=== PATIENT | male | born 1955 | race Caucasian/White ===

== ENCOUNTER 2018-10-09 14:55 | Emergency (ER) | payer MEDICARE, OTHER ==
[2018-10-09 15:26] VITALS: RESP 18; TEMP 97.9
[2018-10-09] MEDS ORDERED: diphenhydrAMINE 50 MG/ML 1 ML VIAL IM STA (15:51)
[2018-10-09] MEDS ORDERED: methylPREDNISolone SOD SUCCI 125 MG/2 ML VIAL IM ONE (15:51)
--- NOTE | 2018-10-09 16:09 | ED ---
General Adult HPI - General Chief complaint: Allergic Reaction Stated complaint: hives Time Seen by Provider: 10/09/18 15:28 Source: patient, RN notes reviewed Mode of arrival: ambulatory Limitations: no limitations - History of Present Illness Initial comments: 63-year-old male with a past medical history of COPD presents to the emergency department for a chief complaint of rash times one month. Patient states the rash is on the bilateral wrists as well as inferior hairline. Patient states he also develops hives. Patient states this is very pruritic. Patient states this has happened before in the past. He states he is certain it is an ALLERGIC reaction. He states he has been seen here before for this and given 2 shots which completely resolved the rash. Patient states he would like to try these 2 shots again. 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 He denies any fevers or chills. Patient denies any other contacts with a similar rash. Patient has no other complaints at this time including shortness of breath, chest pain, abdominal pain, nausea or vomiting, headache, or visual changes. - Related Data Home Medications Medication Instructions Recorded Confirmed Hydrocodone/Acetaminophen 1 tab PO QID PRN 04/07/16 04/07/16 [Hydrocodon-Acetaminophn 10-325] Previous Rx's Medication Instructions Recorded Cephalexin [Keflex] 500 mg PO Q6HR #40 cap 04/07/16 Polymyxin B-Trimeth Sulf Ophth 2 drops RIGHT EYE Q4H 5 Days 04/07/16 [Polytrim Opthalmic] Allergies Allergy/AdvReac Type Severity Reaction Status Date / Time Tetracyclines Allergy Rash/Hives Verified 10/09/18 15:26 Review of Systems ROS Statement: Those systems with pertinent positive or pertinent negative responses have been documented in the HPI. ROS Other: All systems not noted in ROS Statement are negative. Past Medical History Past Medical History: COPD History of Any Multi-Drug Resistant Organisms: None Reported Past Surgical History: Orthopedic Surgery Past Psychological History: No Psychological Hx Reported Smoking Status: Current every day smoker Past Alcohol Use History: Occasional Past Drug Use History: None Reported General Exam Limitations: no limitations General appearance: alert, in no apparent distress Head exam: Present: atraumatic, normocephalic, normal inspection Eye exam: Present: normal appearance, PERRL, EOMI. Absent: scleral icterus, conjunctival injection, periorbital swelling ENT exam: Present: normal exam, mucous membranes moist Neck exam: Present: normal inspection, full ROM, other (Patient does have small erythematous 1 mm circular macular rash noted to the posterior inferior hairline ). Absent: tenderness, meningismus, lymphadenopathy Respiratory exam: Present: normal lung sounds bilaterally. Absent: respiratory distress, wheezes, rales, rhonchi, stridor Cardiovascular Exam: Present: regular rate, normal rhythm, normal heart sounds. Absent: systolic murmur, diastolic murmur, rubs, gallop, clicks Extremities exam: Present: other (Patient has small erythematous macular 1 mm lesions noted to the bilateral dorsal wrists as well as hands. These are blanching.) Psychiatric exam: Present: normal affect, normal mood Skin exam: Present: warm, dry, intact, normal color. Absent: rash Course Vital Signs 10/09/18 15:23 Temperature 97.9 F Pulse Rate 88 Respiratory 18 Rate Blood Pressure 154/88 O2 Sat by Pulse 94 L Oximetry Medical Decision Making - Medical Decision Making 63-year-old male presents to the emergency department for chief complaint of rash. Patient states this has been ongoing for 1 month. Vitals are within acceptable limits, patient afebrile. Pulse ox 94% likely secondary to COPD. patient states the rash is very pruritic. On exam patient is erythematous macular 1 mm lesions noted to bilateral wrists and hands as well as posterior inferior hairline. Patient states these look hive-like from time to time. Discussed the patient that this could be a scabies rash or other etiology but he insisted is ALLERGIC and he had 2 shots previously here which completely resolved the rash. I did look at what the shots were and it was Solu-Medrol and Benadryl. Patient will be given these shots. However I did discuss following up with dermatology as well as primary care for reevaluation. Discussed returning if symptoms do not resolve or worsen. Patient agrees with this plan of care. Disposition Clinical Impression: Rash Disposition: HOME SELF-CARE Condition: Good Instructions: General Allergic Reaction (ED), Acute Rash (ED) Additional Instructions: Please follow up with primary care or dermatology in 1-2 days. Return to the emergency department if you have any worsening symptoms. Is patient prescribed a controlled substance at d/c from ED?: No Referrals: Hong Velez MD [Primary Care Provider] - 1-2 days Jana Guerrero MD [STAFF PHYSICIAN] - 1-2 days Colt Guerrero MD [STAFF PHYSICIAN] - 1-2 days Time of Disposition: 16:08
[2018-10-09 16:28] VITALS: BP 142/79; PULSE 95
== END 2018-10-09 16:26 | disposition home or self-care (01) ==
LOC: EC 14:55
DX: R21 Rash and other nonspecific skin eruption (principal); F17.200 Nicotine dependence, unspecified, uncomplicated; Z98.890 Other specified postprocedural states; Z79.899 Other long term (current) drug therapy; Z88.1 Allergy status to other antibiotic agents
CPT/HCPCS: 99282; 96372 ×2; J1200; J2930

== ENCOUNTER 2019-09-25 13:01 | Emergency (ER) | payer MEDICARE, OTHER ==
[2019-09-25] MEDS ORDERED: ACETAMINOPHEN TAB 500 MG TAB PO STA (13:54)
[2019-09-25] MEDS ORDERED: KETOROLAC 60 MG/2 ML VIAL IM STA (13:54)
--- NOTE | 2019-09-25 13:59 | ED ---
General Adult HPI - General Chief complaint: Upper Respiratory Infection Stated complaint: body aches Time Seen by Provider: 09/25/19 13:05 Source: patient, RN notes reviewed, old records reviewed Mode of arrival: ambulatory Limitations: no limitations - History of Present Illness Initial comments: This is a 64-year-old male who presents emergency Department complaining of body aches chills he thinks he's had a fever and his have a cough especially at night. Patient denies any shortness of breath per patient denies chest pain patient denies any palpitations. Patient states he has not taken his temperature. Patient denies getting a flu shot. Patient denies any nausea vomiting diarrhea. Patient does not know of anyone has had flu that he's been around. Patient denies any leg swelling or calf tenderness. - Related Data Home Medications Medication Instructions Recorded Confirmed Hydrocodone/Acetaminophen 1 tab PO QID PRN 04/07/16 04/07/16 [Hydrocodon-Acetaminophn 10-325] Previous Rx's Medication Instructions Recorded Cephalexin [Keflex] 500 mg PO Q6HR #40 cap 04/07/16 Polymyxin B-Trimeth Sulf Ophth 2 drops RIGHT EYE Q4H 5 Days 04/07/16 [Polytrim Opthalmic] Allergies Allergy/AdvReac Type Severity Reaction Status Date / Time Tetracyclines Allergy Rash/Hives Verified 09/25/19 13:08 Review of Systems ROS Statement: Those systems with pertinent positive or pertinent negative responses have been documented in the HPI. ROS Other: All systems not noted in ROS Statement are negative. Past Medical History Past Medical History: COPD History of Any Multi-Drug Resistant Organisms: None Reported Past Surgical History: Orthopedic Surgery Past Psychological History: No Psychological Hx Reported Smoking Status: Current every day smoker Past Alcohol Use History: Occasional Past Drug Use History: None Reported General Exam - General Exam Comments Initial Comments: GENERAL: Patient is well-developed and well-nourished. Patient is nontoxic and well- hydrated and is in mild distress. ENT: Neck is soft and supple. No significant lymphadenopathy is noted. Oropharynx is clear. Moist mucous membranes. Neck has full range of motion without eliciting any pain. EYES: The sclera were anicteric and conjunctiva were pink and moist. Extraocular movements were intact and pupils were equal round and reactive to light. Eyelids were unremarkable. PULMONARY: Unlabored respirations. Good breath sounds bilaterally. No audible rales rhonchi or wheezing was noted. CARDIOVASCULAR: There is a regular rate and rhythm without any murmurs gallops or rubs. ABDOMEN: Soft and nontender with normal bowel sounds. SKIN: Skin is clear with no lesions or rashes and otherwise unremarkable. NEUROLOGIC: Patient is alert and oriented x3. Cranial nerves II through XII are grossly intact. Motor and sensory are also intact. Normal speech, volume and content. Symmetrical smile. MUSCULOSKELETAL: Normal extremities with adequate strength and full range of motion. LYMPHATICS: No significant lymphadenopathy is noted PSYCHIATRIC: Normal psychiatric evaluation. Limitations: no limitations Course Vital Signs 09/25/19 09/25/19 09/25/19 13:06 13:22 14:11 Temperature 97.2 F L Pulse Rate 98 Respiratory 20 22 18 Rate Blood Pressure 110/76 O2 Sat by Pulse 96 Oximetry Medical Decision Making - Medical Decision Making Patient's symptoms for greater than 3 days so no Tamiflu be given. - Lab Data Lab Results 09/25/19 Range/Units 13:54 Influenza Type A RNA Not Detected (Not Detectd) Influenza Type B (PCR) Detected H (Not Detectd) Disposition Clinical Impression: Influenza Disposition: HOME SELF-CARE Condition: Good Instructions (If sedation given, give patient instructions): Influenza (ED) Is patient prescribed a controlled substance at d/c from ED?: No Referrals: Hong Velez MD [Primary Care Provider] - 1-2 days Time of Disposition: 14:56
[2019-09-25 14:12] VITALS: RESP 18
--- NOTE | 2019-09-25 14:41 | XR ---
EXAMINATION TYPE: XR chest 2V DATE OF EXAM: 09/25/2019 COMPARISON: 06/23/2015 HISTORY: Difficulty breathing TECHNIQUE: FINDINGS: There is no heart failure nor confluent pneumonic infiltrate. Costophrenic angles are clear . Thoracic aorta is atheromatous. Bony thorax is intact IMPRESSION: No active cardiopulmonary disease. Normal heart. No change.
[2019-09-25 15:01] VITALS: BP 117/65; PULSE 91; TEMP 98.3
[2019-09-25 15:01] LABS: Amorphous Sediment,Urine Rare /hpf; Appearance,Urine Cloudy (Clear); Bacteria,Urine Rare /hpf; Bilirubin,Urine Negative (Negative); Blood,Urine Trace (Negative); Color,Urine Dark Yellow; Glucose,Urine (UA) Negative (Negative); Hyaline Casts,Urine 377 /lpf (0-2); Ketones,Urine Negative (Negative); Leukocyte Esterase,Urine Negative (Negative); Mucus,Urine Moderate /hpf; Nitrite,Urine Negative (Negative); PH, Urine 5.5 (5.0-8.0); Protein,Urine 2+ (Negative); RBC,Urine 4 /hpf (0-5); Specific Gravity,Urine 1.024 (1.001-1.035); Squamous Epithelial Cell,Urine 4 /hpf (0-4); WBC,Urine 21 /hpf (0-5)
== END 2019-09-25 15:00 | disposition home or self-care (01) ==
LOC: EC 13:01
DX: J10.1 Influenza due to other identified influenza virus with other respiratory manifestations (principal); F17.200 Nicotine dependence, unspecified, uncomplicated; Z87.09 Personal history of other diseases of the respiratory system; Z88.1 Allergy status to other antibiotic agents
CPT/HCPCS: 81001; 87086; 87502; 71046; 99284; 96372; J1885

== ENCOUNTER → 2020-08-19 | Outpatient (CLI) | payer MEDICARE, OTHER ==
--- NOTE | 2020-08-20 17:08 | CT ---
EXAMINATION TYPE: CT angio lower extremity BILAT DATE OF EXAM: 08/19/2020 4:23 PM COMPARISON: None HISTORY: Peripheral arterial disease. Left foot pain and swelling. History of surgery to aorta and le gs June 2020. CT DLP: 1438.1 mGycm Automated exposure control for dose reduction was used. TECHNIQUE: CT angiography of the bilateral lower extremities performed with IV Contrast, patient injected with 1 00 mL of Isovue 370. Sagittal and coronal reformatted images obtained. Three-dimensional images obtained and utilized on a separate workstation. FINDINGS: VASCULAR: Right lower extremity: Incomplete visualization of the right internal and external iliac arteries, which are opacified. Ther e is scattered calcified and noncalcified atherosclerotic disease. There is a short segment focal dis section versus web of the right proximal to mid superficial femoral artery (14:70, 7:41), with good c ontrast opacification on either side. No hemodynamically significant stenosis of greater than 50% of the right lower extremity. There is three-vessel runoff to the right foot. Left lower extremity: Incomplete visualization of the left internal and external iliac arteries, whic h are opacified. There is an incompletely visualized left external iliac arterial stent graft which d oes appear opacified. There is scattered calcified and noncalcified atherosclerotic disease. There is approximately 60% stenosis of the mid left superficial femoral artery, which spans approximately 1.0 cm craniocaudal (13:23). There is three-vessel runoff to the left foot. NONVASCULAR: Colonic diverticulosis is seen. Urinary bladder normal. Small fat-containing bilateral inguinal herni as. No pelvic free fluid. 2.3 cm fluid dense collection of the right groin anterior to the right comm on femoral artery may represent postoperative hematoma/seroma. There is subcutaneous edema of the piper ateral lower legs, left greater than right. There is marked left ankle and foot soft tissue swelling. Motion artifact through the level of the distal feet. Degenerative changes of the feet, knees, and h ips. Decreased osseous mineralization. IMPRESSION: 1. Incompletely visualized left external iliac stent graft, which appears opacified. 2. 60% stenosis of the left mid superficial femoral artery. 3. Short focal dissection versus web of the right proximal to mid superficial femoral artery. 4. Three-vessel runoff to the bilateral feet. 5. Marked left ankle and foot soft tissue swelling.
== END | disposition home or self-care (01) ==
LOC: RADCTMAIN 14:40
PROVIDERS: ATTEND Family Medicine
DX: I70.202 Unspecified atherosclerosis of native arteries of extremities, left leg (principal); Z95.828 Presence of other vascular implants and grafts
CPT/HCPCS: 82565; 84520; 36415; 73706; Q9967

== ENCOUNTER 2020-08-20 15:08 | Emergency (ER) | payer MEDICARE, OTHER ==
[2020-08-20 15:32] VITALS: BP 166/88; PULSE 96; RESP 18; TEMP 97.9
[2020-08-20] MEDS ORDERED: ONDANSETRON 4 MG/2 ML VIAL IVP STA (16:08)
[2020-08-20] MEDS ORDERED: HYDROmorphone 1 MG/ML 1 ML SYRINGE IVP STA ×2 (16:08→17:21)
--- NOTE | 2020-08-20 17:59 | US ---
EXAMINATION TYPE: US venous doppler duplex LE LT DATE OF EXAM: 08/20/2020 5:44 PM COMPARISON: NONE CLINICAL HISTORY: Left leg swelling, recent vascular surgery. Left foot swelling, patient on blood th inners. SIDE PERFORMED: Left TECHNIQUE: The lower extremity deep venous system is examined utilizing real time linear array sonog kurtis with graded compression, doppler sonography and color-flow sonography. VESSELS IMAGED: Common Femoral Vein Deep Femoral Vein Greater Saphenous Vein * Femoral Vein Popliteal Vein Small Saphenous Vein * Proximal Calf Veins (* superficial vessels) Left Leg: Appears negative for DVT IMPRESSION: No evidence of deep vein thrombosis in the left leg.
--- NOTE | 2020-08-20 18:44 | ED ---
Extremity Problem HPI - General Chief complaint: Extremity Problem,Nontraumatic Stated complaint: foot swelling/infection Time Seen by Provider: 08/20/20 15:45 Source: patient Mode of arrival: ambulatory Limitations: no limitations - History of Present Illness Initial comments: 65-year-old male patient presents to the emergency department today for evalu ation of left foot swelling and pain. Patient states that he had arterial stents placed to the left leg recently. States he has been having the swelling to the area since then he has also had discoloration to the left great toe, he states his physician and informed him that if this does not improve that he will need to have amputation. Patient states that he does not like his vascular surgeon out of [facility] and does not plan on going back to see him. The patient states that he has been taking [place] and oxycodone for his pain with minimal relief. He denies any fever or chills. States he did have an outpatient CAT scan of his legs yesterday he has not heard the results on this yet. Patient denies any recent rash, cough, shortness of breath, chest pain, abdominal pain, nausea, vomiting, diarrhea, constipation, back pain, numbness, tingling, dizziness, weakness, hematuria, dysuria, urinary urgency, urinary frequency, headache, visual changes, or any other complaints. - Related Data Home Medications Medication Instructions Recorded Confirmed Hydrocodone/Acetaminophen 1 tab PO Q6H PRN 04/07/16 08/20/20 [Hydrocodon-Acetaminophn 10-325] Albuterol Sulfate [Ventolin HFA] 1 - 2 puff INHALATION RT-Q6H PRN 08/20/20 08/20/20 Apixaban [Eliquis Starter Pack See Taper PO DAILY 08/20/20 08/20/20 (for VTE)] Budesonide [Pulmicort] 0.5 mg INHALATION RT-BID 08/20/20 08/20/20 Ipratropium-Albuterol Nebulize 3 ml INHALATION RT-QID PRN 08/20/20 08/20/20 [Duoneb 0.5 mg-3 mg/3 ml Soln] Montelukast [Singulair] 10 mg PO DAILY 08/20/20 08/20/20 amLODIPine [Norvasc] 10 mg PO DAILY 08/20/20 08/20/20 Previous Rx's Medication Instructions Recorded HYDROcodone/APAP 7.5-325MG [[place] 1 tab PO Q6HR PRN 3 Days #12 tab 08/20/20 7.5-325] Allergies Allergy/AdvReac Type Severity Reaction Status Date / Time Tetracyclines Allergy Rash/Hives Verified 08/20/20 17:11 Review of Systems ROS Statement: Those systems with pertinent positive or pertinent negative responses have been documented in the HPI. ROS Other: All systems not noted in ROS Statement are negative. Past Medical History Past Medical History: COPD History of Any Multi-Drug Resistant Organisms: None Reported Past Surgical History: Orthopedic Surgery Additional Past Surgical History / Comment(s): sents placed- unsure where Past Psychological History: No Psychological Hx Reported Smoking Status: Current every day smoker Past Alcohol Use History: Occasional Past Drug Use History: None Reported General Exam Limitations: no limitations General appearance: alert, in no apparent distress, other ENT exam: Present: normal exam, normal oropharynx, mucous membranes moist Respiratory exam: Present: normal lung sounds bilaterally. Absent: respiratory distress, wheezes, rales, rhonchi, stridor Cardiovascular Exam: Present: regular rate, normal rhythm, normal heart sounds. Absent: systolic murmur, diastolic murmur, rubs, gallop, clicks GI/Abdominal exam: Present: soft, normal bowel sounds. Absent: distended, tenderness, guarding, rebound, rigid Extremities exam: Present: full ROM, normal capillary refill, pedal edema (There is 3+ pitting pedal edema to the left foot. There is black discoloration noted to the left great toe, suspect to touch. Pedal pulses found by Doppler. Into the leg is pink, warm, dry.). Absent: normal inspection, tenderness, joint swelling, calf tenderness Neurological exam: Present: alert, oriented X3, CN II-XII intact Psychiatric exam: Present: normal affect, normal mood Skin exam: Present: warm, dry, intact, normal color. Absent: rash Course Vital Signs 08/20/20 15:29 Temperature 97.9 F Pulse Rate 96 Respiratory 18 Rate Blood Pressure 166/88 O2 Sat by Pulse 98 Oximetry Medical Decision Making - Medical Decision Making 65-year-old male patient presented to the emergency department today for evaluation of left foot swelling and pain. Physical examination did reveal 3+ pitting edema to the left foot. This was found with Doppler. He also had black discoloration noted to the left great toe is cool to touch. Patient states that these symptoms have been present since having a vascular procedure with his physician and referred, he cannot recall their name. He states that they did discuss amputating the toe but he does not want to follow-up with that doctor any longer. I did review CT angiography of the lower extremities that was performed outpatient yesterday, this does show three-vessel runoff to the bilateral lower extremities. Ultrasound of the left leg was obtained to rule out DVT this was negative as well. Patient's pain was controlled with IV pain medication here in the department. I did discuss follow-up with vascular surgery again he refuses to follow-up with his surgeon that recently did his procedure so he was given outpatient follow-up with our on-call vascular specialist Dr. Woodard. Patient does agree with this plan. Return parameters were discussed in detail. - Radiology Data Radiology results: report reviewed Ultrasound of the left lower extremity was obtained. Report was reviewed in its entirety. Impression by Dr. Amaro shows no evidence of deep vein thrombosis in the left leg. CT angiography of the bilateral lower extremities is obtained, ordered by his primary care physician Dr. Velez. Did review the report in its entirety. Impression by Dr. Templeton shows incompletely visualized left external iliac stent graft, which appears opacified. 60% stenosis of the left mid superficial femoral artery. A short focal dissection versus web of the right proximal to mid superficial femoral artery. Three-vessel runoff of the bilateral feet. Markedly left ankle and foot soft tissue swelling. Disposition Clinical Impression: Swelling of left foot, Peripheral vascular disease Disposition: HOME SELF-CARE Condition: Good Instructions (If sedation given, give patient instructions): Leg Edema (ED), Leg Pain (ED) Additional Instructions: Take medication as directed. Call vascular surgery to see if they are willing to take ovary her case if not you must follow-up with your vascular surgeon at [facility]. Follow-up with your primary care physician for recheck in 1-2 days. Return to the emergency department immediately for any new, worsening, or concerning symptoms. Prescriptions: HYDROcodone/APAP 7.5-325MG [[place] 7.5-325] 1 tab PO Q6HR PRN 3 Days #12 tab PRN Reason: Pain Is patient prescribed a controlled substance at d/c from ED?: Yes When asked, does pt state using other controlled substances?: No If prescribed controlled substance>3 days was MAPS reviewed?: Prescribed <3 Days If opioid is for acute pain is fill amount 7 days or less?: Yes If Rx opioid, was Start Talking consent form obtained?: Yes Referrals: Hong Velez MD [Primary Care Provider] - 1-2 days Evens Woodard DO [Doctor of Osteopathic Medicine] - 1-2 days Time of Disposition: 18:44
== END 2020-08-20 19:11 | disposition home or self-care (01) ==
LOC: EC 15:08
DX: I73.9 Peripheral vascular disease, unspecified (principal); R22.42 Localized swelling, mass and lump, left lower limb; J44.9 Chronic obstructive pulmonary disease, unspecified; Z79.51 Long term (current) use of inhaled steroids; F17.200 Nicotine dependence, unspecified, uncomplicated; Z88.1 Allergy status to other antibiotic agents
CPT/HCPCS: 93971; 99284; 96374; 96375; 96376; J2405; J1170

== ENCOUNTER 2020-09-11 06:26 | Day surgery (SDC) | payer MEDICARE, OTHER ==
[2020-09-09 08:35] VITALS: BMI 25.4
[~2020-09-11 06:26] MED LIST: SODIUM CHLORIDE 0.9% 1,000 ML in EMPTY BAG 1 BAG IV ONE
[2020-09-11] MEDS ORDERED: SODIUM CHLORIDE 0.9% 1,000 ML IV ONE (06:43)
[2020-09-11 06:58] VITALS: RESP 16; TEMP 98.3
[2020-09-11 07:11] LABS: Basophils # (A) 0.1 k/uL (0-0.2); Basophils % (A) 1 %; Eosinophils # (A) 0.7 k/uL (0-0.7); Eosinophils % (A) 5 %; HCT 40.6 % (39.0-53.0); Lymphocytes % (A) 16 %; MCH 28.2 pg (25.0-35.0); MCHC 32.1 g/dL (31.0-37.0); MCV 88.1 fL (80.0-100.0); Mean Platelet Volume 7.7; Monocytes % (A) 8 %; Neutrophils % (A) 68 %; Platelet Count 421 k/uL (150-450); RBC 4.61 m/uL (4.30-5.90); RDW 15.4 % (11.5-15.5); WBC 13.2 k/uL (3.8-10.6)
[2020-09-11 07:12] LABS: Calcium 9.4 mg/dL (8.4-10.2); Potassium 4.5 mmol/L (3.5-5.1)
[2020-09-11] MEDS: MIDAZOLAM 2 MG/2 ML VIAL IVP ONE ×2 (07:55→08:03)
[2020-09-11] MEDS ORDERED: fentaNYL (PF) 50 MCG/ML 2 ML AMP IVP ONE (07:55)
[2020-09-11] MEDS ORDERED: LIDOCAINE 1% INJ 10MG/ML (20 ML MDV) SQ ONE (08:01)
[2020-09-11] MEDS: HYDROmorphone 1 MG/ML 1 ML SYRINGE IVP ONE ×2 (08:01→08:29)
[2020-09-11] MEDS ORDERED: IOPAMIDOL-250 100ML BTL INTRAARTER ONE (08:21)
[2020-09-11] MEDS ORDERED: HYDROmorphone 1 MG/ML 1 ML SYRINGE IVP STA (08:29)
[2020-09-11] MEDS ORDERED: HYDROmorphone 1 MG/ML 1 ML SYRINGE ONE (08:30)
[2020-09-11] MEDS ORDERED: SODIUM CHLORIDE 0.9% 1,000 ML IV SCH ×2 (08:30)
[2020-09-11] MEDS ORDERED: hydrALAZINE HCL 20 MG/ML 1 ML VIAL IVP STA (08:37)
[2020-09-11] MEDS ORDERED: hydrALAZINE HCL 20 MG/ML 1 ML VIAL ONE (08:38)
--- NOTE | 2020-09-11 08:42 | IR ---
EXAMINATION TYPE: IR angio extremity LT DATE OF EXAM: 09/11/2020 CLINICAL HISTORY: Left-sided peripheral vascular disease. TECHNIQUE: Fluoroscopy. COMPARISON: None. FINDINGS: Fluoroscopic guidance was provided during left lower extremity angiogram procedure perform ed by Dr. Rizo. A total of 66 seconds of fluoroscopic time was utilized during the procedure and 81 spot images was acquired. Images show access left groin region with runoff, significant stenosis mid left superficial artery noted. Please refer to procedure note for further details. IMPRESSION: As Above.
--- NOTE | 2020-09-11 09:45 | AN ---
ANGIOGRAPHY REPORT DATE OF SERVICE: 09/11/2020 PERFORMING PHYSICIAN: Judah Rizo MD. PROCEDURE PERFORMED: Left lower extremity angiogram. INDICATION: Critical limb ischemia in this 65-year-old gentleman with peripheral arterial disease and recent history of aortic stent graft and iliac stenting. COMPLICATION: None. LEVEL OF SEDATION: Moderate with sedation length of 13 minutes. APPROACH: Left common femoral artery. PROCEDURE DESCRIPTION: After obtaining an informed consent, the patient was brought to cardiac laborer poultry hatchery. The left common femoral artery was cannulated using micropuncture technique under ultrasound guidance, the micropuncture wire passed easily, then I placed a 4-[place] micropuncture sheath. I did leave lower extremity angiogram Under digital subtraction. The procedure was completed without any complication. SELECTIVE PERIPHERAL ANGIOGRAM: 1. The left common femoral artery appeared to have mild disease only. 2. Left profunda appeared to be patent. 3. Left SFA has a lesion in the midportion appeared to be in the range of 99.9%. 4. Left popliteal appeared to be angiographically normal. 5. Below the knee: There are 3 vessel runoff below the knee with anterior tibial, posterior tibial and peroneal. CONCLUSION: Critical disease involving the mid left SFA. POSTPROCEDURE MANAGEMENT: Atherectomy and CT MANAGER of the left SFA to be performed from the pedal approach. MMODL / IJN: [id number] /
[2020-09-11] MEDS ORDERED: HYDROcodone/APAP 10-325MG 1 EACH TAB PO ONE (11:05)
[2020-09-11 12:18] VITALS: BP 136/82; PULSE 87
== END 2020-09-11 12:59 | disposition home or self-care (01) ==
LOC: CATHCVL 06:26
PROVIDERS: ATTEND Internal Medicine Interventional Cardiology
DX: I70.222 Atherosclerosis of native arteries of extremities with rest pain, left leg (principal); L53.8 Other specified erythematous conditions; E78.5 Hyperlipidemia, unspecified; F17.210 Nicotine dependence, cigarettes, uncomplicated; I71.4 Abdominal aortic aneurysm, without rupture; Z95.820 Peripheral vascular angioplasty status with implants and grafts; Z79.02 Long term (current) use of antithrombotics/antiplatelets; Z79.899 Other long term (current) drug therapy; Z79.01 Long term (current) use of anticoagulants
CPT/HCPCS: 75710; 76937; 80048; 85025; C1769 ×4; J2250; J0360; J2001; J3010; J1170; Q9966; 36200

== ENCOUNTER 2020-09-14 15:55 | Emergency (ER) | payer MEDICARE, OTHER ==
[2020-09-14 16:00] VITALS: BP 161/73; PULSE 107; RESP 18; TEMP 98
[2020-09-14] MEDS ORDERED: LIDOCAINE 1%-EPI 1:100,000 20 ML VIAL SQ STA (16:20)
--- NOTE | 2020-09-14 16:24 | ED ---
General Adult HPI - General Chief complaint: Dental/Oral Stated complaint: tongue bleeding Time Seen by Provider: 09/14/20 16:08 Source: patient Mode of arrival: ambulatory Limitations: no limitations - History of Present Illness Initial comments: 65-year-old male patient presents to the emergency department today for evaluation of uncontrolled bleeding to his tongue. Patient states that approximately 4 hours ago he must have bit it because the tip started bleeding and he has been unable to get it to stop. States he has applied ice cubes and pressure without relief. He does take Eliquis. Denies any dizziness or weakness. Denies syncope. - Related Data Home Medications Medication Instructions Recorded Confirmed Hydrocodone/Acetaminophen 1 tab PO Q6H PRN 04/07/16 09/11/20 [Hydrocodone-Acetamin 10-325 mg] Albuterol Sulfate [Ventolin HFA] 1 - 2 puff INHALATION RT-Q6H PRN 08/20/20 09/11/20 Ipratropium-Albuterol Nebulize 3 ml INHALATION RT-QID PRN 08/20/20 09/11/20 [Duoneb 0.5 mg-3 mg/3 ml Soln] Montelukast [Singulair] 10 mg PO DAILY 08/20/20 09/11/20 amLODIPine [Norvasc] 10 mg PO DAILY 08/20/20 09/11/20 Apixaban [Eliquis] 5 mg PO BID 09/09/20 09/09/20 Aspirin [Adult Low Dose Aspirin EC] 81 mg PO DAILY 09/09/20 09/11/20 Clopidogrel Bisulfate [Plavix] 75 mg PO DAILY 09/09/20 09/11/20 Allergies Allergy/AdvReac Type Severity Reaction Status Date / Time Tetracyclines Allergy Unknown Verified 09/14/20 15:58 Childhood Review of Systems ROS Statement: Those systems with pertinent positive or pertinent negative responses have been documented in the HPI. ROS Other: All systems not noted in ROS Statement are negative. Past Medical History Past Medical History: COPD, Hypertension, Vascular Disorder Additional Past Medical History / Comment(s): edema left lower leg and foot, uses oxygen PRN History of Any Multi-Drug Resistant Organisms: None Reported Past Surgical History: Hernia Repair, Orthopedic Surgery Additional Past Surgical History / Comment(s): stents placed- unsure where, rt shoulder rotator cuff, 07/23/20 surgery in [place] for leg blockages Past Anesthesia/Blood Transfusion Reactions: No Reported Reaction Past Psychological History: No Psychological Hx Reported Smoking Status: Current every day smoker Past Alcohol Use History: None Reported Past Drug Use History: None Reported - Past Family History Mother Family Medical History: Cancer Father Family Medical History: Cancer General Exam Limitations: no limitations General appearance: alert, in no apparent distress, other (Physical well- developed, well-nourished adult male patient in no acute distress. Vital signs upon presentation are temperature 98.0F, pulse 107, respirations 18, blood pressure 161/73, pulse ox 94% on room air.) ENT exam: Present: other (There is pinpoint area of bleeding to the tip of the tongue. No other injury or bleeding noted. No laceration.) Respiratory exam: Present: normal lung sounds bilaterally. Absent: respiratory distress, wheezes, rales, rhonchi, stridor Cardiovascular Exam: Present: normal rhythm, tachycardia, normal heart sounds. Absent: systolic murmur, diastolic murmur, rubs, gallop, clicks Neurological exam: Present: alert, oriented X3, CN II-XII intact Psychiatric exam: Present: normal affect, normal mood Skin exam: Present: warm, dry, intact, normal color. Absent: rash Course Vital Signs 09/14/20 15:58 Temperature 98 F Pulse Rate 107 H Respiratory 18 Rate Blood Pressure 161/73 O2 Sat by Pulse 94 L Oximetry Medical Decision Making - Medical Decision Making 65-year-old male patient presented to the emergency department today for evaluation of bleeding tongue. Patient states he must have bit his tongue has been unable to get it stopped waiting for the last 4 hours. Physical examination did reveal a pinpoint area of bleeding to the tip of the tongue. I did inject the area with a small amount of lidocaine with epi less than half a milliliter. Did hold pressure after this. Patient did tolerate this with some pain from the injection. Upon reevaluation there is no further bleeding noted to the tongue. He'll be discharged to follow up with his primary care physician for recheck in 1-2 days. Return parameters were discussed in detail. He verbalizes understanding and agrees with this plan. Disposition Clinical Impression: Bleeding from wound Disposition: HOME SELF-CARE Condition: Good Instructions (If sedation given, give patient instructions): Safe Use of Anticoagulants (ED) Additional Instructions: If bleeding starts again hold pressure for at least 20 minutes without taking pressure off. If the bleeding continues return to the emergency department. Follow up through primary care physician for recheck in 1-2 days. Return to the emergency department for any new, worsening, or concerning symptoms. Is patient prescribed a controlled substance at d/c from ED?: No Referrals: Hong Velez MD [Primary Care Provider] - 1-2 days Time of Disposition: 17:04
== END 2020-09-14 17:16 | disposition home or self-care (01) ==
LOC: EC 15:55
DX: T14.8XXA Other injury of unspecified body region, initial encounter (principal); J44.9 Chronic obstructive pulmonary disease, unspecified; I10 Essential (primary) hypertension; F17.200 Nicotine dependence, unspecified, uncomplicated; Z79.01 Long term (current) use of anticoagulants; Z79.82 Long term (current) use of aspirin; Z79.02 Long term (current) use of antithrombotics/antiplatelets; Z79.51 Long term (current) use of inhaled steroids; Z79.899 Other long term (current) drug therapy; Z88.1 Allergy status to other antibiotic agents; X58.XXXA Exposure to other specified factors, initial encounter
CPT/HCPCS: 96372; 99283

== ENCOUNTER 2020-09-17 11:23 | Day surgery (SDC) | payer MEDICARE, OTHER ==
[2020-09-15 18:28] VITALS: BMI 25.4
[~2020-09-17 11:23] MED LIST changes: +ALPRAZolam 0.25 MG TAB PO PRN; +ASPIRIN 325 MG TAB PO PRN; +DEXAMETHASONE SOD PHOSPHATE 4 MG/ML 1 ML VIAL IV ONE; +HYDROmorphone 0.5 MG/0.5 ML SYRINGE IVP PRN; +LIDOCAINE 1% (10MG/ML) FOR IV START INTRADERMA PRN; +MIDAZOLAM 2 MG/2 ML VIAL IV PRN; +ZOLPIDEM 5 MG TAB PO PRN
[2020-09-17] MEDS ORDERED: SODIUM CHLORIDE 0.9% 1,000 ML IV ONE (11:28)
[2020-09-17] MEDS ORDERED: ASPIRIN 81 MG ONE (11:39)
[2020-09-17] MEDS ORDERED: HYDROmorphone 1 MG/ML 1 ML SYRINGE IVP STA (11:51)
[2020-09-17 11:58] LABS: Basophils # (A) 0.1 k/uL (0-0.2); Basophils % (A) 1 %; Eosinophils # (A) 0.7 k/uL (0-0.7); Eosinophils % (A) 5 %; HCT 39.1 % (39.0-53.0); HGB 12.6 gm/dL (13.0-17.5); Lymphocytes # (A) 2.4 k/uL (1.0-4.8); Lymphocytes % (A) 18 %; MCH 27.7 pg (25.0-35.0); MCHC 32.2 g/dL (31.0-37.0); MCV 86.2 fL (80.0-100.0); Mean Platelet Volume 7.8; Monocytes % (A) 8 %; Neutrophils # (A) 8.5 k/uL (1.3-7.7); Neutrophils % (A) 66 %; Platelet Count 457 k/uL (150-450); RBC 4.54 m/uL (4.30-5.90); RDW 15.2 % (11.5-15.5); WBC 12.9 k/uL (3.8-10.6)
[2020-09-17 12:08] LABS: Potassium 4.3 mmol/L (3.5-5.1)
[2020-09-17] MEDS ORDERED: SODIUM CHLORIDE 0.9% 500 ML 500 ML with niCARdipine 6.25 MG, NITROGLYCERIN-D5W PMX 0.05... IV ONE ×4 (12:16)
[2020-09-17] MEDS ORDERED: PROPOFOL 10 MG/ML 20 ML VIAL IV ONE (12:41)
[2020-09-17] MEDS ORDERED: fentaNYL (PF) 50 MCG/ML 2 ML AMP ONE (12:41)
[2020-09-17] MEDS ORDERED: ONDANSETRON 4 MG/2 ML VIAL ONE (12:41)
[2020-09-17] MEDS ORDERED: DEXAMETHASONE SOD PHOSPHATE 4 MG/ML 1 ML VIAL ONE (12:41)
[2020-09-17] MEDS ORDERED: MIDAZOLAM 2 MG/2 ML VIAL ONE (12:41)
[2020-09-17] MEDS ORDERED: LIDOCAINE 1% INJ 10MG/ML (20 ML MDV) SQ ONE (13:04)
[2020-09-17] MEDS ORDERED: NITROGLYCERIN 1000MCG/10ML SYRINGE INTRAARTER ONE (14:05)
[2020-09-17] MEDS ORDERED: niCARdipine Syringe (1,000 mcg/10 mL) INTRAARTER ONE (14:06)
[2020-09-17] MEDS ORDERED: IOPAMIDOL-370 100ML BTL INJ ONE (14:17)
[2020-09-17] MEDS ORDERED: IPRATROPIUM-ALBUTEROL 3 ML NEB INHALATION PRN (14:20)
[2020-09-17] MEDS: CLOPIDOGREL 75 MG TAB PO ONE ×2 (14:27→14:54)
[2020-09-17] MEDS ORDERED: SODIUM CHLORIDE 0.9% 1,000 ML in EMPTY BAG 1 BAG IV SCH (14:30)
[2020-09-17] MEDS: LACTATED RINGERS 1,000 ML IV SCH ×2 (14:38→16:37)
--- NOTE | 2020-09-17 15:42 | LTR ---
September 17, 2020 To: Dr. Hong Velez Re: Jeison Rudd (51) Dear Dr. Velez: Mr. Jeison Rudd underwent today successful percutaneous intervention of the left SFA with good angiographic results and without any complication. Thank you for allowing me to participate in his care, and please do not hesitate to call if you have any question or concern. Sincerely, Judah Rizo M.D. REESE / ESTEPHANIE: [id number] /
[2020-09-17] MEDS ORDERED: HYDROmorphone 0.5 MG/0.5 ML SYRINGE IVP PRN (16:30)
[2020-09-17] MEDS ORDERED: HYDROmorphone 1 MG/ML 1 ML SYRINGE IVP PRN (16:31)
--- NOTE | 2020-09-17 17:05 | PCN ---
PROCEDURE NOTE DATE OF SERVICE: 09/17/2020 PERFORMING PHYSICIAN: Judah Rizo M.D. PROCEDURES PERFORMED: 1. Atherectomy of the left SFA using the orbital atherectomy device from [facility]. 2. Successful balloon angioplasty of the left SFA using a drug-coated balloon. 3. Successful deployment of 4 Intact. 4. Intravascular ultrasound (IVUS) of the left SFA. 5. Selective left SFA angiogram. 6. Selective left posterior tibial angiogram. INDICATION: This is a 65-year-old gentleman who was diagnosed recently with critical limb ischemia and underwent an angiogram which revealed occluded left SFA. He was brought today to undergo WINDOWS SYSTEMS ARCHITECT of the left SFA. APPROACH: Left posterior tibial artery. COMPLICATIONS: None. LEVEL OF SEDATION: Moderate, with sedation length of 66 minutes. PROCEDURE DESCRIPTION: After obtaining informed consent, the patient was brought to the cardiac metallurgical lab technician. The left posterior tibial artery was cannulated using micropuncture technique under ultrasound guidance. The micropuncture wire passed easily. Then I placed a 6/5-Latvian slender sheath in the left posterior tibial artery. At that point continuous infusion of cocktail including nitroglycerin as well as heparin and verapamil was initiated. Anticoagulation also was given using 5000 units of heparin with continuous ACT monitoring throughout the procedure. I did cross the lesion in the left SFA using an 0.014 wire. After that I did exchange my 0.014 wire for an 0.014 ViperWire using an 0.014 catheter. After that I did atherectomy of the left SFA using the orbital atherectomy device, and that was performed after an angiogram of the left SFA. After that I did intravascular ultrasound which revealed a minimal luminal diameter of 6 mm. Balloon angioplasty was performed using a 5 mm Chocolate balloon and then a 6 mm drug-coated balloon. The following angiogram showed good angiographic results except for a small segment of the left SFA which seemed to have a dissection which I decided to cover with the Intact device. I deployed 4 Intact in the left SFA. The following angiogram showed excellent angiographic results and the procedure was completed without any complication. POST-PROCEDURE MANAGEMENT: 1. Dual anti-platelet therapy. 2. Risk factor modifications. 3. Follow up with the patient. MMODL / IJN: [id number] /
[2020-09-17] MEDS ORDERED: ATORVASTATIN 20 MG TAB PO SCH (21:00)
[2020-09-18 08:01] VITALS: BP 145/76; PULSE 89; RESP 16; TEMP 97.8
--- NOTE | 2020-09-18 08:30 | DS ---
DISCHARGE SUMMARY ADMISSION DATE: September 17, 2020. DISCHARGE DATE: September 18, 2020 BRIEF HISTORY: This is a 65-year-old gentleman who underwent yesterday successful recanalizing the left SFA for evidence of critical limb ischemia. He was seen this morning. The procedure was performed from the left posterior tibial artery. The left foot is warm. The site is looking good. The patient is going to be discharged home on anticoagulation and also I am going to add statins. He will be seen in the office in a week. From yesterday, the WBC was slightly elevated. I will repeat that this morning. MMODL / IJN: [id number] /
[2020-09-18] MEDS ORDERED: CLOPIDOGREL 75 MG TAB PO SCH (09:00)
[2020-09-18] MEDS ORDERED: amLODIPine 10 MG TAB PO SCH (09:00)
[2020-09-18] MEDS ORDERED: MONTELUKAST 10 MG TAB PO SCH (09:00)
[2020-09-18] MEDS ORDERED: ASPIRIN 81 MG PO SCH (09:00)
[2020-09-18 09:16] LABS: Basophils % (A) 0 %; Eosinophils % (A) 0 %; HGB 11.8 gm/dL (13.0-17.5); Hypochromasia Moderate; Lymphocytes # (A) 1.5 k/uL (1.0-4.8); Lymphocytes % (A) 9 %; MCH 27.2 pg (25.0-35.0); MCHC 30.9 g/dL (31.0-37.0); MCV 88.1 fL (80.0-100.0); Mean Platelet Volume 8.3; Monocytes # (A) 1.1 k/uL (0-1.0); Monocytes % (A) 6 %; Neutrophils # (A) 14.6 k/uL (1.3-7.7); Neutrophils % (A) 84 %; Platelet Count 431 k/uL (150-450); RBC 4.32 m/uL (4.30-5.90); RDW 15.3 % (11.5-15.5); WBC 17.4 k/uL (3.8-10.6)
[2020-09-18 09:34] LABS: African American GFR (CKD) >90 (>60 ml/min/1.73 sqM); Anion Gap 5 mmol/L; Blood Urea Nitrogen 19 mg/dL (9-20); Calcium 9.2 mg/dL (8.4-10.2); Carbon Dioxide 30 mmol/L (22-30); Chloride 107 mmol/L (98-107); Glucose 115 mg/dL (74-99); Non-African American GFR(CKD) 89 (>60 ml/min/1.73 sqM); Sodium 142 mmol/L (137-145)
--- NOTE | 2020-09-18 15:38 | DS ---
DISCHARGE SUMMARY ADDENDUM TO DISCHARGE SUMMARY: The patient's repeated WBC came back at 17.4. He obviously does have possible infection in the left toe. I offered the patient to be seen by Infectious Disease, but the patient would like to go home and see his primary care physician, Dr. Velez, as an outpatient. He does have an appointment in 2 days. REESE / ESTEPHANIE: [id number] /
--- NOTE | 2020-09-22 08:23 | IR ---
EXAMINATION TYPE: IR angio extremity LT DATE OF EXAM: 09/17/2020 CLINICAL HISTORY: Peripheral vascular disease. TECHNIQUE: Fluoroscopy. COMPARISON: None. FINDINGS: Fluoroscopic guidance was provided during left lower extremity angiogram procedure perform ed by Dr. Rizo. A total of 15 minutes of fluoroscopic time was utilized during the procedure and 343 spot images was acquired. Images show left groin access with subsequent runoff, significant stenosis in the mid SFA is noted. Please refer to procedure note for further details. IMPRESSION: As Above.
== END 2020-09-18 10:35 | disposition home or self-care (01) ==
LOC: CATHCVL 11:23 → 1SOBS 13:09 → CATHCVL 09-18 10:35
PROVIDERS: ATTEND Internal Medicine Interventional Cardiology
DX: I70.222 Atherosclerosis of native arteries of extremities with rest pain, left leg (principal); I10 Essential (primary) hypertension; J44.9 Chronic obstructive pulmonary disease, unspecified; F17.200 Nicotine dependence, unspecified, uncomplicated; Z79.02 Long term (current) use of antithrombotics/antiplatelets; Z79.82 Long term (current) use of aspirin; Z79.899 Other long term (current) drug therapy
CPT/HCPCS: 37227; 37252; 80048 ×2; 85025 ×2; C1894; C1769 ×5; C1714; C1725 ×2; C1753; C2623; C1876; J2250; J1644; J1100; J2405; J2001; J3010; J1170; J2704; Q9967

== ENCOUNTER → 2021-04-15 | Outpatient (CLI) | payer MEDICARE, OTHER ==
--- NOTE | 2021-04-16 09:00 | CT ---
EXAMINATION TYPE: CT angio abd aorta w/Runoff DATE OF EXAM: 04/16/2021 COMPARISON: 08/19/2020 HISTORY: abdominal aneurysm, bilateral leg pain CT DLP: 1659.5 mGycm CONTRAST: CTA thoracic and abdominal aorta with 3-D reconstruction is performed and without and with IV Contras t, patient injected with 125 mL of Isovue 370. Contrast CTA of the abdominal aorta with runoff of the lower extremity arterial system was performed from the lung bases through the ankles and feet. 3-D reconstruction imaging obtained at a separate wo rkstation. ABDOMINAL AORTA: Aortoiliac stent graft is noted to be place. There is no evidence for endoleak. Vidhya l arteries, SMA, celiac artery and NAHUN are patent. Renal artery calcifications noted. Council aneurysm measures approximately 5.4 cm AP dimension. Iliac vessels: Common iliac arteries are patent bilaterally. There is diffuse plaque formation noted bilaterally of the bilateral common iliac arteries with 50% stenosis noted on the right and less than 50% on the left. Left common iliac artery and left external iliac artery stent is noted to be in joseph ce. Diffuse calcified plaque is noted of the external iliac arteries bilaterally with 50% diameter re duction noted proximal component on the right. No hemodynamically significant stenosis noted left ext ernal iliac artery. Internal iliac arteries are patent bilaterally. Diffuse atheromatous changes note d as well. Femoral arteries: Scattered calcified and noncalcified atheromatous disease is noted bilaterally. The re is 50% stenosis common femoral artery on the right with less than 25% stenosis left common femoral artery. Short segment focal dissection versus web right proximal to mid superficial femoral artery. Mid right superficial femoral artery demonstrates stenosis greater than 70% 3 of 20. Left superficial femoral artery demonstrates multifocal disease with narrowing of approximately 60% mid left superfic ial femoral artery. Popliteal arteries: Popliteal arteries are patent bilaterally with only mild plaque formation noted. Below the knee arteries: Trifurcation is patent bilaterally. Peroneal, anterior and posterior tibial arteries demonstrate mild calcific disease without evidence for hemodynamically significant stenosis. Limited runoff of the ankles and feet given timing of the contrast bolus. LIVER/GB- No significant abnormality is seen. PANCREAS- No significant abnormality is seen. SPLEEN- No significant abnormality is seen. ADRENALS- No significant abnormality is seen. KIDNEYS/BLADDER- No significant abnormality is seen. BOWEL- No Significant abnormality GENITAL ORGANS: No gross abnormality seen. LYMPH NODES- No greater than 1cm abdominal or pelvic lymph nodes are appreciated. OSSEOUS STRUCTURES- No significant abnormality is seen. OTHER- No significant abnormality is seen. IMPRESSION- 1. Aortoiliac stent graft without evidence for endoleak. Council infrarenal abdominal aortic aneurysm as noted. 2. Mid right superficial femoral artery demonstrates stenosis greater than 70% 3 of 20. Left superfic ial femoral artery demonstrates multifocal disease with narrowing of approximately 60% mid left super ficial femoral artery. 3. Mild calcified and noncalcified plaque disease as noted above.
== END | disposition home or self-care (01) ==
LOC: RADCTMAIN 05:58
PROVIDERS: ATTEND Internal Medicine Interventional Cardiology
DX: I71.4 Abdominal aortic aneurysm, without rupture (principal); I70.203 Unspecified atherosclerosis of native arteries of extremities, bilateral legs
CPT/HCPCS: 82565; 84520; 75635; 36415; Q9967

== ENCOUNTER → 2021-09-12 | Outpatient (CLI) | payer MEDICARE, OTHER ==
[2021-09-12 10:03] LABS: HCT 46.6 % (39.0-53.0); HGB 14.7 gm/dL (13.0-17.5); MCHC 31.5 g/dL (31.0-37.0); Mean Platelet Volume 8.6; Platelet Count 367 k/uL (150-450); RBC 5.24 m/uL (4.30-5.90); RDW 14.4 % (11.5-15.5); WBC 13.4 k/uL (3.8-10.6)
[2021-09-12 10:10] LABS: Potassium 4.3 mmol/L (3.5-5.1)
== END | disposition home or self-care (01) ==
LOC: LABPAT 09:45
PROVIDERS: ATTEND Internal Medicine Interventional Cardiology
DX: Z01.812 Encounter for preprocedural laboratory examination (principal); I70.213 Atherosclerosis of native arteries of extremities with intermittent claudication, bilateral legs
CPT/HCPCS: 36415; 80051; 82565; 84520; 85027

== ENCOUNTER 2021-09-16 05:57 | Day surgery (SDC) | payer MEDICARE, OTHER ==
[2021-09-14 14:56] VITALS: BMI 25.1
[2021-09-16] MEDS ORDERED: ALPRAZolam 0.5 MG TAB PO PRN (06:14)
[2021-09-16] MEDS ORDERED: ZOLPIDEM 5 MG TAB PO PRN (06:14)
[2021-09-16] MEDS ORDERED: ALPRAZolam 0.25 MG TAB PO PRN (06:14)
[2021-09-16] MEDS ORDERED: HEPARIN SODIUM,PORCINE 2,500 UNIT in SODIUM CHLORIDE 0.9% 250 ML IRRIGATION PRN (06:14)
[2021-09-16] MEDS ORDERED: ASPIRIN 325 MG TAB PO PRN (06:14)
[2021-09-16] MEDS ORDERED: HEPARIN SODIUM,PORCINE 10,000 UNIT in SODIUM CHLORIDE 0.9% 1,000 ML IRRIGATION PRN (06:14)
[2021-09-16] MEDS ORDERED: SODIUM CHLORIDE 0.9% 1,000 ML in EMPTY BAG 1 BAG IV ONE (06:14)
[2021-09-16 07:27] LABS: Basophils # (A) 0.1 k/uL (0-0.2); Basophils % (A) 1 %; Eosinophils # (A) 0.7 k/uL (0-0.7); Eosinophils % (A) 4 %; HGB 15.2 gm/dL (13.0-17.5); Lymphocytes # (A) 2.6 k/uL (1.0-4.8); Lymphocytes % (A) 17 %; MCH 28.3 pg (25.0-35.0); MCHC 32.4 g/dL (31.0-37.0); MCV 87.5 fL (80.0-100.0); Mean Platelet Volume 8.9; Monocytes # (A) 1.2 k/uL (0-1.0); Monocytes % (A) 8 %; Neutrophils # (A) 10.6 k/uL (1.3-7.7); Neutrophils % (A) 68 %; Platelet Count 345 k/uL (150-450); RBC 5.36 m/uL (4.30-5.90); RDW 14.5 % (11.5-15.5); WBC 15.4 k/uL (3.8-10.6)
[2021-09-16 08:03] VITALS: RESP 18; TEMP 97.8
[2021-09-16] MEDS ORDERED: NICOTINE 21MG/24HR PATCH TRANSDERM STA (09:04)
[2021-09-16] MEDS ORDERED: MIDAZOLAM 2 MG/2 ML VIAL IV ONE (10:07)
[2021-09-16] MEDS ORDERED: LIDOCAINE 1% INJ 10MG/ML (20 ML MDV) SQ ONE (10:09)
[2021-09-16] MEDS ORDERED: HYDROmorphone 1 MG/ML 1 ML SYRINGE IVP ONE (10:10)
[2021-09-16] MEDS ORDERED: SODIUM CHLORIDE 0.9% 500 ML 500 ML with niCARdipine 6.25 MG, NITROGLYCERIN-D5W PMX 0.05... IV ONE ×4 (10:11)
[2021-09-16] MEDS ORDERED: HEPARIN SODIUM 1,000 UN/ML (10ML VL) IV ONE (10:20)
[2021-09-16] MEDS ORDERED: CLOPIDOGREL 75 MG TAB PO ONE (10:47)
[2021-09-16] MEDS ORDERED: HYDROcodone/APAP 10-325MG 1 EACH TAB PO PRN (10:49)
[2021-09-16] MEDS ORDERED: IPRATROPIUM-ALBUTEROL 3 ML NEB INHALATION PRN (10:49)
[2021-09-16] MEDS ORDERED: SODIUM CHLORIDE 0.9% 1,000 ML in EMPTY BAG 1 BAG IV SCH (11:00)
--- NOTE | 2021-09-16 11:45 | PCN ---
PROCEDURE NOTE PERCUTANEOUS PERIPHERAL INTERVENTION: DATE OF SERVICE: 09/16/2021 PERFORMING PHYSICIAN: Judah Rizo M.D. PROCEDURES PERFORMED: 1. Atherectomy of the right SFA using the HawkOne device. 2. Successful balloon angioplasty of the right SFA using a 6 x 40 mm drug-coated balloon with an excellent angiographic result. 3. Right lower extremity angiogram. 4. Ultrasound-guided access of the right posterior tibial artery. INDICATION: Right lower extremity intermittent claudication in this 66-year-old gentleman who is known to have lower extremity peripheral arterial disease and underwent recently an ultrasound and CT scan that showed severe right SFA. APPROACH: Right posterior tibial artery. COMPLICATIONS: None. LEVEL OF SEDATION: Moderate, with sedation length of 37 minutes. PROCEDURE DESCRIPTION: After obtaining informed consent, the patient was brought to the cardiac assistant laboratory director. The right posterior tibial artery was cannulated using micropuncture technique under ultrasound guidance. The micropuncture wire passed easily. Then I placed a slender 5/6 sheath at the right posterior tibial artery. At that point, anticoagulation was initiated using heparin with ACT monitoring. Subsequently I did right lower extremity angiogram with injection through CXI catheter. The right lower extremity angiogram revealed tight right SFA with 2- vessel runoff below the knee with posterior, tibial and peroneal. Subsequently I did wire the lesion using a 0.[address] [place] wire. Atherectomy was performed using the HawkOne device. Subsequently balloon angioplasty was performed using a 6 x 40 mm drug-coated balloon where the balloon was inflated under fluoroscopic guidance for 3 minutes. The following angiogram showed excellent angiographic results and the procedure was completed without any complication. POST-PROCEDURE MANAGEMENT: 1. Dual anti-platelet therapy. 2. Aggressive cholesterol control. 3. Risk factor modifications. 4. Follow up with the patient. MMODL / IJN: [id number] /
[2021-09-16 15:44] VITALS: BP 145/68; PULSE 86
--- NOTE | 2021-09-16 15:53 | IR ---
Fluoroscopy HISTORY: Pain in right leg 6.1 minutes fluoroscopy time supplied to the referring clinician. 141 intraoperative C-arm images do cument the procedure. See dictated report from cardiology.
[2021-09-17] MEDS ORDERED: amLODIPine 10 MG TAB PO SCH (09:00)
[2021-09-17] MEDS ORDERED: CLOPIDOGREL 75 MG TAB PO SCH (09:00)
[2021-09-17] MEDS ORDERED: ASPIRIN 81 MG PO SCH (09:00)
[2021-09-17] MEDS ORDERED: ATORVASTATIN 40 MG TAB PO SCH (09:00)
[2021-09-17] MEDS ORDERED: MONTELUKAST 10 MG TAB PO SCH (09:00)
--- NOTE | 2021-09-22 08:24 | CDI ---
Dirk [facility]ia [address] [place] [address] PHYSICIAN DOCUMENTATION CLARIFICATION REQUEST Date: 09/22/2021 08:17:00 AM From: Barbie Salgado Phone: Admit Date: 09/16/2021 05:57:00 AM Patient Name: Jeison Rudd Visit Number: [id number] Discharge Date: Payor: MEDICARE Dear Dr. Rizo, Please provide clarification as to the underlying cause of the PAD. PVD/PAD is considered unspecified. Greatest specificity is needed in order to provide medical necessity for the procedure. Which of the following is the underlying cause of the PAD? Athersclerosis Arteritis Thrombosis/embolism Other - please specify Please dictate an addendum or respond below the line at the bottom. Thank you for your kind consideration MTDD
--- NOTE | 2021-10-07 14:13 | CDI ---
[facility]irk [facility] [address] [facility] [place] [address] Documentation Clarification Form Date: 10/07/21 From: Barbie Salgado Phone: Admit DateL 08/2221 Patient Name: Jeison Rudd Visit Number: [id number] Discharge Date: Payor: MEDICARE Dear Dr. Rizo, Please provide clarification as to the underlying cause of the PAD. PAD/PVD and intermittent claudication is considered unspecified. Greatest specificity is needed in order to provide medical necessity for the procedure. Which of the following is the underlying cause of the PAD? Athersclerosis -X Arteritis Thrombosis.Embolism Other - Please specify Please dictate an addendum or respond below the line at the bottom. Thank you for your kind consideration. MTDD
== END 2021-09-16 16:05 | disposition home or self-care (01) ==
LOC: CATHCVL 05:57
PROVIDERS: ATTEND Internal Medicine Interventional Cardiology
DX: I70.213 Atherosclerosis of native arteries of extremities with intermittent claudication, bilateral legs (principal); I10 Essential (primary) hypertension; E78.5 Hyperlipidemia, unspecified; Z95.820 Peripheral vascular angioplasty status with implants and grafts; Z20.822 Contact with and (suspected) exposure to COVID-19; F17.210 Nicotine dependence, cigarettes, uncomplicated; R94.39 Abnormal result of other cardiovascular function study; Z79.02 Long term (current) use of antithrombotics/antiplatelets; Z79.82 Long term (current) use of aspirin; Z79.899 Other long term (current) drug therapy
CPT/HCPCS: 37225; 85025; 87635; C1894; C1769 ×2; C1714; C2623; S4990; J2250; J2001; J1644; J1170

== ENCOUNTER 2021-10-07 07:25 | Day surgery (SDC) | payer MEDICARE, OTHER ==
[2021-10-02 11:04] VITALS: BMI 24.7
[~2021-10-07 07:25] MED LIST changes: -DEXAMETHASONE SOD PHOSPHATE 4 MG/ML 1 ML VIAL IV ONE; -HYDROmorphone 0.5 MG/0.5 ML SYRINGE IVP PRN; -LIDOCAINE 1% (10MG/ML) FOR IV START INTRADERMA PRN; -MIDAZOLAM 2 MG/2 ML VIAL IV PRN; -ZOLPIDEM 5 MG TAB PO PRN
[2021-10-07 07:53] VITALS: RESP 18; TEMP 97.9
[2021-10-07 08:01] LABS: Basophils # (A) 0.1 k/uL (0-0.2); Basophils % (A) 0 %; Eosinophils # (A) 0.5 k/uL (0-0.7); Eosinophils % (A) 4 %; HCT 44.3 % (39.0-53.0); HGB 14.4 gm/dL (13.0-17.5); Lymphocytes % (A) 16 %; MCH 28.7 pg (25.0-35.0); MCHC 32.6 g/dL (31.0-37.0); MCV 88.2 fL (80.0-100.0); Mean Platelet Volume 8.6; Monocytes # (A) 0.9 k/uL (0-1.0); Monocytes % (A) 8 %; Neutrophils # (A) 8.6 k/uL (1.3-7.7); Neutrophils % (A) 70 %; Platelet Count 384 k/uL (150-450); RBC 5.02 m/uL (4.30-5.90); RDW 14.5 % (11.5-15.5); WBC 12.4 k/uL (3.8-10.6)
[2021-10-07] MEDS ORDERED: SODIUM CHLORIDE 0.9% 500 ML 500 ML with niCARdipine 6.25 MG, NITROGLYCERIN-D5W PMX 0.05... IV ONE ×4 (08:06)
[2021-10-07 08:20] LABS: Calcium 9.2 mg/dL (8.4-10.2); Potassium 4.3 mmol/L (3.5-5.1)
[2021-10-07] MEDS ORDERED: LIDOCAINE 1% INJ 10MG/ML (20 ML MDV) SQ ONE ×2 (08:40)
[2021-10-07] MEDS ORDERED: MIDAZOLAM 2 MG/2 ML VIAL IV ONE (08:40)
[2021-10-07] MEDS: fentaNYL (PF) 50 MCG/ML 2 ML AMP IV ONE ×2 (08:45→09:28)
[2021-10-07] MEDS ORDERED: HEPARIN SODIUM 1,000 UN/ML (10ML VL) IV ONE (09:02)
[2021-10-07] MEDS ORDERED: IOPAMIDOL-250 100ML BTL INTRAARTER ONE (09:35)
[2021-10-07] MEDS ORDERED: IPRATROPIUM-ALBUTEROL 3 ML NEB INHALATION PRN (09:41)
[2021-10-07] MEDS ORDERED: HYDROcodone/APAP 10-325MG 1 EACH TAB PO PRN (09:41)
--- NOTE | 2021-10-07 10:10 | IR ---
EXAMINATION TYPE: IR officer captain femoral popliteal DATE OF EXAM: 10/07/2021 CLINICAL HISTORY: PVD. TECHNIQUE: Fluoroscopy. COMPARISON: None. FINDINGS: Fluoroscopic guidance was provided during pelvic and lower extremity angiogram with angiop lasty procedure performed by Dr. Rizo. A total of 7.5 minutes of fluoroscopic time was utilized duri ng the procedure and 191 spot images are acquired. Images show left pelvic angiogram and runoff. Plea se refer to procedure note for further details. IMPRESSION: As Above.
--- NOTE | 2021-10-07 12:57 | AN ---
ANGIOGRAPHY REPORT DATE OF SERVICE: October 07, 2021. PERFORMING PHYSICIAN: Judah Rizo MD. PROCEDURE PERFORMED: 1. Atherectomy of the left SFA using the HawkOne device. 2. Intravascular ultrasound (IVUS) of the left SFA as well as left common femoral artery and left external iliac artery. 3. Successful balloon angioplasty of the left SFA using 6 x 40 mm impacted drug coated balloon with an excellent angiographic results. 4. Pressure gradient across the left external iliac artery. 5. Left lower extremity angiogram. 6. Ultrasound-guided access of the left posterior tibial artery. INDICATION: This is a 66-year-old gentleman with lower extremities peripheral arterial disease and aortic stent graft, who was experiencing bilateral lower extremities intermittent claudication. He underwent lower extremities a CTA and that revealed severe disease involving the right SFA and intermediate disease involving the left SFA. He underwent successful balloon angioplasty of the right SFA. Because he continues to have left lower extremity intermittent claudication, I decided to pursue with an angiogram and possible TERMINAL GAUGER SUPERVISOR of the left SFA. APPROACH: Left posterior tibial artery. COMPLICATIONS: None. LEVEL OF SEDATION: Moderate, with sedation length of 53 minutes. PROCEDURE DESCRIPTION: After obtaining informed consent, the patient was brought to the cardiac laborer poultry hatchery. The left posterior tibial artery was cannulated using micropuncture technique under ultrasound guidance, the micropuncture wire passed easily. Then I placed a slender 5/6- Divehi sheath at the left posterior tibial artery. At that point, anticoagulation was initiated using heparin with also continuous infusion of heparin plus nitroglycerin plus verapamil through the side-arm of the pedal sheath. Please note, that continuous ACT monitoring was performed throughout the procedure. After that, I did advance a 0.035 stiff Glidewire through the sheath all the way to the left external iliac artery. Subsequently I placed a 035 quick cross catheter over the wire. I did left lower extremity angiogram which revealed intermediate lesion involving the distal left external iliac artery with diffuse disease involving the SFA with a tight lesion involving the distal left SFA and 3 vessels runoff below the knee. Also intravascular ultrasound revealed a 6 mm minimal luminal diameter of the left SFA. I did also after interrogation of the IVUS, the lesion in the iliac was not well visualized and because of that, I did pressure gradient and that came into be none significant. Subsequently, atherectomy of the left SFA using the HawkOne device. After that I did balloon angioplasty using initially 6 mm Chocolate balloon was subsequently used mid 6 mm DCB balloon. The following angiogram showed excellent angiographic results and the procedure was completed without any complication. POSTPROCEDURE MANAGEMENT: 1. Dual anti-platelet therapy. 2. Aggressive cholesterol control. 3. Risk factor modifications. 4. Follow up with the patient. REESE / ESTEPHANIE: [id number] /
[2021-10-07 14:28] VITALS: BP 138/72; PULSE 75
[2021-10-08] MEDS ORDERED: MONTELUKAST 10 MG TAB PO SCH (09:00)
[2021-10-08] MEDS ORDERED: amLODIPine 10 MG TAB PO SCH (09:00)
[2021-10-08] MEDS ORDERED: CLOPIDOGREL 75 MG TAB PO SCH (09:00)
[2021-10-08] MEDS ORDERED: ATORVASTATIN 40 MG TAB PO SCH (09:00)
[2021-10-08] MEDS ORDERED: NON FORMULARY DRUG (Aspirin [Adult Low Dose Aspirin Ec] 81 MG Tablet.Dr) PO SCH (09:00)
--- NOTE | 2021-10-13 10:21 | CDI ---
Dirk [place] [address] [place] [address] Date: 10/13/2021 10:13:00 AM From: Barbie Salgado Phone: Admit Date: 10/07/2021 07:25:00 AM Patient Name: Jeison Rudd Visit Number: [id number] Discharge Date: Payor: MEDICARE Dear Dr. Rizo, Please provide clarification as to the underlying reason for the PAD. PADPVD and intermittent claudication is consider unspecified. Is the reason for the PAD below. Atherosclerosis=X Areitits EmbolismThrombosis Other - please indicate below Please dictate an addendum or respond to the query below the line at the bottom. Thank you for your kind consideration MTDD
== END 2021-10-07 14:45 | disposition home or self-care (01) ==
LOC: CATHCVL 07:25
PROVIDERS: ATTEND Internal Medicine Interventional Cardiology
DX: I70.213 Atherosclerosis of native arteries of extremities with intermittent claudication, bilateral legs (principal); I10 Essential (primary) hypertension; E78.5 Hyperlipidemia, unspecified; F17.200 Nicotine dependence, unspecified, uncomplicated; Z20.822 Contact with and (suspected) exposure to COVID-19; I25.10 Atherosclerotic heart disease of native coronary artery without angina pectoris; Z79.02 Long term (current) use of antithrombotics/antiplatelets; Z79.82 Long term (current) use of aspirin; Z79.899 Other long term (current) drug therapy
CPT/HCPCS: 37225; 37252; 80048; 85025; 87635; C1894; C1769 ×4; C1714; C1753; C2623; C1725; J2250; J2001; J3010; J1644 ×2; Q9966

== ENCOUNTER → 2023-02-25 | Outpatient (CLI) | payer MEDICARE, OTHER ==
[2023-02-25 16:21] LABS: HCT 43.4 % (39.6-50.0); HGB 13.9 g/dL (13.0-17.0); MCH 27.9 pg (27.0-32.0); Mean Platelet Volume 11.7 fL (9.5-12.2); NRBC Per 100 WBC 0 /100 WBCS (0.0-0.0); Platelet Count 312 X 10*3/uL (140-440); RBC 4.99 X 10*6/uL (4.40-5.60); WBC 13.71 X 10*3/uL (4.50-10.00)
[2023-02-25 16:43] LABS: African American GFR (CKD) 67.7 (60.0-200.0); Anion Gap 10.5 mmol/L (10.00-18.00); Blood Urea Nitrogen 17.4 mg/dL (9.0-27.0); Non-African American GFR(CKD) 58.4 (60.0-200.0); Potassium 4.8 mmol/L (3.5-5.5)
== END | disposition home or self-care (01) ==
LOC: LABPAT 09:30
PROVIDERS: ATTEND Internal Medicine Interventional Cardiology
DX: Z01.812 Encounter for preprocedural laboratory examination (principal); I70.213 Atherosclerosis of native arteries of extremities with intermittent claudication, bilateral legs
CPT/HCPCS: 36415; 80051; 82565; 84520; 85027

== ENCOUNTER 2023-03-02 10:17 | Day surgery (SDC) | payer MEDICARE, OTHER ==
[2023-02-28 11:06] VITALS: BMI 24.7
[~2023-03-02 10:17] MED LIST changes: +HEPARIN SODIUM,PORCINE 10,000 UNIT in SODIUM CHLORIDE 0.9% 1,000 ML IRRIGATION PRN; +HEPARIN SODIUM,PORCINE 2,500 UNIT in SODIUM CHLORIDE 0.9% 250 ML IRRIGATION PRN; +ZOLPIDEM 5 MG TAB PO PRN
[2023-03-02 10:43] VITALS: RESP 18; TEMP 98.6
[2023-03-02] MEDS ORDERED: LIDOCAINE 1% INJ 10MG/ML (20 ML MDV) ONE (10:43)
[2023-03-02] MEDS ORDERED: VERAPAMIL 2.5 MG/ML 2 ML AMP ONE (10:50)
[2023-03-02] MEDS ORDERED: HEPARIN SODIUM 1,000 UN/ML (10ML VL) ONE (10:50)
[2023-03-02] MEDS ORDERED: MIDAZOLAM 2 MG/2 ML VIAL IV ONE (11:05)
[2023-03-02] MEDS ORDERED: LIDOCAINE 1% INJ 10MG/ML (5 ML VIAL-PF) SQ ONE (11:05)
[2023-03-02] MEDS ORDERED: VERAPAMIL SYRINGE (5 MG/10 ML) INTRAARTER ONE (11:07)
[2023-03-02] MEDS ORDERED: HEPARIN SODIUM 1,000 UN/ML (10ML VL) IV ONE (11:10)
[2023-03-02] MEDS ORDERED: NALOXONE 0.4 MG/ML 1 ML VIAL IVP PRN (11:18)
--- NOTE | 2023-03-02 11:24 | P.PCN ---
Date of Procedure: 03/02/23 Operative Findings: AN ABDOMINAL AORTOGRAM AND BILATERAL LOWER EXTREMITIES RUNOFF PERFORMING PHYSICIAN: Judah Rizo MD PROCEDURE PERFORMED: 1. An abdominal aortogram 2. Bilateral lower extremities runoff 3. Ultrasound-guided access of the right radial artery INDICATION: This is a 67-year-old gentleman with aortic stent graft and lower extremity is PAD with prior angioplasty of bilateral SFA and right iliac was seen in the office recently for bilateral lower extremity is intermittent claudication and evidence of critical limb ischemia was resting pain lately. COMPLICATION: Non- LEVEL OF SEDATION: Moderate was sedation length of 20 minutes APPROACH: Right common femoral artery PROCEDURE DESCRIPTION: After obtaining informed consent and explaining the procedure benefits, risks, and complications, the patient was brought to the cardiac pharmaceutical laboratory technician. The right radial artery was prepped and draped in sterile fashion. The right radial artery was cannulated using micropuncture technique, under ultrasound guidance. A micropuncture wire was advanced, and the micropuncture sheath was advanced over the wire, then the micropuncture sheath was exchanged over an 0.35 wire into a 5-Australian sheath dilator assembly then the wire and dilator were removed and sheath was flushed. We did an abdominal aortogram and bilateral lower extremities runoff using 5- Australian pigtail catheter using a power injection. The catheter was initially placed at the level of the renal arteries, and it was pulled into above the bifurcation of the aorta into right and left common iliac arteries. The procedure was completed and there was no complications. SELECTIVE PERIPHERAL ANGIOGRAM: The abdominal aorta: Appears to have mild disease only The common iliac arteries: They have mild disease only. The external iliac arteries: The right external iliac artery is occluded. The left external iliac artery appeared to have mild disease only The internal iliac arteries: Both are patent The common femoral arteries: The proximal right common femoral artery is probably occluded. The left common femoral artery appeared to have mild disease only Superficial femoral arteries: The right SFA appears to have mild to moderate diffuse disease. The left SFA is occluded distally Popliteal arteries: Both popliteal appeared to have mild disease only. Below the knees: Three vessels run off below the knee bilaterally CONCLUSION: Occluded right external iliac artery Occluded left distal SFA POSTPROCEDURE MANAGEMENT: TRAVELER CHANGER
[2023-03-02] MEDS ORDERED: SODIUM CHLORIDE 0.9% 1,000 ML in EMPTY BAG 1 BAG IV SCH (11:30)
[2023-03-02 14:48] VITALS: BP 135/69; PULSE 75
== END 2023-03-02 15:34 | disposition home or self-care (01) ==
LOC: CATHCVL 10:17
PROVIDERS: ATTEND Internal Medicine Interventional Cardiology
DX: I70.223 Atherosclerosis of native arteries of extremities with rest pain, bilateral legs (principal); I25.10 Atherosclerotic heart disease of native coronary artery without angina pectoris; Z95.5 Presence of coronary angioplasty implant and graft; I10 Essential (primary) hypertension; E78.5 Hyperlipidemia, unspecified; F17.210 Nicotine dependence, cigarettes, uncomplicated; Z79.01 Long term (current) use of anticoagulants; Z79.82 Long term (current) use of aspirin; Z79.899 Other long term (current) drug therapy
CPT/HCPCS: 36200; 75625; 75716; 76937; 99152; C1769 ×3; C1894; J2250; J2001; J1644

== ENCOUNTER 2023-03-16 09:43 | Day surgery (SDC) | payer MEDICARE, OTHER ==
[2023-03-16] MEDS ORDERED: SODIUM CHLORIDE 0.9% 1,000 ML IV ONE (10:35)
[2023-03-16] MEDS: HYDROmorphone 0.5 MG/0.5 ML SYRINGE IVP PRN ×2 (10:56→19:53)
[2023-03-16] MEDS ORDERED: LIDOCAINE 1% INJ 10MG/ML (20 ML MDV) ONE ×3 (15:51→16:30)
[2023-03-16] MEDS ORDERED: SODIUM CHLORIDE 0.9% 500 ML 500 ML with niCARdipine 6.25 MG, NITROGLYCERIN-D5W PMX 0.05... IV ONE ×4 (16:05)
[2023-03-16] MEDS ORDERED: MIDAZOLAM 2 MG/2 ML VIAL IV ONE ×2 (16:06→16:27)
[2023-03-16] MEDS ORDERED: LIDOCAINE 1% INJ 10MG/ML (30 ML VIAL-PF) SQ ONE ×2 (16:10→16:30)
[2023-03-16] MEDS ORDERED: HYDROmorphone 0.5 MG/0.5 ML SYRINGE IVP ONE (16:28)
[2023-03-16] MEDS ORDERED: HEPARIN SODIUM 1,000 UN/ML (10ML VL) ONE (16:56)
[2023-03-16] MEDS: HEPARIN SODIUM 1,000 UN/ML (10ML VL) IV ONE ×2 (16:58→17:13)
[2023-03-16] MEDS ORDERED: HYDROmorphone 1 MG/ML 1 ML SYRINGE IVP ONE (17:20)
[2023-03-16] MEDS ORDERED: diphenhydrAMINE 50 MG/ML 1 ML VIAL ONE (17:49)
[2023-03-16] MEDS ORDERED: IPRATROPIUM-ALBUTEROL 3 ML NEB INHALATION PRN (17:55)
[2023-03-16] MEDS ORDERED: HYDROcodone/APAP 10-325MG 1 EACH TAB PO PRN (17:55)
[2023-03-16] MEDS ORDERED: NALOXONE 0.4 MG/ML 1 ML VIAL IVP PRN (17:56)
[2023-03-16] MEDS ORDERED: SODIUM CHLORIDE 0.9% 1,000 ML in EMPTY BAG 1 BAG IV SCH (18:00)
[2023-03-16] MEDS ORDERED: IOPAMIDOL-300 100ML BTL INJ ONE (18:03)
[2023-03-16] MEDS ORDERED: diphenhydrAMINE 50 MG/ML 1 ML VIAL IVP ONE (18:03)
--- NOTE | 2023-03-16 18:03 | P.PCN ---
Date of Procedure: 03/16/23 Operative Findings: PERCUTANEOUS PERIPHERAL INTERVENTION Performing physician Judah Rizo M.D. Procedure performed 1. An atherectomy, balloon angioplasty, and stenting of the left SFA with adjunctive use of intravascular ultrasound 2. Left lower extremity angiogram 3. Ultrasound guided access of the left common femoral artery Indication This is a 67-year-old gentleman with a past medical history significant for lower extremity is PAD and prior history of aortic stent graft and known occluded right iliac and occluded left SFA who continues to have symptoms of intermittent claudication bilaterally. He was brought today to undergo a WOOD MODEL BUILDER of the left SFA Approach Left common femoral artery Complications None Level of sedation Moderate with a sedation time of 99 minutes Procedure description After obtaining an informed consent the patient was brought to the cardiac laborer poultry hatchery. The left common femoral artery was cannulated using micropuncture technique under ultrasound guidance in antegrade technique. Subsequently I placed a 55 cm 6-Macedonian sheath at the left common femoral artery. After that anticoagulation was initiated using heparin with continuous ACT monitoring. Then I did left lower extremity angiogram which showed occluded left SFA and proximal left popliteal. I was able to cross the LOW VOLTAGE TECHNICIAN of the left SFA and left popliteal using 018 wire. After that I did intravascular ultrasound over an 014 wire which showed that I was in the true lumen all the time. Subsequently I did balloon angioplasty using 6 mm balloon. The following angiogram showed flow limiting dissection which I decided to cover with the stent. I deployed 7.0 x 140 mm Zilver PGX drug-coated stent where the stent was positioned under fluoroscopy guidance and deployed under fluoroscopy guidance and postdilated using 6 cm balloon. Final angiogram showed good angiographic results and the procedure was completed was no complication Postprocedure management 1. Dual antiplatelet therapy 2. Aggressive cholesterol control 3. Risk factors modification 4. Follow-up with the patient
[2023-03-16] MEDS ORDERED: ATORVASTATIN 40 MG TAB PO SCH (21:00)
--- NOTE | 2023-03-17 08:01 | P.DS ---
Providers Attending physician: Judah Rizo Primary care physician: [facility] Course: The patient is a 67-year-old gentleman who underwent yesterday successful percutaneous recanalizing the left superficial femoral artery with extremely long and complex procedure. The SFA was chronically occluded. The procedure was performed from the left groin in ipsilateral antegrade technique. He was seen this morning. The left groin is soft with a small hematoma noted and appeared to be also somewhat slightly tender. I am going to pursue an ultrasound for further clarification and rule out pseudoaneurysm. If the ultrasound came in to be unremarkable the patient can be discharged home. Plan - Discharge Summary Discharge Rx Participant: No New Discharge Prescriptions: No Action Montelukast [Singulair] 10 mg PO DAILY Ipratropium-Albuterol Nebulize [Duoneb 0.5 mg-3 mg/3 ml Soln] 3 ml INHALATION RT-QID PRN PRN Reason: Shortness Of Breath Albuterol Sulfate [Ventolin HFA] 1 - 2 puff INHALATION RT-Q6H PRN PRN Reason: Shortness Of Breath amLODIPine [Norvasc] 10 mg PO DAILY Aspirin [Adult Low Dose Aspirin EC] 81 mg PO DAILY HYDROcodone/APAP 10-325MG [[place] 10-325] 1 tab PO Q6HR PRN PRN Reason: Pain Rivaroxaban [Xarelto] 2.5 mg PO BID Atorvastatin Calcium [Lipitor] 40 mg PO HS Discharge Medication List Albuterol Sulfate [Ventolin HFA] 1 - 2 puff INHALATION RT-Q6H PRN 08/20/20 [History] Ipratropium-Albuterol Nebulize [Duoneb 0.5 mg-3 mg/3 ml Soln] 3 ml INHALATION RT-QID PRN 08/20/20 [History] Montelukast [Singulair] 10 mg PO DAILY 08/20/20 [History] amLODIPine [Norvasc] 10 mg PO DAILY 08/20/20 [History] Aspirin [Adult Low Dose Aspirin EC] 81 mg PO DAILY 09/09/20 [History] HYDROcodone/APAP 10-325MG [[place] 10-325] 1 tab PO Q6HR PRN 09/14/21 [History] Atorvastatin Calcium [Lipitor] 40 mg PO HS 02/28/23 [History] Rivaroxaban [Xarelto] 2.5 mg PO BID 02/28/23 [History] Follow up Appointment(s)/Referral(s): Judah Rizo MD [STAFF PHYSICIAN] - 1 Week (APPOINTMENT MADE ON February @ 3:45PM ) Patient Instructions/Handouts: Peripheral Artery Disease (ED), Moderate Sedation (GEN) Activity/Diet/Wound Care/Special Instructions: *NO LIFTING, PUSHING, OR PULLING ANYTHING OVER 5 POUNDS FOR 5 DAYS *NO DRIVING FOR 3 DAYS *YOU CAN REMOVE YOUR DRESSING TOMORROW AND SHOWER AT THAT TIME BUT DO NOT SUBMERSE YOUR PUNCTURE SITE IN WATER FOR A FEW DAYS TO PREVENT INFECTION - SO NO TUB BATHS, POOLS, HOT TUBS, DISHES...ETC *ANY SIGNS OF BLEEDING (HARDNESS, SWELLING, OR EXCESSIVE BRUISING) HOLD DIRECT PRESSURE ON YOUR PUNCTURE SITE AND COME TO THE NEAREST EMERGENCY ROOM TO GET YOUR PUNCTURE SITE LOOKED AT - DO NOT DRIVE YOURSELF! EITHER CALL EMS OR HAVE SOMEONE DRIVE YOU!
--- NOTE | 2023-03-17 08:43 | IR ---
EXAMINATION TYPE: IR stent intravas non coronary DATE OF EXAM: 03/16/2023 COMPARISON: NONE HISTORY: Fluoroscopy time. Fluoroscopy was provided to the referring clinician.
[2023-03-17] MEDS ORDERED: MONTELUKAST 10 MG TAB PO SCH (09:00)
[2023-03-17] MEDS ORDERED: amLODIPine 10 MG TAB PO SCH (09:00)
[2023-03-17] MEDS ORDERED: ASPIRIN 81 MG PO SCH (09:00)
--- NOTE | 2023-03-17 09:12 | US ---
EXAMINATION TYPE: US lower ext pseudo artery LT DATE OF EXAM: 03/17/2023 COMPARISON: NONE CLINICAL INDICATION: Male, 67 years old with history of hematoma after L groin access; Left groin acc ess 03/16/23 - stent placement. LEFT groin pain last night EXAM PERFORMED: Grayscale and color Doppler duplex imaging performed of the groin, post cardiac german ter to assess for pseudoaneurysm. SIDE PERFORMED: left Color and Waveform Doppler performed to assess for the presence of pseudoaneurysm; Is there ultrasound evidence of a pseudoaneurysm: not at this time Is there evidence of AV shunting: no Is there a fluid collection present: complex mixed collection medial left groin = 3.9cm multiple lymph nodes left groin, largest = 1.3cm IMPRESSION: 1. Possible 3.9 cm, partially liquefied hematoma in the medial left groin. 2. No sonographic evidence for pseudoaneurysm in the left groin.
[2023-03-17] MEDS: HYDROmorphone 0.5 MG/0.5 ML SYRINGE IVP PRN (09:21)
[2023-03-17 10:12] VITALS: BP 132/71; PULSE 82; RESP 16; TEMP 97.9
--- NOTE | 2023-03-18 20:41 | P.PCN ---
Date of Procedure: 03/18/23 Operative Findings: This is an addendum to a procedure was performed on March 162022 with angioplasty of the left SFA. Please note that an atherectomy was performed using the CSI device.
== END 2023-03-17 11:18 | disposition home or self-care (01) ==
LOC: CATHCVL 09:43 → 3SCARD 17:42 → CATHCVL 03-17 11:18
PROVIDERS: ATTEND Internal Medicine Interventional Cardiology
DX: I70.223 Atherosclerosis of native arteries of extremities with rest pain, bilateral legs (principal); Z98.62 Peripheral vascular angioplasty status; I25.10 Atherosclerotic heart disease of native coronary artery without angina pectoris; I10 Essential (primary) hypertension; E78.5 Hyperlipidemia, unspecified; F17.210 Nicotine dependence, cigarettes, uncomplicated; Z79.01 Long term (current) use of anticoagulants; Z79.82 Long term (current) use of aspirin; Z79.899 Other long term (current) drug therapy
CPT/HCPCS: 94640; 37227; 37252; 93975; 93926; 76937; 99152; 99153 ×5; C1894 ×4; C1769 ×6; C1714; C1753; C1874; C1725; J2250; J1200; J2001; J1644; J1170 ×3; Q9967

== ENCOUNTER → 2023-04-28 | Outpatient (CLI) | payer MEDICARE, OTHER ==
[2023-04-28 12:16] LABS: HCT 43.4 % (39.6-50.0); HGB 13.8 d/dL (13.0-17.0); MCH 27.5 pg (27.0-32.0); MCHC 31.8 d/dL (32.0-37.0); MCV 86.6 FL (80.0-97.0); Mean Platelet Volume 11.7 FL (9.5-12.2); NRBC Per 100 WBC 0 X 10*3/uL (0.00-0.01); Platelet Count 324 X 10*3/uL (140-440); RBC 5.01 X 10*6/uL (4.40-5.60)
[2023-04-28 14:04] LABS: Blood Urea Nitrogen 16.8 mg/dL (9.0-27.0); Carbon Dioxide 26.2 mmol/L (21.6-31.8); Chloride 105 mmol/L (96-109); Potassium 4.8 mmol/L (3.5-5.5); Sodium 142 mmol/L (135-145)
== END | disposition home or self-care (01) ==
LOC: LABPAT 07:13
PROVIDERS: ATTEND Internal Medicine Interventional Cardiology
DX: Z01.812 Encounter for preprocedural laboratory examination (principal); I70.213 Atherosclerosis of native arteries of extremities with intermittent claudication, bilateral legs
CPT/HCPCS: 36415; 80051; 82565; 84520; 85027

== ENCOUNTER 2023-05-04 09:43 | Day surgery (SDC) | payer MEDICARE, OTHER ==
[2023-04-27 10:10] VITALS: BMI 23.3
[~2023-05-04 09:43] MED LIST changes: +ALPRAZolam 0.5 MG TAB PO PRN; -HEPARIN SODIUM,PORCINE 10,000 UNIT in SODIUM CHLORIDE 0.9% 1,000 ML IRRIGATION PRN; -HEPARIN SODIUM,PORCINE 2,500 UNIT in SODIUM CHLORIDE 0.9% 250 ML IRRIGATION PRN; -ZOLPIDEM 5 MG TAB PO PRN
[2023-05-04] MEDS ORDERED: HEPARIN SODIUM 1,000 UN/ML (10ML VL) ONE (12:41)
[2023-05-04] MEDS ORDERED: LIDOCAINE 1% INJ 10MG/ML (20 ML MDV) ONE (12:41)
[2023-05-04] MEDS ORDERED: LIDOCAINE 1% INJ 10MG/ML (30 ML VIAL-PF) SQ ONE (12:47)
[2023-05-04] MEDS ORDERED: MIDAZOLAM 2 MG/2 ML VIAL IVP ONE (12:52)
[2023-05-04] MEDS ORDERED: HEPARIN SODIUM 1,000 UN/ML (10ML VL) IV ONE (12:53)
[2023-05-04] MEDS ORDERED: HYDROmorphone 1 MG/ML 1 ML SYRINGE IVP ONE ×2 (12:53→13:23)
[2023-05-04] MEDS ORDERED: fentaNYL (PF) 50 MCG/ML 2 ML AMP ONE (13:13)
[2023-05-04] MEDS ORDERED: fentaNYL (PF) 50 MCG/ML 2 ML AMP IVP ONE (13:16)
[2023-05-04] MEDS: MIDAZOLAM 2 MG/2 ML VIAL IVP ONE ×2 (13:16→13:33)
[2023-05-04] MEDS ORDERED: IPRATROPIUM-ALBUTEROL 3 ML NEB INHALATION PRN (14:00)
[2023-05-04] MEDS ORDERED: NALOXONE 0.4 MG/ML 1 ML VIAL IVP PRN (14:01)
--- NOTE | 2023-05-04 14:07 | P.PCN ---
Date of Procedure: 05/04/23 Operative Findings: PERCUTANEOUS PERIPHERAL INTERVENTION Performing physician Judah Rizo M.D. Procedure performed 1. Successful stenting of the right external iliac artery using a 9 mm x 29 mm balloon expandable stents with an excellent angiographic results 2. Successful stenting of the right common femoral artery proximally using 10 mm x 80 mm self-expandable stent with an excellent angiographic results 3. Adjunctive use of intravascular ultrasound and lithotripsy balloon 4. Selective right iliac and right femoral artery angiogram 5. Ultrasound guided access of the right common femoral artery Indication Occluded right iliac artery on this 67-year-old gentleman who continues to be symptomatic in terms of right lower extremity intermittent claudication Approach Right common femoral artery Complications None Level of sedation Moderate with a sedation time of 69 minutes Procedure description After obtaining an informed consent the patient was brought to the cardiac ballistics laboratory gunsmith. The right common femoral artery was cannulated using puncture technique under ultrasound guidance and the micropuncture wire passed easily then I placed a 6-Fijian 11 cm bright tip sheath at the right common femoral artery where the sheath was positioned only partially using a stiff 035 wire and that was super core wire. At that point anticoagulation was initiated using heparin with continuous ACT monitoring. I was able to cross the chronic total occlusion of the right iliac using 035 stiff Glidewire. I did confirm that I was in the true lumen using an injection through 035 catheter. Please note that an angiogram was performed initially. Subsequently I did exchange my 035 wire into a 14 wire using 035 catheter. Intravascular ultrasound was performed and showed heavily calcified iliac and femoral artery on the right side. I did balloon angioplasty initially using 6 mm regular balloon and subsequently 8 mm shockwave balloon. After that I did stenting of the right iliac artery and right common femoral artery. For the right iliac I deployed 2 stents. Both of them where 9 mm x 29 mm balloon expandable stents. For the distal right external iliac artery and proximal right common femoral artery I deployed self-expandable stent and that was 10 mm x 80 mm self-expandable stents. Postdilatation was performed by the end and showed excellent angiographic results and the procedure was completed with no complication. Postprocedure management 1. Dual antiplatelet therapy 2. Aggressive cholesterol control 3. Risk factors modification 4. Follow-up with the patient
[2023-05-04] MEDS ORDERED: IOPAMIDOL-250 100ML BTL INTRAARTER ONE (14:10)
[2023-05-04] MEDS ORDERED: SODIUM CHLORIDE 0.9% 1,000 ML in EMPTY BAG 1 BAG IV SCH (14:15)
--- NOTE | 2023-05-04 14:29 | IR ---
EXAMINATION TYPE: IR stent intravas non coronary DATE OF EXAM: 05/04/2023 COMPARISON: 03/16/2023 HISTORY: Peripheral arterial disease, 21.3 minutes fluoroscopy time, total DAP 24.5 Gycm2. Fluoroscopy was provided to the referring clinician.
[2023-05-04] MEDS: HYDROcodone/APAP 10-325MG 1 EACH TAB PO PRN ×2 (15:15→22:58)
[2023-05-04] MEDS ORDERED: ATORVASTATIN 40 MG TAB PO SCH (21:00)
[2023-05-05 06:35] LABS: African American GFR (CKD) 81 (>60 ml/min/1.73 sqM); Non-African American GFR(CKD) 70 (>60 ml/min/1.73 sqM)
[2023-05-05] MEDS: HYDROcodone/APAP 10-325MG 1 EACH TAB PO PRN (07:51)
[2023-05-05 07:57] VITALS: BP 146/72; PULSE 65; RESP 16; TEMP 97.9
--- NOTE | 2023-05-05 08:32 | P.DS ---
Providers Attending physician: Judah Rizo Primary care physician: [facility] Course: The patient is a 67-year-old gentleman who underwent yesterday successful stenting of the right iliac artery. He was seen and evaluated this morning. Asymptomatic and hemodynamically stable. The patient is going to be discharged home on dual antiplatelet therapy and I'll follow-up with the patient in the office next week. Plan - Discharge Summary Discharge Rx Participant: No New Discharge Prescriptions: Continue Montelukast [Singulair] 10 mg PO DAILY Ipratropium-Albuterol Nebulize [Duoneb 0.5 mg-3 mg/3 ml Soln] 3 ml INHALATION RT-QID PRN PRN Reason: Shortness Of Breath Albuterol Sulfate [Ventolin HFA] 1 - 2 puff INHALATION Q6H PRN PRN Reason: Shortness Of Breath amLODIPine [Norvasc] 10 mg PO DAILY Aspirin [Adult Low Dose Aspirin EC] 81 mg PO DAILY HYDROcodone/APAP 10-325MG [[place] 10-325] 1 tab PO Q6HR PRN PRN Reason: Pain Rivaroxaban [Xarelto] 2.5 mg PO BID Atorvastatin Calcium [Lipitor] 40 mg PO HS Discharge Medication List Albuterol Sulfate [Ventolin HFA] 1 - 2 puff INHALATION Q6H PRN 08/20/20 [History] Ipratropium-Albuterol Nebulize [Duoneb 0.5 mg-3 mg/3 ml Soln] 3 ml INHALATION RT-QID PRN 08/20/20 [History] Montelukast [Singulair] 10 mg PO DAILY 08/20/20 [History] amLODIPine [Norvasc] 10 mg PO DAILY 08/20/20 [History] Aspirin [Adult Low Dose Aspirin EC] 81 mg PO DAILY 09/09/20 [History] HYDROcodone/APAP 10-325MG [[place] 10-325] 1 tab PO Q6HR PRN 09/14/21 [History] Atorvastatin Calcium [Lipitor] 40 mg PO HS 02/28/23 [History] Rivaroxaban [Xarelto] 2.5 mg PO BID 02/28/23 [History] Follow up Appointment(s)/Referral(s): Judah Rizo MD [STAFF PHYSICIAN] - 1 Week (APPOINTMENT MADE ON April @ 3:45PM ) Patient Instructions/Handouts: Peripheral Artery Disease (DC), Moderate Sedation (DC), Peripheral Vascular Stent Placement (DC) Activity/Diet/Wound Care/Special Instructions: *NO LIFTING, PUSHING, OR PULLING ANYTHING OVER 5 POUNDS FOR 5 DAYS *NO DRIVING FOR 3 DAYS *YOU CAN REMOVE YOUR DRESSING TOMORROW AND YOU CAN SHOWER AT THAT TIME - DO NOT SUBMERSE YOUR PUNCTURE SITE IN WATER FOR A FEW DAYS TO PREVENT INFECTION - SO NO TUB BATHS, POOLS, HOT TUBS, DISHES....ETC *ANY SIGNS OF BLEEDING (HARDNESS, SWELLING, OR EXCESSIVE BRUISING) HOLD DIRECT PRESSURE ON YOUR PUNCTURE SITE AND COME TO THE NEAREST EMERGENCY ROOM TO GET YOUR PUNCTURE SITE LOOKED AT - DO NOT DRIVE YOURSELF! EITHER CALL EMS OR HAVE SOMEONE DRIVE YOU!
[2023-05-05] MEDS ORDERED: MONTELUKAST 10 MG TAB PO SCH (09:00)
[2023-05-05] MEDS ORDERED: amLODIPine 10 MG TAB PO SCH (09:00)
[2023-05-05] MEDS ORDERED: ASPIRIN 81 MG PO SCH (09:00)
== END 2023-05-05 09:08 | disposition home or self-care (01) ==
LOC: CATHCVL 09:43 → 6NMEDSUR 13:54 → CATHCVL 05-05 09:08
PROVIDERS: ATTEND Internal Medicine Interventional Cardiology
DX: I73.9 Peripheral vascular disease, unspecified (principal); I74.5 Embolism and thrombosis of iliac artery; I10 Essential (primary) hypertension; E78.5 Hyperlipidemia, unspecified; F17.210 Nicotine dependence, cigarettes, uncomplicated; Z79.02 Long term (current) use of antithrombotics/antiplatelets; Z79.82 Long term (current) use of aspirin; Z79.01 Long term (current) use of anticoagulants; Z79.899 Other long term (current) drug therapy
CPT/HCPCS: 94640; 94760; 37252; 82565; C1894; C1769 ×3; C1725 ×3; C1876 ×2; C1753; C9765; J2250; J2001; J3010; J1644; J1170; Q9966

== ENCOUNTER → 2024-06-08 | Outpatient (CLI) | payer MEDICARE, OTHER ==
[2024-06-08 15:23] LABS: African American GFR (CKD) 66 (>60 ml/min/1.73 sqM); Blood Urea Nitrogen 26 mg/dL (9-20); Non-African American GFR(CKD) 57 (>60 ml/min/1.73 sqM)
--- NOTE | 2024-06-08 17:09 | CT ---
EXAMINATION TYPE: CT angio neck CT DLP: 248.2 mGycm, Automated exposure control for dose reduction was used. DATE OF EXAM: 06/08/2024 5:02 PM CLINICAL INDICATION: Male, 68 years old with history of I70.213 ATHSCL MO[place]GAN ARTERIES OF EXTRM W INT RMT C; atherosclerosis COMPARISON: None TECHNIQUE: Axially acquired helical CT Angiogram of the Neck was obtained with and without contrast. Axial images are supplemented with coronal and sagittal MIP reconstructions. 3D reconstructions were also performed and were post-processed at an independent workstation. Estimated carotid stenosis was calculated using the NASCET criteria. Contrast used:65 mL of Isovue 370 without and with IV Contrast, Oral contrast used: , None. FINDINGS: CTA NECK: Right Carotid System: The common carotid and external carotid arteries are patent. There is approximately 25% stenosis at t he carotid bifurcation secondary to calcified/noncalcified plaquing. The rest of the internal carotid artery is patent. Left Carotid System: The common carotid and external carotid arteries are patent. There is approximately 63 % stenosis at the proximal internal carotid artery bifurcation secondary to calcified/noncalcified plaquing. The re st of the internal carotid artery is patent. Vertebral arteries are patent without evidence hemodynamically significant stenosis. There is a three-vessel aortic arch. The origins of the great vessels are patent. No evidence of hemo dynamically significant stenosis. Upper thorax: Mild to moderate centrilobular emphysema changes. Mild degeneration changes of the spin e with osteophyte formation and disc osteophyte complexes and facet joint arthropathy. IMPRESSION: 1. 62% stenosis of the left carotid bifurcation secondary to calcified and noncalcified plaque. 2. Less than 25% stenosis of the right carotid bifurcation. 3. No evidence of dissection of the cervical internal carotid arteries or vertebral arteries. 4. Pibk-ib-uibzittl emphysema changes in the lungs.
== END | disposition home or self-care (01) ==
LOC: RADCTMAIN 14:40
PROVIDERS: ATTEND Internal Medicine Interventional Cardiology
DX: I70.213 Atherosclerosis of native arteries of extremities with intermittent claudication, bilateral legs
CPT/HCPCS: 36415; 70498; 82565; 84520

== ENCOUNTER → 2024-06-11 | Outpatient (CLI) | payer MEDICARE, OTHER ==
[2024-06-11 14:48] LABS: African American GFR (CKD) 68 (>60 ml/min/1.73 sqM); Blood Urea Nitrogen 22 mg/dL (9-20); Non-African American GFR(CKD) 58 (>60 ml/min/1.73 sqM)
--- NOTE | 2024-06-11 19:59 | CT ---
EXAMINATION TYPE: CT noncontrast abdomen and pelvis and bilateral lower extremity. CT angiogram abdomen and pelvis with bilateral lower extremity runoff CT DLP: 2910 mGycm, Automated exposure control for dose reduction was used. DATE OF EXAM: 06/11/2024 4:42 PM COMPARISON: 12/29/2021. CLINICAL INDICATION: Male, 68 years old with history of I70.213 ARTERIES OF EXTRM W INTRMT MARIANA, BI LEGS; PHH, Bilateral leg pain, more so on left. Chronic. Hx. of stenosis. TECHNIQUE: Noncontrast CT abdomen pelvis and bilateral lower extremities followed by CT angiogram wit h runoff. Multiple thin slice sub-millimeter images were obtained after administration of contrast. 3-D reconstructed images and maximum intensity projection images were obtained. CT Contrast: Contrast used:100 mL of Isovue 370 without and with IV Contrast, Oral contrast used: None FINDINGS: CTA Abdomen and pelvis: No evidence for intrarenal hematoma on noncontrast imaging. Infrarenal abdomi nal aortic aneurysm with aortobiiliac stent graft present excluded lumen measuring up to 6.6 cm. Sten t graft is patent. The external iliac arteries are patent bilaterally. CTA Lower extremities: Right: The common femoral and superficial femoral arteries are patent. The popliteal artery is patent . Anterior and posterior tibial arteries as well as the peroneal artery are patent. The posterior tib ial artery crosses the ankle. Anterior tibial artery is diminutive crossing the ankle. Left: The common femoral artery is patent. Vascular occlusion of the left superficial femoral artery proximally which extends to a stent graft which is also occluded. There is reconstitution at the popl iteal artery the posterior tibial artery and anterior tibial artery are diminutive as it extend infer iorly. The posterior tibial artery crosses the ankle. The anterior tibial artery is diminutive. LOWER CHEST: No evidence of focal consolidation, pneumothorax or pleural effusion. LIVER: Simple appearing right hepatic cyst. GALLBLADDER AND BILE DUCTS: Unremarkable. PANCREAS: Unremarkable. SPLEEN: Unremarkable. ADRENAL GLANDS: Unremarkable. KIDNEYS AND URETERS: No evidence of hydronephrosis or renal calculus. The ureters are unremarkable. Left renal cortical calcification. PELVIS BLADDER: Unremarkable REPRODUCTIVE: Unremarkable. ABDOMEN & PELVIS STOMACH AND BOWEL: No evidence of bowel obstruction. Scattered colonic diverticulosis. PERITONEUM: No evidence of pneumoperitoneum or free fluid. VASCULATURE: No evidence of aortic aneurysm. MUSCULOSKELETAL: No acute osseous abnormalities LYMPH NODES: No gross evidence for lymphadenopathy. SOFT TISSUE/ABDOMINAL WALL: Fat-containing umbilical hernia. IMPRESSION 1. Vascular occlusion of the left superficial femoral artery proximally which extends to a stent gra ft which is also occluded. There is reconstitution at the popliteal artery. The left posterior tibial artery crosses the ankle while the anterior tibial artery is diminutive. 2. Aortobiiliac stent graft appears patent. No evidence of endoleak. No evidence for vascular occlusion of the right lower extremity. The posterior tibial artery on the r ight cross the ankle. The right anterior tibial artery is diminutive. 1. A Yellow level critical message alert has been initiated for Judah Rizo MD~[id number] via the [employer] Critical Results System on 06/11/2024 7:57 PM. This message alert has been sent to Judah Rizo MD~[id number] via the preferences provided by the clinician for the receipt of Radiology Critical Findings. Message ID [id number]. [facility], , 06/11/2024 7:57 PM
== END | disposition home or self-care (01) ==
LOC: RADCTMAIN 14:05
PROVIDERS: ATTEND Internal Medicine Interventional Cardiology
DX: I70.213 Atherosclerosis of native arteries of extremities with intermittent claudication, bilateral legs (principal)
CPT/HCPCS: 36415; 75635; 82565; 84520

== ENCOUNTER → 2024-07-05 | Outpatient (CLI) | payer MEDICARE, OTHER ==
[2024-07-05 19:01] LABS: HCT 42.6 % (39.6-50.0); HGB 13.8 g/dL (13.0-17.0); MCH 27.9 pg (27.0-32.0); MCHC 32.4 g/dL (32.0-37.0); MCV 86.2 FL (80.0-97.0); Mean Platelet Volume 11.5 FL (9.5-12.2); NRBC Per 100 WBC 0 X 10*3/uL (0.00-0.01); Platelet Count 282 X 10*3/uL (140-440); RBC 4.94 X 10*6/uL (4.40-5.60); WBC 11.85 X 10*3/uL (4.50-10.00)
[2024-07-05 20:50] LABS: Blood Urea Nitrogen 23.2 mg/dL (9.0-27.0); Carbon Dioxide 24.3 mmol/L (21.6-31.8); Chloride 104 mmol/L (96-109); Potassium 4.6 mmol/L (3.5-5.5); Sodium 139 mmol/L (135-145)
== END | disposition home or self-care (01) ==
LOC: LABPAT 12:50
PROVIDERS: ATTEND Internal Medicine Interventional Cardiology
DX: Z01.812 Encounter for preprocedural laboratory examination (principal); I73.9 Peripheral vascular disease, unspecified
CPT/HCPCS: 36415; 80051; 82565; 84520; 85027

== ENCOUNTER 2024-07-11 11:01 | Day surgery (SDC) | payer MEDICARE, OTHER ==
[~2024-07-11 11:01] MED LIST changes: -ALPRAZolam 0.5 MG TAB PO PRN; -ASPIRIN 325 MG TAB PO PRN; -SODIUM CHLORIDE 0.9% 1,000 ML in EMPTY BAG 1 BAG IV ONE; +ZOLPIDEM 5 MG TAB PO PRN
[2024-07-11] MEDS: IV FLUID CONTINUATION 1,000 ML IV ONE (11:42)
[2024-07-11] MEDS: EMPTY BAG 1 BAG with SODIUM CHLORIDE 0.9% 1,000 ML IV SCH (11:42)
[2024-07-11 11:55] LABS: Basophils # (A) 0.1 k/uL (0-0.2); Basophils % (A) 1 %; Eosinophils # (A) 0.5 k/uL (0-0.7); Eosinophils % (A) 5 %; HCT 45.2 % (39.0-53.0); HGB 14.2 gm/dL (13.0-17.5); Hypochromasia Slight; Lymphocytes # (A) 2.1 k/uL (1.0-4.8); Lymphocytes % (A) 20 %; MCH 28.2 pg (25.0-35.0); MCHC 31.5 g/dL (31.0-37.0); MCV 89.4 fL (80.0-100.0); Mean Platelet Volume 8.8; Monocytes # (A) 0.8 k/uL (0-1.0); Monocytes % (A) 8 %; Neutrophils # (A) 6.7 k/uL (1.3-7.7); Neutrophils % (A) 64 %; Platelet Count 327 k/uL (150-450); RBC 5.05 m/uL (4.30-5.90); RDW 13.7 % (11.5-15.5); WBC 10.4 k/uL (3.8-10.6)
[2024-07-11 12:19] LABS: African American GFR (CKD) 71 (>60 ml/min/1.73 sqM); Anion Gap 9 mmol/L; Blood Urea Nitrogen 19 mg/dL (9-20); Calcium 9.3 mg/dL (8.4-10.2); Carbon Dioxide 30 mmol/L (22-30); Chloride 101 mmol/L (98-107); Glucose 101 mg/dL (74-99); Non-African American GFR(CKD) 62 (>60 ml/min/1.73 sqM); Potassium 3.9 mmol/L (3.5-5.1); Sodium 140 mmol/L (137-145)
[2024-07-11] MEDS: ASPIRIN 81 MG PO STA (13:07)
[2024-07-11] MEDS: LIDOCAINE 1% INJ 10MG/ML (20 ML MDV) SQ ONE ×3 (13:25→13:27)
[2024-07-11] MEDS: MIDAZOLAM 2 MG/2 ML VIAL IVP ONE (13:26)
[2024-07-11] MEDS: HEPARIN SODIUM 1,000 UN/ML (10ML VL) IV ONE (13:38)
[2024-07-11] MEDS: SODIUM CHLORIDE 0.9% 500 ML 500 ML with niCARdipine 6.25 MG, NITROGLYCERIN-D5W PMX 0.05... IV ONE (13:46)
[2024-07-11] MEDS: HEPARIN SODIUM,PORCINE (1 ML) 2,500 UNIT in SODIUM CHLORIDE 0.9% 250 ML IRRIGATION PRN (13:47)
[2024-07-11] MEDS: HEPARIN SODIUM,PORCINE 10,000 UNIT in SODIUM CHLORIDE 0.9% 1,000 ML IRRIGATION PRN (13:47)
[2024-07-11] MEDS: HYDROmorphone 1 MG/ML 1 ML SYRINGE IVP ONE (14:04)
[2024-07-11] MEDS: CLOPIDOGREL 75 MG TAB PO ONE (14:43)
[2024-07-11] MEDS: IOPAMIDOL-370 100ML BTL INJ ONE (14:44)
[2024-07-11] MEDS ORDERED: NALOXONE 0.4 MG/ML 1 ML VIAL IVP PRN (14:47)
[2024-07-11] MEDS ORDERED: IPRATROPIUM-ALBUTEROL 3 ML NEB INHALATION PRN (14:47)
--- NOTE | 2024-07-11 14:56 | P.PCN ---
Date of Procedure: 07/11/24 Operative Findings: PERCUTANEOUS PERIPHERAL INTERVENTION Performing physician Judah Rizo M.D. Procedure performed 1. Successful angioplasty and stenting of the left SFA and left popliteal 2. Adjunctive use of IVUS 3. Adjunctive use of atherectomy using the Hawk 1 device 4. Left lower extremity and right common femoral artery angiogram 5. Ultrasound-guided access of left common femoral artery and left posterior tibial artery Indication Symptomatic 69-year-old Yaneth study and that showed critical disease involving the left SFA Approach Left common femoral artery and posterior tibial artery Complications None Level of sedation Moderate with a sedation time of 79 minutes Procedure description After obtaining informed the patient was brought to the cardiac Resident Care Technician. The left common femoral artery was cannulated using micropuncture. Subsequently I placed a micropuncture sheath at the left common femoral artery into the SideArm for injection. Subsequently I did access of the left posterior tibial artery using micro catheter, the wire passed easily then I placed a slender 5/6 Paraguayan at the left posterior tibial artery and subsequently the SideArm of the sheath was connected into a cocktail of verapamil and nitroglycerin and heparin. An angiogram was performed from the left common femoral artery showed occluded left SFA and occluded left popliteal. I did cross the ATMOSPHERIC PHYSICIST using a 014 wire. Subsequently I did intravascular ultrasound which showed that I was in the true lumen in the left SFA and left popliteal. The diameter of the artery was about 6-4.80 mm. I did atherectomy using the Hawk 1 device with extraction of significant plaque. Subsequently balloon angioplasty was performed using. Good angiographic results. Selective but not above or below the stented segment. For that reason a total of 3 stents left SFA and left popliteal. In the left SFA distally I placed a 7.0 x 80 millimeter stent and in the mid SFA I placed a 7.0 140 mm stent from proximally 7.0 x 60 mm stents. All stents were postdilated using 6 mm balloon except for the proximal stent which was postdilated 7 mm following with excellent angiographic result procedure was performed with no complication Postprocedure management 1. Dual antiplatelet therapy 2. Aggressive cholesterol control 3. Risk factors modification 4. Follow-up with the patient
--- NOTE | 2024-07-11 15:16 | IR ---
EXAMINATION TYPE: IR stent intravas non coronary DATE OF EXAM: 07/11/2024 3:11 PM COMPARISON: Pre Operative Images if available both CT/MRI or plain film CLINICAL INDICATION: Male, 69 years old with history of left leg pain, 16.2min fluoro, 7.38Tiwj2; TECHNIQUE: IR stent intravas non coronary, multiple fluoroscopic images provided for procedure. Total fluoroscopy time: 16.2 seconds Total submitted images to PACS: [id number] DAP: 7.79 Gycm2 . FINDINGS: IMPRESSION: 1. Report was generated for administrative purposes only. 2. Please see the operative/procedural note for further details. [facility], , 07/11/2024 3:13 PM
[2024-07-11] MEDS: ALPRAZolam 0.5 MG TAB PO PRN (15:35)
[2024-07-11] MEDS: NICOTINE 21MG/24HR PATCH TRANSDERM SCH (15:46)
[2024-07-11] MEDS: SODIUM CHLORIDE 0.9% 1,000 ML in EMPTY BAG 1 BAG IV SCH (16:52)
[2024-07-11] MEDS: HYDROcodone/APAP 10-325MG 1 EACH TAB PO PRN (17:34)
[2024-07-11] MEDS: ATORVASTATIN 40 MG TAB PO SCH (21:04)
[2024-07-11 23:41] VITALS: TEMP 97.8
[2024-07-12 07:36] LABS: African American GFR (CKD) 81 (>60 ml/min/1.73 sqM); Non-African American GFR(CKD) 70 (>60 ml/min/1.73 sqM)
[2024-07-12 08:07] VITALS: BP 150/50; PULSE 71
[2024-07-12] MEDS: amLODIPine 10 MG TAB PO SCH (08:09)
[2024-07-12] MEDS: ASPIRIN 81 MG PO SCH (08:09)
[2024-07-12 08:54] VITALS: RESP 16
[2024-07-12] MEDS ORDERED: MONTELUKAST 10 MG TAB PO SCH (09:00)
== END 2024-07-12 09:11 | disposition home or self-care (01) ==
LOC: CATHCVL 11:01 → 3SCARD 14:44 → CATHCVL 07-12 09:11
PROVIDERS: ATTEND Internal Medicine Interventional Cardiology
CPT/HCPCS: 37227; 76937; 80048; 82565; 85025

== ENCOUNTER 2024-10-03 15:41 | Emergency (ER) | payer MEDICARE, OTHER ==
[2024-10-03 15:48] VITALS: TEMP 98.3
--- NOTE | 2024-10-03 17:08 | CT ---
EXAMINATION TYPE: CT brain wo con DATE OF EXAM: 10/03/2024 COMPARISON: None. CLINICAL INDICATION: Male, 69 years old with history of right frontoparietal scalp mass; PHH, mass on top of head TECHNIQUE: CT scan of the head is performed without contrast. CT DLP: 1243.4 mGycm Automated exposure control for dose reduction was used. FINDINGS: There is no acute intracranial hemorrhage or midline shift identified. There is mild diff use ventricular and sulcal prominence consistent with diffuse age-related cerebral atrophy. There is moderate low-attenuation in the deep and periventricular white matter most likely consistent with ch ronic small vessel ischemic change. The globes are intact and the visualized sinuses are clear. Co rresponding to history there is a lytic destructive lesion high right frontal lobe with adjacent curv ilinear soft tissue mass measuring 3.7 x 2.1 cm axial image 56. IMPRESSION: No acute intracranial hemorrhage or midline shift. There is a 3.7 cm destructive lesion high right frontal calvarium. Differential includes a lytic metastatic lesion versus plasmacytoma/m ultiple myeloma. Clinical correlation and follow-up is advised. [facility], , 10/03/2024 5:06 PM
--- NOTE | 2024-10-03 17:14 | ED ---
General Adult HPI - General Chief complaint: Skin/Abscess/Foreign Body Stated complaint: GROWTH ON HEAD Time Seen by Provider: 10/03/24 16:10 Source: patient Mode of arrival: ambulatory Limitations: no limitations - History of Present Illness Initial comments: This patient is a 69-year-old man who complains of approximately 1 month of right frontoparietal scalp swelling. The patient states that he had noticed similar lumps, though smaller, in different areas of his scalp, but states that the cleared up when he used head and shoulders shampoo. The patient states that this 1 persisted. He states that he has been getting some mild to moderate head aches associated with it and that it is tender as well. The patient has not noted any fever or chills. He has not noted any skin change or hair loss. There has been no discharge. He denies any associated neurologic symptoms. On review of systems, the patient also notes that he is having persistent cough and dyspnea that he associates with some COPD. He states that he saw Dr. Velez and received a course of antibiotics without change. Onset/Timin -: month(s) Location: head Radiation: non-radiation Quality: aching Consistency: constant Improves with: none Worsens with: none Associated Symptoms: denies other symptoms Treatments Prior to Arrival: none - Related Data Home Medications Medication Instructions Recorded Confirmed Albuterol Sulfate [Ventolin HFA] 1 - 2 puff INHALATION Q6H PRN 08/20/20 07/11/24 Ipratropium-Albuterol Nebulize 3 ml INHALATION RT-QID PRN 08/20/20 07/11/24 [Duoneb 0.5 mg-3 mg/3 ml Soln] Montelukast [Singulair] 10 mg PO DAILY 08/20/20 07/11/24 amLODIPine [Norvasc] 10 mg PO DAILY 08/20/20 07/11/24 Aspirin [Adult Low Dose Aspirin EC] 81 mg PO DAILY 09/09/20 07/11/24 HYDROcodone/APAP 10-325MG [[place] 1 tab PO Q6HR PRN 09/14/21 07/11/24 10-325] Atorvastatin Calcium [Lipitor] 40 mg PO HS 02/28/23 07/11/24 Rivaroxaban [Xarelto] 2.5 mg PO BID 02/28/23 07/11/24 Allergies Allergy/AdvReac Type Severity Reaction Status Date / Time Tetracyclines Allergy Unknown Verified 10/03/24 15:48 Childhood Review of Systems ROS Statement: Those systems with pertinent positive or pertinent negative responses have been documented in the HPI. ROS Other: All systems not noted in ROS Statement are negative. Constitutional: Denies: fever, chills, weakness Eyes: Denies: eye pain, vision change ENT: Denies: ear pain, hearing loss, congestion Respiratory: Reports: cough, dyspnea, wheezes Cardiovascular: Denies: chest pain, palpitations, edema, syncope Gastrointestinal: Denies: abdominal pain, nausea, vomiting, diarrhea Genitourinary: Denies: dysuria, hematuria Musculoskeletal: Denies: back pain Skin: Denies: rash Neurological: Denies: headache, weakness, numbness Past Medical History Past Medical History: COPD, Hyperlipidemia, Hypertension, Vascular Disorder Additional Past Medical History / Comment(s): Edema left lower leg and foot, uses oxygen PRN, poor circulation. History of Any Multi-Drug Resistant Organisms: None Reported Past Surgical History: Hernia Repair, Orthopedic Surgery Additional Past Surgical History / Comment(s): Leg stents placed, right shoulder rotator cuff repair, 07/23/20 surgery in [place] for leg blockages, "groin" hernia surgery X2, left leg arthrectomy and stent to SFA 03/18. Past Anesthesia/Blood Transfusion Reactions: No Reported Reaction Date of Last Stent Placement:: 09/16/21 Past Psychological History: No Psychological Hx Reported Smoking Status: Current every day smoker Past Alcohol Use History: None Reported Past Drug Use History: None Reported - Past Family History Mother Family Medical History: Cancer Father Family Medical History: Cancer General Exam Limitations: no limitations General appearance: alert, in no apparent distress Head exam: Present: atraumatic, normocephalic, other (In the right frontal area there is an approximately 3 cm diameter mass on the cranium with moderate tenderness.) Eye exam: Present: normal appearance. Absent: scleral icterus, conjunctival injection Neck exam: Present: normal inspection, full ROM. Absent: tenderness, meningismus Respiratory exam: Present: wheezes. Absent: respiratory distress, rales, rhonchi, stridor, accessory muscle use, decreased breath sounds Cardiovascular Exam: Present: regular rate, normal rhythm, normal heart sounds. Absent: systolic murmur, diastolic murmur, rubs, gallop GI/Abdominal exam: Present: soft. Absent: distended, tenderness, guarding, rebound, rigid, mass Extremities exam: Present: normal inspection, normal capillary refill. Absent: pedal edema, calf tenderness Back exam: Present: normal inspection. Absent: CVA tenderness (R), CVA tenderness (L) Neurological exam: Present: alert Skin exam: Present: warm, dry, intact, normal color. Absent: rash Course Vital Signs 10/03/24 10/03/24 15:45 18:16 Temperature 98.3 F Pulse Rate 92 88 Respiratory 20 18 Rate Blood Pressure 148/84 144/68 O2 Sat by Pulse 92 L 95 Oximetry Medical Decision Making - Medical Decision Making The patient had CT scan of the brain that I interpreted as revealing what arleth ears to be lytic lesion of the calvarium of the skull. No acute intracranial hemorrhage or mass effect Was pt. sent in by a medical professional or institution (, PA, MAINTENANCE CUSTODIAN, urgent care, hospital, or fci...) When possible be specific @ -[No] Did you speak to anyone other than the patient for history (EMS, parent, family, police, friend...)? What history was obtained from this source @ -[No] Did you review nursing and triage notes (agree or disagree)? Why? @ -[I reviewed and agree with nursing and triage notes] Were old charts reviewed (outside hosp., previous admission, EMS record, old EKG, old radiological studies, urgent care reports/EKG's, fci records)? Report findings @ -[No old charts were reviewed] Differential Diagnosis (chest pain, altered mental status, abdominal pain women, abdominal pain men, vaginal bleeding, weakness, fever, dyspnea, syncope, head ache, dizziness, GI bleed, back pain, seizure, CVA, palpatations, mental health, musculoskeletal)? @ -[Differential diagnosis of the swelling of the patient's scalp/head includes abscess/infection/kerion, tumor, including lipoma, malignancy, AV malformation, hematoma, this list not all inclusive EKG interpreted by me (3pts min.). @ -[As above] X-rays interpreted by me (1pt min.). @ -[None done] CT interpreted by me (1pt min.). @ -[I interpreted as above U/S interpreted by me (1pt. min.). @ -[None done] What testing was considered but not performed or refused? (CT, X-rays, U/S, labs)? Why? @ -[None] What meds were considered but not given or refused? Why? @ -[None] Did you discuss the management of the patient with other professionals (professionals i.e. DrDelano, PA, MAINTENANCE CUSTODIAN, lab, RT, psych nurse, rn social work, organic section technical lead, teacher, contracts officer, skilled nursing case manager)? Give summary @ -[No] Was smoking cessation discussed for >3mins.? @ -[No] Was critical care preformed (if so, how long)? @ -[No] Were there social determinants of health that impacted care today? How? (Homelessness, low income, unemployed, alcoholism, drug addiction, transportation, low edu. Level, literacy, decrease access to med. care, senior care, rehab)? @ -[No] Was there de-escalation of care discussed even if they declined (Discuss DNR or withdrawal of care, Hospice)? DNR status @ -[No] What co-morbidities impacted this encounter? (DM, HTN, Smoking, COPD, CAD, Cancer, CVA, ARF, Chemo, Hep., AIDS, mental health diagnosis, sleep apnea, morbid obesity)? @ -[None] Was patient admitted / discharged? Hospital course, mention meds given and route, prescriptions, significant lab abnormalities, going to OR and other pertinent info. @ -[Patient is 69-year-old man here for evaluation of swelling to the scalp. Given the duration of symptoms and tenderness, patient is sent for CT scan with result as above. I further discussed the findings with the patient and at this point he states he would rather have outpatient workup then be admitted. This does seem acceptable as long as he has further studies in the near future. I discussed the results with the patient's physician in order to facilitate further workup as outpatient. I discussed return parameters. Undiagnosed new problem with uncertain prognosis? @ -[No] Drug Therapy requiring intensive monitoring for toxicity (Heparin, Nitro, Insulin, Cardizem)? @ -[No] Were any procedures done? @ -[No] Diagnosis/symptom? @ -Lytic lesion of the calvarium Acute, or Chronic, or Acute on Chronic? @ -[Acute Uncomplicated (without systemic symptoms) or Complicated (systemic symptoms)? @ -[Uncomplicated Side effects of treatment? @ -[No] Exacerbation, Progression, or Severe Exacerbation? @ -[No] Poses a threat to life or bodily function? How? (Chest pain, USA, [place], pneumonia, PE, COPD, DKA, ARF, appy, cholecystitis, CVA, Diverticulitis, Homicidal, Suicidal, threat to staff... and all critical care pts) @ -[Yes there is high risk of cancer/malignancy All treatments are based on ideal body weight as in ED triage - Lab Data Result diagrams: 10/03/24 17:33 10/03/24 17:33 Lab Results 10/03/24 10/03/24 Range/Units 17: 17:33 WBC 11.1 H (3.8-10.6) k/uL RBC 4.47 (4.30-5.90) m/uL Hgb 12.6 L (13.0-17.5) gm/dL Hct 38.7 L (39.0-53.0) % MCV 86.6 (80.0-100.0) fL MCH 28.2 (25.0-35.0) pg MCHC 32.6 (31.0-37.0) g/dL RDW 14.9 (11.5-15.5) % Plt Count 268 (150-450) k/uL MPV 7.6 Neutrophils % 71 % Lymphocytes % 14 % Monocytes % 8 % Eosinophils % 5 % Basophils % 1 % Neutrophils # 7.8 H (1.3-7.7) k/uL Lymphocytes # 1.5 (1.0-4.8) k/uL Monocytes # 0.9 (0-1.0) k/uL Eosinophils # 0.6 (0-0.7) k/uL Basophils # 0.1 (0-0.2) k/uL Sodium 139 (137-145) mmol/L Potassium 3.8 (3.5-5.1) mmol/L Chloride 103 (98-107) mmol/L Carbon Dioxide 28 (22-30) mmol/L Anion Gap 8 mmol/L BUN 25 H (9-20) mg/dL Creatinine 1.30 H (0.66-1.25) mg/dL Est GFR (CKD-EPI)AfAm 64 (>60 ml/min/1.73 sqM) Est GFR (CKD-EPI)NonAf 55 (>60 ml/min/1.73 sqM) Glucose 124 H (74-99) mg/dL Calcium 9.1 (8.4-10.2) mg/dL Total Bilirubin 0.3 (0.2-1.3) mg/dL AST 18 (17-59) U/L ALT 19 (4-49) U/L Alkaline Phosphatase 114 (38-126) U/L Total Protein 6.5 (6.3-8.2) g/dL Albumin 3.8 (3.5-5.0) g/dL Disposition Clinical Impression: Lytic bone lesions on xray Disposition: HOME SELF-CARE Condition: Fair Instructions (If sedation given, give patient instructions): Osteolysis (ED) Additional Instructions: As we discussed, there is an area of lysis of the bone of the skull concerning for a tumor which may be cancerous. Follow-up to have a biopsy. Return to the emergency department if you are worse in any way. Call Dr. Velez's office in the morning and he will help arrange further testing Is patient prescribed a controlled substance at d/c from ED?: No Referrals: Hong Velez MD [Primary Care Provider] - 1-2 days
[2024-10-03 17:52] LABS: ALT 19 U/L (4-49); AST 18 U/L (17-59); African American GFR (CKD) 64 (>60 ml/min/1.73 sqM); Albumin 3.8 g/dL (3.5-5.0); Alkaline Phosphatase 114 U/L (38-126); Anion Gap 8 mmol/L; Blood Urea Nitrogen 25 mg/dL (9-20); Calcium 9.1 mg/dL (8.4-10.2); Carbon Dioxide 28 mmol/L (22-30); Chloride 103 mmol/L (98-107); Glucose 124 mg/dL (74-99); Non-African American GFR(CKD) 55 (>60 ml/min/1.73 sqM); Potassium 3.8 mmol/L (3.5-5.1); Sodium 139 mmol/L (137-145); Total Bilirubin 0.3 mg/dL (0.2-1.3); Total Protein 6.5 g/dL (6.3-8.2)
[2024-10-03 17:58] LABS: Basophils # (A) 0.1 k/uL (0-0.2); Basophils % (A) 1 %; Eosinophils # (A) 0.6 k/uL (0-0.7); Eosinophils % (A) 5 %; HCT 38.7 % (39.0-53.0); HGB 12.6 gm/dL (13.0-17.5); Lymphocytes # (A) 1.5 k/uL (1.0-4.8); Lymphocytes % (A) 14 %; MCH 28.2 pg (25.0-35.0); MCHC 32.6 g/dL (31.0-37.0); MCV 86.6 fL (80.0-100.0); Mean Platelet Volume 7.6; Monocytes # (A) 0.9 k/uL (0-1.0); Monocytes % (A) 8 %; Neutrophils # (A) 7.8 k/uL (1.3-7.7); Neutrophils % (A) 71 %; Platelet Count 268 k/uL (150-450); RBC 4.47 m/uL (4.30-5.90); RDW 14.9 % (11.5-15.5); WBC 11.1 k/uL (3.8-10.6)
[2024-10-03 18:17] VITALS: BP 144/68; PULSE 88; RESP 18
== END 2024-10-03 18:17 | disposition home or self-care (01) ==
LOC: EC 15:41
DX: M89.58 Osteolysis, other site (principal); F17.200 Nicotine dependence, unspecified, uncomplicated; Z88.8 Allergy status to other drugs, medicaments and biological substances
CPT/HCPCS: 36415; 70450; 80053; 85025; 87040; 99283

== ENCOUNTER → 2024-10-19 | Outpatient (CLI) | payer MEDICARE, OTHER ==
--- NOTE | 2024-10-19 16:13 | PE ---
EXAMINATION TYPE: PET CT fusion skull to thigh DATE OF EXAM: 10/19/2024 COMPARISON: CT brain September 2024. CTA with runoff June 11, 2024 HISTORY: Multiple myeloma TECHNIQUE: Following the intravenous administration of 11.35 mCi of F-18 FDG, whole body images are performed from the top of skull to the midthigh. Images are reviewed on the computer in the coronal, axial, and sagittal planes. Reconstructed rotating images are created on independent workstation an d reviewed on the computer. A localization and attenuation correction CT is performed in conjunctio n with the PET scan. Blood glucose level equals 104 SCAN: Initial Scan FINDINGS: SKULL BASE AND NECK: No areas of abnormal soft tissue hypermetabolic uptake. CHEST, MEDIASTINUM, AND HILAR REGION: Underlying emphysematous changes present. Abnormal hypermetabol ic uptake involving subcentimeter lymph nodes posterior to the clavicles bilaterally and in the anter ior superior mediastinum between the left common and left subclavian arteries, max SUV is. Abnormal u ptake involving mediastinal lymph nodes along the deo and subcarinal region along with involvement in the right hilum. Max SUV is. Punctate hyperdense focus lateral to the right ninth rib axial image 154, max SUV of uncertain etiolo gy. Metastatic disease not excluded. ABDOMEN AND PELVIS: No areas of abnormal hypermetabolic uptake. OSSEOUS STRUCTURES: There is abnormal hypermetabolic uptake in the destructive right frontal 4.6 cm calvarial lesion, max SUV is. There is a subtle lytic destructive lesion involving the left anterior C1 ring measuring near 2.1 cm, max SUV is. No definitive additional abnormal osseous lesions. OTHER CT: There is large AAA with aortobiiliac stent graft. [place] AAA measures approximately 6.3 cm transversely. IMPRESSION: 1. Abnormal osseous lesions involving the high right frontal calvarium and the left anterior C1 ring. Due to location of the latter neurosurgical consult or evaluation is advised. 2. Abnormal thoracic lymph nodes including possible right hilar mass or neoplasm. An additional prima ry lung cancer cannot be excluded. Further investigation with bronchoscopy is likely warranted. Case is not sent to pet CT viewer to review and add SUV values. If/When case becomes available an addendum may be issued. [facility], , 10/19/2024 4:11 PM
== END | disposition home or self-care (01) ==
LOC: RADPETMAIN 10:58
PROVIDERS: ATTEND Family Medicine
DX: C90.00 Multiple myeloma not having achieved remission (principal); R93.7 Abnormal findings on diagnostic imaging of other parts of musculoskeletal system
CPT/HCPCS: 78815; A9552

== ENCOUNTER 2024-10-20 16:14 | Inpatient (IN) | payer MEDICARE, OTHER ==
--- NOTE | 2024-10-20 16:27 | ED ---
SOB HPI - General Chief Complaint: Shortness of Breath Stated Complaint: head tumor sob cant bend neck Time Seen by Provider: 10/20/24 16:24 Source: patient, RN notes reviewed, old records reviewed Mode of arrival: wheelchair Limitations: no limitations - History of Present Illness Initial Comments: This is a 69-year-old male to the ER for evaluation patient notes today for severe back pain neck pain shortness of breath swelling of the face. Patient states he has longstanding history of COPD and asthma states that shortness of breath is almost at baseline he does have severe pain in the back of his neck which is new known metastatic cancer multiple myeloma MD Complaint: shortness of breath, cough, chest pain (As well as neck pain), pain with inspiration Radiation: neck (Severe posterior neck pain) Severity scale (1-10): 10 Consistency: constant Improves With: nothing Worsens With: nothing Known History Of: COPD Context: recent URI, anxiety, recent illness Associated Symptoms: cough Treatments Prior to Arrival: none - Related Data Home Medications Medication Instructions Recorded Confirmed Albuterol Sulfate [Ventolin HFA] 2 puff INHALATION RT-Q6H PRN 08/20/20 10/20/24 Ipratropium-Albuterol Nebulize 3 ml INHALATION RT-QID 08/20/20 10/20/24 [Duoneb 0.5 mg-3 mg/3 ml Soln] Montelukast [Singulair] 10 mg PO DAILY 08/20/20 10/20/24 amLODIPine [Norvasc] 10 mg PO DAILY 08/20/20 10/20/24 HYDROcodone/APAP 10-325MG [[facility] 1 tab PO Q6HR PRN 09/14/21 10/20/24 10-325] Atorvastatin Calcium [Lipitor] 40 mg PO HS 02/28/23 10/20/24 Rivaroxaban [Xarelto] 2.5 mg PO BID 02/28/23 10/20/24 Ammonium Lactate Cream [Lac-Hydrin 1 applic TOPICAL DAILY 10/20/24 10/20/24 12% Cream] Fluticasone/Umeclidin/Vilanter 1 puff INHALATION RT-DAILY 10/20/24 10/20/24 [Trelegy Ellipta 100-62.5-25] Nicotine 21Mg/24Hr Patch [Habitrol] 1 patch TRANSDERM DAILY PRN 10/20/24 10/20/24 Allergies Allergy/AdvReac Type Severity Reaction Status Date / Time Tetracyclines Allergy Unknown Verified 10/20/24 18:39 Childhood Review of Systems ROS Statement: Those systems with pertinent positive or pertinent negative responses have been documented in the HPI. ROS Other: All systems not noted in ROS Statement are negative. Past Medical History Past Medical History: Cancer, COPD, Hyperlipidemia, Hypertension, Vascular Disorder Additional Past Medical History / Comment(s): Edema left lower leg and foot, uses oxygen PRN, poor circulation. History of Any Multi-Drug Resistant Organisms: None Reported Past Surgical History: Hernia Repair, Orthopedic Surgery Additional Past Surgical History / Comment(s): Leg stents placed, right shoulder rotator cuff repair, 07/23/20 surgery in [place] for leg blockages, "groin" hernia surgery X2, left leg arthrectomy and stent to SFA 03/18. Past Anesthesia/Blood Transfusion Reactions: No Reported Reaction Date of Last Stent Placement:: 09/16/21 Past Psychological History: No Psychological Hx Reported Smoking Status: Current every day smoker Past Alcohol Use History: None Reported Past Drug Use History: None Reported - Past Family History Mother Family Medical History: Cancer Father Family Medical History: Cancer General Exam Limitations: no limitations General appearance: alert, in no apparent distress, anxious Head exam: Present: atraumatic, normocephalic, normal inspection Eye exam: Present: normal appearance, PERRL, EOMI. Absent: scleral icterus, conjunctival injection, periorbital swelling ENT exam: Present: normal exam, mucous membranes moist Neck exam: Present: normal inspection. Absent: tenderness, meningismus, lymphadenopathy Respiratory exam: Present: respiratory distress, wheezes, accessory muscle use, decreased breath sounds, prolonged expiratory. Absent: rales, rhonchi, stridor Cardiovascular Exam: Present: regular rate, normal rhythm, normal heart sounds. Absent: systolic murmur, diastolic murmur, rubs, gallop, clicks GI/Abdominal exam: Present: soft, normal bowel sounds. Absent: distended, tenderness, guarding, rebound, rigid Extremities exam: Present: normal inspection, full ROM, normal capillary refill. Absent: tenderness, pedal edema, joint swelling, calf tenderness Back exam: Present: normal inspection Neurological exam: Present: alert, oriented X3, CN II-XII intact Psychiatric exam: Present: normal affect, normal mood Skin exam: Present: warm, dry, intact, normal color. Absent: rash Course Vital Signs 10/20/24 10/20/24 10/20/24 16:18 16:44 16:54 Temperature 98.7 F Pulse Rate 95 96 96 Respiratory 20 Rate Blood Pressure 153/86 O2 Sat by Pulse 90 L Oximetry 10/20/24 10/20/24 10/20/24 17:05 17:49 20:21 Temperature Pulse Rate 100 60 102 H Respiratory 22 Rate Blood Pressure 142/70 O2 Sat by Pulse Oximetry 10/20/24 10/20/24 20:43 21:37 Temperature 98.4 F Pulse Rate 108 H 105 H Respiratory 18 24 Rate Blood Pressure 131/60 136/63 O2 Sat by Pulse 92 L 95 Oximetry - Reevaluation(s) Reevaluation #1: 10/20/24 16:26 Medical records reviewed Reevaluation #2: 10/20/24 19:18 No real change in symptoms Reevaluation #3: 10/20/24 19:18 Patient informed of results questions answered Reevaluation #4: Was pt. sent in by a medical professional or institution (, PA, ELECTRICAL LINESWORKER, urgent care, hospital, or [place] [facility] [place] facility...) When possible be specific @ -no Did you speak to anyone other than the patient for history (EMS, parent, family, police, friend...)? What history was obtained from this source @ -no Did you review nursing and triage notes (agree or disagree)? Why? @ -agree Are old charts reviewed (outside hosp., previous admission, EMS record, old EKG, old radiological studies, urgent care reports/EKG's, [place] health [facility] facility records)? Report findings @ -yes Differential Diagnosis (chest pain, altered mental status, abdominal pain women, abdominal pain men, vaginal bleeding, weakness, fever, dyspnea, syncope, headache, dizziness, GI bleed, back pain, seizure, CVA, palpatations, mental health, musculoskeletal)? @ -prior EKG interpreted by me (3pts min.). @ -yes X-rays interpreted by me (1pt min.). @ -yes negative for acute disease CT interpreted by me (1pt min.). @ -Yes positive for neck mass U/S interpreted by me (1pt. min.). @ -no What testing was considered but not performed or refused? (CT, X-rays, U/S, labs)? Why? @ -none What meds were considered but not given or refused? Why? @ -none Did you discuss the management of the patient with other professionals (professionals i.e. , PA, ELECTRICAL LINESWORKER, lab, RT, psych nurse, social insurance analyst, enterprise software developer, teacher, chief analytics officer, case maker)? Give summary @ -no Was smoking cessation discussed for >3mins.? @ -no Was critical care preformed (if so, how long)? @ -yes31 Were there social determinants of health that impacted care today? How? (Homelessness, low income, unemployed, alcoholism, drug addiction, transportation, low edu. Level, literacy, decrease access to med. care, fdc, rehab)? @ -none Was there de-escalation of care discussed even if they declined (Discuss DNR or withdrawal of care, Hospice)? DNR status @ -no What co-morbidities impacted this encounter? (DM, HTN, Smoking, COPD, CAD, Cancer, CVA, ARF, Chemo, Hep., AIDS, mental health diagnosis, sleep apnea, morbid obesity)? @ -none Was patient admitted / discharged? Hospital course, mention meds given and route, prescriptions, significant lab abnormalities, going to OR and other pertinent info. @ - 69 male to ER for evaluation of neck pain back of neck pain where he does have evidence of mass on PT scan. Patient also has lymphadenopathy in the chest concern for SVC syndrome with facial swelling shortness of breath and severe COPD admitted Undiagnosed new problem with uncertain prognosis? @ -no Drug Therapy requiring intensive monitoring for toxicity (Heparin, Nitro, Insulin, Cardizem)? @ -no Were any procedures done? @ -no Diagnosis/symptom? @ -Severe COPD exacerbation, neck mass concern SVC Acute, or Chronic, or Acute on Chronic? @ -Acute Uncomplicated (without systemic symptoms) or Complicated (systemic symptoms)? @ -Complicated Side effects of treatment? @ -no Exacerbation, Progression, or Severe Exacerbation? @ -exacerbation Poses a threat to life or bodily function? How? (Chest pain, USA, CT, pneumonia, PE, COPD, DKA, ARF, appy, cholecystitis, CVA, Diverticulitis, Homicidal, Suicidal, threat to staff... and all critical care pts) @ -yes significant cancer burden and respiratory distress Reevaluation #5: Differential Dyspnea: Coronary syndrome, arrhythmia, tamponade, asthma, COPD, pulmonary embolism, pneumonia, pneumothorax, pulmonary effusion, anaphylaxis, diabetic ketoacidosis, flailed chest, pulmonary contusion, diaphragmatic rupture, anemia, sally romuscular, this is not meant to be an all-inclusive list. - Consultations Consultation #1: Spoke with Dr. Velez who will see this patient Medical Decision Making - Medical Decision Making 69 male to ER for evaluation of neck pain back of neck pain where he does have evidence of mass on PT scan. Patient also has lymphadenopathy in the chest concern for SVC syndrome with facial swelling shortness of breath and severe COPD - Lab Data Result diagrams: 10/26/24 05:30 10/26/24 05:30 Lab Results 10/20/24 10/20/24 10/20/24 Range/Units 16:41 16:41 16:41 WBC 15.6 H (3.8-10.6) k/uL RBC 4.76 (4.30-5.90) m/uL Hgb 13.2 (13.0-17.5) gm/dL Hct 40.6 (39.0-53.0) % MCV 85.4 (80.0-100.0) fL MCH 27.8 (25.0-35.0) pg MCHC 32.5 (31.0-37.0) g/dL RDW 15.0 (11.5-15.5) % Plt Count 307 (150-450) k/uL MPV 8.0 Neutrophils % 78 % Lymphocytes % 10 % Monocytes % 8 % Eosinophils % 2 % Basophils % 0 % Neutrophils # 12.2 H (1.3-7.7) k/uL Lymphocytes # 1.6 (1.0-4.8) k/uL Monocytes # 1.2 H (0-1.0) k/uL Eosinophils # 0.4 (0-0.7) k/uL Basophils # 0.0 (0-0.2) k/uL PT 10.1 (10.0-12.5) sec INR 0.9 (<1.2) APTT 22.7 (22.0-30.0) sec D-Dimer 3.62 H (<0.60) mg/L FEU Sodium 135 L (137-145) mmol/L Potassium 4.0 (3.5-5.1) mmol/L Chloride 99 (98-107) mmol/L Carbon Dioxide 31 H (22-30) mmol/L Anion Gap 5 mmol/L BUN 19 (9-20) mg/dL Creatinine 1.08 (0.66-1.25) mg/dL Est GFR (CKD-EPI)AfAm 79 (>60 ml/min/1.73 sqM) Est GFR (CKD-EPI)NonAf 69 (>60 ml/min/1.73 sqM) Glucose 108 H (74-99) mg/dL Plasma Lactic Acid Kareem (0.7-2.0) mmol/L Calcium 9.8 (8.4-10.2) mg/dL Magnesium 2.0 (1.6-2.3) mg/dL Total Bilirubin 0.7 (0.2-1.3) mg/dL AST 18 (17-59) U/L ALT 15 (4-49) U/L Alkaline Phosphatase 131 H (38-126) U/L Troponin I (0.000-0.034) ng/mL NT-Pro-B Natriuret Pep 926 pg/mL Total Protein 6.4 (6.3-8.2) g/dL Albumin 3.7 (3.5-5.0) g/dL 10/20/24 10/20/24 Range/Units 16:41 16:41 WBC (3.8-10.6) k/uL RBC (4.30-5.90) m/uL Hgb (13.0-17.5) gm/dL Hct (39.0-53.0) % MCV (80.0-100.0) fL MCH (25.0-35.0) pg MCHC (31.0-37.0) g/dL RDW (11.5-15.5) % Plt Count (150-450) k/uL MPV Neutrophils % % Lymphocytes % % Monocytes % % Eosinophils % % Basophils % % Neutrophils # (1.3-7.7) k/uL Lymphocytes # (1.0-4.8) k/uL Monocytes # (0-1.0) k/uL Eosinophils # (0-0.7) k/uL Basophils # (0-0.2) k/uL PT (10.0-12.5) sec INR (<1.2) APTT (22.0-30.0) sec D-Dimer (<0.60) mg/L FEU Sodium (137-145) mmol/L Potassium (3.5-5.1) mmol/L Chloride (98-107) mmol/L Carbon Dioxide (22-30) mmol/L Anion Gap mmol/L BUN (9-20) mg/dL Creatinine (0.66-1.25) mg/dL Est GFR (CKD-EPI)AfAm (>60 ml/min/1.73 sqM) Est GFR (CKD-EPI)NonAf (>60 ml/min/1.73 sqM) Glucose (74-99) mg/dL Plasma Lactic Acid Kareem 0.7 (0.7-2.0) mmol/L Calcium (8.4-10.2) mg/dL Magnesium (1.6-2.3) mg/dL Total Bilirubin (0.2-1.3) mg/dL AST (17-59) U/L ALT (4-49) U/L Alkaline Phosphatase (38-126) U/L Troponin I 0.057 H* (0.000-0.034) ng/mL NT-Pro-B Natriuret Pep pg/mL Total Protein (6.3-8.2) g/dL Albumin (3.5-5.0) g/dL - EKG Data -: EKG Interpreted by Me (EKG sinus 90 NC 135 QRS 96 QTc 386) - Radiology Data Radiology results: report reviewed (CT angio chest negative PE CT soft tissue neck negative for acute disease chest x-ray negative for acute disease patient does have significant lymphadenopathy), image reviewed Critical Care Time Critical Care Time: Yes Total Critical Care Time: 31 Disposition Clinical Impression: Lytic bone lesions on xray, Neck mass, Neck pain, Acute exacerbation of chronic obstructive pulmonary disease, Neck swelling, Lung mass Disposition: ADMITTED IP TO THIS HOSP Condition: Serious Is patient prescribed a controlled substance at d/c from ED?: No Time of Disposition: 19:00
[2024-10-20] MEDS: IPRATROPIUM-ALBUTEROL 3 ML NEB INHALATION STA ×2 (16:43→20:21)
[2024-10-20] MEDS: methylPREDNISolone SOD SUCCI 125 MG/2 ML VIAL IV STA (16:46)
[2024-10-20 17:08] LABS: Basophils % (A) 0 %; Eosinophils # (A) 0.4 k/uL (0-0.7); Eosinophils % (A) 2 %; HCT 40.6 % (39.0-53.0); HGB 13.2 gm/dL (13.0-17.5); Lymphocytes # (A) 1.6 k/uL (1.0-4.8); Lymphocytes % (A) 10 %; MCH 27.8 pg (25.0-35.0); MCHC 32.5 g/dL (31.0-37.0); MCV 85.4 fL (80.0-100.0); Monocytes # (A) 1.2 k/uL (0-1.0); Monocytes % (A) 8 %; Neutrophils # (A) 12.2 k/uL (1.3-7.7); Neutrophils % (A) 78 %; Platelet Count 307 k/uL (150-450); RBC 4.76 m/uL (4.30-5.90); WBC 15.6 k/uL (3.8-10.6)
[2024-10-20 17:11] LABS: INR 0.9 (<1.2); Partial Thromboplastin Time 22.7 sec (22.0-30.0); Prothrombin Time 10.1 sec (10.0-12.5)
[2024-10-20 17:12] LABS: ALT 15 U/L (4-49); AST 18 U/L (17-59); African American GFR (CKD) 79 (>60 ml/min/1.73 sqM); Albumin 3.7 g/dL (3.5-5.0); Alkaline Phosphatase 131 U/L (38-126); Anion Gap 5 mmol/L; Blood Urea Nitrogen 19 mg/dL (9-20); Calcium 9.8 mg/dL (8.4-10.2); Carbon Dioxide 31 mmol/L (22-30); Chloride 99 mmol/L (98-107); Glucose 108 mg/dL (74-99); Non-African American GFR(CKD) 69 (>60 ml/min/1.73 sqM); Sodium 135 mmol/L (137-145); Total Bilirubin 0.7 mg/dL (0.2-1.3); Total Protein 6.4 g/dL (6.3-8.2)
[2024-10-20 17:21] LABS: NT-Pro-B-Type Natriuretic Pept 926 pg/mL
--- NOTE | 2024-10-20 17:58 | XR ---
EXAMINATION TYPE: XR chest 2V DATE OF EXAM: 10/20/2024 5:52 PM COMPARISON: Previous chest radiograph, most recent dated 09/25/2019. CLINICAL INDICATION: Male, 69 years old with history of difficulty breathing; [facility] TECHNIQUE: XR chest 2V Frontal and lateral views of the chest. FINDINGS: Cardiac silhouette is within normal limits of size. No acute focal consolidation. No pleural effusion. Indeterminant spiculated region nodularity at the left lung base measuring approximately 2 cm. This f inding could in part reflect artifact from the nipple shadow, however, pulmonary nodule be difficult to exclude. Lungs are clear bilaterally coarsening of interstitial markings. No acute osseous abnormality. Previous rotator cuff repair in the right shoulder. IMPRESSION: 1. No acute cardiopulmonary disease/process. 2. Indeterminant asymmetric spiculated region of nodularity in the left lung base measuring roughly [address] chest for further evaluation. [facility], , 10/20/2024 5:55 PM
--- NOTE | 2024-10-20 18:47 | CT ---
EXAMINATION TYPE: CT angio chest DATE OF EXAM: 10/20/2024 6:30 PM COMPARISON: PET/CT study dated 10/19/2024. CLINICAL INDICATION: Male, 69 years old with history of pe; kanika/left side neck pain TECHNIQUE/CONTRAST: CTA scan of the thorax is performed with IV Contrast, patient injected with 100 ml mL of Isovue 370, MIP images are created and reviewed these are created on a separate workstation.. CT DLP: combined 643.7 mGycm, Automated exposure control for dose reduction was used. FINDINGS: Pulmonary Artery: There is no evidence for a filling defect within the pulmonary vasculature to sugge st acute pulmonary embolism. The pulmonary artery is of normal size. Significant mass effect on rig ht lung pulmonary arteries due to soft tissue encasement from right hilar mass. Lungs/Pleura: Right hilar soft tissue mass encasing the surrounding pulmonary arteries and right lung bronchi (series 188 in age 78). This region was hyper metabolic on recent PET/CT and is highly suspi cious for malignancy. Extensive aspirated secretions along the bilateral lower lung bronchi with asso ciated bronchial wall thickening. There is nodular scarring/atelectasis in the lingula. Patchy consol idation in the right lower lobe. Emphysema. Heart: Heart is within normal limits for size. Vasculature: No evidence of aortic aneurysm. Mediastinum: Pathologic mediastinal and right hilar lymphadenopathy. For example, subcarinal mediasti nal measures 24 mm in short axis. Largest right lower paratracheal node measures 15 mm in short acces s. Musculoskeletal: No acute osseous abnormalities Soft Tissues/lymph nodes: Unremarkable. Lower neck: No significant acute findings. Partially visualized abdominal aortic stent graft and at l east moderate narrowing of the pituitary estimated dense calcified plaque. Upper Abdomen: No significant findings. IMPRESSION: 1. No evidence of acute pulmonary embolism. There is mass effect on right lung pulmonary arteries du e to soft tissue encasement from right hilar mass. 2. Soft tissue mass in the right hilar region extending into the mediastinum with associated patholo gic mediastinal lymphadenopathy. These regions were FDG avid on recent PET/CT and are highly suspicio us for malignancy. Bronchoscopy/direct visualization and biopsy is recommended for further evaluation . 3. Aspirated secretions, predominantly involving lower lobe bronchi with possible developing aspirat ion pneumonia in the right lower lobe. Lingular scarring/atelectasis. 4. Emphysema. [facility], , 10/20/2024 6:44 PM
--- NOTE | 2024-10-20 19:06 | CT ---
EXAMINATION TYPE: CT soft tissue neck w con DATE OF EXAM: 10/20/2024 6:30 PM COMPARISON: Previous CT study 06/08/2024. CLINICAL INDICATION: Male, 69 years old with history of pe; PHH, kanika/left side neck pain TECHNIQUE: Standard enhanced CT of the neck. Axial sections with coronal and sagittal reformats were obtained. Contrast used:100ml mL of Isovue 370 with IV Contrast, (None if empty) Oral contrast used: (None if empty) CT DLP: combined dlp 643.7 mGycm, Automated exposure control for dose reduction was used. FINDINGS: Brain: Visualized portions are grossly unremarkable. Orbits: Unremarkable Sinuses: Grossly unremarkable. Spaces of the neck: Clear and symmetric. Musculoskeletal: No acute osseous pathology. Lymph nodes: Multiple nonenlarged lymph nodes are seen along both anterior chains of the neck. Vascular structures: Suspected 60-70% stenosis at the left carotid bifurcation, and not well evaluate d given lack of arterial phase imaging. Approximately 40-50% stenosis of the right carotid bifurcatio n. Thoracic Inlet/airway: Airway is patent. The lung apices are clear. Soft tissues/Thyroid: Thyroid and remainder of the soft tissues are unremarkable. Other: none. IMPRESSION No evidence of acute abnormality in the neck. [facility], , 10/20/2024 7:03 PM
[2024-10-20] MEDS ORDERED: ONDANSETRON 4 MG/2 ML VIAL IVP PRN (19:14)
[2024-10-20] MEDS ORDERED: NALOXONE 0.4 MG/ML 1 ML VIAL IV PRN (19:14)
[2024-10-20] MEDS ORDERED: ALBUTEROL NEBULIZED 2.5 MG/3 ML INHALATION PRN (19:16)
[2024-10-20] MEDS: DEXAMETHASONE SOD PHOSPHATE 10 MG/ML 1 ML VIAL IVP STA (19:38)
[2024-10-20] MEDS: SODIUM CHLORIDE 0.9% 1,000 ML IV SCH (19:38)
[2024-10-20] MEDS: MORPHINE SULFATE 4 MG/ML SYRINGE IV PRN (20:32)
[2024-10-21] MEDS: DEXAMETHASONE SOD PHOSPHATE 4 MG/ML 1 ML VIAL IVP SCH (00:27)
[2024-10-21] MEDS: HYDROmorphone 1 MG/ML 1 ML SYRINGE IVP PRN (04:15)
[2024-10-21 06:09] LABS: Glucose,Whole Blood 150 mg/dL (70-110)
[2024-10-21 07:39] LABS: Basophils % (A) 0 %; Eosinophils % (A) 0 %; HGB 13.3 gm/dL (13.0-17.5); Lymphocytes # (A) 0.5 k/uL (1.0-4.8); Lymphocytes % (A) 4 %; MCH 28.1 pg (25.0-35.0); MCHC 32.5 g/dL (31.0-37.0); MCV 86.6 fL (80.0-100.0); Mean Platelet Volume 8.4; Monocytes # (A) 0.4 k/uL (0-1.0); Monocytes % (A) 3 %; Neutrophils # (A) 13.6 k/uL (1.3-7.7); Neutrophils % (A) 93 %; Platelet Count 316 k/uL (150-450); RBC 4.73 m/uL (4.30-5.90); WBC 14.7 k/uL (3.8-10.6)
[2024-10-21] MEDS: AMMONIUM LACTATE 12% CREAM 140 GM TUBE TOPICAL SCH (07:52)
[2024-10-21] MEDS: RIVAROXABAN 2.5 MG TABLET PO SCH (07:53)
[2024-10-21] MEDS: amLODIPine 10 MG TAB PO SCH (07:54)
[2024-10-21 07:57] LABS: ALT 14 U/L (4-49); AST 16 U/L (17-59); African American GFR (CKD) 83 (>60 ml/min/1.73 sqM); Albumin 3.5 g/dL (3.5-5.0); Alkaline Phosphatase 121 U/L (38-126); Anion Gap 8 mmol/L; Blood Urea Nitrogen 24 mg/dL (9-20); Calcium 9.8 mg/dL (8.4-10.2); Carbon Dioxide 29 mmol/L (22-30); Chloride 100 mmol/L (98-107); Glucose 124 mg/dL (74-99); Magnesium 2.2 mg/dL (1.6-2.3); Non-African American GFR(CKD) 72 (>60 ml/min/1.73 sqM); Phosphorus 4.3 mg/dL (2.5-4.5); Potassium 5.2 mmol/L (3.5-5.1); Sodium 137 mmol/L (137-145); Total Bilirubin 0.5 mg/dL (0.2-1.3); Total Protein 6.2 g/dL (6.3-8.2)
[2024-10-21] MEDS: MONTELUKAST 10 MG TAB PO SCH (09:07)
[2024-10-21] MEDS: METOPROLOL TARTRATE 25 MG TAB PO SCH (09:07)
--- NOTE | 2024-10-21 10:36 | P.CRDCN ---
History of Present Illness History of present illness: HISTORY OF PRESENT ILLNESS: This is a 69-year-old male with a past medical history significant for peripheral arterial disease with previous lower extremity intervention, coronary artery disease, cardiomyopathy, aortic stent graft, carotid atherosclerosis, hypertension, and hyperlipidemia. Patient follows in the office with Dr. Rizo. We have been asked to see the patient in consultation for new onset A-fib. Patient examined at the bedside. Patient initially presented to the hospital with a chief complaint of neck pain and headaches. Initial EKG completed revealing sinus mechanism with PACs. Repeat EKG reveals atrial fibrillation. Telemetry monitoring this morning reveals sinus mechanism with frequent PACs. The patient denies any known history of atrial fibrillation. Patient is on low- dose Xarelto 2.5 mg twice a day due to history of PAD. Patient currently denies any chest pain or pressure. She denies any shortness of breath. DIAGNOSTICS: - Initial EKG completed revealing sinus mechanism with PACs. Repeat EKG reveals atrial fibrillation. Telemetry monitoring this morning reveals sinus mechanism with frequent PACs. - Chest xray negative for acute process. Indeterminate asymmetric spiculated region of nodularity in the left lung base measuring roughly 2 cm. - Laboratory data: WBC 14.7. Hemoglobin 13.3. Platelet count 1 316. D-dimer 3.62. Sodium 137. Potassium 5.2. BUN 24. Creatinine 1.05. Troponin 0.057. proBNP 926 - Current home cardiac medications include Xarelto 2.5 mg twice a day and amlodipine 10 mg daily. - Most recent echocardiogram obtained in 2020 revealing ejection fraction 45% - Cardiac catheterization history: July 2021 revealing minimal CAD REVIEW OF SYSTEMS: At the time of my exam: CONSTITUTIONAL: Denies fever or chills. HEENT: Denies blurred vision, vision changes, or eye pain. Denies hemoptysis CARDIOVASCULAR: Denies chest pain. Denies orthopnea. Denies PND. Denies palpitations RESPIRATORY: Denies shortness of breath. GASTROINTESTINAL: Denies abdominal pain. Denies nausea or vomiting. HEMATOLOGIC: Denies bleeding disorders. GENITOURINARY: Denies any blood in urine. SKIN: Denies pruitis. Denies rash. PHYSICAL EXAM: VITAL SIGNS: Reviewed. GENERAL: Well-developed in no acute distress. HEENT: Head is normocephalic. Pupils are equal, round. Sclerae anicteric. Mucous membranes of the mouth are moist. Neck supple. No JVD or thyromegaly LUNGS: Respirations even and unlabored. Lungs essentially clear to auscultation bilaterally. HEART: Irregular rate and rhythm. S1 and S2 heard. ABDOMEN: Soft. Nondistended. Nontender. EXTREMITIES: Normal range of motion. No clubbing or cyanosis. Peripheral pulses intact. No lower extremity edema NEUROLOGIC: Awake and alert. Oriented x 3. ASSESSMENT: Neck pain Headaches History of metastatic multiple myeloma New onset atrial fibrillation, currently maintaining sinus mechanism with frequent PACs Peripheral arterial disease with previous lower extremity intervention, most recently [employer] of left SFA, June 2024 Known occluded external iliac History of aortic stent grafting Minimal CAD, per cath 2020 Carotid stenosis Hypertension Hyperlipidemia Nicotine dependence PLAN: Obtain 2D echo to assess cardiac structure and function Resume home cardiac medications Patient previously on low-dose Xarelto for PAD. Increase dosage to 20 mg daily due to new onset A-fib Begin metoprolol tartrate 25 mg twice a day Check TSH Continue telemetry monitoring Further recommendations pending patient course Nurse practitioner note has been reviewed by physician. Signing provider agrees with the documented findings, assessment, and plan of care documented by HISTOLOGY TECHNICIAN as a scribe. Past Medical History Past Medical History: Cancer, COPD, Hyperlipidemia, Hypertension, Vascular Disorder Additional Past Medical History / Comment(s): Edema left lower leg and foot, uses oxygen PRN, poor circulation. History of Any Multi-Drug Resistant Organisms: None Reported Past Surgical History: Hernia Repair, Orthopedic Surgery Additional Past Surgical History / Comment(s): Leg stents placed, right shoulder rotator cuff repair, 07/23/20 surgery in [place] for leg blockages, "groin" hernia surgery X2, left leg arthrectomy and stent to SFA 03/18. Past Anesthesia/Blood Transfusion Reactions: No Reported Reaction Date of Last Stent Placement:: 09/16/21 Past Psychological History: No Psychological Hx Reported Smoking Status: Current every day smoker Past Alcohol Use History: None Reported Additional Past Alcohol Use History / Comment(s): Smokes 1 PPD - has been smoking for 50 years. Past Drug Use History: None Reported - Past Family History Mother Family Medical History: Cancer Father Family Medical History: Cancer Medications and Allergies Home Medications Medication Instructions Recorded Confirmed Type Albuterol Sulfate [Ventolin HFA] 2 puff INHALATION RT-Q6H PRN 08/20/20 10/20/24 History Ipratropium-Albuterol Nebulize 3 ml INHALATION RT-QID 08/20/20 10/20/24 History [Duoneb 0.5 mg-3 mg/3 ml Soln] Montelukast [Singulair] 10 mg PO DAILY 08/20/20 10/20/24 History amLODIPine [Norvasc] 10 mg PO DAILY 08/20/20 10/20/24 History HYDROcodone/APAP 10-325MG [[place] 1 tab PO Q6HR PRN 09/14/21 10/20/24 History 10-325] Atorvastatin Calcium [Lipitor] 40 mg PO HS 02/28/23 10/20/24 History Rivaroxaban [Xarelto] 2.5 mg PO BID 02/28/23 10/20/24 History Ammonium Lactate Cream [Lac-Hydrin 1 applic TOPICAL DAILY 10/20/24 10/20/24 History 12% Cream] Fluticasone/Umeclidin/Vilanter 1 puff INHALATION RT-DAILY 10/20/24 10/20/24 History [Trelegy Ellipta 100-62.5-25] Nicotine 21Mg/24Hr Patch [Habitrol] 1 patch TRANSDERM DAILY PRN 10/20/24 10/20/24 History Allergies Allergy/AdvReac Type Severity Reaction Status Date / Time Tetracyclines Allergy Unknown Verified 10/20/24 18:39 Childhood Physical Exam Vitals: Vital Signs Temp Pulse Pulse Resp BP BP Pulse Ox 10/21/24 08:25 96 10/21/24 07:49 98 F 86 17 120/70 98 10/21/24 04:00 101 H 20 152/83 93 L 10/21/24 02:00 18 10/21/24 00:00 98.2 F 101 H 18 127/72 95 10/20/24 21:37 98.4 F 105 H 24 136/63 95 10/20/24 20:43 108 H 18 131/60 92 L 10/20/24 20:21 102 H 10/20/24 17:49 60 22 142/70 10/20/24 17:05 100 10/20/24 16:54 96 10/20/24 16:44 96 10/20/24 16:18 98.7 F 95 20 153/86 90 L Intake and Output 10/20/24 10/21/24 10/21/24 22:59 06:59 14:59 Intake Total 240 Balance 240 Intake: Oral 240 Other: Voiding Method Toilet Toilet # Voids 2 Weight 74.843 kg 69.8 kg Results 10/21/24 06:27 10/21/24 06:27 Cardiac Enzymes 10/20/24 10/20/24 10/21/24 Range/Units 16:41 16:41 06:27 AST 18 16 L (17-59) U/L Troponin I 0.057 H* (0.000-0.034) ng/mL Coagulation 10/20/24 Range/Units 16:41 PT 10.1 (10.0-12.5) sec APTT 22.7 (22.0-30.0) sec CBC 10/20/24 10/21/24 Range/Units 16:41 06:27 WBC 15.6 H 14.7 H (3.8-10.6) k/uL RBC 4.76 4.73 (4.30-5.90) m/uL Hgb 13.2 13.3 (13.0-17.5) gm/dL Hct 40.6 41.0 (39.0-53.0) % Plt Count 307 316 (150-450) k/uL Comprehensive Metabolic Panel 10/20/24 10/21/24 Range/Units 16:41 06:27 Sodium 135 L 137 (137-145) mmol/L Potassium 4.0 5.2 H (3.5-5.1) mmol/L Chloride 99 100 (98-107) mmol/L Carbon Dioxide 31 H 29 (22-30) mmol/L BUN 19 24 H (9-20) mg/dL Creatinine 1.08 1.05 (0.66-1.25) mg/dL Glucose 108 H 124 H (74-99) mg/dL Calcium 9.8 9.8 (8.4-10.2) mg/dL AST 18 16 L (17-59) U/L ALT 15 14 (4-49) U/L Alkaline Phosphatase 131 H 121 (38-126) U/L Total Protein 6.4 6.2 L (6.3-8.2) g/dL Albumin 3.7 3.5 (3.5-5.0) g/dL Current Medications Generic Name Dose Route Start Last Admin Trade Name Freq PRN Reason Stop Dose Admin Albuterol Sulfate 2.5 mg 10/20/24 19:16 Albuterol Nebulized 2.5 Mg/3 Ml INHALATION RT-QID PRN Shortness Of Breath Or Wheezing Albuterol/Ipratropium 3 ml 10/21/24 12:00 Ipratropium-Albuterol 3 Ml Neb INHALATION RT-QID LINDY Albuterol/Ipratropium 3 ml 10/21/24 10:11 Ipratropium-Albuterol 3 Ml Neb INHALATION RT-Q2H PRN Shortness Of Breath Or Wheezing Amlodipine Besylate 10 mg 10/21/24 09:00 10/21/24 07:54 Amlodipine 10 Mg Tab PO 10 mg DAILY LINDY Administration Atorvastatin Calcium 40 mg 10/21/24 21:00 Atorvastatin 40 Mg Tab PO HS [facility] Budesonide/Formoterol Fumarate 2 puff 10/21/24 20:00 Symbicort 160-4.5 Mcg Inhaler INHALATION RT-BID [facility] Dexamethasone Sodium Phosphate 4 mg 10/21/24 00:00 10/21/24 07:52 Dexamethasone Sod Phosphate 4 Mg/Ml 1 Ml Vial IVP 4 mg Q4H LINDY Administration Hydromorphone HCl 1 mg 10/21/24 02:54 10/21/24 07:52 Hydromorphone 1 Mg/Ml 1 Ml Syringe IVP 1 mg Q4HR PRN Administration Severe Pain (Scale 7 to 10) Sodium Chloride 1,000 mls @ 75 mls/hr 10/20/24 19:15 10/21/24 10:10 Saline 0.9% IV Not Given .[id number] [facility] Lactic Acid 1 applic 10/21/24 09:00 10/21/24 07:52 Ammonium Lactate 12% Cream 140 Gm Tube TOPICAL Not Given DAILY [facility] Protocol Metoprolol Tartrate 25 mg 10/21/24 09:00 10/21/24 09:07 Metoprolol Tartrate 25 Mg Tab PO 25 mg BID LINDY Administration Montelukast Sodium 10 mg 10/21/24 09:00 10/21/24 09:07 Montelukast 10 Mg Tab PO 10 mg DAILY LINDY Administration Naloxone HCl 0.2 mg 10/20/24 19:14 Naloxone 0.4 Mg/Ml 1 Ml Vial IV Q2M PRN Opioid Reversal Nicotine 1 patch 10/21/24 06:32 Nicotine 21mg/24hr Patch TRANSDERM DAILY PRN Nicotine Cravings Ondansetron HCl 4 mg 10/20/24 19:14 Ondansetron 4 Mg/2 Ml Vial IVP Q8HR PRN Nausea And Vomiting Rivaroxaban 20 mg 10/21/24 17:00 Rivaroxaban 20 Mg Tab PO DAILY@1700 [facility] Protocol Intake and Output 10/20/24 10/21/24 10/21/24 22:59 06:59 14:59 Intake Total 240 Balance 240 Intake: Oral 240 Other: Voiding Method Toilet Toilet # Voids 2 Weight 74.843 kg 69.8 kg 10/21/24 06:27 10/21/24 06:27
[2024-10-21] MEDS: IPRATROPIUM-ALBUTEROL 3 ML NEB INHALATION SCH (12:13)
[2024-10-21 12:34] LABS: T4, Free (Free Thyroxine) 1.83 ng/dL (0.78-2.19)
--- NOTE | 2024-10-21 13:01 | P.CNPUL ---
History of Present Illness Consult date: 10/21/24 Requesting physician: Hong Velez Reason for consult: dyspnea, abnormal CXR/CT Chief complaint: Shortness of breath, headaches History of present illness: This is a 69-year-old male patient with a known history of chronic obstructive pulmonary disease, chronic and ongoing tobacco dependence, hyperlipidemia, peripheral vascular disease with previous stent placements and maintained on Xarelto. He recently had noted a scalp mass on the top of his head. His primary care provider, Dr. Velez, was planning to send him to [place] for further workup. However the patient presented here to the emergency room yesterday with complaints of facial swelling, headache and shortness of breath. Chest x-ray reveals no acute pulmonary process. There is a indeterminate asymmetric spiculated region of nodularity in the left lung base measuring roughly [address] angiogram revealed no evidence of pulmonary embolism. There is mass effect on the right lung pulmonary arteries due to soft tissue encas ement from a right hilar mass. Soft tissue mass in the right hilar region extending to the mediastinum with associated pathologic mediastinal lymphadenopathy. Highly suspicious for malignancy. Aspirated secretions predominantly involving the lower lobe bronchi with possible developing aspiration pneumonia in the right lower lobe. Lingular scarring/atelectasis. Evidence of emphysema. White count 14.7. Hemoglobin 13.3. Platelets 316. Sodium 137. Potassium 5.2. Bicarb 29. BUN 24. Creatinine 1.04. Glucose 124. AST 16. ALT 14. He is seen today in consultation on the selective care unit. He is currently sitting up in bed. Awake and alert. His voice is quite hoarse and raspy. He is dyspneic with minimal exertion. Dyspneic with conversation. He states his face is less swollen today compared to yesterday. He is maintaining O2 saturations in the mid 90s on room air. He is afebrile. Hemodynamically stable. Review of Systems REVIEW OF SYSTEMS: CONSTITUTIONAL: Denies any recent significant weight loss or weight gain. EYES: Denies change in vision. EARS, NOSE, MOUTH, THROAT: Positive for facial swelling and headaches, hoarseness. CARDIOVASCULAR: Denies chest pain, palpitations or syncopal episodes. RESPIRATORY: Positive for shortness of breath, cough, congestion or hemoptysis. GASTROINTESTINAL: Denies change in appetite, denies abdominal pain GENITOURINARY: Denies hematuria, denies infections. MUSKULOSKELETAL: Positive for headache, scalp pain, neck pain. INTEGUMENTARY: Denies rash, denies eczema. NEUROLOGICAL: Denies recent memory loss, no recent seizure activity. PSYCHIATRIC: Denies anxiety, denies depression. HEMATOLOGIC/LYMPHATIC: Denies anemia, denies enlarged lymph nodes. Past Medical History Past Medical History: Cancer, COPD, Hyperlipidemia, Hypertension, Vascular Disorder Additional Past Medical History / Comment(s): Edema left lower leg and foot, uses oxygen PRN, poor circulation. History of Any Multi-Drug Resistant Organisms: None Reported Past Surgical History: Hernia Repair, Orthopedic Surgery Additional Past Surgical History / Comment(s): Leg stents placed, right shoulder rotator cuff repair, 07/23/20 surgery in [place] for leg blockages, "groin" hernia surgery X2, left leg arthrectomy and stent to SFA 03/18. Past Anesthesia/Blood Transfusion Reactions: No Reported Reaction Date of Last Stent Placement:: 09/16/21 Past Psychological History: No Psychological Hx Reported Smoking Status: Current every day smoker Past Alcohol Use History: None Reported Additional Past Alcohol Use History / Comment(s): Smokes 1 PPD - has been smoking for 50 years. Past Drug Use History: None Reported - Past Family History Mother Family Medical History: Cancer Father Family Medical History: Cancer Medications and Allergies Home Medications Medication Instructions Recorded Confirmed Type Albuterol Sulfate [Ventolin HFA] 2 puff INHALATION RT-Q6H PRN 08/20/20 10/20/24 History Ipratropium-Albuterol Nebulize 3 ml INHALATION RT-QID 08/20/20 10/20/24 History [Duoneb 0.5 mg-3 mg/3 ml Soln] Montelukast [Singulair] 10 mg PO DAILY 08/20/20 10/20/24 History amLODIPine [Norvasc] 10 mg PO DAILY 08/20/20 10/20/24 History HYDROcodone/APAP 10-325MG [[place] 1 tab PO Q6HR PRN 09/14/21 10/20/24 History 10-325] Atorvastatin Calcium [Lipitor] 40 mg PO HS 02/28/23 10/20/24 History Rivaroxaban [Xarelto] 2.5 mg PO BID 02/28/23 10/20/24 History Ammonium Lactate Cream [Lac-Hydrin 1 applic TOPICAL DAILY 10/20/24 10/20/24 History 12% Cream] Fluticasone/Umeclidin/Vilanter 1 puff INHALATION RT-DAILY 10/20/24 10/20/24 History [Trelegy Ellipta 100-62.5-25] Nicotine 21Mg/24Hr Patch [Habitrol] 1 patch TRANSDERM DAILY PRN 10/20/24 10/20/24 History Allergies Allergy/AdvReac Type Severity Reaction Status Date / Time Tetracyclines Allergy Unknown Verified 10/20/24 18:39 Childhood Physical Exam Vitals: Vital Signs Temp Pulse Pulse Resp BP BP Pulse Ox 10/21/24 12:25 82 10/21/24 12:13 84 10/21/24 11:47 97.9 F 84 17 132/65 95 10/21/24 08:25 96 10/21/24 07:49 98 F 86 17 120/70 98 10/21/24 04:00 101 H 20 152/83 93 L 10/21/24 02:00 18 10/21/24 00:00 98.2 F 101 H 18 127/72 95 10/20/24 21:37 98.4 F 105 H 24 136/63 95 10/20/24 20:43 108 H 18 131/60 92 L 10/20/24 20:21 102 H 10/20/24 17:49 60 22 142/70 10/20/24 17:05 100 10/20/24 16:54 96 10/20/24 16:44 96 10/20/24 16:18 98.7 F 95 20 153/86 90 L Intake and Output 10/20/24 10/21/24 10/21/24 22:59 06:59 14:59 Intake Total 240 Output Total 0 Balance 240 Intake: Oral 240 Output: Gastric Drainage 0 Urine 0 Stool 0 Urine/Stool Mix 0 Emesis 0 Oral Regurgitation 0 Other 0 Other: Voiding Method Toilet Toilet # Voids 2 0 # Bowel Movements 0 Weight 74.843 kg 69.8 kg GENERAL EXAM: Alert, pleasant 69-year-old male, on room air, fairly comfortable in no apparent distress. HEAD: Palpable scalp lesion over the right anterior skull. Some facial edema over his eyes. EYES: Normal reaction of pupils, equal size. NOSE: Clear with pink turbinates. THROAT: No erythema or exudates. NECK: No palpable mass or lymphadenopathy. CHEST: No chest wall deformity. LUNGS: Equal air entry with coarse scattered rhonchi. CVS: S1 and S2 normal with no audible murmur, regular rhythm. ABDOMEN: No hepatosplenomegaly, normal bowel sounds, no guarding or rigidity. SPINE: No scoliosis or deformity SKIN: No rashes CENTRAL NERVOUS SYSTEM: No focal deficits, tone is normal in all 4 extremities. EXTREMITIES: There is no peripheral edema. No clubbing, no cyanosis. Peripheral pulses are intact. Results - Laboratory Findings CBC and BMP: 10/21/24 06:27 10/21/24 06:27 PT/INR, D-dimer PT 10.1 sec (10.0-12.5) 10/20/24 16:41 INR 0.9 (<1.2) 10/20/24 16:41 D-Dimer 3.62 mg/L FEU (<0.60) H 10/20/24 16:41 Abnormal lab findings: Abnormal Labs 10/20/24 10/20/24 10/20/24 16:41 16:41 16:41 WBC 15.6 H Neutrophils # 12.2 H Lymphocytes # Monocytes # 1.2 H D-Dimer 3.62 H Sodium 135 L Potassium Carbon Dioxide 31 H BUN Glucose 108 H POC Glucose (mg/dL) AST Alkaline Phosphatase 131 H Troponin I Total Protein TSH 10/20/24 10/21/24 10/21/24 16:41 06:07 06:27 WBC 14.7 H Neutrophils # 13.6 H Lymphocytes # 0.5 L Monocytes # D-Dimer Sodium Potassium Carbon Dioxide BUN Glucose POC Glucose (mg/dL) 150 H AST Alkaline Phosphatase Troponin I 0.057 H* Total Protein TSH 10/21/24 10/21/24 06:27 06:27 WBC Neutrophils # Lymphocytes # Monocytes # D-Dimer Sodium Potassium 5.2 H Carbon Dioxide BUN 24 H Glucose 124 H POC Glucose (mg/dL) AST 16 L Alkaline Phosphatase Troponin I Total Protein 6.2 L TSH 0.098 L - Diagnostic Findings Chest x-ray: image reviewed CT scan - chest: image reviewed Assessment and Plan Assessment: Acute hypoxic respiratory failure secondary to an acute exacerbation of chronic obstructive pulmonary disease Headaches. He had a CT scan of the brain on October 03, 2024 that revealed no acute intracranial process. There was a 3.7 cm destructive lesion high right frontal calvarium. Differential included lytic metastatic lesions versus plasma cytoma/multiple myeloma. A PET scan from October 19, 2024 revealed abnormal osseous lesions involving the high right frontal calvarium and the left anterior C1 ring. Due to the location of the latter neurosurgical consult was advised. There is abnormal thoracic lymph nodes including a right hilar mass or neoplasm. An additional primary lung cancer could not be excluded. 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 Flowers did have a detailed discussion with the patient regarding the findings and options We will continue to follow and make further recommendations based on his clinical status I have personally seen and examined the patient, performed the documentation and the assessment and plan as written. Number of minutes spent on the visit: 20 Dictation was produced using [employer] dictation software. Please excuse any grammatical, word or spelling errors.
--- NOTE | 2024-10-21 13:51 | P.HPIM ---
History of Present Illness H&P Date: 10/21/24 History of present illness; patient is 69-year-old gentleman with past medical history significant for COPD who presented to the ER because of shortness of breath, facial swelling and back pain. Patient stated that couple of weeks ago he started noticing a lesion on the frontal part of his scalp at which time his PCP ordered a CT head which showed 3.7 cm destructive lesion of right frontal calvarium, patient also had a PET scan done in outpatient setting. Patient stated that over the last week he has been having worsening neck and back pain. Patient also complaining of swelling of his face. Patient denies any fever or chills. There is no complaint of orthopnea or PND. Patient is complaining of shortness of breath but is at baseline. Denies any swelling of feet. Because of the symptoms, patient brought to the ER Initial lab work done in the ER showed WBC 15.6, hemoglobin 13.2, platelet count 307, D-dimer 3.62, sodium 135, potassium 4, BUN 19, creatinine 1.08, glucose 108, lactate 0.7, calcium 9.8, bilirubin 0.7, alk phos 131, troponin 0.057 proBNP 926 EKG done in the ER showed heart rate of 90, no ST segment elevation or depression seen, no T-wave inversions seen. Chest x-ray done in the ER showed no acute cardiopulmonary process CTA chest done showed no evidence of PE. There is mass effect on the right pulmonary artery soft tissue casement from the right hilar mass. Soft tissue mass in the right hilar region extending into the mediastinum with associated pathological mediastinal lymphadenopathy. These regions were FDG avid on recent PET/CT and are highly suspicious for malignancy. CT soft tissue neck showed no evidence of abnormality in the neck Brought patient admitted to internal medicine service REVIEW OF SYSTEMS: CONSTITUTIONAL: No fever, no malaise, no fatigue. HEENT: No recent visual problems or hearing problems. Denied any sore throat. CARDIOVASCULAR: As mentioned above PULMONARY: As mentioned above GASTROINTESTINAL: No diarrhea, no nausea, no vomiting, no abdominal pain. NEUROLOGICAL: No headaches, no weakness, no numbness. HEMATOLOGICAL: Denies any bleeding or petechiae. GENITOURINARY: Denies any burning micturition, frequency, or urgency. MUSCULOSKELETAL/RHEUMATOLOGICAL: Denies any joint pain, swelling, or any muscle pain. ENDOCRINE: Denies any polyuria or polydipsia. The rest of the 14-point review of systems is negative. PHYSICAL EXAMINATION: GENERAL: The patient is alert and oriented x3, not in any acute distress. Well developed, well nourished. HEENT: Pupils are round and equally reacting to light. EOMI. No scleral icterus. No conjunctival pallor. Normocephalic, atraumatic. No pharyngeal erythema. No thyromegaly. CARDIOVASCULAR: S1 and S2 present. No murmurs, rubs, or gallops. PULMONARY: Chest is clear to auscultation, no wheezing or crackles. ABDOMEN: Soft, nontender, nondistended, normoactive bowel sounds. No palpable organomegaly. MUSCULOSKELETAL: No joint swelling or deformity. EXTREMITIES: No cyanosis, clubbing, or pedal edema. NEUROLOGICAL: Gross neurological examination did not reveal any focal deficits. SKIN: No rashes. 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 Continue same treatment. Continue with symptomatic treatment. Resume home medication. Monitor labs and vitals. DVT and GI prophylaxis. Further recommendations as per clinical course of the patient Dictation was produced using [email or web address] dictation software. please excuse any grammatical, word or spelling errors. Past Medical History Past Medical History: Cancer, COPD, Hyperlipidemia, Hypertension, Vascular Disor lolis Additional Past Medical History / Comment(s): Edema left lower leg and foot, uses oxygen PRN, poor circulation. History of Any Multi-Drug Resistant Organisms: None Reported Past Surgical History: Hernia Repair, Orthopedic Surgery Additional Past Surgical History / Comment(s): Leg stents placed, right shoulder rotator cuff repair, 07/23/20 surgery in [place] for leg blockages, "groin" hernia surgery X2, left leg arthrectomy and stent to SFA 03/18. Past Anesthesia/Blood Transfusion Reactions: No Reported Reaction Date of Last Stent Placement:: 09/16/21 Past Psychological History: No Psychological Hx Reported Smoking Status: Current every day smoker Past Alcohol Use History: None Reported Additional Past Alcohol Use History / Comment(s): Smokes 1 PPD - has been smoking for 50 years. Past Drug Use History: None Reported - Past Family History Mother Family Medical History: Cancer Father Family Medical History: Cancer Medications and Allergies Home Medications Medication Instructions Recorded Confirmed Type Albuterol Sulfate [Ventolin HFA] 2 puff INHALATION RT-Q6H PRN 08/20/20 10/20/24 History Ipratropium-Albuterol Nebulize 3 ml INHALATION RT-QID 08/20/20 10/20/24 History [Duoneb 0.5 mg-3 mg/3 ml Soln] Montelukast [Singulair] 10 mg PO DAILY 08/20/20 10/20/24 History amLODIPine [Norvasc] 10 mg PO DAILY 08/20/20 10/20/24 History HYDROcodone/APAP 10-325MG [[place] 1 tab PO Q6HR PRN 09/14/21 10/20/24 History 10-325] Atorvastatin Calcium [Lipitor] 40 mg PO HS 02/28/23 10/20/24 History Rivaroxaban [Xarelto] 2.5 mg PO BID 02/28/23 10/20/24 History Ammonium Lactate Cream [Lac-Hydrin 1 applic TOPICAL DAILY 10/20/24 10/20/24 History 12% Cream] Fluticasone/Umeclidin/Vilanter 1 puff INHALATION RT-DAILY 10/20/24 10/20/24 History [Trelegy Ellipta 100-62.5-25] Nicotine 21Mg/24Hr Patch [Habitrol] 1 patch TRANSDERM DAILY PRN 10/20/2410/20 History Allergies Allergy/AdvReac Type Severity Reaction Status Date / Time Tetracyclines Allergy Unknown Verified 10/20/24 18:39 Childhood Physical Exam Vitals: Vital Signs Temp Pulse Pulse Resp BP BP Pulse Ox 10/21/24 08:25 96 10/21/24 07:49 98 F 86 17 120/70 98 10/21/24 04:00 101 H 20 152/83 93 L 10/21/24 02:00 18 10/21/24 00:00 98.2 F 101 H 18 127/72 95 10/20/24 21:37 98.4 F 105 H 24 136/63 95 10/20/24 20:43 108 H 18 131/60 92 L 10/20/24 20:21 102 H 10/20/24 17:49 60 22 142/70 10/20/24 17:05 100 10/20/24 16:54 96 10/20/24 16:44 96 10/20/24 16:18 98.7 F 95 20 153/86 90 L Intake and Output 10/20/24 10/21/24 10/21/24 22:59 06:59 14:59 Intake Total 240 Balance 240 Intake: Oral 240 Other: Voiding Method Toilet # Voids 2 Weight 74.843 kg 69.8 kg Results CBC & Chem 7: 10/21/24 06:27 10/21/24 06:27 Labs: Abnormal Lab Results - Last 24 Hours (Table) 10/20/24 10/20/24 10/20/24 Range/Units 16:41 16:41 16:41 WBC 15.6 H (3.8-10.6) k/uL Neutrophils # 12.2 H (1.3-7.7) k/uL Lymphocytes # (1.0-4.8) k/uL Monocytes # 1.2 H (0-1.0) k/uL D-Dimer 3.62 H (<0.60) mg/L FEU Sodium 135 L (137-145) mmol/L Potassium (3.5-5.1) mmol/L Carbon Dioxide 31 H (22-30) mmol/L BUN (9-20) mg/dL Glucose 108 H (74-99) mg/dL POC Glucose (mg/dL) (70-110) mg/dL AST (17-59) U/L Alkaline Phosphatase 131 H (38-126) U/L Troponin I (0.000-0.034) ng/mL Total Protein (6.3-8.2) g/dL 10/20/24 10/21/24 10/21/24 Range/Units 16:41 06:07 06:27 WBC 14.7 H (3.8-10.6) k/uL Neutrophils # 13.6 H (1.3-7.7) k/uL Lymphocytes # 0.5 L (1.0-4.8) k/uL Monocytes # (0-1.0) k/uL D-Dimer (<0.60) mg/L FEU Sodium (137-145) mmol/L Potassium (3.5-5.1) mmol/L Carbon Dioxide (22-30) mmol/L BUN (9-20) mg/dL Glucose (74-99) mg/dL POC Glucose (mg/dL) 150 H (70-110) mg/dL AST (17-59) U/L Alkaline Phosphatase (38-126) U/L Troponin I 0.057 H* (0.000-0.034) ng/mL Total Protein (6.3-8.2) g/dL 10/21/24 Range/Units 06:27 WBC (3.8-10.6) k/uL Neutrophils # (1.3-7.7) k/uL Lymphocytes # (1.0-4.8) k/uL Monocytes # (0-1.0) k/uL D-Dimer (<0.60) mg/L FEU Sodium (137-145) mmol/L Potassium 5.2 H (3.5-5.1) mmol/L Carbon Dioxide (22-30) mmol/L BUN 24 H (9-20) mg/dL Glucose 124 H (74-99) mg/dL POC Glucose (mg/dL) (70-110) mg/dL AST 16 L (17-59) U/L Alkaline Phosphatase (38-126) U/L Troponin I (0.000-0.034) ng/mL Total Protein 6.2 L (6.3-8.2) g/dL Thrombosis Risk Factor Assmnt - Choose All That Apply Other Risk Factors: Yes Each Risk Factor Represents 2 Points: Age 61-74 years Thrombosis Risk Factor Assessment Total Risk Factor Score: 2 Thrombosis Risk Factor Assessment Level: Low Risk
[2024-10-21] MEDS: RIVAROXABAN 20 MG TAB PO SCH (16:05)
[2024-10-21] MEDS: ATORVASTATIN 40 MG TAB PO SCH (20:59)
[2024-10-21] MEDS ORDERED: MONTELUKAST 10 MG TAB PO SCH (21:00)
[2024-10-21] MEDS: SYMBICORT 160-4.5 MCG INHALER INHALATION SCH (21:04)
--- NOTE | 2024-10-21 22:10 | P.CONS ---
History of Present Illness - Reason for Consult Consult date: 10/21/24 metastatic cancer Requesting physician: Leona Kern - Chief Complaint SOB, facial swelling and neck/back pain - History of Present Illness Patient is a 69-year-old male who presented to the emergency room with complaints of progressing shortness of breath, facial swelling and upper back and neck pain. Patient is currently undergoing cancer workup with his PCP outpatient. Patient started states he noted swelling along his frontal lobe 6 weeks ago at first thinking it was a allergic reaction to his shampoo. Patient denies unintentional weight loss, night sweats and hemoptysis. Patient does have a 17-[id number] smoking history. PET/CT obtained on 10/19/2024 showing abnormal osseous lesions involving the right frontal calvarium measuring 4.6 cm and the left anterior C1 ring. Abnormal thoracic lymph nodes including possible right hilar mass. Upon admit CTA chest showing no evidence for PE. Mass effect on the right lung pulmonary arteries due to soft tissue encasement from the right hilar mass. Soft tissue mass in the right hilar region extending into the mediastinum with associated pathologic mediastinal lymphadenopathy. Aspirated secretions, predominantly involving lower lobe bronchi with possible developing aspiration pneumonia in the right lower lobe. Lingular scarring/atelectasis and emphysema. CT soft tissue neck showed no evidence of acute abnormality in the neck. SpO2 95% on room air, patient is afebrile. WBC 14.7, hemoglobin 13.3, p latelets 316,000. Creatinine 1.05, GFR 72. LFTs and bilirubin WNL. At todays visit, pt reports improvement in breathing and facial swelling. Review of Systems 10 point ROS is negative except as stated in the HPI Past Medical History Past Medical History: Cancer, COPD, Hyperlipidemia, Hypertension, Vascular Disorder Additional Past Medical History / Comment(s): Edema left lower leg and foot, uses oxygen PRN, poor circulation. History of Any Multi-Drug Resistant Organisms: None Reported Past Surgical History: Hernia Repair, Orthopedic Surgery Additional Past Surgical History / Comment(s): Leg stents placed, right shoulder rotator cuff repair, 07/23/20 surgery in [place] for leg blockages, "groin" hernia surgery X2, left leg arthrectomy and stent to SFA 03/18. Past Anesthesia/Blood Transfusion Reactions: No Reported Reaction Date of Last Stent Placement:: 09/16/21 Past Psychological History: No Psychological Hx Reported Smoking Status: Current every day smoker Past Alcohol Use History: None Reported Additional Past Alcohol Use History / Comment(s): Smokes 1 PPD - has been smoking for 50 years. Past Drug Use History: None Reported - Past Family History Mother Family Medical History: Cancer Father Family Medical History: Cancer Medications and Allergies Home Medications Medication Instructions Recorded Confirmed Type Albuterol Sulfate [Ventolin HFA] 2 puff INHALATION RT-Q6H PRN 08/20/20 10/20/24 History Ipratropium-Albuterol Nebulize 3 ml INHALATION RT-QID 08/20/20 10/20/24 History [Duoneb 0.5 mg-3 mg/3 ml Soln] Montelukast [Singulair] 10 mg PO DAILY 08/20/20 10/20/24 History amLODIPine [Norvasc] 10 mg PO DAILY 08/20/20 10/20/24 History HYDROcodone/APAP 10-325MG [[place] 1 tab PO Q6HR PRN 09/14/21 10/20/24 History 10-325] Atorvastatin Calcium [Lipitor] 40 mg PO HS 02/28/23 10/20/24 History Rivaroxaban [Xarelto] 2.5 mg PO BID 02/28/23 10/20/24 History Ammonium Lactate Cream [Lac-Hydrin 1 applic TOPICAL DAILY 10/20/24 10/20/24 History 12% Cream] Fluticasone/Umeclidin/Vilanter 1 puff INHALATION RT-DAILY 10/20/24 10/20/24 History [Trelegy Ellipta 100-62.5-25] Nicotine 21Mg/24Hr Patch [Habitrol] 1 patch TRANSDERM DAILY PRN 10/20/24 10/20/24 History Allergies Allergy/AdvReac Type Severity Reaction Status Date / Time Tetracyclines Allergy Unknown Verified 10/20/24 18:39 Childhood Physical Exam Vitals: Vital Signs Temp Pulse Pulse Resp BP BP Pulse Ox 10/21/24 12:25 82 10/21/24 12:13 84 10/21/24 11:47 97.9 F 84 17 132/65 95 10/21/24 08:25 96 10/21/24 07:49 98 F 86 17 120/70 98 10/21/24 04:00 101 H 20 152/83 93 L 10/21/24 02:00 18 10/21/24 00:00 98.2 F 101 H 18 127/72 95 10/20/24 21:37 98.4 F 105 H 24 136/63 95 10/20/24 20:43 108 H 18 131/60 92 L 10/20/24 20:21 102 H 10/20/24 17:49 60 22 142/70 10/20/24 17:05 100 10/20/24 16:54 96 10/20/24 16:44 96 10/20/24 16:18 98.7 F 95 20 153/86 90 L Intake and Output 10/20/24 10/21/24 10/21/24 22:59 06:59 14:59 Intake Total 240 Output Total 0 Balance 240 Intake: Oral 240 Output: Gastric Drainage 0 Urine 0 Stool 0 Urine/Stool Mix 0 Emesis 0 Oral Regurgitation 0 Other 0 Other: Voiding Method Toilet Toilet # Voids 2 0 # Bowel Movements 0 Weight 74.843 kg 69.8 kg - Constitutional General appearance: average body habitus, no acute distress - EENT Eyes: anicteric sclerae, EOMI ENT: hearing grossly normal - Respiratory breathing is even and unlabored - Cardiovascular skin warm and dry - Gastrointestinal General gastrointestinal: soft, no tenderness - Integumentary Integumentary: no cyanotic, no jaundiced - Neurologic Neurologic: CNII-XII intact - Musculoskeletal Musculoskeletal: strength equal bilaterally - Psychiatric Psychiatric: A&O x's 3 Results CBC & Chem 7: 10/21/24 06:27 10/21/24 06:27 Labs: Abnormal Lab Results - Last 24 Hours (Table) 10/20/24 10/20/24 10/20/24 Range/Units 16:41 16:41 16:41 WBC 15.6 H (3.8-10.6) k/uL Neutrophils # 12.2 H (1.3-7.7) k/uL Lymphocytes # (1.0-4.8) k/uL Monocytes # 1.2 H (0-1.0) k/uL D-Dimer 3.62 H (<0.60) mg/L FEU Sodium 135 L (137-145) mmol/L Potassium (3.5-5.1) mmol/L Carbon Dioxide 31 H (22-30) mmol/L BUN (9-20) mg/dL Glucose 108 H (74-99) mg/dL POC Glucose (mg/dL) (70-110) mg/dL AST (17-59) U/L Alkaline Phosphatase 131 H (38-126) U/L Troponin I (0.000-0.034) ng/mL Total Protein (6.3-8.2) g/dL TSH (0.465-4.680) mIU/L 10/20/24 10/21/24 10/21/24 Range/Units 16:41 06:07 06:27 WBC 14.7 H (3.8-10.6) k/uL Neutrophils # 13.6 H (1.3-7.7) k/uL Lymphocytes # 0.5 L (1.0-4.8) k/uL Monocytes # (0-1.0) k/uL D-Dimer (<0.60) mg/L FEU Sodium (137-145) mmol/L Potassium (3.5-5.1) mmol/L Carbon Dioxide (22-30) mmol/L BUN (9-20) mg/dL Glucose (74-99) mg/dL POC Glucose (mg/dL) 150 H (70-110) mg/dL AST (17-59) U/L Alkaline Phosphatase (38-126) U/L Troponin I 0.057 H* (0.000-0.034) ng/mL Total Protein (6.3-8.2) g/dL TSH (0.465-4.680) mIU/L 10/21/24 10/21/24 Range/Units 06:27 06:27 WBC (3.8-10.6) k/uL Neutrophils # (1.3-7.7) k/uL Lymphocytes # (1.0-4.8) k/uL Monocytes # (0-1.0) k/uL D-Dimer (<0.60) mg/L FEU Sodium (137-145) mmol/L Potassium 5.2 H (3.5-5.1) mmol/L Carbon Dioxide (22-30) mmol/L BUN 24 H (9-20) mg/dL Glucose 124 H (74-99) mg/dL POC Glucose (mg/dL) (70-110) mg/dL AST 16 L (17-59) U/L Alkaline Phosphatase (38-126) U/L Troponin I (0.000-0.034) ng/mL Total Protein 6.2 L (6.3-8.2) g/dL TSH 0.098 L (0.465-4.680) mIU/L Comments: PET CT reviewed CT scan - chest: report reviewed Assessment and Plan (1) Lung mass Current Visit: Yes Status: Acute Priority: High Code(s): R91.8 - OTHER NONSPECIFIC ABNORMAL FINDING OF LUNG FIELD SNOMED Code(s): 775198438 (2) Acute exacerbation of chronic obstructive pulmonary disease Current Visit: Yes Status: Acute Priority: High Code(s): J44.1 - CHRONIC OBSTRUCTIVE PULMONARY DISEASE W (ACUTE) EXACERBATION SNOMED Code(s): 029665974 (3) Lytic bone lesions on xray Current Visit: Yes Status: Acute Priority: High Code(s): M89.9 - DISORDER OF BONE, UNSPECIFIED SNOMED Code(s): 6053977425 Plan: Calvarial mass, lung mass, LAD: Presented with complaints of progressing shortness of breath, facial swelling and upper back and neck pain. Patient is currently undergoing cancer workup with his PCP outpatient. Patient started states he noted swelling along his frontal lobe 6 weeks ago at first thinking it was a allergic reaction to his shampoo. Patient denies unintentional weight loss, night sweats and hemoptysis. Patient does have a [id number] smoking history. Pt states he was going to be referred by his PCP for a biopsy for calvarial lesion but has not been scheduled yet -PET/CT obtained on 10/19/2024 showing abnormal osseous lesions involving the right frontal calvarium measuring 4.6 cm and the left anterior C1 ring. Abnormal thoracic lymph nodes including possible right hilar mass. -Upon admit CTA chest showing no evidence for PE. Mass effect on the right lung pulmonary arteries due to soft tissue encasement from the right hilar mass. Soft tissue mass in the right hilar region extending into the mediastinum with associated pathologic mediastinal lymphadenopathy. Aspirated secretions, predominantly involving lower lobe bronchi with possible developing aspiration pneumonia in the right lower lobe. Lingular scarring/atelectasis and emphysema. CT soft tissue neck showed no evidence of acute abnormality in the neck. -Pulmonology following -MRI brain ordered -Rad onc consulted due to concern for possible SVC syndrome. IR consult placed for biopsy of calvarial/scalp lesion. If unable to be obtained, will discuss with pulmonology about possible bronchoscopy Discussed imaging findings, concern for metastatic disease and plan for care. Pt was agreeable to further workup. All questions and concerns addressed
--- NOTE | 2024-10-22 08:33 | P.PN ---
Subjective Progress Note Date: 10/22/24 This is a 69-year-old male who presented to the emergency department with complaints of increasing shortness of breath, neck pain and swelling, and headaches. Patient with a recent outpatient PET scan for swelling in his head. Patient also with a lung mass. Oncology, pulmonology and cardiology have been consulted. Patient is seen this morning sitting on side of bed resting comfortably. He admits some mild shortness of breath. Vital signs are stable. Plan is for an MRI of the brain today. Interventional radiology consulted for possible biopsy of head. Objective - Vital Signs Vital signs: Vital Signs Temp 98.0 F 10/22/24 04:00 Pulse 61 10/22/24 04:00 Resp 18 10/22/24 04:00 BP 131/71 10/22/24 04:00 Pulse Ox 95 10/22/24 04:00 FiO2 Intake & Output 10/21/24 10/22/24 10/22/24 18:59 06:59 18:59 Intake Total 582 Output Total 0 Balance 582 Weight 71.305 kg Intake: Oral 582 Output: Gastric Drainage 0 Urine 0 Stool 0 Urine/Stool Mix 0 Emesis 0 Oral Regurgitation 0 Other 0 Other: Voiding Method Toilet # Voids 0 1 # Bowel Movements 0 - Constitutional General appearance: Present: cooperative, no acute distress - EENT Eyes: Present: PERRLA - Neck Neck: Present: normal ROM. Absent: lymphadenopathy, rigidity - Respiratory Respiratory: bilateral: diminished - Cardiovascular Heart sounds: normal: S1, S2 - Gastrointestinal General gastrointestinal: Present: soft. Absent: tenderness - Integumentary Integumentary: Present: normal, normal turgor - Psychiatric Psychiatric: Present: A&O x's 3 - Labs CBC & Chem 7: 10/21/24 06:27 10/21/24 06:27 Labs: Abnormal Lab Results - Last 24 Hours (Table) 10/21/24 Range/Units 06:27 TSH 0.098 L (0.465-4.680) mIU/L Assessment and Plan (1) Acute exacerbation of chronic obstructive pulmonary disease Current Visit: Yes Status: Acute Priority: High Code(s): J44.1 - CHRONIC OBSTRUCTIVE PULMONARY DISEASE W (ACUTE) EXACERBATION SNOMED Code(s): 707204487 (2) Lung mass Current Visit: Yes Status: Acute Priority: High Code(s): R91.8 - OTHER NONSPECIFIC ABNORMAL FINDING OF LUNG FIELD SNOMED Code(s): 782135935 (3) Lytic bone lesions on xray Current Visit: Yes Status: Acute Priority: High Code(s): M89.9 - DISORDER OF BONE, UNSPECIFIED SNOMED Code(s): 4196730116 (4) Hypertension Current Visit: Yes Status: Acute Code(s): I10 - ESSENTIAL (PRIMARY) HYPERTENSION SNOMED Code(s): 46028653 (5) Tobacco abuse Current Visit: Yes Status: Acute Code(s): Z72.0 - TOBACCO USE SNOMED Code(s): 936984586 (6) Neck swelling Current Visit: Yes Status: Acute Code(s): R22.1 - LOCALIZED SWELLING, MASS AND LUMP, NECK SNOMED Code(s): 887153475 Plan: Check CBC and CMP in the morning. Appreciate multiple consultants. Patient seen and evaluated by nurse practitioner, physician in agreement with plan.
--- NOTE | 2024-10-22 15:01 | P.PN ---
Subjective Progress Note Date: 10/22/24 HISTORY OF PRESENT ILLNESS: This is a 69-year-old male with a past medical history significant for geneva pheral arterial disease with previous lower extremity intervention, coronary artery disease, cardiomyopathy, aortic stent graft, carotid atherosclerosis, hypertension, and hyperlipidemia. Patient follows in the office with Dr. Rizo. We have been asked to see the patient in consultation for new onset A-fib. Patient examined at the bedside. Patient initially presented to the hospital with a chief complaint of neck pain and headaches. Initial EKG completed revealing sinus mechanism with PACs. Repeat EKG reveals atrial fibrillation. Telemetry monitoring this morning reveals sinus mechanism with frequent PACs. The patient denies any known history of atrial fibrillation. Patient is on low-dose Xarelto 2.5 mg twice a day due to history of PAD. Patient currently denies any chest pain or pressure. She denies any shortness of breath. DIAGNOSTICS: - Initial EKG completed revealing sinus mechanism with PACs. Repeat EKG reveals atrial fibrillation. Telemetry monitoring this morning reveals sinus mechanism with frequent PACs. - Chest xray negative for acute process. Indeterminate asymmetric spiculated region of nodularity in the left lung base measuring roughly 2 cm. - Laboratory data: WBC 14.7. Hemoglobin 13.3. Platelet count 1 316. D-dimer 3.62. Sodium 137. Potassium 5.2. BUN 24. Creatinine 1.05. Troponin 0.057. proBNP 926 - Current home cardiac medications include Xarelto 2.5 mg twice a day and amlodipine 10 mg daily. - Most recent echocardiogram obtained in 2020 revealing ejection fraction 45% - Cardiac catheterization history: July 2021 revealing minimal CAD 10/22 Patient has been evaluated by oncology and there is discussion regarding biopsy. Would recommend holding Xarelto if biopsy is obtained. Echocardiogram is currently pending. Blood pressure 126/63, heart rate 78, pulse ox 97% on 3 L nasal cannula. TSH is 0.098 with a normal free T4 of 1.83. PHYSICAL EXAM: VITAL SIGNS: Reviewed. GENERAL: Well-developed in no acute distress. HEENT: Head is normocephalic. Pupils are equal, round. Sclerae anicteric. Mucous membranes of the mouth are moist. Neck supple. No JVD or thyromegaly LUNGS: Respirations even and unlabored. Lungs essentially clear to auscultation bilaterally. HEART: Irregular rate and rhythm. S1 and S2 heard. ABDOMEN: Soft. Nondistended. Nontender. EXTREMITIES: Normal range of motion. No clubbing or cyanosis. Peripheral p ulses intact. No lower extremity edema NEUROLOGIC: Awake and alert. Oriented x 3. ASSESSMENT: Neck pain Headaches History of metastatic multiple myeloma New onset atrial fibrillation, currently maintaining sinus mechanism with frequent PACs Peripheral arterial disease with previous lower extremity intervention, most recently [employer] of left SFA, June 2024 Known occluded external iliac History of aortic stent grafting Minimal CAD, per cath 2020 Carotid stenosis Hypertension Hyperlipidemia Nicotine dependence PLAN: Obtain 2D echo to assess cardiac structure and function Continue home cardiac medications Patient previously on low-dose Xarelto for PAD. Increase dosage to 20 mg daily due to new onset A-fib Continue metoprolol tartrate 25 mg twice a day Continue telemetry monitoring Further recommendations pending patient course Nurse practitioner note has been reviewed by physician. Signing provider agrees with the documented findings, assessment, and plan of care documented by [facility] as a scribe. Objective - Vital Signs Vital signs: Vital Signs Temp 97.8 F 10/22/24 08:00 Pulse 72 10/22/24 09:11 Resp 16 10/22/24 08:00 BP 126/63 10/22/24 08:00 Pulse Ox 97 10/22/24 08:00 FiO2 Intake & Output 10/21/24 10/22/24 10/22/24 18:59 06:59 18:59 Intake Total 582 Output Total 0 Balance 582 Weight 71.305 kg Intake: Oral 582 Output: Gastric Drainage 0 Urine 0 Stool 0 Urine/Stool Mix 0 Emesis 0 Oral Regurgitation 0 Other 0 Other: Voiding Method Toilet # Voids 0 1 # Bowel Movements 0 - Labs CBC & Chem 7: 10/21/24 06:27 10/21/24 06:27 Labs: Abnormal Lab Results - Last 24 Hours (Table) 10/21/24 Range/Units 06:27 TSH 0.098 L (0.465-4.680) mIU/L
--- NOTE | 2024-10-22 15:10 | P.PN ---
Subjective Progress Note Date: 10/22/24 This is a 69-year-old male patient with a known history of chronic obstructive pulmonary disease, chronic and ongoing tobacco dependence, hyperlipidemia, peripheral vascular disease with previous stent placements and maintained on Xarelto. He recently had noted a scalp mass on the top of his head. His primary care provider, Dr. Velez, was planning to send him to [place] for further workup. However the patient presented here to the emergency room yesterday with complaints of facial swelling, headache and shortness of breath. Chest x-ray reveals no acute pulmonary process. There is a indeterminate asymmetric spiculated region of nodularity in the left lung base measuring roughly [address] angiogram revealed no evidence of pulmonary embolism. There is mass effect on the right lung pulmonary arteries due to soft tissue encasement from a right hilar mass. Soft tissue mass in the right hilar region extending to the mediastinum with associated pathologic mediastinal lymphadenopathy. Highly suspicious for malignancy. Aspirated secretions predominantly involving the lower lobe bronchi with possible developing aspiration pneumonia in the right lower lobe. Lingular scarring/atelectasis. Evidence of emphysema. White count 14.7. Hemoglobin 13.3. Platelets 316. Sodium 137. Potassium 5.2. Bicarb 29. BUN 24. Creatinine 1.04. Glucose 124. AST 16. ALT 14. He is seen today in consultation on the selective care unit. He is currently sitting up in bed. Awake and alert. His voice is quite hoarse and raspy. He is dyspneic with minimal exertion. Dyspneic with conversation. He states his face is less swollen today compared to yesterday. He is maintaining O2 saturations in the mid 90s on room air. He is afebrile. Hemodynamically stable. On 10/22/2024, the patient is being seen for a follow-up. The patient came in to the emergency with symptoms of increased shortness of breath and neck pain and headache and she is known to have a lung mass and mediastinal lymphadenopathy and an outpatient PET/CT that was done on 10/19/2024 showed an abnormal osseous lesion involving the high right frontal calvarium and a left anterior C1 ring. There is also abnormal thoracic lymph nodes including right hilar area and the findings are highly suspicious for malignancy. The patient also underwent a CT of the chest on 10/20/2024 that showed no evidence of any pulmonary embolism. There was a mass effect on the right lung pulmonary arteries due to the right hilar lymph node/mass in addition to pathologic mediastinal lymphadenopathy. Some respiratory secretions predominantly in lower lobes and aspiration pneumonia in the right lower lobe is also suspected. Lingular sca rring/atelectasis and emphysema changes were also noted. The white cell count is 14.7 with a hemoglobin of 13.3 and a platelet count of 316. BUN is 24 with a creatinine of 1.05 and a sodium levels at 137 and a potassium level is at 5.2. Objective - Vital Signs Vital signs: Vital Signs Temp 97.8 F 10/22/24 08:00 Pulse 72 10/22/24 09:11 Resp 16 10/22/24 08:00 BP 126/63 10/22/24 08:00 Pulse Ox 97 10/22/24 08:00 FiO2 Intake & Output 10/21/24 10/22/24 10/22/24 18:59 06:59 18:59 Intake Total 582 Output Total 0 0 Balance 582 0 Weight 71.305 kg Intake: Oral 582 Output: Gastric Drainage 0 Urine 0 Stool 0 0 Urine/Stool Mix 0 Emesis 0 Oral Regurgitation 0 Other 0 Other: Voiding Method Toilet Toilet # Voids 0 1 # Bowel Movements 0 - Exam GENERAL EXAM: Alert, pleasant 69-year-old male, on room air, fairly comfortable in no apparent distress. HEAD: Palpable scalp lesion over the right anterior skull. Some facial edema over his eyes. EYES: Normal reaction of pupils, equal size. NOSE: Clear with pink turbinates. THROAT: No erythema or exudates. NECK: No palpable mass or lymphadenopathy. CHEST: No chest wall deformity. LUNGS: Equal air entry with coarse scattered rhonchi. CVS: S1 and S2 normal with no audible murmur, regular rhythm. ABDOMEN: No hepatosplenomegaly, normal bowel sounds, no guarding or rigidity. SPINE: No scoliosis or deformity SKIN: No rashes CENTRAL NERVOUS SYSTEM: No focal deficits, tone is normal in all 4 extremities. EXTREMITIES: There is no peripheral edema. No clubbing, no cyanosis. Peripheral pulses are intact. - Labs CBC & Chem 7: 10/21/24 06:27 10/21/24 06:27 Assessment and Plan Plan: Acute hypoxic respiratory failure secondary to an acute exacerbation of chronic obstructive pulmonary disease, currently on 3 L of oxygen by nasal cannula Headaches. He had a CT scan of the brain on October 03, 2024 that revealed no acute intracranial process. There was a 3.7 cm destructive lesion high right frontal calvarium. Differential included lytic metastatic lesions including lung cancer versus plasmacytoma/multiple myeloma. A PET scan from October 19, 2024 revealed abnormal osseous lesions involving the high right frontal calvarium and the left anterior C1 ring. Due to the location of the latter neurosurgical consult was advised. There is abnormal thoracic lymph nodes including a right hilar mass or neoplasm. An additional primary lung cancer could not be excluded. Suspect metastatic bronchogenic carcinoma Hoarseness suspect secondary to right pharyngeal nerve involvement Chronic and ongoing tobacco dependence Peripheral vascular disease with multiple stent placements, anticoagulated with Xarelto Chronic obstructive pulmonary disease Hyperlipidemia Hypertension Plan: Currently stable on 3 L of oxygen by nasal cannula Continue DuoNeb inhalations, Singulair, Symbicort Continue Decadron Currently on Xarelto Will need bronchoscopy with biopsies if the scalp lesion bx is nondiagnostic MRI of the brain Educated regarding smoking cessation NicoDerm patch in place We will continue to follow and make further recommendations based on his clinical status
--- NOTE | 2024-10-22 15:24 | P.CONS ---
History of Present Illness - Reason for Consult Consult date: 10/22/24 neck pain Requesting physician: Jeannette Thomas - Chief Complaint neck pain, bump on scalp - History of Present Illness The patient is a 69-year-old male with a 50+ year tobacco use history. He presents with neck pain and a large lesion along the right frontal scalp. His i maging was significant for likely right lung cancer primary with bone metastases. The patient states that he first noticed the growth along the right frontal scalp approximately 6 weeks ago. Surprisingly this area is not painful. He does however complain of frequent neck pain. He presented to his primary care with these complaints. A subsequent PET/CT was performed on October 20. This revealed abnormal uptake involving the right hilum, with abnormal subcarinal, pretracheal and likely bilateral supraclavicular adenopathy. Additionally, the patient had a destructive lesion involving C1. He also had a 4.6 cm destructive right frontal calvarial metastasis. At the time of my consultation, the patient reports his chronic dyspnea on exertion is largely unchanged. He is not having pain at the right frontal calvarial lesion. However, he states his neck is still quite painful, despite being on Dilaudid in the hospital. He was unable to complete an MRI earlier today. Review of Systems Constitutional: Denies chills, Denies fever Eyes: denies blurred vision Ears, nose, mouth and throat: Reports as per HPI Cardiovascular: Denies chest pain Respiratory: Denies cough Gastrointestinal: Denies BRBPR Musculoskeletal: Denies frequent falls Integumentary: Denies rash Neurological: Denies aphasia, Denies ataxia, Denies confusion Psychiatric: Denies anxiety, Denies confusion Past Medical History Past Medical History: Cancer, COPD, Hyperlipidemia, Hypertension, Vascular Disorder Additional Past Medical History / Comment(s): Edema left lower leg and foot, uses oxygen PRN, poor circulation. History of Any Multi-Drug Resistant Organisms: None Reported Past Surgical History: Hernia Repair, Orthopedic Surgery Additional Past Surgical History / Comment(s): Leg stents placed, right shoulder rotator cuff repair, 07/23/20 surgery in [place] for leg blockages, "groin" hernia surgery X2, left leg arthrectomy and stent to SFA 03/18. Past Anesthesia/Blood Transfusion Reactions: No Reported Reaction Date of Last Stent Placement:: 09/16/21 Past Psychological History: No Psychological Hx Reported Smoking Status: Current every day smoker Past Alcohol Use History: None Reported Additional Past Alcohol Use History / Comment(s): Smokes 1 PPD - has been smoking for 50 years. Past Drug Use History: None Reported - Past Family History Mother Family Medical History: Cancer Father Family Medical History: Cancer Medications and Allergies Home Medications Medication Instructions Recorded Confirmed Type Albuterol Sulfate [Ventolin HFA] 2 puff INHALATION RT-Q6H PRN 08/20/20 10/20/24 History Ipratropium-Albuterol Nebulize 3 ml INHALATION RT-QID 08/20/20 10/20/24 History [Duoneb 0.5 mg-3 mg/3 ml Soln] Montelukast [Singulair] 10 mg PO DAILY 08/20/20 10/20/24 History amLODIPine [Norvasc] 10 mg PO DAILY 08/20/20 10/20/24 History HYDROcodone/APAP 10-325MG [[place]ckley 1 tab PO Q6HR PRN 09/14/21 10/20/24 History 10-325] Atorvastatin Calcium [Lipitor] 40 mg PO HS 02/28/23 10/20/24 History Rivaroxaban [Xarelto] 2.5 mg PO BID 02/28/23 10/20/24 History Ammonium Lactate Cream [Lac-Hydrin 1 applic TOPICAL DAILY 10/20/24 10/20/24 History 12% Cream] Fluticasone/Umeclidin/Vilanter 1 puff INHALATION RT-DAILY 10/20/24 10/20/24 History [Trelegy Ellipta 100-62.5-25] Nicotine 21Mg/24Hr Patch [Habitrol] 1 patch TRANSDERM DAILY PRN 10/20/24 10/20/24 History Allergies Allergy/AdvReac Type Severity Reaction Status Date / Time Tetracyclines Allergy Unknown Verified 10/20/24 18:39 Childhood Physical Exam Vitals: Vital Signs Temp Pulse Pulse Resp BP Pulse Ox 10/22/24 09:11 72 10/22/24 08:58 72 10/22/24 08:00 97.8 F 78 16 126/63 97 10/22/24 04:00 98.0 F 61 18 131/71 95 10/22/24 01:35 61 18 10/21/24 23:48 61 18 124/67 96 10/21/24 20:00 97.7 F 72 18 133/74 95 10/21/24 16:02 82 10/21/24 16:00 97.9 F 73 17 123/66 94 L 10/21/24 15:49 78 Intake and Output 10/22/24 10/22/24 10/22/24 06:59 14:59 22:59 Output Total 0 Balance 0 Output: Stool 0 Other: Voiding Method Toilet # Voids 1 Weight 71.305 kg - Constitutional General appearance: no acute distress - EENT Eyes: EOMI, PERRLA ENT: hearing grossly normal - Neck Neck: no lymphadenopathy - Respiratory Respiratory: bilateral: diminished - Cardiovascular Rhythm: regular - Gastrointestinal General gastrointestinal: no distended, no tenderness - Integumentary Integumentary: no cellulitis - Neurologic Neurologic: CNII-XII intact - Musculoskeletal Musculoskeletal: gait normal - Psychiatric Psychiatric: A&O x's 3, appropriate affect Results CBC & Chem 7: 10/21/24 06:27 10/21/24 06:27 CT scan - chest: report reviewed, image reviewed Assessment and Plan Assessment: The patient is a 69-year-old male with a 50+ year tobacco use history. He presents with neck pain and a large lesion along the right frontal scalp. His imaging was significant for likely right lung cancer primary with bone metastases. Plan: 1. Neck pain: Considering the patient's imaging, I am concerned that his neck pain is secondary to involvement of the C1 vertebral body. It is difficult to evaluate this on PET CT, therefore, the MRI of the brain should prove helpful. At a minimum, the patient will likely need palliative radiotherapy to this location. MRI will hopefully allow us to better evaluate for stability. 2. Right lung mass: patient likely has a new diagnosis of right sided lung cancer. At this point, we are awaiting biopsy - IR has been consulted regarding the large calvarial metastasis. We will continue to follow along with the patient during his hospital stay. Time with Patient: Greater than 30
[2024-10-22] MEDS: LORazepam 2 MG/ML INJ IV STA (16:13)
--- NOTE | 2024-10-22 17:23 | CA ---
Transthoracic Echo Report Name: Jeison Rudd Age: 69 Gender: M : 1955 Exam Date: 10/22/2024 09:57 Exam Location: [facility] Ht (in): 69 Wt (lb): 153 Ordering Physician: Nancy Morataya Attending/Referring Phys: [id number], [employer] Radha James RDCS Procedure CPT: Indications: LV function, new [place] AFIB Cardiac Hx: Technical Quality: Fair Contrast 1: Total Dose (mL): Contrast 2: Total Dose (mL): MEASUREMENTS (Male / Female) Normal Values 2D ECHO LV Diastolic Diameter PLAX 4.0 cm 4.2 - 5.9 / 3.9 - 5.3 cm LV Systolic Diameter PLAX 2.8 cm IVS Diastolic Thickness 1.0 cm 0.6 - 1.0 / 0.6 - 0.9 cm LVPW Diastolic Thickness 1.1 cm 0.6 - 1.0 / 0.6 - 0.9 cm LV Relative Wall Thickness 0.5 LVOT Diameter 2.4 cm LA Volume 57.9 cm??? 18 - 58 / 22 - 52 cm??? LA Volume Index 31.5 cm???/m??? 16 - 28 cm???/m??? DOPPLER AV Peak Velocity 80.4 cm/s AV Peak Gradient 2.6 mmHg AV Mean Velocity 47.4 cm/s AV Mean Gradient 1.1 mmHg AV Velocity Time Integral 14.4 cm LVOT Peak Velocity 92.7 cm/s LVOT Peak Gradient 3.4 mmHg LVOT Velocity Time Integral 18.7 cm LVOT Stroke Volume 87.7 cm??? LVOT Stroke Volume Index 47.5 ml/m??? LVOT Cardiac Index 3002.3 cm???/min???m??? AV Area Cont Eq vti 6.1 cm??? AV Area Cont Eq pk 5.4 cm??? MV Area PHT 3.6 cm??? Mitral E Point Velocity 55.2 cm/s Mitral A Point Velocity 55.5 cm/s Mitral E to A Ratio 1.0 MV Deceleration Time 208.6 ms FINDINGS Left Ventricle Left ventricular ejection fraction is estimated at 55-60 %. Left ventricular cavity size normal. Left ventricular wall thickness normal. No obvious regional wall motion abnormalities. Right Ventricle Right ventricle not well visualized. Unable to estimate the right ventricular systolic pressure. Right Atrium Right atrium not well visualized. Left Atrium Mildly increased left atrial volume. Mitral Valve Structurally normal mitral valve. No evidence for mitral valve prolapse. No mitral stenosis. No mitral regurgitation. Aortic Valve Trileaflet aortic valve. Aortic valve sclerosis. No aortic valve stenosis or regurgitation. Tricuspid Valve Structurally normal tricuspid valve. No tricuspid stenosis. No tricuspid regurgitation. Pulmonic Valve Pulmonic valve not well visualized. No pulmonic stenosis. No pulmonic regurgitation. Pericardium No pericardial effusion. Prominent epicardial fat. Aorta Aortic annulus normal. CONCLUSIONS Normal LV size and systolic function. No significant abnormality on the Doppler exam. No pericardial effusion. Right-sided pressures were not well quantified Previewed by: Dr. oNra Ryan MD (Electronically Signed) Final Date: 22 October 2024 17:23
--- NOTE | 2024-10-22 17:24 | MR ---
INDICATION: Patient age:Male; 69 years old; Reason for study: metastatic disease. Calvarial lesion noted on PET; [facility]. COMPARISON: Head CT 10/19/2024, CT brain 10/03/2024. TECHNIQUE: Multi planar, multi sequence imaging was performed through the brain. The patient was then given 7 cc of Gadobutrol intravenously and multi planar, T1 fat-saturation images were obtained. FINDINGS: The ponce-white junctions, ventricular system, basal cisterns appear unremarkable. Diffusion-weighted imaging shows no evidence of restricted diffusion to suggest acute/subacute infarct. Intracranial art erial flow voids are maintained. Midline structures show no abnormality. Right frontal extra-axial pe ripherally enhancing mass measuring 5.0 x 4.5 x 3.7 cm. This abuts the anterior falx and crosses midl ine. The mass demonstrates low T1/high T2 signal. Minimal mass effect upon the right frontal lobe. It is centered within the medullary space of the right frontal bone with cortical destruction along bot h the inner and outer tables. No definitive invasion into the cerebral parenchyma. This lesion demons trated FDG activity on prior PET/CT. Anterior left C1 ring demonstrating some heterogenous enhancemen t. This demonstrated FDG activity on prior PET/CT. No other suspicious enhancing masses. Patchy areas of high T2/FLAIR signal intensity are seen within the periventricular and subcortical white matter w ithout corresponding enhancement. The susceptibility weighted images do not reveal definitive evidenc e for micro-hemorrhage. The paranasal sinuses and globes are unremarkable. IMPRESSION: 1. Right frontal enhancing calvarium destructive mass. Minimal mass effect upon the right frontal lo be without definitive invasion. Left anterior C1 ring abnormal enhancement. These both demonstrate FD G activity on prior PET/CT. Most consistent with neoplasm probably related to reported multiple myelo ma. 2. No evidence for acute or subacute infarct. 3. Nonspecific white matter changes, likely related to small vessel ischemic disease. [facility], , 10/22/2024 5:21 PM
[2024-10-22] MEDS: QUEtiapine 50 MG TAB PO STA (20:44)
[2024-10-22] MEDS ORDERED: CHLORHEXIDINE GLUCONATE 15 ML CUP MUCOUS MEM SCH (21:00)
--- NOTE | 2024-10-22 21:58 | P.PN ---
Subjective Progress Note Date: 10/22/24 Principal diagnosis: Frontal mass In f/u today pt reports the swelling of his forehead and around his eyes has improved, no longer has "water blisters". Resp status is stable, he is independently ambulatory, n new pain to report, he cannot turn his head to the left. Objective - Vital Signs Vital signs: Vital Signs Temp 97.8 F 10/22/24 08:00 Pulse 72 10/22/24 09:11 Resp 16 10/22/24 08:00 BP 126/63 10/22/24 08:00 Pulse Ox 97 10/22/24 08:00 FiO2 Intake & Output 10/21/24 10/22/24 10/22/24 18:59 06:59 18:59 Intake Total 582 Output Total 0 0 Balance 582 0 Weight 71.305 kg Intake: Oral 582 Output: Gastric Drainage 0 Urine 0 Stool 0 0 Urine/Stool Mix 0 Emesis 0 Oral Regurgitation 0 Other 0 Other: Voiding Method Toilet Toilet # Voids 0 1 # Bowel Movements 0 - Constitutional General appearance: Present: average body habitus, cooperative, no acute distress - EENT EENT Comment(s): 3-4cm mass rt frontal area, soft, fixed, painless Eyes: Present: anicteric sclerae, EOMI ENT: Present: hearing grossly normal - Respiratory Details: resp even and unlabored - Cardiovascular Details: skin warm, well perfused - Peripheral edema leg Peripheral Edema: bilateral: None - Integumentary Integumentary: Present: normal - Neurologic Neurologic: Present: CNII-XII intact - Musculoskeletal Musculoskeletal: Present: strength equal bilaterally - Psychiatric Psychiatric: Present: A&O x's 3, appropriate affect, intact judgment & insight - Labs CBC & Chem 7: 10/21/24 06:27 10/21/24 06:27 - Imaging and Cardiology Chest x-ray: report reviewed CT scan - chest: report reviewed, image reviewed Assessment and Plan (1) Lung mass Current Visit: Yes Status: Acute Priority: High Code(s): R91.8 - OTHER NONSPECIFIC ABNORMAL FINDING OF LUNG FIELD SNOMED Code(s): 960148403 (2) Lytic bone lesions on xray Current Visit: Yes Status: Acute Priority: High Code(s): M89.9 - DISORDER OF BONE, UNSPECIFIED SNOMED Code(s): 4479269689 Plan: Calvarial mass, lung mass, LAD -PET/CT obtained on 10/19/2024 showing abnormal osseous lesions involving the right frontal calvarium measuring 4.6 cm and the left anterior C1 ring. Abnormal thoracic lymph nodes including possible right hilar mass. -Upon admit CTA chest showing no evidence for PE. Mass effect on the right lung pulmonary arteries due to soft tissue encasement from the right hilar mass. Soft tissue mass in the right hilar region extending into the mediastinum with associated pathologic mediastinal lymphadenopathy. Aspirated secretions, predominantly involving lower lobe bronchi with possible developing aspiration pneumonia in the right lower lobe. Lingular scarring/atelectasis and emphysema. CT soft tissue neck showed no evidence of acute abnormality in the neck. -MRI brain pending when pt seen -Rad onc has seen pt for possible SVC syndrome. -IR consult placed for biopsy of calvarial/scalp lesion. Unable to be obtained. Have consulted Pulmonology to assess pt for possible bronchoscopy Dr attests: I have performed H&P, seen and examined pt, developed impression and plan of care. Discussed with dictator. Agree with documentation, dictated as a scribe.
--- NOTE | 2024-10-23 08:21 | P.PN ---
Subjective Progress Note Date: 10/23/24 This is a 69-year-old male who presented to the emergency department with complaints of increasing shortness of breath, neck pain and swelling, and headaches. Patient with a recent outpatient PET scan for swelling in his head. Patient also with a lung mass. Oncology, pulmonology and cardiology have been consulted. Patient is seen this morning sitting on side of bed resting comfortably. He admits some mild shortness of breath. Vital signs are stable. Plan is for an MRI of the brain today. Interventional radiology consulted for possible biopsy of head. 10/23/2024 Patient seen this morning laying in bed resting comfortably. He did have MRI of the brain yesterday which shows the mass in his head is likely a neoplasm. Patient had some confusion after the MRI and was given Seroquel last night. This morning he is alert and oriented and back to his normal mentality. Patient continues to report severe neck pain. He reports that Dilaudid does not last. Echo was normal. Pulmonary considering a bronchoscopy. Objective - Vital Signs Vital signs: Vital Signs Temp 98.5 F 10/23/24 07:39 Pulse 75 10/23/24 07:39 Resp 20 10/23/24 07:39 BP 165/71 10/23/24 07:39 Pulse Ox 95 10/23/24 07:39 FiO2 Intake & Output 10/22/24 10/23/24 10/23/24 18:59 06:59 18:59 Output Total 0 Balance 0 Weight 69.8 kg Output: Stool 0 Other: Voiding Method Toilet Toilet # Voids 3 2 # Bowel Movements 1 - Constitutional General appearance: Present: cooperative, no acute distress - EENT Eyes: Present: PERRLA - Neck Neck: Present: normal ROM. Absent: lymphadenopathy, rigidity - Respiratory Respiratory: bilateral: diminished - Cardiovascular Heart sounds: normal: S1, S2 - Gastrointestinal General gastrointestinal: Present: soft. Absent: tenderness - Integumentary Integumentary: Present: normal, normal turgor - Psychiatric Psychiatric: Present: A&O x's 3 - Labs CBC & Chem 7: 10/21/24 06:27 10/21/24 06:27 Assessment and Plan (1) Acute exacerbation of chronic obstructive pulmonary disease Current Visit: Yes Status: Acute Priority: High Code(s): J44.1 - CHRONIC OBSTRUCTIVE PULMONARY DISEASE W (ACUTE) EXACERBATION SNOMED Code(s): 605223355 (2) Lung mass Current Visit: Yes Status: Acute Priority: High Code(s): R91.8 - OTHER NONSPECIFIC ABNORMAL FINDING OF LUNG FIELD SNOMED Code(s): 025359379 (3) Lytic bone lesions on xray Current Visit: Yes Status: Acute Priority: High Code(s): M89.9 - DISORDER OF BONE, UNSPECIFIED SNOMED Code(s): 9395452232 (4) Hypertension Current Visit: Yes Status: Acute Code(s): I10 - ESSENTIAL (PRIMARY) HY PERTENSION SNOMED Code(s): 34980702 (5) Tobacco abuse Current Visit: Yes Status: Acute Code(s): Z72.0 - TOBACCO USE SNOMED Code(s): 038635048 (6) Neck swelling Current Visit: Yes Status: Acute Code(s): R22.1 - LOCALIZED SWELLING, MASS AND LUMP, NECK SNOMED Code(s): 021745649 Plan: Check CBC and CMP in the morning. Order Dilaudid 1mg as needed every 3 hours. Will order Seroquel as needed for agitation. Appreciate multiple consultants. Patient seen and evaluated by nurse practitioner, physician in agreement with plan.
[2024-10-23 08:45] LABS: HCT 42.3 % (39.0-53.0); HGB 13.4 gm/dL (13.0-17.5); Hypochromasia Slight; MCHC 31.7 g/dL (31.0-37.0); MCV 88.3 fL (80.0-100.0); Mean Platelet Volume 8.8; Platelet Count 316 k/uL (150-450); RBC 4.79 m/uL (4.30-5.90); RDW 15.2 % (11.5-15.5); WBC 28.8 k/uL (3.8-10.6)
[2024-10-23] MEDS: HYDROmorphone 1 MG/ML 1 ML SYRINGE IVP PRN (08:51)
[2024-10-23 08:59] LABS: ALT 19 U/L (4-49); AST 18 U/L (17-59); African American GFR (CKD) 83 (>60 ml/min/1.73 sqM); Albumin 3.6 g/dL (3.5-5.0); Alkaline Phosphatase 98 U/L (38-126); Anion Gap 5 mmol/L; Blood Urea Nitrogen 37 mg/dL (9-20); Calcium 9.8 mg/dL (8.4-10.2); Carbon Dioxide 35 mmol/L (22-30); Chloride 100 mmol/L (98-107); Glucose 109 mg/dL (74-99); Non-African American GFR(CKD) 72 (>60 ml/min/1.73 sqM); Potassium 4.3 mmol/L (3.5-5.1); Sodium 140 mmol/L (137-145); Total Bilirubin 0.4 mg/dL (0.2-1.3); Total Protein 6.3 g/dL (6.3-8.2)
[2024-10-23] MEDS: methylPREDNISolone SOD SUCCI 125 MG/2 ML VIAL IV SCH (12:03)
--- NOTE | 2024-10-23 14:46 | P.PN ---
Subjective Progress Note Date: 10/23/24 This is a 69-year-old male patient with a known history of chronic obstructive pulmonary disease, chronic and ongoing tobacco dependence, hyperlipidemia, peripheral vascular disease with previous stent placements and maintained on Xarelto. He recently had noted a scalp mass on the top of his head. His primary care provider, Dr. Velez, was planning to send him to [place] for further workup. However the patient presented here to the emergency room yesterday with complaints of facial swelling, headache and shortness of breath. Chest x-ray reveals no acute pulmonary process. There is a indeterminate asymmetric spiculated region of nodularity in the left lung base measuring roughly [address] angiogram revealed no evidence of pulmonary embolism. There is mass effect on the right lung pulmonary arteries due to soft tissue encasement from a right hilar mass. Soft tissue mass in the right hilar region extending to the mediastinum with associated pathologic mediastinal lymphadenopathy. Highly suspicious for malignancy. Aspirated secretions predominantly involving the lower lobe bronchi with possible developing aspiration pneumonia in the right lower lobe. Lingular scarring/atelectasis. Evidence of emphysema. White count 14.7. Hemoglobin 13.3. Platelets 316. Sodium 137. Potassium 5.2. Bicarb 29. BUN 24. Creatinine 1.04. Glucose 124. AST 16. ALT 14. He is seen today in consultation on the selective care unit. He is currently sitting up in bed. Awake and alert. His voice is quite hoarse and raspy. He is dyspneic with minimal exertion. Dyspneic with conversation. He states his face is less swollen today compared to yesterday. He is maintaining O2 saturations in the mid 90s on room air. He is afebrile. Hemodynamically stable. On 10/22/2024, the patient is being seen for a follow-up. The patient came in to the emergency with symptoms of increased shortness of breath and neck pain and headache and she is known to have a lung mass and mediastinal lymphadenopathy and an outpatient PET/CT that was done on 10/19/2024 showed an abnormal osseous lesion involving the high right frontal calvarium and a left anterior C1 ring. There is also abnormal thoracic lymph nodes including right hilar area and the findings are highly suspicious for malignancy. The patient also underwent a CT of the chest on 10/20/2024 that showed no evidence of any pulmonary embolism. There was a mass effect on the right lung pulmonary arteries due to the right hilar lymph node/mass in addition to pathologic mediastinal lymphadenopathy. Some respiratory secretions predominantly in lower lobes and aspiration pneumonia in the right lower lobe is also suspected. Lingular sca rring/atelectasis and emphysema changes were also noted. The white cell count is 14.7 with a hemoglobin of 13.3 and a platelet count of 316. BUN is 24 with a creatinine of 1.05 and a sodium levels at 137 and a potassium level is at 5.2. 10/23/2024, the patient is being seen for a follow-up. No new complaints for today. Remains on oxygen 4 L/min nasal cannula with a pulse ox of 97%. Remains bronchospastic and wheezy. Remains on DuoNeb nebulized treatments [id number] and IV Solu-Medrol. MRI of the brain was completed yesterday and the patient was found to have a right frontal enhancing calvarial destructive lesion. There is minimal mass effect upon the right frontal lobe without definite invasion. There is also a left anterior C1 ring abnormal enhancement. No evidence of any acute or subacute infarct. Chronic ischemic white matter disease changes. IR has declined to biopsy the right frontal lobe calvarial destructive lesion and based on that, I was approached by the oncology team to do a bronchoscopy and endobronchial ultrasound and sampling of the mediastinal lymph node for tissue diagnosis. Patient was also seen by radiation oncology. Objective - Vital Signs Vital signs: Vital Signs Temp 97.1 F L 10/23/24 11:13 Pulse 85 10/23/24 12:43 Resp 18 10/23/24 11:14 BP 128/64 10/23/24 11:13 Pulse Ox 97 10/23/24 11:13 FiO2 Intake & Output 10/22/24 10/23/24 10/23/24 18:59 06:59 18:59 Intake Total 120 Output Total 0 0 Balance 0 120 Weight 69.8 kg Intake: Oral 120 Output: Stool 0 0 Other: Voiding Method Toilet Toilet Toilet # Voids 3 2 # Bowel Movements 1 - Exam GENERAL EXAM: Alert, pleasant 69-year-old male, on room air, fairly comfortable in no apparent distress. The patient is currently on 4 L of oxygen by nasal cannula HEAD: Palpable scalp lesion over the right anterior skull. Some facial edema over his eyes. EYES: Normal reaction of pupils, equal size. NOSE: Clear with pink turbinates. THROAT: No erythema or exudates. NECK: No palpable mass or lymphadenopathy. CHEST: No chest wall deformity. LUNGS: Equal air entry with coarse scattered rhonchi. CVS: S1 and S2 normal with no audible murmur, regular rhythm. ABDOMEN: No hepatosplenomegaly, normal bowel sounds, no guarding or rigidity. SPINE: No scoliosis or deformity SKIN: No rashes CENTRAL NERVOUS SYSTEM: No focal deficits, tone is normal in all 4 extremities. EXTREMITIES: There is no peripheral edema. No clubbing, no cyanosis. Peripheral pulses are intact. - Labs CBC & Chem 7: 10/23/24 07:47 10/23/24 07:47 Labs: Abnormal Lab Results - Last 24 Hours (Table) 10/23/24 10/23/24 Range/Units 07:47 07:47 WBC 28.8 H (3.8-10.6) k/uL Carbon Dioxide 35 H (22-30) mmol/L BUN 37 H (9-20) mg/dL Glucose 109 H (74-99) mg/dL Assessment and Plan Plan: Acute hypoxic respiratory failure secondary to an acute exacerbation of chronic obstructive pulmonary disease, currently on 4 L O2 nasal cannula COPD exacerbation currently on bronchodilators and steroids Headaches. He had a CT scan of the brain on October 03, 2024 that revealed no acute intracranial process. There was a 3.7 cm destructive lesion high right frontal calvarium. Differential included lytic metastatic lesions including lung cancer versus plasmacytoma/multiple myeloma. A PET scan from October 19, 2024 revealed abnormal osseous lesions involving the high right frontal calvarium and the left anterior C1 ring. Due to the location of the latter neurosurgical consult was advised. There is abnormal thoracic lymph nodes including a right hilar mass or neoplasm. An additional primary lung cancer could not be excluded. Suspect metastatic bronchogenic carcinoma. MRI of the brain was also noted Hoarseness suspect secondary to right pharyngeal nerve involvement Chronic and ongoing tobacco dependence Peripheral vascular disease with multiple stent placements, anticoagulated with Xarelto Chronic obstructive pulmonary disease Hyperlipidemia Hypertension Plan: Currently stable on 4 L of oxygen by nasal cannula Continue DuoNeb inhalations and Symbicort Continue steroids and the patient was placed on IV Solu-Medrol 60 mg every 6 hours Hold Xarelto IR declined biopsy of the right frontal calvarial lesion Will need bronchoscopy and endobronchial ultrasound for tissue diagnosis MRI of the brain was noted Educated regarding smoking cessation NicoDerm patch in place We will continue to follow and make further recommendations based on his clinical status We will keep the patient n.p.o. after midnight and attempt to do the EBUS within the next 24 to 48 hours.
--- NOTE | 2024-10-23 18:19 | P.PN ---
Subjective Progress Note Date: 10/23/24 NO acute events over night. Breathing stable. SPO2 96% on 4L. Plan for EUS/biopsy tomorrow Objective - Vital Signs Vital signs: Vital Signs Temp 97.1 F L 10/23/24 11:13 Pulse 57 L 10/23/24 11:14 Resp 18 10/23/24 11:14 BP 128/64 10/23/24 11:13 Pulse Ox 97 10/23/24 11:13 FiO2 Intake & Output 10/22/24 10/23/24 10/23/24 18:59 06:59 18:59 Intake Total 120 Output Total 0 0 Balance 0 120 Weight 69.8 kg Intake: Oral 120 Output: Stool 0 0 Other: Voiding Method Toilet Toilet Toilet # Voids 3 2 # Bowel Movements 1 - Constitutional General appearance: Present: average body habitus, no acute distress - EENT ENT: Present: hearing grossly normal - Respiratory Details: breathing is even and unlabored - Cardiovascular Details: well perfused - Integumentary Integumentary: Absent: cyanotic, jaundiced - Neurologic Neurologic: Present: CNII-XII intact - Musculoskeletal Musculoskeletal: Present: strength equal bilaterally - Psychiatric Psychiatric: Present: A&O x's 3 - Labs CBC & Chem 7: 10/23/24 07:47 10/23/24 07:47 Labs: Abnormal Lab Results - Last 24 Hours (Table) 10/23/24 10/23/24 Range/Units 07:47 07:47 WBC 28.8 H (3.8-10.6) k/uL Carbon Dioxide 35 H (22-30) mmol/L BUN 37 H (9-20) mg/dL Glucose 109 H (74-99) mg/dL - Imaging and Cardiology MRI - head: report reviewed Assessment and Plan (1) Lung mass Current Visit: Yes Status: Acute Priority: High Code(s): R91.8 - OTHER NONSPECIFIC ABNORMAL FINDING OF LUNG FIELD SNOMED Code(s): 705766719 (2) Acute exacerbation of chronic obstructive pulmonary disease Current Visit: Yes Status: Acute Priority: High Code(s): J44.1 - CHRONIC OBSTRUCTIVE PULMONARY DISEASE W (ACUTE) EXACERBATION SNOMED Code(s): 609451160 (3) Lytic bone lesions on xray Current Visit: Yes Status: Acute Priority: High Code(s): M89.9 - DISORDER OF BONE, UNSPECIFIED SNOMED Code(s): 7909797132 Plan: Calvarial mass, lung mass, LAD -PET/CT obtained on 10/19/2024 showing abnormal osseous lesions involving the right frontal calvarium measuring 4.6 cm and the left anterior C1 ring. Abnormal thoracic lymph nodes including possible right hilar mass. -Upon admit CTA chest showing no evidence for PE. Mass effect on the right lung pulmonary arteries due to soft tissue encasement from the right hilar mass. Soft tissue mass in the right hilar region extending into the mediastinum with associated pathologic mediastinal lymphadenopathy. Aspirated secretions, pre dominantly involving lower lobe bronchi with possible developing aspiration pneumonia in the right lower lobe. Lingular scarring/atelectasis and emphysema. CT soft tissue neck showed no evidence of acute abnormality in the neck. -MRI brain Showing right frontal enhancing calvarium destructive mass. Minimal mass effect upon the right frontal lobe without definitive invasion. Left anterior C1 ring abnormal enhancement. No evidence for acute or subacute infarct. -Rad onc has seen pt, possible RT to c-spine lesion -IR consult placed for biopsy of calvarial/scalp lesion. Unable to be obtained per IR. Spoke with pulmonology, plan for EUS with biopsy tomorrow. Discussed plan with pt and he was agreeable to the same
[2024-10-23] MEDS: LORazepam 0.5 MG TAB PO STA (20:23)
[2024-10-23] MEDS: QUEtiapine 50 MG TAB PO PRN (20:23)
[2024-10-23] MEDS: QUEtiapine 50 MG TAB PO STA (22:31)
[2024-10-24 07:37] LABS: HCT 41.9 % (39.0-53.0); HGB 13.4 gm/dL (13.0-17.5); MCH 28.2 pg (25.0-35.0); MCV 87.9 fL (80.0-100.0); Mean Platelet Volume 8.9; Platelet Count 306 k/uL (150-450); RBC 4.77 m/uL (4.30-5.90); RDW 15.1 % (11.5-15.5); WBC 27.3 k/uL (3.8-10.6)
[2024-10-24 07:57] LABS: ALT 22 U/L (4-49); AST 18 U/L (17-59); African American GFR (CKD) >90 (>60 ml/min/1.73 sqM); Albumin 3.5 g/dL (3.5-5.0); Alkaline Phosphatase 99 U/L (38-126); Anion Gap 7 mmol/L; Blood Urea Nitrogen 43 mg/dL (9-20); Calcium 9.7 mg/dL (8.4-10.2); Carbon Dioxide 26 mmol/L (22-30); Chloride 104 mmol/L (98-107); Glucose 103 mg/dL (74-99); Non-African American GFR(CKD) 78 (>60 ml/min/1.73 sqM); Potassium 4.5 mmol/L (3.5-5.1); Sodium 137 mmol/L (137-145); Total Bilirubin 0.5 mg/dL (0.2-1.3); Total Protein 6.2 g/dL (6.3-8.2)
--- NOTE | 2024-10-24 16:28 | P.PN ---
Subjective Progress Note Date: 10/24/24 This is a 69-year-old male patient with a known history of chronic obstructive pulmonary disease, chronic and ongoing tobacco dependence, hyperlipidemia, peripheral vascular disease with previous stent placements and maintained on Xarelto. He recently had noted a scalp mass on the top of his head. His primary care provider, Dr. Velez, was planning to send him to [place] for further workup. However the patient presented here to the emergency room yesterday with complaints of facial swelling, headache and shortness of breath. Chest x-ray reveals no acute pulmonary process. There is a indeterminate asymmetric spiculated region of nodularity in the left lung base measuring roughly [address] angiogram revealed no evidence of pulmonary embolism. There is mass effect on the right lung pulmonary arteries due to soft tissue encasement from a right hilar mass. Soft tissue mass in the right hilar region extending to the mediastinum with associated pathologic mediastinal lymphadenopathy. Highly suspicious for malignancy. Aspirated secretions predominantly involving the lower lobe bronchi with possible developing aspiration pneumonia in the right lower lobe. Lingular scarring/atelectasis. Evidence of emphysema. White count 14.7. Hemoglobin 13.3. Platelets 316. Sodium 137. Potassium 5.2. Bicarb 29. BUN 24. Creatinine 1.04. Glucose 124. AST 16. ALT 14. He is seen today in consultation on the selective care unit. He is currently sitting up in bed. Awake and alert. His voice is quite hoarse and raspy. He is dyspneic with minimal exertion. Dyspneic with conversation. He states his face is less swollen today compared to yesterday. He is maintaining O2 saturations in the mid 90s on room air. He is afebrile. Hemodynamically stable. On 10/22/2024, the patient is being seen for a follow-up. The patient came in to the emergency with symptoms of increased shortness of breath and neck pain and headache and she is known to have a lung mass and mediastinal lymphadenopathy and an outpatient PET/CT that was done on 10/19/2024 showed an abnormal osseous lesion involving the high right frontal calvarium and a left anterior C1 ring. There is also abnormal thoracic lymph nodes including right hilar area and the findings are highly suspicious for malignancy. The patient also underwent a CT of the chest on 10/20/2024 that showed no evidence of any pulmonary embolism. There was a mass effect on the right lung pulmonary arteries due to the right hilar lymph node/mass in addition to pathologic mediastinal lymphadenopathy. Some respiratory secretions predominantly in lower lobes and aspiration pneumonia in the right lower lobe is also suspected. Lingular sca rring/atelectasis and emphysema changes were also noted. The white cell count is 14.7 with a hemoglobin of 13.3 and a platelet count of 316. BUN is 24 with a creatinine of 1.05 and a sodium levels at 137 and a potassium level is at 5.2. 10/23/2024, the patient is being seen for a follow-up. No new complaints for today. Remains on oxygen 4 L/min nasal cannula with a pulse ox of 97%. Remains bronchospastic and wheezy. Remains on DuoNeb nebulized treatments [id number] and IV Solu-Medrol. MRI of the brain was completed yesterday and the patient was found to have a right frontal enhancing calvarial destructive lesion. There is minimal mass effect upon the right frontal lobe without definite invasion. There is also a left anterior C1 ring abnormal enhancement. No evidence of any acute or subacute infarct. Chronic ischemic white matter disease changes. IR has declined to biopsy the right frontal lobe calvarial destructive lesion and based on that, I was approached by the oncology team to do a bronchoscopy and endobronchial ultrasound and sampling of the mediastinal lymph node for tissue diagnosis. Patient was also seen by radiation oncology. On 10/24/2024, the patient is still somewhat bronchospastic and wheezy. He remains on oxygen 4 L/min nasal cannula. No new complaints. He is off Eliquis and the patient is scheduled to undergo a bronchoscopy and endobronchial ultrasound for tissue sampling in a.m. White cell count is 27 and he was 13.7 and platelet count of 306. BUN is 43 with a creatinine of 0.9. Sodium levels at 137. Objective - Vital Signs Vital signs: Vital Signs Temp 98.1 F 10/24/24 11:26 Pulse 61 10/24/24 11:26 Resp 18 10/24/24 11:26 BP 162/75 10/24/24 11:26 Pulse Ox 93 L 10/24/24 11:26 FiO2 Intake & Output 10/23/24 10/24/24 10/24/24 18:59 06:59 18:59 Intake Total 340 Output Total 0 0 Balance 340 0 Weight 68.9 kg Intake: Oral 340 Output: Stool 0 0 Other: Voiding Method Toilet Toilet Toilet # Voids 3 - Exam GENERAL EXAM: Alert, pleasant 69-year-old male, on room air, fairly comfortable in no apparent distress. The patient is currently on 4 L of oxygen by nasal cannula HEAD: Palpable scalp lesion over the right anterior skull. Some facial edema over his eyes. EYES: Normal reaction of pupils, equal size. NOSE: Clear with pink turbinates. THROAT: No erythema or exudates. NECK: No palpable mass or lymphadenopathy. CHEST: No chest wall deformity. LUNGS: Equal air entry with coarse scattered rhonchi. CVS: S1 and S2 normal with no audible murmur, regular rhythm. ABDOMEN: No hepatosplenomegaly, normal bowel sounds, no guarding or rigidity. SPINE: No scoliosis or deformity SKIN: No rashes CENTRAL NERVOUS SYSTEM: No focal deficits, tone is normal in all 4 extremities. EXTREMITIES: There is no peripheral edema. No clubbing, no cyanosis. P eripheral pulses are intact. - Labs CBC & Chem 7: 10/24/24 06:27 10/24/24 06:27 Labs: Abnormal Lab Results - Last 24 Hours (Table) 10/24/24 10/24/24 Range/Units 06:27 06:27 WBC 27.3 H (3.8-10.6) k/uL BUN 43 H (9-20) mg/dL Glucose 103 H (74-99) mg/dL Total Protein 6.2 L (6.3-8.2) g/dL Assessment and Plan Plan: Acute hypoxic respiratory failure secondary to an acute exacerbation of chronic obstructive pulmonary disease, currently on 4 L O2 nasal cannula COPD exacerbation currently on bronchodilators and steroids Headaches. He had a CT scan of the brain on October 03, 2024 that revealed no acute intracranial process. There was a 3.7 cm destructive lesion high right frontal calvarium. Differential included lytic metastatic lesions including lung cancer versus plasmacytoma/multiple myeloma. A PET scan from October 19, 2024 revealed abnormal osseous lesions involving the high right frontal calvarium and the left anterior C1 ring. Due to the location of the latter neurosurgical consult was advised. There is abnormal thoracic lymph nodes including a right hilar mass or neoplasm. An additional primary lung cancer could not be excluded. Suspect metastatic bronchogenic carcinoma. MRI of the brain was also noted Hoarseness suspect secondary to right pharyngeal nerve involvement Chronic and ongoing tobacco dependence Peripheral vascular disease with multiple stent placements, anticoagulated with Xarelto Chronic obstructive pulmonary disease Hyperlipidemia Hypertension Plan: Continue same treatment Currently stable on 4 L of oxygen by nasal cannula Continue DuoNeb inhalations and Symbicort Continue IV Solu-Medrol 60 mg every 6 hours Hold Xarelto in preparation for bronchoscopy and endobronchial ultrasound IR declined biopsy of the right frontal calvarial lesion Will need bronchoscopy and endobronchial ultrasound for tissue diagnosis, scheduled for 10/25/2024 MRI of the brain was noted Educated regarding smoking cessation NicoDerm patch in place We will continue to follow and make further recommendations based on his clinical status We will keep the patient n.p.o. after midnight and attempt to do the EBUS within the next 24 hours.
--- NOTE | 2024-10-25 08:51 | P.PN ---
Subjective Progress Note Date: 10/25/24 This is a 69-year-old male who presented to the emergency department with complaints of increasing shortness of breath, neck pain and swelling, and headaches. Patient with a recent outpatient PET scan for swelling in his head. Patient also with a lung mass. Oncology, pulmonology and cardiology have been consulted. Patient is seen this morning sitting on side of bed resting comfortably. He admits some mild shortness of breath. Vital signs are stable. Plan is for an MRI of the brain today. Interventional radiology consulted for possible biopsy of head. 10/23/2024 Patient seen this morning laying in bed resting comfortably. He did have MRI of the brain yesterday which shows the mass in his head is likely a neoplasm. Patient had some confusion after the MRI and was given Seroquel last night. This morning he is alert and oriented and back to his normal mentality. Patient continues to report severe neck pain. He reports that Dilaudid does not last. Echo was normal. Pulmonary considering a bronchoscopy. 10/25/2024 Patient seen this morning laying in bed resting comfortably with sitter present. Bronchoscopy is scheduled for today. Patient still reporting neck pain, will order patient's home dose of norco for breakthrough pain. Objective - Vital Signs Vital signs: Vital Signs Temp 97.7 F 10/25/24 07:47 Pulse 68 10/25/24 08:41 Resp 16 10/25/24 07:47 BP 166/97 10/25/24 07:47 Pulse Ox 97 10/25/24 07:47 FiO2 Intake & Output 10/24/24 10/25/24 10/25/24 18:59 06:59 18:59 Intake Total 240 Output Total 0 0 Balance 240 0 Weight 68.4 kg Intake: Oral 240 Output: Stool 0 0 Other: Voiding Method Toilet Toilet # Voids 1 # Bowel Movements 1 - Constitutional General appearance: Present: cooperative, no acute distress - EENT Eyes: Present: PERRLA - Neck Neck: Present: normal ROM. Absent: lymphadenopathy, rigidity - Respiratory Respiratory: bilateral: diminished - Cardiovascular Heart sounds: normal: S1, S2 - Gastrointestinal General gastrointestinal: Present: soft. Absent: tenderness - Integumentary Integumentary: Present: normal, normal turgor - Psychiatric Psychiatric: Present: A&O x's 3 - Labs CBC & Chem 7: 10/24/24 06:27 10/24/24 06:27 Assessment and Plan (1) Acute exacerbation of chronic obstructive pulmonary disease Current Visit: Yes Status: Acute Priority: High Code(s): J44.1 - CHRONIC OBSTRUCTIVE PULMONARY DISEASE W (ACUTE) EXACERBATION SNOMED Code(s): 341838291 (2) Lung mass Current Visit: Yes Status: Acute Priority: High Code(s): R91.8 - OTHER NO NSPECIFIC ABNORMAL FINDING OF LUNG FIELD SNOMED Code(s): 248573145 (3) Lytic bone lesions on xray Current Visit: Yes Status: Acute Priority: High Code(s): M89.9 - DISORDER OF BONE, UNSPECIFIED SNOMED Code(s): 6490581570 (4) Hypertension Current Visit: Yes Status: Acute Code(s): I10 - ESSENTIAL (PRIMARY) HYPERTENSION SNOMED Code(s): 76461053 (5) Tobacco abuse Current Visit: Yes Status: Acute Code(s): Z72.0 - TOBACCO USE SNOMED Code(s): 245790288 (6) Neck swelling Current Visit: Yes Status: Acute Code(s): R22.1 - LOCALIZED SWELLING, MASS AND LUMP, NECK SNOMED Code(s): 467891925 Plan: Check CBC and CMP in the morning. Await bronchoscopy results Order home dose of [place] PRN. Patient seen and evaluated by nurse practitioner, physician in agreement with plan.
[2024-10-25] MEDS ORDERED: GLYCOPYRROLATE 0.2 MG/ML 2 ML VIAL ONE (13:54)
[2024-10-25] MEDS ORDERED: PHENYLEPHRINE-0.9% NACL SYG 1,000 MCG/10 ML SYRINGE ONE (13:54)
[2024-10-25] MEDS ORDERED: PROPOFOL 10 MG/ML 20 ML VIAL IV ONE (13:54)
[2024-10-25] MEDS ORDERED: NEOSTIGMINE 1 MG/ML 10 ML VIAL ONE (13:54)
[2024-10-25] MEDS ORDERED: ROCURONIUM 10 MG/ML (5 ML VIAL) IV ONE (13:54)
[2024-10-25] MEDS: LACTATED RINGERS 1,000 ML IV ONE ×2 (13:54→14:47)
[2024-10-25] MEDS ORDERED: MIDAZOLAM 2 MG/2 ML VIAL ONE (13:54)
[2024-10-25] MEDS ORDERED: fentaNYL (PF) 50 MCG/ML 2 ML AMP ONE (13:54)
[2024-10-25] MEDS ORDERED: KETAMINE HCL IN 0.9 % NACL 50 MG/5 ML SYRINGE ONE (13:54)
[2024-10-25] MEDS ORDERED: LIDOCAINE 1% INJ 10MG/ML (20 ML MDV) ONE (13:54)
--- NOTE | 2024-10-25 19:23 | P.PN ---
Subjective Progress Note Date: 10/25/24 This is a 69-year-old male patient with a known history of chronic obstructive pulmonary disease, chronic and ongoing tobacco dependence, hyperlipidemia, peripheral vascular disease with previous stent placements and maintained on Xarelto. He recently had noted a scalp mass on the top of his head. His primary care provider, Dr. Velez, was planning to send him to [place] for further workup. However the patient presented here to the emergency room yesterday with complaints of facial swelling, headache and shortness of breath. Chest x-ray reveals no acute pulmonary process. There is a indeterminate asymmetric spiculated region of nodularity in the left lung base measuring roughly [address] angiogram revealed no evidence of pulmonary embolism. There is mass effect on the right lung pulmonary arteries due to soft tissue encasement from a right hilar mass. Soft tissue mass in the right hilar region extending to the mediastinum with associated pathologic mediastinal lymphadenopathy. Highly suspicious for malignancy. Aspirated secretions predominantly involving the lower lobe bronchi with possible developing aspiration pneumonia in the right lower lobe. Lingular scarring/atelectasis. Evidence of emphysema. White count 14.7. Hemoglobin 13.3. Platelets 316. Sodium 137. Potassium 5.2. Bicarb 29. BUN 24. Creatinine 1.04. Glucose 124. AST 16. ALT 14. He is seen today in consultation on the selective care unit. He is currently sitting up in bed. Awake and alert. His voice is quite hoarse and raspy. He is dyspneic with minimal exertion. Dyspneic with conversation. He states his face is less swollen today compared to yesterday. He is maintaining O2 saturations in the mid 90s on room air. He is afebrile. Hemodynamically stable. On 10/22/2024, the patient is being seen for a follow-up. The patient came in to the emergency with symptoms of increased shortness of breath and neck pain and headache and she is known to have a lung mass and mediastinal lymphadenopathy and an outpatient PET/CT that was done on 10/19/2024 showed an abnormal osseous lesion involving the high right frontal calvarium and a left anterior C1 ring. There is also abnormal thoracic lymph nodes including right hilar area and the findings are highly suspicious for malignancy. The patient also underwent a CT of the chest on 10/20/2024 that showed no evidence of any pulmonary embolism. There was a mass effect on the right lung pulmonary arteries due to the right hilar lymph node/mass in addition to pathologic mediastinal lymphadenopathy. Some respiratory secretions predominantly in lower lobes and aspiration pneumonia in the right lower lobe is also suspected. Lingular sca rring/atelectasis and emphysema changes were also noted. The white cell count is 14.7 with a hemoglobin of 13.3 and a platelet count of 316. BUN is 24 with a creatinine of 1.05 and a sodium levels at 137 and a potassium level is at 5.2. 10/23/2024, the patient is being seen for a follow-up. No new complaints for today. Remains on oxygen 4 L/min nasal cannula with a pulse ox of 97%. Remains bronchospastic and wheezy. Remains on DuoNeb nebulized treatments [id number] and IV Solu-Medrol. MRI of the brain was completed yesterday and the patient was found to have a right frontal enhancing calvarial destructive lesion. There is minimal mass effect upon the right frontal lobe without definite invasion. There is also a left anterior C1 ring abnormal enhancement. No evidence of any acute or subacute infarct. Chronic ischemic white matter disease changes. IR has declined to biopsy the right frontal lobe calvarial destructive lesion and based on that, I was approached by the oncology team to do a bronchoscopy and endobronchial ultrasound and sampling of the mediastinal lymph node for tissue diagnosis. Patient was also seen by radiation oncology. On 10/24/2024, the patient is still somewhat bronchospastic and wheezy. He remains on oxygen 4 L/min nasal cannula. No new complaints. He is off Eliquis and the patient is scheduled to undergo a bronchoscopy and endobronchial ultrasound for tissue sampling in a.m. White cell count is 27 and he was 13.7 and platelet count of 306. BUN is 43 with a creatinine of 0.9. Sodium levels at 137. On 10/25/2024, the patient is feeling essentially the same. He is NPO. He is off anticoagulation the patient is scheduled to undergo a bronchoscopy and endobronchial ultrasound and sampling of the mediastinal lymph nodes. Is a 40 Suboxone by nasal cannula. He is also starting to receive radiation therapy to the head lesion. The white cell count is 27 with a hemoglobin of 13.4 and a platelet count of 309. BUN is 43 with creatinine 0.9 and sodium of 137 and a potassium level is at 4.5. Remains on bronchodilators. Remains on Symbicort. Remains on IV Solu-Medrol. Resting comfortably in bed. Objective - Vital Signs Vital signs: Vital Signs Temp 97.7 F 10/25/24 07:47 Pulse 70 10/25/24 08:50 Resp 16 10/25/24 07:47 BP 166/97 10/25/24 07:47 Pulse Ox 97 10/25/24 07:47 FiO2 Intake & Output 10/24/24 10/25/24 10/25/24 18:59 06:59 18:59 Intake Total 240 Output Total 0 0 Balance 240 0 Weight 68.4 kg Intake: Oral 240 Output: Stool 0 0 Other: Voiding Method Toilet Toilet # Voids 1 # Bowel Movements 1 - Exam GENERAL EXAM: Alert, pleasant 69-year-old male, on room air, fairly comfortable in no apparent distress. The patient is currently on 4 L of oxygen by nasal cannula HEAD: Palpable scalp lesion over the right anterior skull. Some facial edema over his eyes. EYES: Normal reaction of pupils, equal size. NOSE: Clear with pink turbinates. THROAT: No erythema or exudates. NECK: No palpable mass or lymphadenopathy. CHEST: No chest wall deformity. LUNGS: Equal air entry with coarse scattered rhonchi. CVS: S1 and S2 normal with no audible murmur, regular rhythm. ABDOMEN: No hepatosplenomegaly, normal bowel sounds, no guarding or rigidity. SPINE: No scoliosis or deformity SKIN: No rashes CENTRAL NERVOUS SYSTEM: No focal deficits, tone is normal in all 4 extremities. EXTREMITIES: There is no peripheral edema. No clubbing, no cyanosis. Peripheral pulses are intact. - Labs CBC & Chem 7: 10/24/24 06:27 10/24/24 06:27 Assessment and Plan Plan: Acute hypoxic respiratory failure secondary to an acute exacerbation of chronic obstructive pulmonary disease, currently on 4 L O2 nasal cannula COPD exacerbation currently on bronchodilators and steroids Headaches. He had a CT scan of the brain on October 03, 2024 that revealed no acute intracranial process. There was a 3.7 cm destructive lesion high right frontal calvarium. Differential included lytic metastatic lesions including lung cancer versus plasmacytoma/multiple myeloma. A PET scan from October 19, 2024 revealed abnormal osseous lesions involving the high right frontal calvarium and the left anterior C1 ring. Due to the location of the latter neurosurgical consult was advised. There is abnormal thoracic lymph nodes including a right hilar mass or neoplasm. An additional primary lung cancer could not be excluded. Suspect metastatic bronchogenic carcinoma. MRI of the brain was also noted Hoarseness suspect secondary to right pharyngeal nerve involvement Chronic and ongoing tobacco dependence Peripheral vascular disease with multiple stent placements, anticoagulated with Xarelto Chronic obstructive pulmonary disease Hyperlipidemia Hypertension Plan: Patient started radiation therapy to his metastatic lesion Currently stable on 4 L of oxygen by nasal cannula Continue DuoNeb inhalations and Symbicort Continue IV Solu-Medrol 60 mg every 6 hours Xarelto is on hold MRI of the brain was noted Educated regarding smoking cessation NicoDerm patch in place Will proceed with bronchoscopy and endobronchial ultrasound sampling of the mediastinal lymph nodes.
--- NOTE | 2024-10-25 19:29 | P.PCN ---
Date of Procedure: 10/25/24 Preoperative Diagnosis: Mediastinal lymphadenopathy, suspect metastatic lung cancer Postoperative Diagnosis: Same Procedure(s) Performed: flexible bronchoscopy Bronchoalveolar lavage of the right lower lobe Endobronchial ultrasound Transbronchial needle aspirate of subcarinal lymph node Anesthesia: LUIS Surgeon: Keon Maldonado Estimated Blood Loss (ml): 0 Pathology: other Condition: stable Disposition: floor Operative Findings: A consent was obtained. Timeout was done. The patient was intubated in the usual fashion via #8 orotracheal tube. Intubation process was done by [employer] ENGINEER. After securing the airway, adequate oxygenation and ventilation was established. The flexible bronchoscope was easily introduced through the orotracheal tube and was advanced to the lower trachea. Respiratory secretions encountered throughout the patient's airways and therapeutic airway suctioning was done. Airway inspection was done. Distal trachea was within normal limits. Neelam was sharp in the midline. Examination of the left mainstem bronchus, left upper lobe bronchus, left lower lobe bronchus and the various 8 segments of the left were within normal limits. Examination of the right mainstem bronchus was within normal limits. The neelam the right middle lobe and right lower lobe was irregular and the right middle lobe orifice was extrinsically compressed. There was some irregularities involving the orifice of the right middle lobe and the right lower lobe. Right lower lobe bronchus origin was narrowed probably by around 50% was normal caliber. Some narrowing also was noted in the right lower lobe bronchial orifice. I was able to pass the bronch oscope to examine the various segments of the right lower lobe. The right upper lobe was within normal limits and it was trifurcated. The bronchoscope was wedged in the right lower lobe anterior segment endobronchial lavage was done. A total of 60 cc of saline was infused and 20 cc was aspirated. Following that, the bronchoscope was removed and the endobronchial ultrasound was inserted. A complete evaluation of the mediastinal lymph nodes was done. The patient was found to have a bulky subcarinal mediastinal lymph node station 7. The echodensity from the subcarinal lymph node was heterogeneous indicating some underlying necrosis. The lymph node itself was quite enlarged measuring around 2.5 cm in size. A smaller size 1-1/2 cm lymph node was also seen in station 11R inferior station. Using a 22-gauge needle, transbronchial needle aspirate of the subcarinal lymph node was done and rapid onsite pathology evaluation showed that the samples were adequate. The preliminary evaluation was highly suspicious for squamous cell carcinoma. A total of 5 passes were obtained from the subcarinal lymph nodes. The procedure was terminated. The endobronchial ultrasound was removed. Flexible bronchoscope was reinserted for therapeutic airway suctioning. Subsequently, the patient was extubated and transferred to recovery in a stable condition. No bleeding complications.
[2024-10-25] MEDS: HYDROcodone/APAP 10-325MG 1 EACH TAB PO PRN (23:08)
[2024-10-26] MEDS: IPRATROPIUM-ALBUTEROL 3 ML NEB INHALATION PRN (05:11)
[2024-10-26 06:47] LABS: HCT 42.8 % (39.0-53.0); HGB 13.4 gm/dL (13.0-17.5); MCH 27.5 pg (25.0-35.0); MCHC 31.4 g/dL (31.0-37.0); MCV 87.5 fL (80.0-100.0); Mean Platelet Volume 9.4; Platelet Count 295 k/uL (150-450); RBC 4.88 m/uL (4.30-5.90); RDW 15.2 % (11.5-15.5); WBC 23.8 k/uL (3.8-10.6)
[2024-10-26 07:10] LABS: ALT 24 U/L (4-49); AST 17 U/L (17-59); African American GFR (CKD) 74 (>60 ml/min/1.73 sqM); Albumin 3.4 g/dL (3.5-5.0); Alkaline Phosphatase 100 U/L (38-126); Anion Gap 7 mmol/L; Blood Urea Nitrogen 43 mg/dL (9-20); Calcium 9.2 mg/dL (8.4-10.2); Carbon Dioxide 28 mmol/L (22-30); Chloride 100 mmol/L (98-107); Glucose 130 mg/dL (74-99); Non-African American GFR(CKD) 64 (>60 ml/min/1.73 sqM); Potassium 4.9 mmol/L (3.5-5.1); Sodium 135 mmol/L (137-145); Total Bilirubin 0.5 mg/dL (0.2-1.3); Total Protein 5.9 g/dL (6.3-8.2)
[2024-10-26] MEDS: NICOTINE 21MG/24HR PATCH TRANSDERM PRN (07:44)
--- NOTE | 2024-10-26 08:33 | P.PN ---
Subjective Principal diagnosis: Multiple abnormal mass including lung and cranium. Patient is having less difficulty at night with disorientation. I suspect element of sundowning and nicotine withdrawal as he is a heavy smoker. Continue Seroquel as needed. The patient wants to go home but I told the patient I would like to get a tissue diagnosis before letting him return to home. Suspect he does want to smoke significantly. The patient is status post bronchoscopy with biopsy. Awaiting results. Objective - Vital Signs Vital signs: Vital Signs Temp 98.2 F 10/26/24 07:32 Pulse 72 10/26/24 08:24 Resp 20 10/26/24 08:00 BP 128/78 10/26/24 07:32 Pulse Ox 98 10/26/24 07:32 FiO2 Intake & Output 10/25/24 10/26/24 10/26/24 18:59 06:59 18:59 Intake Total 640 Output Total 0 Balance 640 0 Weight 71 kg Intake: IV 400 Oral 240 Output: Stool 0 Other: Voiding Method Toilet - Constitutional General appearance: Present: average body habitus, cooperative, no acute distress - EENT Eyes: Absent: abnormal pupil - Respiratory Respiratory: bilateral: diminished - Cardiovascular Rhythm: regular Heart sounds: normal: S1, S2 Abnormal Heart Sounds: Absent: S3 Gallop - Gastrointestinal General gastrointestinal: Present: soft. Absent: tenderness - Labs CBC & Chem 7: 10/26/24 05:30 10/26/24 05:30 Labs: Abnormal Lab Results - Last 24 Hours (Table) 10/26/24 10/26/24 Range/Units 05:30 05:30 WBC 23.8 H (3.8-10.6) k/uL Sodium 135 L (137-145) mmol/L BUN 43 H (9-20) mg/dL Glucose 130 H (74-99) mg/dL Total Protein 5.9 L (6.3-8.2) g/dL Albumin 3.4 L (3.5-5.0) g/dL Assessment and Plan (1) Acute exacerbation of chronic obstructive pulmonary disease Current Visit: Yes Status: Acute Priority: High Code(s): J44.1 - CHRONIC OBSTRUCTIVE PULMONARY DISEASE W (ACUTE) EXACERBATION SNOMED Code(s): 849380922 (2) Hypertension Current Visit: Yes Status: Acute Code(s): I10 - ESSENTIAL (PRIMARY) HYPERTENSION SNOMED Code(s): 19494318 (3) Lung mass Current Visit: Yes Status: Acute Priority: High Code(s): R91.8 - OTHER NONSPECIFIC ABNORMAL FINDING OF LUNG FIELD SNOMED Code(s): 268083455 (4) Lytic bone lesions on xray Current Visit: Yes Status: Acute Priority: High Code(s): M89.9 - DISORDER OF BONE, UNSPECIFIED SNOMED Code(s): 5026313019 (5) Tobacco abuse Current Visit: Yes Status: Acute Code(s): Z72.0 - TOBACCO USE SNOMED Code( s): 046643049 Plan: Await bronchoscopy results of biopsy. Check CBC CMP in AM Prognosis guarded. COPD with element of probable metastatic disease. Will continue to follow. Time with Patient: Greater than 30
[2024-10-26 14:38] VITALS: BMI 23.1
--- NOTE | 2024-10-26 19:29 | P.PN ---
Subjective Progress Note Date: 10/26/24 No acute events over night. Breathing stable. SPO2 986% on 4L. S/p EUS/biopsy, cytology and path pending Objective - Vital Signs Vital signs: Vital Signs Temp 98 F 10/26/24 12:00 Pulse 61 10/26/24 12:00 Resp 20 10/26/24 14:00 BP 125/62 10/26/24 12:00 Pulse Ox 97 10/26/24 12:00 FiO2 Intake & Output 10/25/24 10/26/24 10/26/24 18:59 06:59 18:59 Intake Total 640 240 Output Total 0 Balance 640 0 240 Weight 71 kg Intake: IV 400 Oral 240 240 Output: Stool 0 Other: Voiding Method Toilet - Constitutional General appearance: Present: average body habitus, no acute distress - EENT Eyes: Present: anicteric sclerae, EOMI ENT: Present: hearing grossly normal - Cardiovascular Details: breathing unlabored - Gastrointestinal Gastrointestinal Comment(s): skin warm and dry - Integumentary Integumentary: Absent: cyanotic, jaundiced - Neurologic Neurologic: Present: CNII-XII intact - Musculoskeletal Musculoskeletal: Present: strength equal bilaterally - Psychiatric Psychiatric: Present: A&O x's 3 - Labs CBC & Chem 7: 10/26/24 05:30 10/26/24 05:30 Labs: Abnormal Lab Results - Last 24 Hours (Table) 10/26/24 10/26/24 Range/Units 05:30 05:30 WBC 23.8 H (3.8-10.6) k/uL Sodium 135 L (137-145) mmol/L BUN 43 H (9-20) mg/dL Glucose 130 H (74-99) mg/dL Total Protein 5.9 L (6.3-8.2) g/dL Albumin 3.4 L (3.5-5.0) g/dL Assessment and Plan (1) Lung mass Current Visit: Yes Status: Acute Priority: High Code(s): R91.8 - OTHER NONSPECIFIC ABNORMAL FINDING OF LUNG FIELD SNOMED Code(s): 887712172 (2) Acute exacerbation of chronic obstructive pulmonary disease Current Visit: Yes Status: Acute Priority: High Code(s): J44.1 - CHRONIC OBSTRUCTIVE PULMONARY DISEASE W (ACUTE) EXACERBATION SNOMED Code(s): 495818313 (3) Lytic bone lesions on xray Current Visit: Yes Status: Acute Priority: High Code(s): M89.9 - DISORDER OF BONE, UNSPECIFIED SNOMED Code(s): 3369819966 Plan: Calvarial mass, lung mass, LAD -PET/CT obtained on 10/19/2024 showing abnormal osseous lesions involving the right frontal calvarium measuring 4.6 cm and the left anterior C1 ring. Abnormal thoracic lymph nodes including possible right hilar mass. -Upon admit CTA chest showing no evidence for PE. Mass effect on the right lung pulmonary arteries due to soft tissue encasement from the right hilar mass. Soft tissue mass in the right hilar region extending into the mediastinum with associated pathologic mediastinal lymphadenopathy. Aspirated secretions, predominantly involving lower lobe bronchi with possible developing aspiration pneumonia in the right lower lobe. Lingular scarring/atelectasis and emphysema. CT soft tissue neck showed no evidence of acute abnormality in the neck. -MRI brain Showing right frontal enhancing calvarium destructive mass. Minimal mass effect upon the right frontal lobe without definitive invasion. Left anterior C1 ring abnormal enhancement. No evidence for acute or subacute infa rct. -Rad onc has seen pt. Patient has started RT to c-spine, reporting significant improvement in neck pain -IR consult placed for biopsy of calvarial/scalp lesion. Unable to be obtained per IR. S/p bronch/EUS, cytology and path pending -Once path resulted, NGS/PDL-1 will be requested on specimen. Clinic f/u will be scheduled upon d/c Discussed plan of care with pt and family. All questions and concerns were addressed
--- NOTE | 2024-10-26 19:42 | P.PN ---
Subjective Progress Note Date: 10/26/24 This is a 69-year-old male patient with a known history of chronic obstructive pulmonary disease, chronic and ongoing tobacco dependence, hyperlipidemia, peripheral vascular disease with previous stent placements and maintained on Xarelto. He recently had noted a scalp mass on the top of his head. His primary care provider, Dr. Velez, was planning to send him to [facility] for further workup. However the patient presented here to the emergency room yesterday with complaints of facial swelling, headache and shortness of breath. Chest x-ray reveals no acute pulmonary process. There is a indeterminate asymmetric spiculated region of nodularity in the left lung base measuring roughly [address] angiogram revealed no evidence of pulmonary embolism. There is mass effect on the right lung pulmonary arteries due to soft tissue encasement from a right hilar mass. Soft tissue mass in the right hilar region extending to the mediastinum with associated pathologic mediastinal lymphadenopathy. Highly suspicious for malignancy. Aspirated secretions predominantly involving the lower lobe bronchi with possible developing aspiration pneumonia in the right lower lobe. Lingular scarring/atelectasis. Evidence of emphysema. White count 14.7. Hemoglobin 13.3. Platelets 316. Sodium 137. Potassium 5.2. Bicarb 29. BUN 24. Creatinine 1.04. Glucose 124. AST 16. ALT 14. He is seen today in consultation on the selective care unit. He is currently sitting up in bed. Awake and alert. His voice is quite hoarse and raspy. He is dyspneic with minimal exertion. Dyspneic with conversation. He states his face is less swollen today compared to yesterday. He is maintaining O2 saturations in the mid 90s on room air. He is afebrile. Hemodynamically stable. On 10/22/2024, the patient is being seen for a follow-up. The patient came in to the emergency with symptoms of increased shortness of breath and neck pain and headache and she is known to have a lung mass and mediastinal lymphadenopathy and an outpatient PET/CT that was done on 10/19/2024 showed an abnormal osseous lesion involving the high right frontal calvarium and a left anterior C1 ring. There is also abnormal thoracic lymph nodes including right hilar area and the findings are highly suspicious for malignancy. The patient also underwent a CT of the chest on 10/20/2024 that showed no evidence of any pulmonary embolism. There was a mass effect on the right lung pulmonary arteries due to the right hilar lymph node/mass in addition to pathologic mediastinal lymphadenopathy. Some respiratory secretions predominantly in lower lobes and aspiration pneumonia in the right lower lobe is also suspected. Lingular sca rring/atelectasis and emphysema changes were also noted. The white cell count is 14.7 with a hemoglobin of 13.3 and a platelet count of 316. BUN is 24 with a creatinine of 1.05 and a sodium levels at 137 and a potassium level is at 5.2. 10/23/2024, the patient is being seen for a follow-up. No new complaints for today. Remains on oxygen 4 L/min nasal cannula with a pulse ox of 97%. Remains bronchospastic and wheezy. Remains on DuoNeb nebulized treatments [id number] and IV Solu-Medrol. MRI of the brain was completed yesterday and the patient was found to have a right frontal enhancing calvarial destructive lesion. There is minimal mass effect upon the right frontal lobe without definite invasion. There is also a left anterior C1 ring abnormal enhancement. No evidence of any acute or subacute infarct. Chronic ischemic white matter disease changes. IR has declined to biopsy the right frontal lobe calvarial destructive lesion and based on that, I was approached by the oncology team to do a bronchoscopy and endobronchial ultrasound and sampling of the mediastinal lymph node for tissue diagnosis. Patient was also seen by radiation oncology. On 10/24/2024, the patient is still somewhat bronchospastic and wheezy. He remains on oxygen 4 L/min nasal cannula. No new complaints. He is off Eliquis and the patient is scheduled to undergo a bronchoscopy and endobronchial ultrasound for tissue sampling in a.m. White cell count is 27 and he was 13.7 and platelet count of 306. BUN is 43 with a creatinine of 0.9. Sodium levels at 137. On 10/25/2024, the patient is feeling essentially the same. He is NPO. He is off anticoagulation the patient is scheduled to undergo a bronchoscopy and endobronchial ultrasound and sampling of the mediastinal lymph nodes. Is a 40 Suboxone by nasal cannula. He is also starting to receive radiation therapy to the head lesion. The white cell count is 27 with a hemoglobin of 13.4 and a platelet count of 309. BUN is 43 with creatinine 0.9 and sodium of 137 and a potassium level is at 4.5. Remains on bronchodilators. Remains on Symbicort. Remains on IV Solu-Medrol. Resting comfortably in bed. On 10/26/2024, the patient is being seen for a follow-up. Patient is doing well following bronchoscopy. Cough and congestion has subsided and the patient remains on 40 Suboxone by nasal cannula. Bronchoscopy and endobronchial ultrasound and biopsy of the mediastinal lymph node was done. Awaiting final pathology for now. Meanwhile, the patient is stable. No new complaints for now. Remains on bronchodilators. Remains on steroids. No other significant events. Objective - Vital Signs Vital signs: Vital Signs Temp 98.2 F 10/26/24 07:32 Pulse 76 10/26/24 11:57 Resp 20 10/26/24 08:00 BP 128/78 10/26/24 07:32 Pulse Ox 98 10/26/24 07:32 FiO2 Intake & Output 10/25/24 10/26/24 10/26/24 18:59 06:59 18:59 Intake Total 640 240 Output Total 0 Balance 640 0 240 Weight 71 kg Intake: IV 400 Oral 240 240 Output: Stool 0 Other: Voiding Method Toilet - Exam GENERAL EXAM: Alert, pleasant 69-year-old male, on room air, fairly comfortable in no apparent distress. The patient is currently on 4 L of oxygen by nasal cannula HEAD: Palpable scalp lesion over the right anterior skull. Some facial edema over his eyes. EYES: Normal reaction of pupils, equal size. NOSE: Clear with pink turbinates. THROAT: No erythema or exudates. NECK: No palpable mass or lymphadenopathy. CHEST: No chest wall deformity. LUNGS: Equal air entry with coarse scattered rhonchi. CVS: S1 and S2 normal with no audible murmur, regular rhythm. ABDOMEN: No hepatosplenomegaly, normal bowel sounds, no guarding or rigidity. SPINE: No scoliosis or deformity SKIN: No rashes CENTRAL NERVOUS SYSTEM: No focal deficits, tone is normal in all 4 extremities. EXTREMITIES: There is no peripheral edema. No clubbing, no cyanosis. Peripheral pulses are intact. - Labs CBC & Chem 7: 10/26/24 05:30 10/26/24 05:30 Labs: Abnormal Lab Results - Last 24 Hours (Table) 10/26/24 10/26/24 Range/Units 05: 05:30 WBC 23.8 H (3.8-10.6) k/uL Sodium 135 L (137-145) mmol/L BUN 43 H (9-20) mg/dL Glucose 130 H (74-99) mg/dL Total Protein 5.9 L (6.3-8.2) g/dL Albumin 3.4 L (3.5-5.0) g/dL Assessment and Plan Plan: Acute hypoxic respiratory failure secondary to an acute exacerbation of chronic obstructive pulmonary disease, currently on 4 L O2 nasal cannula COPD exacerbation currently on bronchodilators and steroids Headaches. He had a CT scan of the brain on October 03, 2024 that revealed no acute intracranial process. There was a 3.7 cm destructive lesion high right frontal calvarium. Differential included lytic metastatic lesions including lung cancer versus plasmacytoma/multiple myeloma. A PET scan from October 19, 2024 revealed abnormal osseous lesions involving the high right frontal calvarium and the left anterior C1 ring. Due to the location of the latter neurosurgical consult was advised. There is abnormal thoracic lymph nodes including a right hilar mass or neoplasm. An additional primary lung cancer could not be excluded. Suspect metastatic bronchogenic carcinoma. MRI of the brain was also noted Hoarseness suspect secondary to right pharyngeal nerve involvement Chronic and ongoing tobacco dependence Peripheral vascular disease with multiple stent placements, anticoagulated off Xarelto Chronic obstructive pulmonary disease Hyperlipidemia Hypertension Plan: Bronchoscopy, endobronchial ultrasound and mediastinal sampling of the lymph node was done Clinically stable Currently stable on 4 L of oxygen by nasal cannula Continue DuoNeb inhalations and Symbicort Continue IV Solu-Medrol 60 mg every 6 hours May resume anticoagulation if clinically indicated MRI of the brain was noted Educated regarding smoking cessation NicoDerm patch in place Awaiting final pathology and oncology is on the case.
[2024-10-27] MEDS: QUEtiapine 50 MG TAB PO STA (09:29)
--- NOTE | 2024-10-27 14:26 | P.PN ---
Subjective Progress Note Date: 10/27/24 This is a 69-year-old male patient with a known history of chronic obstructive pulmonary disease, chronic and ongoing tobacco dependence, hyperlipidemia, peripheral vascular disease with previous stent placements and maintained on Xarelto. He recently had noted a scalp mass on the top of his head. His primary care provider, Dr. Velez, was planning to send him to [facility] for further workup. However the patient presented here to the emergency room yesterday with complaints of facial swelling, headache and shortness of breath. Chest x-ray reveals no acute pulmonary process. There is a indeterminate asymmetric spiculated region of nodularity in the left lung base measuring roughly [address] angiogram revealed no evidence of pulmonary embolism. There is mass effect on the right lung pulmonary arteries due to soft tissue encasement from a right hilar mass. Soft tissue mass in the right hilar region extending to the mediastinum with associated pathologic mediastinal lymphadenopathy. Highly suspicious for malignancy. Aspirated secretions predominantly involving the lower lobe bronchi with possible developing aspiration pneumonia in the right lower lobe. Lingular scarring/atelectasis. Evidence of emphysema. White count 14.7. Hemoglobin 13.3. Platelets 316. Sodium 137. Potassium 5.2. Bicarb 29. BUN 24. Creatinine 1.04. Glucose 124. AST 16. ALT 14. He is seen today in consultation on the selective care unit. He is currently sitting up in bed. Awake and alert. His voice is quite hoarse and raspy. He is dyspneic with minimal exertion. Dyspneic with conversation. He states his face is less swollen today compared to yesterday. He is maintaining O2 saturations in the mid 90s on room air. He is afebrile. Hemodynamically stable. On 10/22/2024, the patient is being seen for a follow-up. The patient came in to the emergency with symptoms of increased shortness of breath and neck pain and headache and she is known to have a lung mass and mediastinal lymphadenopathy and an outpatient PET/CT that was done on 10/19/2024 showed an abnormal osseous lesion involving the high right frontal calvarium and a left anterior C1 ring. There is also abnormal thoracic lymph nodes including right hilar area and the findings are highly suspicious for malignancy. The patient also underwent a CT of the chest on 10/20/2024 that showed no evidence of any pulmonary embolism. There was a mass effect on the right lung pulmonary arteries due to the right hilar lymph node/mass in addition to pathologic mediastinal lymphadenopathy. Some respiratory secretions predominantly in lower lobes and aspiration pneumonia in the right lower lobe is also suspected. Lingular sca rring/atelectasis and emphysema changes were also noted. The white cell count is 14.7 with a hemoglobin of 13.3 and a platelet count of 316. BUN is 24 with a creatinine of 1.05 and a sodium levels at 137 and a potassium level is at 5.2. 10/23/2024, the patient is being seen for a follow-up. No new complaints for today. Remains on oxygen 4 L/min nasal cannula with a pulse ox of 97%. Remains bronchospastic and wheezy. Remains on DuoNeb nebulized treatments [id number] and IV Solu-Medrol. MRI of the brain was completed yesterday and the patient was found to have a right frontal enhancing calvarial destructive lesion. There is minimal mass effect upon the right frontal lobe without definite invasion. There is also a left anterior C1 ring abnormal enhancement. No evidence of any acute or subacute infarct. Chronic ischemic white matter disease changes. IR has declined to biopsy the right frontal lobe calvarial destructive lesion and based on that, I was approached by the oncology team to do a bronchoscopy and endobronchial ultrasound and sampling of the mediastinal lymph node for tissue diagnosis. Patient was also seen by radiation oncology. On 10/24/2024, the patient is still somewhat bronchospastic and wheezy. He remains on oxygen 4 L/min nasal cannula. No new complaints. He is off Eliquis and the patient is scheduled to undergo a bronchoscopy and endobronchial ultrasound for tissue sampling in a.m. White cell count is 27 and he was 13.7 and platelet count of 306. BUN is 43 with a creatinine of 0.9. Sodium levels at 137. On 10/25/2024, the patient is feeling essentially the same. He is NPO. He is off anticoagulation the patient is scheduled to undergo a bronchoscopy and endobronchial ultrasound and sampling of the mediastinal lymph nodes. Is a 40 Suboxone by nasal cannula. He is also starting to receive radiation therapy to the head lesion. The white cell count is 27 with a hemoglobin of 13.4 and a platelet count of 309. BUN is 43 with creatinine 0.9 and sodium of 137 and a potassium level is at 4.5. Remains on bronchodilators. Remains on Symbicort. Remains on IV Solu-Medrol. Resting comfortably in bed. On 10/26/2024, the patient is being seen for a follow-up. Patient is doing well following bronchoscopy. Cough and congestion has subsided and the patient remains on 40 Suboxone by nasal cannula. Bronchoscopy and endobronchial ultrasound and biopsy of the mediastinal lymph node was done. Awaiting final pathology for now. Meanwhile, the patient is stable. No new complaints for now. Remains on bronchodilators. Remains on steroids. No other significant events. 10/27/2024, patient is stable, less bronchospastic and wheezy. Denies having any specific complaints. Bronchoscopy endobronchial ultrasound was done. Pathology still pending. Primary findings are consistent with non-small cell lung cancer. Remains on bronchodilators. The patient will be taken off the IV Solu-Medrol started on a prednisone burst taper as of tomorrow. The white cell count is at 23 with a hemoglobin 13.4. BUN is 43 with a creatinine of 1.1. The results of the bronchial lavage are still pending for now. The patient is on no antibiotic coverage. Remains on Symbicort. Remains on DuoNeb updrafts., Comfortable in bed. No other complaints otherwise for now. Objective - Vital Signs Vital signs: Vital Signs Temp 97.9 F 10/27/24 08:39 Pulse 75 10/27/24 09:47 Resp 16 10/27/24 08:39 BP 150/83 10/27/24 08:39 Pulse Ox 96 10/27/24 09:41 FiO2 Intake & Output 10/26/24 10/27/24 10/27/24 18:59 06:59 18:59 Intake Total 240 540 Output Total 0 Balance 240 540 Weight 71 kg 71 kg Intake: Oral 240 540 Output: Stool 0 Other: Voiding Method Toilet Toilet # Voids 2 - Exam GENERAL EXAM: Alert, pleasant 69-year-old male, on room air, fairly comfortable in no apparent distress. The patient is currently on 4 L of oxygen by nasal cannula HEAD: Palpable scalp lesion over the right anterior skull. Some facial edema over his eyes. EYES: Normal reaction of pupils, equal size. NOSE: Clear with pink turbinates. THROAT: No erythema or exudates. NECK: No palpable mass or lymphadenopathy. CHEST: No chest wall deformity. LUNGS: Equal air entry with coarse scattered rhonchi. CVS: S1 and S2 normal with no audible murmur, regular rhythm. ABDOMEN: No hepatosplenomegaly, normal bowel sounds, no guarding or rigidity. SPINE: No scoliosis or deformity SKIN: No rashes CENTRAL NERVOUS SYSTEM: No focal deficits, tone is normal in all 4 extremities. EXTREMITIES: There is no peripheral edema. No clubbing, no cyanosis. Peripheral pulses are intact. - Labs CBC & Chem 7: 10/26/24 05:30 10/26/24 05:30 Assessment and Plan Plan: Acute hypoxic respiratory failure secondary to an acute exacerbation of chronic obstructive pulmonary disease, currently on 2.5 L O2 nasal cannula, clinically stable COPD exacerbation currently on bronchodilators and steroids, the patient has been switched to oral prednisone burst taper Headaches. He had a CT scan of the brain on October 03, 2024 that revealed no acute intracranial process. There was a 3.7 cm destructive lesion high right frontal calvarium. Differential included lytic metastatic lesions including lung cancer versus plasmacytoma/multiple myeloma. A PET scan from October 19, 2024 revealed abnormal osseous lesions involving the high right frontal calvarium and the left anterior C1 ring. Due to the location of the latter neurosurgical consult was advised. There is abnormal thoracic lymph nodes including a right hilar mass or neoplasm. An additional primary lung cancer could not be excluded. Suspect metastatic bronchogenic carcinoma. MRI of the brain was also noted Hoarseness suspect secondary to right pharyngeal nerve involvement Chronic and ongoing tobacco dependence Peripheral vascular disease with multiple stent placements, anticoagulated off Xarelto Chronic obstructive pulmonary disease Hyperlipidemia Hypertension Plan: Bronchoscopy, endobronchial ultrasound and mediastinal sampling of the lymph node was done Clinically stable Currently stable on 2.5 L of oxygen by nasal cannula Continue DuoNeb inhalations and Symbicort Start IV Solu-Medrol start the patient on prednisone burst taper May resume anticoagulation if clinically indicated MRI of the brain was noted Educated regarding smoking cessation NicoDerm patch in place Awaiting final pathology and oncology is on the case
--- NOTE | 2024-10-27 19:00 | P.PN ---
Subjective Progress Note Date: 10/27/24 69-year-old gentleman with past medical history significant for COPD who presented to the ER because of shortness of breath, facial swelling and back pain. Patient stated that couple of weeks ago he started noticing a lesion on the frontal part of his scalp at which time his PCP ordered a CT head which s howed 3.7 cm destructive lesion of right frontal calvarium, patient also had a PET scan done in outpatient setting. Patient stated that over the last week he has been having worsening neck and back pain. Patient also complaining of swelling of his face. Patient denies any fever or chills. There is no complaint of orthopnea or PND. Patient is complaining of shortness of breath but is at baseline. Denies any swelling of feet. Because of the symptoms, patient brought to the ER Initial lab work done in the ER showed WBC 15.6, hemoglobin 13.2, platelet count 307, D-dimer 3.62, sodium 135, potassium 4, BUN 19, creatinine 1.08, glucose 108, lactate 0.7, calcium 9.8, bilirubin 0.7, alk phos 131, troponin 0.057 proBNP 926 EKG done in the ER showed heart rate of 90, no ST segment elevation or depression seen, no T-wave inversions seen. Chest x-ray done in the ER showed no acute cardiopulmonary process CTA chest done showed no evidence of PE. There is mass effect on the right pulmonary artery soft tissue casement from the right hilar mass. Soft tissue mass in the right hilar region extending into the mediastinum with associated pathological mediastinal lymphadenopathy. These regions were FDG avid on recent PET/CT and are highly suspicious for malignancy. CT soft tissue neck showed no evidence of abnormality in the neck Brought patient admitted to internal medicine service Objective - Vital Signs Vital signs: Vital Signs Temp 97.9 F 10/27/24 08:39 Pulse 75 10/27/24 09:47 Resp 16 10/27/24 08:39 BP 150/83 10/27/24 08:39 Pulse Ox 96 10/27/24 09:41 FiO2 Intake & Output 10/26/24 10/27/24 10/27/24 18:59 06:59 18:59 Intake Total 240 540 Output Total 0 Balance 240 540 Weight 71 kg 71 kg Intake: Oral 240 540 Output: Stool 0 Other: Voiding Method Toilet Toilet # Voids 2 - Exam GENERAL: The patient is alert and oriented x3, not in any acute distress. Well developed, well nourished. HEENT: Pupils are round and equally reacting to light. EOMI. No scleral icterus. No conjunctival pallor. Normocephalic, atraumatic. No pharyngeal erythema. No thyromegaly. CARDIOVASCULAR: S1 and S2 present. No murmurs, rubs, or gallops. PULMONARY: Chest is clear to auscultation, no wheezing or crackles. ABDOMEN: Soft, nontender, nondistended, normoactive bowel sounds. No palpable organomegaly. MUSCULOSKELETAL: No joint swelling or deformity. EXTREMITIES: No cyanosis, clubbing, or pedal edema. NEUROLOGICAL: Gross neurological examination did not reveal any focal deficits. - Labs CBC & Chem 7: 10/26/24 05:30 10/26/24 05:30 Assessment and Plan Assessment: Right hilar mass New-onset A-fib with RVR Acute hypoxic respiratory failure Acute COPD exacerbation leukocytosis Elevated troponin 3.7 cm destructive lesion of right frontal calvarium Facial edema could be related to SVC syndrome History of COPD Monitor vital signs Monitor CBC Monitor CMP Continue telemetry monitoring Trend troponin Ordered 2D echo Ordered breathing treatments Ordered Decadron Resume home med Consult cardiology Consult pulmonary Labs and medication were reviewed.. Continue same treatment. Continue with symptomatic treatment. Resume home medication. Monitor labs and vitals. DVT and GI prophylaxis. Further recommendations as per clinical course of the patient
[2024-10-28 04:41] LABS: African American GFR (CKD) 85 (>60 ml/min/1.73 sqM); Anion Gap 4 mmol/L; Blood Urea Nitrogen 42 mg/dL (9-20); Calcium 8.9 mg/dL (8.4-10.2); Carbon Dioxide 31 mmol/L (22-30); Chloride 101 mmol/L (98-107); Glucose 80 mg/dL (74-99); Non-African American GFR(CKD) 74 (>60 ml/min/1.73 sqM); Potassium 4.5 mmol/L (3.5-5.1); Sodium 136 mmol/L (137-145)
[2024-10-28 04:43] LABS: Basophils # (A) 0.1 k/uL (0-0.2); Basophils % (A) 0 %; Eosinophils # (A) 0.1 k/uL (0-0.7); Eosinophils % (A) 0 %; Lymphocytes # (A) 1.6 k/uL (1.0-4.8); Lymphocytes % (A) 5 %; MCH 28.1 pg (25.0-35.0); MCHC 32.6 g/dL (31.0-37.0); MCV 86.3 fL (80.0-100.0); Mean Platelet Volume 9.5; Monocytes # (A) 1.9 k/uL (0-1.0); Monocytes % (A) 6 %; Neutrophils # (A) 26.7 k/uL (1.3-7.7); Neutrophils % (A) 87 %; Platelet Count 249 k/uL (150-450); RBC 4.64 m/uL (4.30-5.90); RDW 15.5 % (11.5-15.5); WBC 30.7 k/uL (3.8-10.6)
[2024-10-28] MEDS: predniSONE 20 MG TAB PO SCH (07:38)
[2024-10-28] MEDS: QUEtiapine 50 MG TAB PO PRN (11:43)
--- NOTE | 2024-10-28 14:05 | P.PN ---
Subjective Progress Note Date: 10/28/24 This is a 69-year-old male patient with a known history of chronic obstructive pulmonary disease, chronic and ongoing tobacco dependence, hyperlipidemia, peripheral vascular disease with previous stent placements and maintained on Xarelto. He recently had noted a scalp mass on the top of his head. His primary care provider, Dr. Velez, was planning to send him to [place] for further workup. However the patient presented here to the emergency room yesterday with complaints of facial swelling, headache and shortness of breath. Chest x-ray reveals no acute pulmonary process. There is a indeterminate asymmetric spiculated region of nodularity in the left lung base measuring roughly [address] angiogram revealed no evidence of pulmonary embolism. There is mass effect on the right lung pulmonary arteries due to soft tissue encasement from a right hilar mass. Soft tissue mass in the right hilar region extending to the mediastinum with associated pathologic mediastinal lymphadenopathy. Highly suspicious for malignancy. Aspirated secretions predominantly involving the lower lobe bronchi with possible developing aspiration pneumonia in the right lower lobe. Lingular scarring/atelectasis. Evidence of emphysema. White count 14.7. Hemoglobin 13.3. Platelets 316. Sodium 137. Potassium 5.2. Bicarb 29. BUN 24. Creatinine 1.04. Glucose 124. AST 16. ALT 14. He is seen today in consultation on the selective care unit. He is currently sitting up in bed. Awake and alert. His voice is quite hoarse and raspy. He is dyspneic with minimal exertion. Dyspneic with conversation. He states his face is less swollen today compared to yesterday. He is maintaining O2 saturations in the mid 90s on room air. He is afebrile. Hemodynamically stable. On 10/22/2024, the patient is being seen for a follow-up. The patient came in to the emergency with symptoms of increased shortness of breath and neck pain and headache and she is known to have a lung mass and mediastinal lymphadenopathy and an outpatient PET/CT that was done on 10/19/2024 showed an abnormal osseous lesion involving the high right frontal calvarium and a left anterior C1 ring. There is also abnormal thoracic lymph nodes including right hilar area and the findings are highly suspicious for malignancy. The patient also underwent a CT of the chest on 10/20/2024 that showed no evidence of any pulmonary embolism. There was a mass effect on the right lung pulmonary arteries due to the right hilar lymph node/mass in addition to pathologic mediastinal lymphadenopathy. Some respiratory secretions predominantly in lower lobes and aspiration pneumonia in the right lower lobe is also suspected. Lingular sca rring/atelectasis and emphysema changes were also noted. The white cell count is 14.7 with a hemoglobin of 13.3 and a platelet count of 316. BUN is 24 with a creatinine of 1.05 and a sodium levels at 137 and a potassium level is at 5.2. 10/23/2024, the patient is being seen for a follow-up. No new complaints for today. Remains on oxygen 4 L/min nasal cannula with a pulse ox of 97%. Remains bronchospastic and wheezy. Remains on DuoNeb nebulized treatments [id number] and IV Solu-Medrol. MRI of the brain was completed yesterday and the patient was found to have a right frontal enhancing calvarial destructive lesion. There is minimal mass effect upon the right frontal lobe without definite invasion. There is also a left anterior C1 ring abnormal enhancement. No evidence of any acute or subacute infarct. Chronic ischemic white matter disease changes. IR has declined to biopsy the right frontal lobe calvarial destructive lesion and based on that, I was approached by the oncology team to do a bronchoscopy and endobronchial ultrasound and sampling of the mediastinal lymph node for tissue diagnosis. Patient was also seen by radiation oncology. On 10/24/2024, the patient is still somewhat bronchospastic and wheezy. He remains on oxygen 4 L/min nasal cannula. No new complaints. He is off Eliquis and the patient is scheduled to undergo a bronchoscopy and endobronchial ultrasound for tissue sampling in a.m. White cell count is 27 and he was 13.7 and platelet count of 306. BUN is 43 with a creatinine of 0.9. Sodium levels at 137. On 10/25/2024, the patient is feeling essentially the same. He is NPO. He is off anticoagulation the patient is scheduled to undergo a bronchoscopy and endobronchial ultrasound and sampling of the mediastinal lymph nodes. Is a 40 Suboxone by nasal cannula. He is also starting to receive radiation therapy to the head lesion. The white cell count is 27 with a hemoglobin of 13.4 and a platelet count of 309. BUN is 43 with creatinine 0.9 and sodium of 137 and a potassium level is at 4.5. Remains on bronchodilators. Remains on Symbicort. Remains on IV Solu-Medrol. Resting comfortably in bed. On 10/26/2024, the patient is being seen for a follow-up. Patient is doing well following bronchoscopy. Cough and congestion has subsided and the patient remains on 40 Suboxone by nasal cannula. Bronchoscopy and endobronchial ultrasound and biopsy of the mediastinal lymph node was done. Awaiting final pathology for now. Meanwhile, the patient is stable. No new complaints for now. Remains on bronchodilators. Remains on steroids. No other significant events. 10/27/2024, patient is stable, less bronchospastic and wheezy. Denies having any specific complaints. Bronchoscopy endobronchial ultrasound was done. Pathology still pending. Primary findings are consistent with non-small cell lung cancer. Remains on bronchodilators. The patient will be taken off the IV Solu-Medrol started on a prednisone burst taper as of tomorrow. The white cell count is at 23 with a hemoglobin 13.4. BUN is 43 with a creatinine of 1.1. The results of the bronchial lavage are still pending for now. The patient is on no antibiotic coverage. Remains on Symbicort. Remains on DuoNeb updrafts., Comfortable in bed. No other complaints otherwise for now. 10/28/2024, patient is resting comfortably in bed. No new complaints. Awaiting results of the bronchoscopy and endobronchial ultrasound and biopsy of the mediastinal lymph nodes. Primary findings are consistent with non-small cell lung cancer, possibly squamous cell. White cell count is elevated at 30.7. Hemoglobin 13 with a platelet count of 249. BUN is 42 with a creatinine of 1 and sodium of 136. Patient is currently on a prednisone burst taper. The patient on DuoNeb updrafts. The patient is also on Symbicort. Resting comfortably in bed and he is on 3 L of oxygen by nasal cannula with pulse ox of 93%. Objective - Vital Signs Vital signs: Vital Signs Temp 98.1 F 10/28/24 06:55 Pulse 75 10/28/24 09:42 Resp 18 10/28/24 06:55 BP 168/75 10/28/24 06:55 Pulse Ox 94 L 10/28/24 09:30 FiO2 Intake & Output 10/27/24 10/28/24 10/28/24 18:59 06:59 18:59 Intake Total 400 Balance 400 Intake: Oral 400 Other: Voiding Method Toilet # Voids 2 2 - Exam GENERAL EXAM: Alert, pleasant 69-year-old male, on room air, fairly comfortable in no apparent distress. The patient is currently on 4 L of oxygen by nasal cannula HEAD: Palpable scalp lesion over the right anterior skull. Some facial edema over his eyes. EYES: Normal reaction of pupils, equal size. NOSE: Clear with pink turbinates. THROAT: No erythema or exudates. NECK: No palpable mass or lymphadenopathy. CHEST: No chest wall deformity. LUNGS: Equal air entry with coarse scattered rhonchi. CVS: S1 and S2 normal with no audible murmur, regular rhythm. ABDOMEN: No hepatosplenomegaly, normal bowel sounds, no guarding or rigidity. SPINE: No scoliosis or deformity SKIN: No rashes CENTRAL NERVOUS SYSTEM: No focal deficits, tone is normal in all 4 extremities. EXTREMITIES: There is no peripheral edema. No clubbing, no cyanosis. Peripheral pulses are intact. - Labs CBC & Chem 7: 10/28/24 03:37 10/28/24 03:37 Labs: Abnormal Lab Results - Last 24 Hours (Table) 10/28/24 10/28/24 Range/Units 03:37 03:37 WBC 30.7 H (3.8-10.6) k/uL Neutrophils # 26.7 H (1.3-7.7) k/uL Monocytes # 1.9 H (0-1.0) k/uL Sodium 136 L (137-145) mmol/L Carbon Dioxide 31 H (22-30) mmol/L BUN 42 H (9-20) mg/dL Assessment and Plan Plan: Acute hypoxic respiratory failure secondary to an acute exacerbation of chronic obstructive pulmonary disease, currently on 2.5 L O2 nasal cannula, clinically stable COPD exacerbation currently on bronchodilators and steroids, the patient has been switched to oral prednisone burst taper Headaches. He had a CT scan of the brain on October 03, 2024 that revealed no acute intracranial process. There was a 3.7 cm destructive lesion high right frontal calvarium. Differential included lytic metastatic lesions including lung cancer versus plasmacytoma/multiple myeloma. A PET scan from October 19, 2024 revealed abnormal osseous lesions involving the high right frontal calvarium and the left anterior C1 ring. Due to the location of the latter neurosurgical consult was advised. There is abnormal thoracic lymph nodes including a right hilar mass or neoplasm. An additional primary lung cancer could not be excluded. Suspect metastatic bronchogenic carcinoma. MRI of the brain was also noted Hoarseness suspect secondary to right pharyngeal nerve involvement Chronic and ongoing tobacco dependence Peripheral vascular disease with multiple stent placements, anticoagulated off Xarelto Chronic obstructive pulmonary disease Hyperlipidemia Hypertension Leukocytosis, could be steroid-induced. No clinical indication for pneumonia Plan: Bronchoscopy, endobronchial ultrasound and mediastinal sampling of the lymph node was done Clinically stable Currently stable on 2 L of oxygen by nasal cannula Continue DuoNeb inhalations and Symbicort prednisone burst taper May resume anticoagulation if clinically indicated MRI of the brain was noted Educated regarding smoking cessation NicoDerm patch in place obtain a follow-up chest x-ray Obtain a follow-up chest x-ray Awaiting final pathology and oncology is on the case
--- NOTE | 2024-10-29 08:18 | XR ---
EXAMINATION TYPE: XR chest 1V DATE OF EXAM: 10/29/2024 6:50 AM COMPARISON: Chest radiographs from 10/20/2024 CLINICAL INDICATION: Male, 69 years old with history of Lung cancer/pneumonia; [facility] TECHNIQUE: XR chest 1V Frontal view of the chest. FINDINGS: Lungs/Pleura: There is no evidence of pleural effusion, focal consolidation, or pneumothorax. Pulmonary vascularity: Unremarkable. Heart/mediastinum: Cardiomediastinal silhouette is unremarkable. Musculoskeletal: No acute osseous pathology. IMPRESSION: No acute cardiopulmonary disease/process. [facility], , 10/29/2024 8:16 AM
--- NOTE | 2024-10-29 08:46 | P.PN ---
Subjective Progress Note Date: 10/29/24 This is a 69-year-old male who presented to the emergency department with complaints of increasing shortness of breath, neck pain and swelling, and headaches. Patient with a recent outpatient PET scan for swelling in his head. Patient also with a lung mass. Oncology, pulmonology and cardiology have been consulted. Patient is seen this morning sitting on side of bed resting comfortably. He admits some mild shortness of breath. Vital signs are stable. Plan is for an MRI of the brain today. Interventional radiology consulted for possible biopsy of head. 10/23/2024 Patient seen this morning laying in bed resting comfortably. He did have MRI of the brain yesterday which shows the mass in his head is likely a neoplasm. Patient had some confusion after the MRI and was given Seroquel last night. This morning he is alert and oriented and back to his normal mentality. Patient continues to report severe neck pain. He reports that Dilaudid does not last. Echo was normal. Pulmonary considering a bronchoscopy. 10/25/2024 Patient seen this morning laying in bed resting comfortably with sitter present. Bronchoscopy is scheduled for today. Patient still reporting neck pain, will order patient's home dose of norco for breakthrough pain. 10/29/2024 Patient seen this morning sitting on side of bed eating breakfast. Pathology is still pending from bronchoscopy. Patient reports he is feeling a lot better and his breathing is significantly improved. Objective - Vital Signs Vital signs: Vital Signs Temp 97.5 F L 10/29/24 08:00 Pulse 67 10/29/24 08:00 Resp 18 10/29/24 08:00 BP 187/72 10/29/24 08:00 Pulse Ox 95 10/29/24 08:00 FiO2 Intake & Output 10/28/24 10/29/24 10/29/24 18:59 06:59 18:59 Intake Total 1480 240 440 Balance 1480 240 440 Intake: Intake, IV Titration 0 Amount Sodium Chloride 0.9% 1, 0 000 ml @ 75 mls/hr IV . [id number] [facility] Rx#:[id number] Oral 1480 240 440 Other: Voiding Method Toilet # Voids 4 2 # Bowel Movements 1 - Constitutional General appearance: Present: cooperative, no acute distress - EENT Eyes: Present: PERRLA - Neck Neck: Present: normal ROM. Absent: lymphadenopathy, rigidity - Respiratory Respiratory: bilateral: diminished - Cardiovascular Heart sounds: normal: S1, S2 - Gastrointestinal General gastrointestinal: Present: soft. Absent: tenderness - Integumentary Integumentary: Present: normal, normal turgor - Psychiatric Psychiatric: Present: A&O x's 3 - Labs CBC & Chem 7: 10/28/24 03:37 10/28/24 03:37 Assessment and Plan (1) Acute exacerbation of chronic obstructive pulmonary disease Current Visit: Yes Status: Acute Priority: High Code(s): J44.1 - CHRONIC OBSTRUCTIVE PULMONARY DISEASE W (ACUTE) EXACERBATION SNOMED Code(s): 642204016 (2) Lung mass Current Visit: Yes Status: Acute Priority: High Code(s): R91.8 - OTHER NONSPECIFIC ABNORMAL FINDING OF LUNG FIELD SNOMED Code(s): 682778015 (3) Lytic bone lesions on xray Current Visit: Yes Status: Acute Priority: High Code(s): M89.9 - DISORDER OF BONE, UNSPECIFIED SNOMED Code(s): 4459323794 (4) Hypertension Current Visit: Yes Status: Acute Code(s): I10 - ESSENTIAL (PRIMARY) HYPERTENSION SNOMED Code(s): 90866285 (5) Tobacco abuse Current Visit: Yes Status: Acute Code(s): Z72.0 - TOBACCO USE SNOMED Code(s): 370877184 (6) Neck swelling Current Visit: Yes Status: Acute Code(s): R22.1 - LOCALIZED SWELLING, MASS AND LUMP, NECK SNOMED Code(s): 619480901 Plan: Check CBC and CMP in the morning. Await bronchoscopy pathology result. Patient seen and evaluated by nurse practitioner, physician in agreement with plan.
[2024-10-29 09:05] LABS: BUN/Creat Ratio 40.44 Ratio (12.00-20.00); Blood Urea Nitrogen 36.4 mg/dL (9.0-27.0); Calcium 8.5 mg/dL (8.7-10.3); Carbon Dioxide 27.6 mmol/L (21.6-31.8); Chloride 104 mmol/L (96-109); Glucose 87 mg/dL (70-110); Potassium 4.6 mmol/L (3.5-5.5); Sodium 140 mmol/L (135-145)
--- NOTE | 2024-10-29 15:11 | P.PN ---
Subjective Progress Note Date: 10/29/24 This is a 69-year-old male patient with a known history of chronic obstructive pulmonary disease, chronic and ongoing tobacco dependence, hyperlipidemia, peripheral vascular disease with previous stent placements and maintained on Xarelto. He recently had noted a scalp mass on the top of his head. His primary care provider, Dr. Velez, was planning to send him to [place] for further workup. However the patient presented here to the emergency room yesterday with complaints of facial swelling, headache and shortness of breath. Chest x-ray reveals no acute pulmonary process. There is a indeterminate asymmetric spiculated region of nodularity in the left lung base measuring roughly [address] angiogram revealed no evidence of pulmonary embolism. There is mass effect on the right lung pulmonary arteries due to soft tissue encasement from a right hilar mass. Soft tissue mass in the right hilar region extending to the mediastinum with associated pathologic mediastinal lymphadenopathy. Highly suspicious for malignancy. Aspirated secretions predominantly involving the lower lobe bronchi with possible developing aspiration pneumonia in the right lower lobe. Lingular scarring/atelectasis. Evidence of emphysema. White count 14.7. Hemoglobin 13.3. Platelets 316. Sodium 137. Potassium 5.2. Bicarb 29. BUN 24. Creatinine 1.04. Glucose 124. AST 16. ALT 14. He is seen today in consultation on the selective care unit. He is currently sitting up in bed. Awake and alert. His voice is quite hoarse and raspy. He is dyspneic with minimal exertion. Dyspneic with conversation. He states his face is less swollen today compared to yesterday. He is maintaining O2 saturations in the mid 90s on room air. He is afebrile. Hemodynamically stable. On 10/22/2024, the patient is being seen for a follow-up. The patient came in to the emergency with symptoms of increased shortness of breath and neck pain and headache and she is known to have a lung mass and mediastinal lymphadenopathy and an outpatient PET/CT that was done on 10/19/2024 showed an abnormal osseous lesion involving the high right frontal calvarium and a left anterior C1 ring. There is also abnormal thoracic lymph nodes including right hilar area and the findings are highly suspicious for malignancy. The patient also underwent a CT of the chest on 10/20/2024 that showed no evidence of any pulmonary embolism. There was a mass effect on the right lung pulmonary arteries due to the right hilar lymph node/mass in addition to pathologic mediastinal lymphadenopathy. Some respiratory secretions predominantly in lower lobes and aspiration pneumonia in the right lower lobe is also suspected. Lingular scar ring/atelectasis and emphysema changes were also noted. The white cell count is 14.7 with a hemoglobin of 13.3 and a platelet count of 316. BUN is 24 with a creatinine of 1.05 and a sodium levels at 137 and a potassium level is at 5.2. 10/23/2024, the patient is being seen for a follow-up. No new complaints for today. Remains on oxygen 4 L/min nasal cannula with a pulse ox of 97%. Remains bronchospastic and wheezy. Remains on DuoNeb nebulized treatments [id number] and IV Solu-Medrol. MRI of the brain was completed yesterday and the patient was found to have a right frontal enhancing calvarial destructive lesion. There is minimal mass effect upon the right frontal lobe without definite invasion. There is also a left anterior C1 ring abnormal enhancement. No evidence of any acute or subacute infarct. Chronic ischemic white matter disease changes. IR has declined to biopsy the right frontal lobe calvarial destructive lesion and based on that, I was approached by the oncology team to do a bronchoscopy and endobronchial ultrasound and sampling of the mediastinal lymph node for tissue diagnosis. Patient was also seen by radiation oncology. On 10/24/2024, the patient is still somewhat bronchospastic and wheezy. He remains on oxygen 4 L/min nasal cannula. No new complaints. He is off Eliquis and the patient is scheduled to undergo a bronchoscopy and endobronchial ultrasound for tissue sampling in a.m. White cell count is 27 and he was 13.7 and platelet count of 306. BUN is 43 with a creatinine of 0.9. Sodium levels at 137. On 10/25/2024, the patient is feeling essentially the same. He is NPO. He is off anticoagulation the patient is scheduled to undergo a bronchoscopy and endobronchial ultrasound and sampling of the mediastinal lymph nodes. Is a 40 Suboxone by nasal cannula. He is also starting to receive radiation therapy to the head lesion. The white cell count is 27 with a hemoglobin of 13.4 and a platelet count of 309. BUN is 43 with creatinine 0.9 and sodium of 137 and a potassium level is at 4.5. Remains on bronchodilators. Remains on Symbicort. Remains on IV Solu-Medrol. Resting comfortably in bed. On 10/26/2024, the patient is being seen for a follow-up. Patient is doing well following bronchoscopy. Cough and congestion has subsided and the patient remains on 40 Suboxone by nasal cannula. Bronchoscopy and endobronchial ultrasound and biopsy of the mediastinal lymph node was done. Awaiting final pathology for now. Meanwhile, the patient is stable. No new complaints for now. Remains on bronchodilators. Remains on steroids. No other significant events. 10/27/2024, patient is stable, less bronchospastic and wheezy. Denies having any specific complaints. Bronchoscopy endobronchial ultrasound was done. Pathology still pending. Primary findings are consistent with non-small cell lung cancer. Remains on bronchodilators. The patient will be taken off the IV Solu-Medrol started on a prednisone burst taper as of tomorrow. The white cell count is at 23 with a hemoglobin 13.4. BUN is 43 with a creatinine of 1.1. The results of the bronchial lavage are still pending for now. The patient is on no antibiotic coverage. Remains on Symbicort. Remains on DuoNeb updrafts., Comfortable in bed. No other complaints otherwise for now. 10/28/2024, patient is resting comfortably in bed. No new complaints. Awaiting results of the bronchoscopy and endobronchial ultrasound and biopsy of the mediastinal lymph nodes. Primary findings are consistent with non-small cell lung cancer, possibly squamous cell. White cell count is elevated at 30.7. Hemoglobin 13 with a platelet count of 249. BUN is 42 with a creatinine of 1 and sodium of 136. Patient is currently on a prednisone burst taper. The patient on DuoNeb updrafts. The patient is also on Symbicort. Resting comfortably in bed and he is on 3 L of oxygen by nasal cannula with pulse ox of 93%. The patient is seen today October 29, 2024 in follow-up on the regular medical floor. He is awake and alert in no acute distress. Maintaining good O2 saturations in the mid 90s on 2 L/min per nasal cannula. He is afebrile. Follow-up chest x-ray reveals no acute pulmonary process. Sodium 140. Potassium 4.6. Bicarb 28. BUN 36. Creatinine 0.9. Glucose 87. He remains on DuoNeb inhalations, Symbicort, Singulair, prednisone taper. NicoDerm patch in place. Objective - Vital Signs Vital signs: Vital Signs Temp 97.5 F L 10/29/24 08:00 Pulse 72 10/29/24 09:32 Resp 18 10/29/24 09:00 BP 187/72 10/29/24 08:00 Pulse Ox 95 10/29/24 08:00 FiO2 Intake & Output 10/28/24 10/29/24 10/29/24 18:59 06:59 18:59 Intake Total 1480 240 640 Balance 1480 240 640 Intake: Intake, IV Titration 0 Amount Sodium Chloride 0.9% 1, 0 000 ml @ 75 mls/hr IV . [id number] LINDY Rx#:[id number] Oral 1480 240 640 Other: Voiding Method Toilet Toilet # Voids 4 2 # Bowel Movements 1 - Exam GENERAL EXAM: Alert, 69-year-old male, on 2 L nasal cannula, comfortable in no apparent distress. HEAD: Normocephalic. EYES: Normal reaction of pupils, equal size. NOSE: Clear with pink turbinates. THROAT: No erythema or exudates. NECK: No masses, no JVD. CHEST: No chest wall deformity. LUNGS: Equal air entry with no crackles, wheeze, rhonchi or dullness. CVS: S1 and S2 normal with no audible murmur, regular rhythm. ABDOMEN: No hepatosplenomegaly, normal bowel sounds, no guarding or rigidity. SPINE: No scoliosis or deformity SKIN: No rashes CENTRAL NERVOUS SYSTEM: No focal deficits, tone is normal in all 4 extremities. EXTREMITIES: There is no peripheral edema. No clubbing, no cyanosis. Peripheral pulses are intact. - Labs CBC & Chem 7: 10/28/24 03:37 10/29/24 03:05 Labs: Abnormal Lab Results - Last 24 Hours (Table) 10/29/24 Range/Units 03:05 BUN 36.4 H (9.0-27.0) mg/dL BUN/Creatinine Ratio 40.44 H (12.00-20.00) Ratio Calcium 8.5 L (8.7-10.3) mg/dL Assessment and Plan Assessment: Acute hypoxic respiratory failure secondary to an acute exacerbation of chronic obstructive pulmonary disease Headaches. He had a CT scan of the brain on October 03, 2024 that revealed no acute intracranial process. There was a 3.7 cm destructive lesion high right frontal calvarium. Differential included lytic metastatic lesions versus plasma cytoma/multiple myeloma. A PET scan from October 19, 2024 revealed abnormal osseous lesions involving the high right frontal calvarium and the left anterior C1 ring. Due to the location of the latter neurosurgical consult was advised. There is abnormal thoracic lymph nodes including a right hilar mass or neoplasm. An additional primary lung cancer could not be excluded. Suspect metastatic bronchogenic carcinoma Hoarseness suspect secondary to right pharyngeal nerve involvement Chronic and ongoing tobacco dependence Peripheral vascular disease with multiple stent placements, anticoagulated with Xarelto Chronic obstructive pulmonary disease Hyperlipidemia Hypertension Plan: The patient was seen and evaluated Chest x-ray, labs and medications reviewed Biopsy results from 10/25/2024 still pending Currently stable and on 2 L nasal cannula Continue DuoNeb inhalations, Singulair, Symbicort Continue prednisone taper Educated regarding smoking cessation NicoDerm patch in place We will continue to follow I have personally seen and examined the patient, performed the documentation and the assessment and plan as written. Number of minutes spent on the visit: 10 Dictation was produced using [employer] dictation software. Please excuse any grammatical, word or spelling errors.
--- NOTE | 2024-10-30 08:43 | P.PN ---
Subjective Progress Note Date: 10/30/24 This is a 69-year-old male who presented to the emergency department with complaints of increasing shortness of breath, neck pain and swelling, and headaches. Patient with a recent outpatient PET scan for swelling in his head. Patient also with a lung mass. Oncology, pulmonology and cardiology have been consulted. Patient is seen this morning sitting on side of bed resting comfortably. He admits some mild shortness of breath. Vital signs are stable. Plan is for an MRI of the brain today. Interventional radiology consulted for possible biopsy of head. 10/23/2024 Patient seen this morning laying in bed resting comfortably. He did have MRI of the brain yesterday which shows the mass in his head is likely a neoplasm. Patient had some confusion after the MRI and was given Seroquel last night. This morning he is alert and oriented and back to his normal mentality. Patient continues to report severe neck pain. He reports that Dilaudid does not last. Echo was normal. Pulmonary considering a bronchoscopy. 10/25/2024 Patient seen this morning laying in bed resting comfortably with sitter present. Bronchoscopy is scheduled for today. Patient still reporting neck pain, will order patient's home dose of norco for breakthrough pain. 10/29/2024 Patient seen this morning sitting on side of bed eating breakfast. Pathology is still pending from bronchoscopy. Patient reports he is feeling a lot better and his breathing is significantly improved. 10/30/2024 Patient seen this morning resting comfortably in bed. He continues to report some neck pain. Bronchoscopy pathology is still pending. Objective - Vital Signs Vital signs: Vital Signs Temp 97.7 F 10/30/24 00:48 Pulse 63 10/30/24 00:48 Resp 18 10/30/24 00:48 BP 168/81 10/30/24 00:48 Pulse Ox 99 10/30/24 00:48 FiO2 Intake & Output 10/29/24 10/30/24 10/30/24 18:59 06:59 18:59 Intake Total 640 480 Output Total 0 Balance 640 480 Intake: Oral 640 480 Output: Stool 0 Other: Voiding Method Toilet Toilet # Voids 3 3 - Constitutional General appearance: Present: cooperative, no acute distress - EENT Eyes: Present: PERRLA - Neck Neck: Present: normal ROM. Absent: lymphadenopathy, rigidity - Respiratory Respiratory: bilateral: diminished - Cardiovascular Heart sounds: normal: S1, S2 - Gastrointestinal General gastrointestinal: Present: soft. Absent: tenderness - Integumentary Integumentary: Present: normal, normal turgor - Psychiatric Psychiatric: Present: A&O x's 3 - Labs CBC & Chem 7: 10/28/24 03:37 10/29/24 03:05 Labs: Abnormal Lab Results - Last 24 Hours (Table) 10/29/24 Range/Units 03:05 BUN 36.4 H (9.0-27.0) mg/dL BUN/Creatinine Ratio 40.44 H (12.00-20.00) Ratio Calcium 8.5 L (8.7-10.3) mg/dL Assessment and Plan (1) Acute exacerbation of chronic obstructive pulmonary disease Current Visit: Yes Status: Acute Priority: High Code(s): J44.1 - CHRONIC OBSTRUCTIVE PULMONARY DISEASE W (ACUTE) EXACERBATION SNOMED Code(s): 445180871 (2) Lung mass Current Visit: Yes Status: Acute Priority: High Code(s): R91.8 - OTHER NONSPECIFIC ABNORMAL FINDING OF LUNG FIELD SNOMED Code(s): 217664758 (3) Lytic bone lesions on xray Current Visit: Yes Status: Acute Priority: High Code(s): M89.9 - DISORDER OF BONE, UNSPECIFIED SNOMED Code(s): 9572699765 (4) Hypertension Current Visit: Yes Status: Acute Code(s): I10 - ESSENTIAL (PRIMARY) HYPERTENSION SNOMED Code(s): 64598860 (5) Tobacco abuse Current Visit: Yes Status: Acute Code(s): Z72.0 - TOBACCO USE SNOMED Code(s): 216532565 (6) Neck swelling Current Visit: Yes Status: Acute Code(s): R22.1 - LOCALIZED SWELLING, MASS AND LUMP, NECK SNOMED Code(s): 159909183 Plan: Await bronchoscopy pathology result. Patient seen and evaluated by nurse practitioner, physician in agreement with plan.
[2024-10-30 09:28] LABS: HCT 45.3 % (39.6-50.0); MCH 27.5 pg (27.0-32.0); MCHC 30.9 g/dL (32.0-37.0); MCV 88.8 FL (80.0-97.0); Mean Platelet Volume 11.9 FL (9.5-12.2); NRBC Per 100 WBC 0 X 10*3/uL (0.00-0.01); Platelet Count 237 X 10*3/uL (140-440); RDW 15.8 % (11.5-14.5); WBC 26.46 X 10*3/uL (4.50-10.00)
[2024-10-30 11:05] LABS: ALT 34 U/L (10-49); AST 22 U/L (14-35); Albumin 3.3 g/dL (3.8-4.9); Albumin/Globulin Ratio 1.43 Ratio (1.60-3.17); Alkaline Phosphatase 100 U/L (41-126); Blood Urea Nitrogen 36.6 mg/dL (9.0-27.0); Carbon Dioxide 25.8 mmol/L (21.6-31.8); Chloride 103 mmol/L (96-109); Globulin 2.3 g/dL (1.6-3.3); Glucose 72 mg/dL (70-110); Potassium 4.9 mmol/L (3.5-5.5); Sodium 140 mmol/L (135-145); Total Bilirubin 0.3 mg/dL (0.3-1.2); Total Protein 5.6 g/dL (6.2-8.2)
--- NOTE | 2024-10-30 13:00 | P.PN ---
Subjective Progress Note Date: 10/30/24 This is a 69-year-old male patient with a known history of chronic obstructive pulmonary disease, chronic and ongoing tobacco dependence, hyperlipidemia, peripheral vascular disease with previous stent placements and maintained on Xarelto. He recently had noted a scalp mass on the top of his head. His primary care provider, Dr. Velez, was planning to send him to [place] for further workup. However the patient presented here to the emergency room yesterday with complaints of facial swelling, headache and shortness of breath. Chest x-ray reveals no acute pulmonary process. There is a indeterminate asymmetric spiculated region of nodularity in the left lung base measuring roughly [address] angiogram revealed no evidence of pulmonary embolism. There is mass effect on the right lung pulmonary arteries due to soft tissue encasement from a right hilar mass. Soft tissue mass in the right hilar region extending to the mediastinum with associated pathologic mediastinal lymphadenopathy. Highly suspicious for malignancy. Aspirated secretions predominantly involving the lower lobe bronchi with possible developing aspiration pneumonia in the right lower lobe. Lingular scarring/atelectasis. Evidence of emphysema. White count 14.7. Hemoglobin 13.3. Platelets 316. Sodium 137. Potassium 5.2. Bicarb 29. BUN 24. Creatinine 1.04. Glucose 124. AST 16. ALT 14. He is seen today in consultation on the selective care unit. He is currently sitting up in bed. Awake and alert. His voice is quite hoarse and raspy. He is dyspneic with minimal exertion. Dyspneic with conversation. He states his face is less swollen today compared to yesterday. He is maintaining O2 saturations in the mid 90s on room air. He is afebrile. Hemodynamically stable. On 10/22/2024, the patient is being seen for a follow-up. The patient came in to the emergency with symptoms of increased shortness of breath and neck pain and headache and she is known to have a lung mass and mediastinal lymphadenopathy and an outpatient PET/CT that was done on 10/19/2024 showed an abnormal osseous lesion involving the high right frontal calvarium and a left anterior C1 ring. There is also abnormal thoracic lymph nodes including right hilar area and the findings are highly suspicious for malignancy. The patient also underwent a CT of the chest on 10/20/2024 that showed no evidence of any pulmonary embolism. There was a mass effect on the right lung pulmonary arteries due to the right hilar lymph node/mass in addition to pathologic mediastinal lymphadenopathy. Some respiratory secretions predominantly in lower lobes and aspiration pneumonia in the right lower lobe is also suspected. Lingular scar ring/atelectasis and emphysema changes were also noted. The white cell count is 14.7 with a hemoglobin of 13.3 and a platelet count of 316. BUN is 24 with a creatinine of 1.05 and a sodium levels at 137 and a potassium level is at 5.2. 10/23/2024, the patient is being seen for a follow-up. No new complaints for today. Remains on oxygen 4 L/min nasal cannula with a pulse ox of 97%. Remains bronchospastic and wheezy. Remains on DuoNeb nebulized treatments [id number] and IV Solu-Medrol. MRI of the brain was completed yesterday and the patient was found to have a right frontal enhancing calvarial destructive lesion. There is minimal mass effect upon the right frontal lobe without definite invasion. There is also a left anterior C1 ring abnormal enhancement. No evidence of any acute or subacute infarct. Chronic ischemic white matter disease changes. IR has declined to biopsy the right frontal lobe calvarial destructive lesion and based on that, I was approached by the oncology team to do a bronchoscopy and endobronchial ultrasound and sampling of the mediastinal lymph node for tissue diagnosis. Patient was also seen by radiation oncology. On 10/24/2024, the patient is still somewhat bronchospastic and wheezy. He remains on oxygen 4 L/min nasal cannula. No new complaints. He is off Eliquis and the patient is scheduled to undergo a bronchoscopy and endobronchial ultrasound for tissue sampling in a.m. White cell count is 27 and he was 13.7 and platelet count of 306. BUN is 43 with a creatinine of 0.9. Sodium levels at 137. On 10/25/2024, the patient is feeling essentially the same. He is NPO. He is off anticoagulation the patient is scheduled to undergo a bronchoscopy and endobronchial ultrasound and sampling of the mediastinal lymph nodes. Is a 40 Suboxone by nasal cannula. He is also starting to receive radiation therapy to the head lesion. The white cell count is 27 with a hemoglobin of 13.4 and a platelet count of 309. BUN is 43 with creatinine 0.9 and sodium of 137 and a potassium level is at 4.5. Remains on bronchodilators. Remains on Symbicort. Remains on IV Solu-Medrol. Resting comfortably in bed. On 10/26/2024, the patient is being seen for a follow-up. Patient is doing well following bronchoscopy. Cough and congestion has subsided and the patient remains on 40 Suboxone by nasal cannula. Bronchoscopy and endobronchial ultrasound and biopsy of the mediastinal lymph node was done. Awaiting final pathology for now. Meanwhile, the patient is stable. No new complaints for now. Remains on bronchodilators. Remains on steroids. No other significant events. 10/27/2024, patient is stable, less bronchospastic and wheezy. Denies having any specific complaints. Bronchoscopy endobronchial ultrasound was done. Pathology still pending. Primary findings are consistent with non-small cell lung cancer. Remains on bronchodilators. The patient will be taken off the IV Solu-Medrol started on a prednisone burst taper as of tomorrow. The white cell count is at 23 with a hemoglobin 13.4. BUN is 43 with a creatinine of 1.1. The results of the bronchial lavage are still pending for now. The patient is on no antibiotic coverage. Remains on Symbicort. Remains on DuoNeb updrafts., Comfortable in bed. No other complaints otherwise for now. 10/28/2024, patient is resting comfortably in bed. No new complaints. Awaiting results of the bronchoscopy and endobronchial ultrasound and biopsy of the mediastinal lymph nodes. Primary findings are consistent with non-small cell lung cancer, possibly squamous cell. White cell count is elevated at 30.7. Hemoglobin 13 with a platelet count of 249. BUN is 42 with a creatinine of 1 and sodium of 136. Patient is currently on a prednisone burst taper. The patient on DuoNeb updrafts. The patient is also on Symbicort. Resting comfortably in bed and he is on 3 L of oxygen by nasal cannula with pulse ox of 93%. The patient is seen today October 29, 2024 in follow-up on the regular medical floor. He is awake and alert in no acute distress. Maintaining good O2 saturations in the mid 90s on 2 L/min per nasal cannula. He is afebrile. Follow-up chest x-ray reveals no acute pulmonary process. Sodium 140. Potassium 4.6. Bicarb 28. BUN 36. Creatinine 0.9. Glucose 87. He remains on DuoNeb inhalations, Symbicort, Singulair, prednisone taper. NicoDerm patch in place. The patient is seen today October 30, 2024 in follow-up on the regular medical floor. He is resting comfortably in bed. Awake and alert in no acute distress. Maintaining O2 saturations in the 90s on room air. He remains on DuoNeb inhalations, Singulair, Symbicort. NicoDerm patch in place. Continued on a prednisone taper. Lung biopsy results still pending. White count 26.4. Hemoglobin 14.0. Platelets 237. Sodium 140. Potassium 4.9. Bicarb 26. BUN 37. Creatinine 1.0. Glucose 72. Objective - Vital Signs Vital signs: Vital Signs Temp 97.8 F 10/30/24 06:50 Pulse 69 10/30/24 12:38 Resp 18 10/30/24 08:27 BP 168/79 10/30/24 06:50 Pulse Ox 95 10/30/24 10:16 FiO2 Intake & Output 10/29/24 10/30/24 10/30/24 18:59 06:59 18:59 Intake Total 640 480 240 Output Total 0 Balance 640 480 240 Intake: Oral 640 480 240 Output: Stool 0 Other: Voiding Method Toilet Toilet Toilet # Voids 3 3 - Exam GENERAL EXAM: Alert, 69-year-old male, sitting up in bed, on room air, comfortable in no apparent distress. HEAD: Normocephalic. EYES: Normal reaction of pupils, equal size. NOSE: Clear with pink turbinates. THROAT: No erythema or exudates. NECK: No masses, no JVD. CHEST: No chest wall deformity. LUNGS: Equal air entry with no crackles, wheeze, rhonchi or dullness. CVS: S1 and S2 normal with no audible murmur, regular rhythm. ABDOMEN: No hepatosplenomegaly, normal bowel sounds, no guarding or rigidity. SPINE: No scoliosis or deformity SKIN: No rashes CENTRAL NERVOUS SYSTEM: No focal deficits, tone is normal in all 4 extremities. EXTREMITIES: There is no peripheral edema. No clubbing, no cyanosis. Peripheral pulses are intact. - Labs CBC & Chem 7: 10/30/24 03:19 10/30/24 03:19 Labs: Abnormal Lab Results - Last 24 Hours (Table) 10/30/24 10/30/24 Range/Units 03:19 03:19 WBC 26.46 H (4.50-10.00) X 10*3/uL MCHC 30.9 L (32.0-37.0) g/dL RDW 15.8 H (11.5-14.5) % BUN 36.6 H (9.0-27.0) mg/dL BUN/Creatinine Ratio 36.60 H (12.00-20.00) Ratio Total Protein 5.6 L (6.2-8.2) g/dL Albumin 3.3 L (3.8-4.9) g/dL Albumin/Globulin Ratio 1.43 L (1.60-3.17) Ratio Assessment and Plan Assessment: Acute hypoxic respiratory failure secondary to an acute exacerbation of chronic obstructive pulmonary disease Headaches. He had a CT scan of the brain on October 03, 2024 that revealed no acute intracranial process. There was a 3.7 cm destructive lesion high right frontal calvarium. Differential included lytic metastatic lesions versus plasma cytoma/multiple myeloma. A PET scan from October 19, 2024 revealed abnormal osseous lesions involving the high right frontal calvarium and the left anterior C1 ring. Due to the location of the latter neurosurgical consult was advised. There is abnormal thoracic lymph nodes including a right hilar mass or neoplasm. An additional primary lung cancer could not be excluded. Suspect metastatic bronchogenic carcinoma. Status post bronchoscopy and endobronchial FNA of the mediastinal lymph nodes on October 25, 2024. Pathology pending Hoarseness suspect secondary to right pharyngeal nerve involvement Chronic and ongoing tobacco dependence Peripheral vascular disease with multiple stent placements, anticoagulated with Xarelto Chronic obstructive pulmonary disease Hyperlipidemia Hypertension Plan: The patient was seen and evaluated Labs and medications reviewed Biopsy results from 10/25/2024 still pending Stable and on room air Cleared for discharge Continue his home pulmonary medications Complete a prednisone taper Resume Xarelto Educated regarding smoking cessation NicoDerm patch in place Follow-up in our office in 1 week I have personally seen and examined the patient, performed the documentation and the assessment and plan as written. Number of minutes spent on the visit: 10 Dictation was produced using [employer] dictation software. Please excuse any grammatical, word or spelling errors.
--- NOTE | 2024-10-30 13:24 | P.PN ---
Subjective Progress Note Date: 10/30/24 No acute events overnight. Reports improvement in breathing and pain. S/p EUS/biopsy, cytology and path pending. Undergoing palliative RT Objective - Vital Signs Vital signs: Vital Signs Temp 97.8 F 10/30/24 06:50 Pulse 65 10/30/24 10:29 Resp 18 10/30/24 08:27 BP 168/79 10/30/24 06:50 Pulse Ox 95 10/30/24 10:16 FiO2 Intake & Output 10/29/24 10/30/24 10/30/24 18:59 06:59 18:59 Intake Total 640 480 240 Output Total 0 Balance 640 480 240 Intake: Oral 640 480 240 Output: Stool 0 Other: Voiding Method Toilet Toilet Toilet # Voids 3 3 - Constitutional General appearance: Present: average body habitus, no acute distress - EENT Eyes: Present: anicteric sclerae ENT: Present: hearing grossly normal - Respiratory Details: breathing is even and unlabored - Cardiovascular Details: skin warm and dry - Gastrointestinal General gastrointestinal: Present: soft. Absent: tenderness - Integumentary Integumentary: Absent: cyanotic, jaundiced - Neurologic Neurologic: Present: CNII-XII intact - Musculoskeletal Musculoskeletal: Present: strength equal bilaterally - Psychiatric Psychiatric: Present: A&O x's 3 - Labs CBC & Chem 7: 10/30/24 03:19 10/30/24 03:19 Labs: Abnormal Lab Results - Last 24 Hours (Table) 10/30/24 10/30/24 Range/Units 03:19 03:19 WBC 26.46 H (4.50-10.00) X 10*3/uL MCHC 30.9 L (32.0-37.0) g/dL RDW 15.8 H (11.5-14.5) % BUN 36.6 H (9.0-27.0) mg/dL BUN/Creatinine Ratio 36.60 H (12.00-20.00) Ratio Total Protein 5.6 L (6.2-8.2) g/dL Albumin 3.3 L (3.8-4.9) g/dL Albumin/Globulin Ratio 1.43 L (1.60-3.17) Ratio Assessment and Plan (1) Lung mass Current Visit: Yes Status: Acute Priority: High Code(s): R91.8 - OTHER NONSPECIFIC ABNORMAL FINDING OF LUNG FIELD SNOMED Code(s): 059510302 (2) Acute exacerbation of chronic obstructive pulmonary disease Current Visit: Yes Status: Acute Priority: High Code(s): J44.1 - CHRONIC OBSTRUCTIVE PULMONARY DISEASE W (ACUTE) EXACERBATION SNOMED Code(s): 802070556 (3) Lytic bone lesions on xray Current Visit: Yes Status: Acute Priority: High Code(s): M89.9 - DISORDER OF BONE, UNSPECIFIED SNOMED Code(s): 4794799676 Plan: Calvarial mass, lung mass, LAD -PET/CT obtained on 10/19/2024 showing abnormal osseous lesions involving the right frontal calvarium measuring 4.6 cm and the left anterior C1 ring. Abnormal thoracic lymph nodes including possible right hilar mass. -Upon admit CTA chest showing no evidence for PE. Mass effect on the right lung pulmonary arteries due to soft tissue encasement from the right hilar mass. Soft tissue mass in the right hilar region extending into the mediastinum with associated pathologic mediastinal lymphadenopathy. Aspirated secretions, predominantly involving lower lobe bronchi with possible developing aspiration pneumonia in the right lower lobe. Lingular scarring/atelectasis and emphysema. CT soft tissue neck showed no evidence of acute abnormality in the neck. -MRI brain Showing right frontal enhancing calvarium destructive mass. Minimal mass effect upon the right frontal lobe without definitive invasion. Left anterior C1 ring abnormal enhancement. No evidence for acute or subacute infarct. -Rad onc has seen pt. Patient has started RT to c-spine, reporting significant improvement in neck pain -IR consult placed for biopsy of calvarial/scalp lesion. Unable to be obtained per IR. S/p bronch/EUS, cytology and path pending. -Once path resulted, NGS/PDL-1 will be requested on specimen. Clinic f/u will be scheduled upon d/c Discussed plan of care with patient. All questions and concerns were addressed Patient is cleared for discharge from hem/onc standpoint, once cleared by IM and other consulted medical specialities
[2024-10-30 14:53] VITALS: BP 146/60; PULSE 71; RESP 17; TEMP 98.6
--- NOTE | 2024-10-30 15:47 | P.DS ---
Providers Date of admission: 10/20/24 19:16 Expected date of discharge: 10/30/24 Attending physician: Hong Velez Consults: 10/20/24 19:14 Consult Physician Routine Consulting Provider: Jeison Flowers Consult Reason/Comments: SVC?,COPD Do you want consulting provider notified?: Yes 10/21/24 05:34 Consult Physician Routine Consulting Provider: Samara Stewart Consult Reason/Comments: New Onset A-fib Do you want consulting provider notified?: Yes, Notify in am 10/21/24 10:13 Consult Physician Routine Consulting Provider: Jeannette Thomas Consult Reason/Comments: Metastatic cancer Do you want consulting provider notified?: Yes 10/21/24 18:10 Consult Physician Routine Consulting Provider: Nahid Limon Consult Reason/Comments: metastatic disease, possible SVC syndrome Do you want consulting provider notified?: Yes 10/22/24 14:24 Consult Physician Routine Consulting Provider: Keon Maldonado Consult Reason/Comments: bronch and biopsy for diagnosis-IR cant do head mass Do you want consulting provider notified?: Yes Primary care physician: Hong Velez - Discharge Diagnosis(es) (1) Acute exacerbation of chronic obstructive pulmonary disease Current Visit: Yes Status: Acute Priority: High (2) Hypertension Current Visit: Yes Status: Acute (3) Lung mass Current Visit: Yes Status: Acute Priority: High (4) Lytic bone lesions on xray Current Visit: Yes Status: Acute Priority: High (5) Tobacco abuse Current Visit: Yes Status: Acute Hospital Course: This is a discharge summary 69-year-old white male essentially admitted for cranial/skull mass. The patient had significant neck pain. He was found to have most likely have hilar mass with current commit biopsy after bronchoscopy. The patient is doing quite well. Oncology was consulted and he started radiation therapy for treatment. Once we have tissue diagnosis we will start appropriate treatment for probable lung mass/cancer. The patient is discharged in stable but guarded condition secondary to his multiple comorbidities. DC tobacco pain control and to follow-up with me in 3-7 days Patient Condition at Discharge: Serious Plan - Discharge Summary Discharge Rx Participant: No New Discharge Prescriptions: New Nicotine 21Mg/24Hr Patch [Habitrol] 1 patch TRANSDERM DAILY PRN #30 patch PRN Reason: Nicotine Cravings HYDROcodone/APAP 10-325MG [[place] 10-325] 1 tab PO Q4HR PRN 30 Days #180 tab PRN Reason: Pain Budesonide-Formot 160-4.5 Mcg [Symbicort 160-4.5 Mcg Inhaler] 2 puff INHALATION RT-BID #1 each Continue Montelukast [Singulair] 10 mg PO DAILY Ipratropium-Albuterol Nebulize [Duoneb 0.5 mg-3 mg/3 ml Soln] 3 ml INHALATION RT-QID Albuterol Sulfate [Ventolin HFA] 2 puff INHALATION RT-Q6H PRN PRN Reason: Shortness Of Breath amLODIPine [Norvasc] 10 mg PO DAILY HYDROcodone/APAP 10-325MG [[place] 10-325] 1 tab PO Q6HR PRN PRN Reason: Pain Rivaroxaban [Xarelto] 2.5 mg PO BID Fluticasone/Umeclidin/Vilanter [Trelegy Ellipta 100-62.5-25] 1 puff INHALATION RT-DAILY Ammonium Lactate Cream [Lac-Hydrin 12% Cream] 1 applic TOPICAL DAILY Atorvastatin Calcium [Lipitor] 40 mg PO HS Nicotine 21Mg/24Hr Patch [Habitrol] 1 patch TRANSDERM DAILY PRN PRN Reason: Nicotine Cravings Discharge Medication List Albuterol Sulfate [Ventolin HFA] 2 puff INHALATION RT-Q6H PRN 08/20/20 [History] Ipratropium-Albuterol Nebulize [Duoneb 0.5 mg-3 mg/3 ml Soln] 3 ml INHALATION RT-QID 08/20/20 [History] Montelukast [Singulair] 10 mg PO DAILY 08/20/20 [History] amLODIPine [Norvasc] 10 mg PO DAILY 08/20/20 [History] HYDROcodone/APAP 10-325MG [[place] 10-325] 1 tab PO Q6HR PRN 09/14/21 [History] Atorvastatin Calcium [Lipitor] 40 mg PO HS 02/28/23 [History] Rivaroxaban [Xarelto] 2.5 mg PO BID 02/28/23 [History] Ammonium Lactate Cream [Lac-Hydrin 12% Cream] 1 applic TOPICAL DAILY 10/20/24 [History] Fluticasone/Umeclidin/Vilanter [Trelegy Ellipta 100-62.5-25] 1 puff INHALATION RT-DAILY 10/20/24 [History] Nicotine 21Mg/24Hr Patch [Habitrol] 1 patch TRANSDERM DAILY PRN 10/20/24 [History] Budesonide-Formot 160-4.5 Mcg [Symbicort 160-4.5 Mcg Inhaler] 2 puff INHALATION RT-BID #1 each 10/30/24 [Rx] HYDROcodone/APAP 10-325MG [[place] 10-325] 1 tab PO Q4HR PRN 30 Days #180 tab 10/30/24 [Rx] Nicotine 21Mg/24Hr Patch [Habitrol] 1 patch TRANSDERM DAILY PRN #30 patch 10/30/24 [Rx] Follow up Appointment(s)/Referral(s): Hong Velez MD [Primary Care Provider] - 11/02/24 10:10 am Activity/Diet/Wound Care/Special Instructions: If you need a wheelchair van, call [phone]. Discharge Disposition: HOME SELF-CARE
[2024-10-30] MEDS ORDERED: RIVAROXABAN 2.5 MG TABLET PO SCH (21:00)
--- NOTE | 2024-11-30 23:06 | P.PN ---
Subjective Progress Note Date: 10/28/24 69-year-old gentleman with past medical history significant for COPD who presented to the ER because of shortness of breath, facial swelling and back pain. Patient stated that couple of weeks ago he started noticing a lesion on the frontal part of his scalp at which time his PCP ordered a CT head which s howed 3.7 cm destructive lesion of right frontal calvarium, patient also had a PET scan done in outpatient setting. Patient stated that over the last week he has been having worsening neck and back pain. Patient also complaining of swelling of his face. Patient denies any fever or chills. There is no complaint of orthopnea or PND. Patient is complaining of shortness of breath but is at baseline. Denies any swelling of feet. Because of the symptoms, patient brought to the ER Initial lab work done in the ER showed WBC 15.6, hemoglobin 13.2, platelet count 307, D-dimer 3.62, sodium 135, potassium 4, BUN 19, creatinine 1.08, glucose 108, lactate 0.7, calcium 9.8, bilirubin 0.7, alk phos 131, troponin 0.057 proBNP 926 EKG done in the ER showed heart rate of 90, no ST segment elevation or depression seen, no T-wave inversions seen. Chest x-ray done in the ER showed no acute cardiopulmonary process CTA chest done showed no evidence of PE. There is mass effect on the right pulmonary artery soft tissue casement from the right hilar mass. Soft tissue mass in the right hilar region extending into the mediastinum with associated pathological mediastinal lymphadenopathy. These regions were FDG avid on recent PET/CT and are highly suspicious for malignancy. CT soft tissue neck showed no evidence of abnormality in the neck Brought patient admitted to internal medicine service 10/28/2024 --patient is seen and evaluated in room at bedside; resting comfortably in bed. No new complaints. Awaiting results of the bronchoscopy and endobronchial ultrasound and biopsy of the mediastinal lymph nodes. Primary findings are consistent with non-small cell lung cancer, possibly squamous cell. White cell count is elevated at 30.7. Hemoglobin 13 with a platelet count of 249. BUN is 42 with a creatinine of 1 and sodium of 136. Patient is currently on a predn isone burst taper. The patient on DuoNeb updrafts. The patient is also on Symbicort. Resting comfortably in bed and he is on 3 L of oxygen by nasal cannula with pulse ox of 93%. Bronchoscopy, endobronchial ultrasound and mediastinal sampling of the lymph node was done Continue DuoNeb inhalations and Symbicort prednisone burst taper May resume anticoagulation if clinically indicated MRI of the brain was noted Obtain a follow-up chest x-ray Awaiting final pathology and oncology is on the case Objective - Vital Signs Vital signs: Vital Signs Temp 98.1 F 10/28/24 06:55 Pulse 75 10/28/24 09:42 Resp 18 10/28/24 06:55 BP 168/75 10/28/24 06:55 Pulse Ox 94 L 10/28/24 09:30 FiO2 Intake & Output 10/27/24 10/28/24 10/28/24 18:59 06:59 18:59 Intake Total 400 Balance 400 Intake: Oral 400 Other: Voiding Method Toilet # Voids 2 2 - Exam GENERAL: The patient is alert and oriented x3, not in any acute distress. Well developed, well nourished. HEENT: Pupils are round and equally reacting to light. EOMI. No scleral icterus. No conjunctival pallor. Normocephalic, atraumatic. No pharyngeal erythema. No thyromegaly. CARDIOVASCULAR: S1 and S2 present. No murmurs, rubs, or gallops. PULMONARY: Chest is clear to auscultation, no wheezing or crackles. ABDOMEN: Soft, nontender, nondistended, normoactive bowel sounds. No palpable organomegaly. MUSCULOSKELETAL: No joint swelling or deformity. EXTREMITIES: No cyanosis, clubbing, or pedal edema. NEUROLOGICAL: Gross neurological examination did not reveal any focal deficits. - Labs CBC & Chem 7: 10/30/24 03:19 10/30/24 03:19 Labs: Abnormal Lab Results - Last 24 Hours (Table) 10/28/24 10/28/24 Range/Units 03:37 03:37 WBC 30.7 H (3.8-10.6) k/uL Neutrophils # 26.7 H (1.3-7.7) k/uL Monocytes # 1.9 H (0-1.0) k/uL Sodium 136 L (137-145) mmol/L Carbon Dioxide 31 H (22-30) mmol/L BUN 42 H (9-20) mg/dL Assessment and Plan Assessment: Right hilar mass New-onset A-fib with RVR Acute hypoxic respiratory failure Acute COPD exacerbation leukocytosis Elevated troponin 3.7 cm destructive lesion of right frontal calvarium Facial edema could be related to SVC syndrome History of COPD Monitor vital signs Monitor CBC Monitor CMP Continue telemetry monitoring Trend troponin Ordered 2D echo Ordered breathing treatments Ordered Decadron Resume home med Consult cardiology Consult pulmonary Labs and medication were reviewed.. Continue same treatment. Continue with symptomatic treatment. Resume home medication. Monitor labs and vitals. DVT and GI prophylaxis. Further recommendations as per clinical course of the patient
== END 2024-10-30 16:42 | disposition home or self-care (01) | DRG 190 ==
LOC: EC 16:14 → 3SCARD 19:16 → 4SSUR 10-27 21:34
PROVIDERS: ADMIT Family Medicine; ATTEND Family Medicine
PROC: 07978ZX Drainage of Thorax Lymphatic, Via Natural or Artificial Opening Endoscopic Approach, Diagnostic (ICD-10-PCS; 2024-10-25)
PROC: 0B9F8ZX Drainage of Right Lower Lung Lobe, Via Natural or Artificial Opening Endoscopic, Diagnostic (ICD-10-PCS; principal; 2024-10-25 07:30)
PROC: DP0C1ZZ Beam Radiation of Other Bone using Photons 1 - 10 MeV (ICD-10-PCS; 2024-10-25 07:30)
DX: J44.1 Chronic obstructive pulmonary disease with (acute) exacerbation (principal); J96.01 Acute respiratory failure with hypoxia; C77.1 Secondary and unspecified malignant neoplasm of intrathoracic lymph nodes; C34.91 Malignant neoplasm of unspecified part of right bronchus or lung; I42.9 Cardiomyopathy, unspecified; I10 Essential (primary) hypertension; I73.9 Peripheral vascular disease, unspecified; I65.29 Occlusion and stenosis of unspecified carotid artery; I48.91 Unspecified atrial fibrillation; F17.210 Nicotine dependence, cigarettes, uncomplicated; I25.10 Atherosclerotic heart disease of native coronary artery without angina pectoris; E78.5 Hyperlipidemia, unspecified; Z79.01 Long term (current) use of anticoagulants; Z79.899 Other long term (current) drug therapy; Z85.79 Personal history of other malignant neoplasms of lymphoid, hematopoietic and related tissues
CPT/HCPCS: 31624; 31652; 36415; 70491; 70553; 71045; 71046; 71275; 77280; 77290; 77307; 77334; 77387; 77412; 80048; 80053; 83605; 83735; 83880; 84100; 84439; 84443; 84484; 85025; 85027; 85379; 85610; 85730; 88108; 88305; 88342; 93005; 93306; 94640; 94760; 96361; 96374; 96375; 99291

== ENCOUNTER 2024-11-11 17:49 | Emergency (ER) | payer MEDICARE, OTHER ==
[2024-11-11 17:57] VITALS: TEMP 97.9
--- NOTE | 2024-11-11 18:19 | ED ---
SOB HPI - General Chief Complaint: Shortness of Breath Stated Complaint: difficulty breathing Time Seen by Provider: 11/11/24 18:10 Source: patient Mode of arrival: wheelchair Limitations: no limitations - History of Present Illness Initial Comments: This patient is a 69-year-old man with history of metastatic non-small cell lung cancer, who presents with 2 chief complaints. The patient's first complaint is that he is having head pain. He does have a lesion of the calvarium and he states that it feels like it is getting larger and it is causing pain. He also complains of worsening of his underlying shortness of breath. The patient does have history of COPD as well as lung cancer. He states that he is on home oxygen at a setting of 2.5 L but it does not seem to be adequate today. Patient has not noted fevers. He does have chronic cough with no change in sputum. No chest pain. MD Complaint: shortness of breath Onset/Timin -: days(s) Radiation: other (Head) Severity: severe Quality: aching Consistency: constant Improves With: nothing Worsens With: nothing Known History Of: COPD, other (Metastatic lung cancer) Treatments Prior to Arrival: oxygen - Related Data Home Oxygen Therapy: Yes Home Oxygen Amount: 2 Liters Home Medications Medication Instructions Recorded Confirmed Albuterol Sulfate [Ventolin HFA] 2 puff INHALATION RT-Q6H PRN 08/20/20 11/16/24 Ipratropium-Albuterol Nebulize 3 ml INHALATION RT-QID 08/20/20 11/16/24 [Duoneb 0.5 mg-3 mg/3 ml Soln] Montelukast [Singulair] 10 mg PO DAILY 08/20/20 11/16/24 amLODIPine [Norvasc] 10 mg PO DAILY 08/20/20 11/16/24 HYDROcodone/APAP 10-325MG [[place] 1 tab PO Q4H PRN 09/14/21 11/16/24 10-325] Atorvastatin Calcium [Lipitor] 40 mg PO HS 02/28/23 11/16/24 Rivaroxaban [Xarelto] 2.5 mg PO BID 02/28/23 11/16/24 Ammonium Lactate Cream [Lac-Hydrin 1 applic TOPICAL DAILY 10/20/24 11/16/24 12% Cream] Allergies Allergy/AdvReac Type Severity Reaction Status Date / Time Tetracyclines Allergy Unknown Verified 11/16/24 14:34 Childhood Review of Systems ROS Statement: Those systems with pertinent positive or pertinent negative responses have been documented in the HPI. ROS Other: All systems not noted in ROS Statement are negative. Constitutional: Reports: weakness. Denies: fever, chills Respiratory: Reports: cough, dyspnea, wheezes. Denies: hemoptysis, stridor Cardiovascular: Reports: dyspnea on exertion. Denies: chest pain, palpitations, edema, syncope Gastrointestinal: Denies: abdominal pain, nausea, vomiting Genitourinary: Denies: dysuria, hematuria Musculoskeletal: Denies: back pain Skin: Denies: rash Neurological: Reports: headache. Denies: weakness, numbness, confusion Past Medical History Past Medical History: Cancer, COPD, Hyperlipidemia, Hypertension, Vascular Disorder Additional Past Medical History / Comment(s): Edema left lower leg and foot, uses oxygen PRN, poor circulation. History of Any Multi-Drug Resistant Organisms: None Reported Past Surgical History: Hernia Repair, Orthopedic Surgery Additional Past Surgical History / Comment(s): Leg stents placed, right shoulder rotator cuff repair, 07/23/20 surgery in [place] for leg blockages, "groin" hernia surgery X2, left leg arthrectomy and stent to SFA 03/18. Past Anesthesia/Blood Transfusion Reactions: No Reported Reaction Date of Last Stent Placement:: 09/16/21 Past Psychological History: No Psychological Hx Reported Smoking Status: Current every day smoker Past Alcohol Use History: None Reported Past Drug Use History: None Reported - Past Family History Mother Family Medical History: Cancer Father Family Medical History: Cancer General Exam Limitations: no limitations General appearance: alert, in no apparent distress Head exam: Present: atraumatic, normocephalic, other (Approximately 8 cm diameter calvarial mass on the frontal area) Eye exam: Present: normal appearance, PERRL, EOMI. Absent: scleral icterus, conjunctival injection ENT exam: Present: normal oropharynx Neck exam: Present: normal inspection Respiratory exam: Present: wheezes. Absent: respiratory distress, rales, rhonchi, stridor, accessory muscle use, decreased breath sounds, prolonged expiratory Cardiovascular Exam: Present: regular rate, normal rhythm, normal heart sounds. Absent: systolic murmur, diastolic murmur, rubs, gallop GI/Abdominal exam: Present: soft. Absent: distended, tenderness, guarding, rebound, rigid, mass Extremities exam: Present: normal inspection, normal capillary refill. Absent: pedal edema, calf tenderness Back exam: Present: normal inspection. Absent: CVA tenderness (R), CVA tenderness (L) Neurological exam: Present: alert, oriented X3. Absent: motor sensory deficit Skin exam: Present: warm, dry, intact, normal color. Absent: rash Course Vital Signs 11/11/24 11/11/24 11/11/24 17:56 19:21 19:30 Temperature 97.9 F Pulse Rate 103 H 103 H 110 H Respiratory 24 Rate Blood Pressure 164/83 O2 Sat by Pulse 90 L Oximetry 11/11/24 20:28 Temperature Pulse Rate 88 Respiratory 20 Rate Blood Pressure 144/76 O2 Sat by Pulse 98 Oximetry Medical Decision Making - Medical Decision Making The patient had chest x-ray that I interpreted as negative for acute infiltrate, pneumothorax, congestive heart failure Was pt. sent in by a medical professional or institution (, PA, SUPERVISOR PYROTECHNIC LOADING, urgent care, hospital, or [facility]...) When possible be specific @ -[No] Did you speak to anyone other than the patient for history (EMS, parent, family, police, friend...)? What history was obtained from this source @ -[No] Did you review nursing and triage notes (agree or disagree)? Why? @ -[I reviewed and agree with nursing and triage notes] Were old charts reviewed (outside hosp., previous admission, EMS record, old EKG, old radiological studies, urgent care reports/EKG's, [facility] records)? Report findings @ -[No old charts were reviewed] Differential Diagnosis (chest pain, altered mental status, abdominal pain women, abdominal pain men, vaginal bleeding, weakness, fever, dyspnea, syncope, headache, dizziness, GI bleed, back pain, seizure, CVA, palpatations, mental health, musculoskeletal)? @ -[Differential Dyspnea: Coronary syndrome, arrhythmia, tamponade, asthma, COPD, pulmonary embolism, pneumonia, pneumothorax, pulmonary effusion, anaphylaxis, diabetic ketoacidosis, flailed chest, pulmonary contusion, diaphragmatic rupture, anemia, neuromuscular, this is not meant to be an all-inclusive list. EKG interpreted by me (3pts min.). @ -[I interpreted as above] X-rays interpreted by me (1pt min.). @ -[I interpreted as above CT interpreted by me (1pt min.). @ -[None done] U/S interpreted by me (1pt. min.). @ -[None done] What testing was considered but not performed or refused? (CT, X-rays, U/S, labs)? Why? @ -[Cepheid swab was ordered, but the patient declined to stay for additional testing What meds were considered but not given or refused? Why? @ -[None] Did you discuss the management of the patient with other professionals (professionals i.e. , PA, SUPERVISOR PYROTECHNIC LOADING, lab, RT, psych nurse, social economist, trace clerk, teacher, planned giving officer, returned case inspector)? Give summary @ -[No] Was smoking cessation discussed for >3mins.? @ -[No] Was critical care preformed (if so, how long)? @ -[No] Were there social determinants of health that impacted care today? How? (Homelessness, low income, unemployed, alcoholism, drug addiction, transportation, low edu. Level, literacy, decrease access to med. care, group home, rehab)? @ -[No] Was there de-escalation of care discussed even if they declined (Discuss DNR or withdrawal of care, Hospice)? DNR status @ -[No] What co-morbidities impacted this encounter? (DM, HTN, Smoking, COPD, CAD, Cancer, CVA, ARF, Chemo, Hep., AIDS, mental health diagnosis, sleep apnea, morbid obesity)? @ -[COPD, metastatic cancer Was patient admitted / discharged? Hospital course, mention meds given and route, prescriptions, significant lab abnormalities, going to OR and other pertinent info. @ -[Patient is a 69-year-old man presenting with shortness of breath. The patient has underlying COPD, and received prednisone and inhaled medications. On reevaluation he is feeling better. The patient did request to go home. At this point he has comfortable respiratory pattern and decent saturations. Given the patient's metastatic cancer will defer to his wishes to spend less time in the hospital. The patient offered admission but declined at this point. We discussed follow-up care and return parameters. Undiagnosed new problem with uncertain prognosis? @ -[No] Drug Therapy requiring intensive monitoring for toxicity (Heparin, Nitro, Insulin, Cardizem)? @ -[No] Were any procedures done? @ -[No] Diagnosis/symptom? @ -[Acute exacerbation of COPD Acute, or Chronic, or Acute on Chronic? @ -[Acute on chronic Uncomplicated (without systemic symptoms) or Complicated (systemic symptoms)? @ -[default] Side effects of treatment? @ -[No] Exacerbation, Progression, or Severe Exacerbation? @ -[Exacerbation of COPD Poses a threat to life or bodily function? How? (Chest pain, [place], [place], pneumonia, PE, COPD, DKA, ARF, appy, cholecystitis, CVA, Diverticulitis, Homicidal, Suicidal, threat to staff... and all critical care pts) @ -[Low risk, patient will return if dyspnea recurs All treatments are based on ideal body weight as in ED triage - Lab Data Result diagrams: 11/11/24 18:34 11/11/24 18:34 Lab Results 11/11/24 11/11/24 11/11/24 Range/Units 18:34 18:34 18:34 WBC 12.2 H (3.8-10.6) k/uL RBC 4.18 L (4.30-5.90) m/uL Hgb 11.7 L (13.0-17.5) gm/dL Hct 36.6 L (39.0-53.0) % MCV 87.6 (80.0-100.0) fL MCH 27.9 (25.0-35.0) pg MCHC 31.9 (31.0-37.0) g/dL RDW 14.7 (11.5-15.5) % Plt Count 318 (150-450) k/uL MPV 8.7 Neutrophils % 83 % Lymphocytes % 6 % Monocytes % 6 % Eosinophils % 3 % Basophils % 0 % Neutrophils # 10.1 H (1.3-7.7) k/uL Lymphocytes # 0.7 L (1.0-4.8) k/uL Monocytes # 0.8 (0-1.0) k/uL Eosinophils # 0.3 (0-0.7) k/uL Basophils # 0.0 (0-0.2) k/uL Sodium 132 L (137-145) mmol/L Potassium 4.0 (3.5-5.1) mmol/L Chloride 95 L (98-107) mmol/L Carbon Dioxide 29 (22-30) mmol/L Anion Gap 8 mmol/L BUN 19 (9-20) mg/dL Creatinine 1.08 (0.66-1.25) mg/dL Est GFR (CKD-EPI)AfAm 79 (>60 ml/min/1.73 sqM) Est GFR (CKD-EPI)NonAf 69 (>60 ml/min/1.73 sqM) Glucose 90 (74-99) mg/dL Plasma Lactic Acid Kareem 1.1 (0.7-2.0) mmol/L Calcium 11.5 H (8.4-10.2) mg/dL Magnesium 1.8 (1.6-2.3) mg/dL Total Bilirubin 0.8 (0.2-1.3) mg/dL AST 26 (17-59) U/L ALT 21 (4-49) U/L Alkaline Phosphatase 120 (38-126) U/L NT-Pro-B Natriuret Pep 1110 pg/mL Total Protein 6.2 L (6.3-8.2) g/dL Albumin 3.4 L (3.5-5.0) g/dL - EKG Data -: EKG Interpreted by [facility] EKG shows normal: sinus rhythm, axis ( normal), intervals ( normal), QRS complexes ( normal), ST-T waves (Normal) Rate: normal (Rate 90 bpm) Disposition Clinical Impression: Dyspnea, COPD exacerbation Disposition: HOME SELF-CARE Condition: Good Instructions (If sedation given, give patient instructions): COPD (Chronic Obstructive Pulmonary Disease) (ED) Is patient prescribed a controlled substance at d/c from ED?: No Referrals: Hong Velez MD [Primary Care Provider] - 1-2 days
[2024-11-11] MEDS: predniSONE 20 MG TAB PO STA (18:49)
[2024-11-11] MEDS: HYDROmorphone 1 MG/ML 1 ML SYRINGE IVP STA (18:50)
[2024-11-11 18:52] LABS: Basophils % (A) 0 %; Eosinophils # (A) 0.3 k/uL (0-0.7); Eosinophils % (A) 3 %; HCT 36.6 % (39.0-53.0); HGB 11.7 gm/dL (13.0-17.5); Lymphocytes # (A) 0.7 k/uL (1.0-4.8); Lymphocytes % (A) 6 %; MCH 27.9 pg (25.0-35.0); MCHC 31.9 g/dL (31.0-37.0); MCV 87.6 fL (80.0-100.0); Mean Platelet Volume 8.7; Monocytes # (A) 0.8 k/uL (0-1.0); Monocytes % (A) 6 %; Neutrophils # (A) 10.1 k/uL (1.3-7.7); Neutrophils % (A) 83 %; Platelet Count 318 k/uL (150-450); RBC 4.18 m/uL (4.30-5.90); RDW 14.7 % (11.5-15.5); WBC 12.2 k/uL (3.8-10.6)
[2024-11-11 19:05] LABS: ALT 21 U/L (4-49); AST 26 U/L (17-59); African American GFR (CKD) 79 (>60 ml/min/1.73 sqM); Albumin 3.4 g/dL (3.5-5.0); Alkaline Phosphatase 120 U/L (38-126); Anion Gap 8 mmol/L; Blood Urea Nitrogen 19 mg/dL (9-20); Calcium 11.5 mg/dL (8.4-10.2); Carbon Dioxide 29 mmol/L (22-30); Chloride 95 mmol/L (98-107); Glucose 90 mg/dL (74-99); Magnesium 1.8 mg/dL (1.6-2.3); Non-African American GFR(CKD) 69 (>60 ml/min/1.73 sqM); Sodium 132 mmol/L (137-145); Total Bilirubin 0.8 mg/dL (0.2-1.3); Total Protein 6.2 g/dL (6.3-8.2)
[2024-11-11 19:12] LABS: NT-Pro-B-Type Natriuretic Pept 1110 pg/mL
[2024-11-11] MEDS: ALBUTEROL NEBULIZED 2.5 MG/3 ML INHALATION STA (19:17)
[2024-11-11] MEDS: IPRATROPIUM-ALBUTEROL 3 ML NEB INHALATION STA (19:17)
--- NOTE | 2024-11-11 19:53 | XR ---
EXAMINATION TYPE: XR chest 2V DATE OF EXAM: 11/11/2024 7:41 PM COMPARISON: None CLINICAL INDICATION: Male, 69 years old with history of dyspnea; [facility] TECHNIQUE: XR chest 2V Frontal and lateral views of the chest. FINDINGS: Lungs/Pleura: There is flattening of the diaphragm with increased lucency of the lungs. No evidence o f pneumothorax, pleural effusion or focal consolidation. Pulmonary vascularity: Unremarkable. Heart/mediastinum: Cardiomediastinal silhouette is unremarkable. Musculoskeletal: No acute osseous pathology. IMPRESSION: 1. No acute cardiopulmonary disease process. 2. COPD changes. [facility], , 11/11/2024 7:50 PM
[2024-11-11 20:30] VITALS: BP 144/76; PULSE 88; RESP 20
== END 2024-11-11 20:30 | disposition home or self-care (01) ==
LOC: EC 17:49
DX: J44.1 Chronic obstructive pulmonary disease with (acute) exacerbation (principal); Z99.81 Dependence on supplemental oxygen; Z85.9 Personal history of malignant neoplasm, unspecified; F17.200 Nicotine dependence, unspecified, uncomplicated; Z88.8 Allergy status to other drugs, medicaments and biological substances
CPT/HCPCS: 36415; 94640; 83880; 80053; 83605; 83735; 85025; 71046; 99285; 96374; J1171; J7512

== ENCOUNTER 2024-11-16 13:10 | Inpatient (IN) | payer MEDICARE, OTHER ==
--- NOTE | 2024-11-16 13:34 | ED ---
General Adult HPI - General Chief complaint: Shortness of Breath Stated complaint: RIVERA Time Seen by Provider: 11/16/24 13:12 Source: patient, RN notes reviewed, old records reviewed Mode of arrival: ambulatory Limitations: no limitations - History of Present Illness Initial comments: 69-year-old male presenting with cough, upper respiratory symptoms. Patient states the cough is wet but he is unable to cough up significant amount of sputum. He denies central chest pain. Denies lower extremity pain or swelling. History of head and neck cancer for which she is receiving treatment. History of COPD. - Related Data Home Medications Medication Instructions Recorded Confirmed Albuterol Sulfate [Ventolin HFA] 2 puff INHALATION RT-Q6H PRN 08/20/20 11/16/24 Ipratropium-Albuterol Nebulize 3 ml INHALATION RT-QID 08/20/20 11/16/24 [Duoneb 0.5 mg-3 mg/3 ml Soln] Montelukast [Singulair] 10 mg PO DAILY 08/20/20 11/16/24 amLODIPine [Norvasc] 10 mg PO DAILY 08/20/20 11/16/24 HYDROcodone/APAP 10-325MG [[place] 1 tab PO Q4H PRN 09/14/21 11/16/24 10-325] Atorvastatin Calcium [Lipitor] 40 mg PO HS 02/28/23 11/16/24 Rivaroxaban [Xarelto] 2.5 mg PO BID 02/28/23 11/16/24 Ammonium Lactate Cream [Lac-Hydrin 1 applic TOPICAL DAILY 10/20/24 11/16/24 12% Cream] Allergies Allergy/AdvReac Type Severity Reaction Status Date / Time Tetracyclines Allergy Unknown Verified 11/16/24 14:34 Childhood Review of Systems ROS Statement: Those systems with pertinent positive or pertinent negative responses have been documented in the HPI. ROS Other: All systems not noted in ROS Statement are negative. Past Medical History Past Medical History: Cancer, COPD, Hyperlipidemia, Hypertension, Vascular Disorder Additional Past Medical History / Comment(s): Edema left lower leg and foot, uses oxygen PRN, poor circulation. History of Any Multi-Drug Resistant Organisms: None Reported Past Surgical History: Hernia Repair, Orthopedic Surgery Additional Past Surgical History / Comment(s): Leg stents placed, right shoulder rotator cuff repair, 10/28/20 surgery in [place] for leg blockages, "groin" hernia surgery X2, left leg arthrectomy and stent to SFA 03/18. Past Anesthesia/Blood Transfusion Reactions: No Reported Reaction Date of Last Stent Placement:: 09/16/21 Past Psychological History: No Psychological Hx Reported Smoking Status: Current every day smoker Past Alcohol Use History: None Reported Past Drug Use History: None Reported - Past Family History Mother Family Medical History: Cancer Father Family Medical History: Cancer General Exam Limitations: no limitations General appearance: alert, in no apparent distress Eye exam: Present: normal appearance, PERRL ENT exam: Present: mucous membranes dry Neck exam: Present: normal inspection. Absent: tenderness, meningismus Respiratory exam: Present: respiratory distress, wheezes, rhonchi Cardiovascular Exam: Present: normal rhythm, tachycardia GI/Abdominal exam: Present: soft. Absent: distended, tenderness, guarding Extremities exam: Present: normal inspection, normal capillary refill. Absent: pedal edema, calf tenderness Neurological exam: Present: alert, oriented X3, CN II-XII intact. Absent: motor sensory deficit Skin exam: Present: warm, dry, intact, cyanosis, diaphoretic Course Vital Signs 11/16/24 11/16/24 11/16/24 13:11 13:18 14:30 Temperature 97.8 F Pulse Rate 112 H 90 Respiratory 22 24 Rate Blood Pressure 181/106 O2 Sat by Pulse 95 Oximetry 11/16/24 14:51 Temperature Pulse Rate 94 Respiratory Rate Blood Pressure O2 Sat by Pulse Oximetry Medical Decision Making - Medical Decision Making Was pt. sent in by a medical professional or institution (, PA, SEMAPHORE OPERATOR, urgent care, hospital, or [facility]...) When possible be specific @ -No Did you speak to anyone other than the patient for history (EMS, parent, family, police, friend...)? What history was obtained from this source @ -No Did you review nursing and triage notes (agree or disagree)? Why? @ -I reviewed and agree with nursing and triage notes Were old charts reviewed (outside hosp., previous admission, EMS record, old EKG, old radiological studies, urgent care reports/EKG's, [facility]pc records)? Report findings @ -No old charts were reviewed Differential Dyspnea: Coronary syndrome, arrhythmia, tamponade, asthma, COPD, pulmonary embolism, pneumonia, pneumothorax, pulmonary effusion, anaphylaxis, diabetic ketoacidosis, flailed chest, pulmonary contusion, diaphragmatic rupture, anemia, neuromuscular, this is not meant to be an all-inclusive list. EKG interpreted by me (3pts min.). @Sinus tachycardia with rate of 103, MA interval 132, QRS duration 92, QTc [address] segment elevation. X-rays interpreted by me (1pt min.). @Chronic changes without consolidated pneumonia CT interpreted by me (1pt min.). @ -None done U/S interpreted by me (1pt. min.). @ -None done What testing was considered but not performed or refused? (CT, X-rays, U/S, labs)? Why? @ -None What meds were considered but not given or refused? Why? @ -None Did you discuss the management of the patient with other professionals (prof stevens i.eDelano Maldonado, PA, SEMAPHORE OPERATOR, lab, RT, psych nurse, clinical social work aide, international trade specialist, teacher, navy airspace officer, continuous pillowcase cutter)? Give summary @ -No Was smoking cessation discussed for >3mins.? @ -No Was critical care preformed (if so, how long)? @ yes, 35 min Were there social determinants of health that impacted care today? How? (Homelessness, low income, unemployed, alcoholism, drug addiction, transportation, low edu. Level, literacy, decrease access to med. care, alf, rehab)? @ -No Was there de-escalation of care discussed even if they declined (Discuss DNR or withdrawal of care, Hospice)? DNR status @ -No What co-morbidities impacted this encounter? (DM, HTN, Smoking, COPD, CAD, Cancer, CVA, ARF, Chemo, Hep., AIDS, mental health diagnosis, sleep apnea, morbid obesity)? @ -COPD, head cancer Was patient admitted / discharged? Hospital course, mention meds given and route, prescriptions, significant lab abnormalities, going to OR and other pertinent info. @ -69-year-old male with increased cough, dyspnea, history of COPD. Patient has rhonchi and wheezing bilaterally. Mild respiratory distress. Given albuterol, Atrovent, steroids started on antibiotics for COPD exacerbation. Leukocytosis at 15, calcium 12.6. Patient started on IV fluids and IV antibiotics. Undiagnosed new problem with uncertain prognosis? @ -No Drug Therapy requiring intensive monitoring for toxicity (Heparin, Nitro, Insulin, Cardizem)? @ -No Were any procedures done? @ -No Diagnosis/symptom? @ -COPD exacerbation Acute, or Chronic, or Acute on Chronic? @ -Acute on chronic Uncomplicated (without systemic symptoms) or Complicated (systemic symptoms)? @ -Default Side effects of treatment? @ -No Exacerbation, Progression, or Severe Exacerbation? @ -No Poses a threat to life or bodily function? How? (Chest pain, [place], [place], pneumonia, PE, COPD, DKA, ARF, appy, cholecystitis, CVA, Diverticulitis, Homicidal, Suicidal, threat to staff... and all critical care pts) @ -Yes, respiratory failure - Lab Data Result diagrams: 11/16/24 13:38 11/16/24 13:38 Lab Results 11/16/24 11/16/24 11/16/24 Range/Units 13:38 13:38 13:38 WBC 15.0 H (3.8-10.6) k/uL RBC 4.59 (4.30-5.90) m/uL Hgb 13.1 (13.0-17.5) gm/dL Hct 40.4 (39.0-53.0) % MCV 88.0 (80.0-100.0) fL MCH 28.6 (25.0-35.0) pg MCHC 32.5 (31.0-37.0) g/dL RDW 15.0 (11.5-15.5) % Plt Count 424 (150-450) k/uL MPV 8.5 Neutrophils % 84 % Lymphocytes % 6 % Monocytes % 7 % Eosinophils % 2 % Basophils % 0 % Neutrophils # 12.6 H (1.3-7.7) k/uL Lymphocytes # 0.9 L (1.0-4.8) k/uL Monocytes # 1.0 (0-1.0) k/uL Eosinophils # 0.3 (0-0.7) k/uL Basophils # 0.0 (0-0.2) k/uL Hypochromasia Slight PT 11.0 (10.0-12.5) sec INR 1.0 (<1.2) APTT 21.5 L (22.0-30.0) sec Sodium 135 L (137-145) mmol/L Potassium 4.2 (3.5-5.1) mmol/L Chloride 95 L (98-107) mmol/L Carbon Dioxide 30 (22-30) mmol/L Anion Gap 10 mmol/L BUN 21 H (9-20) mg/dL Creatinine 1.10 (0.66-1.25) mg/dL Est GFR (CKD-EPI)AfAm 78 (>60 ml/min/1.73 sqM) Est GFR (CKD-EPI)NonAf 67 (>60 ml/min/1.73 sqM) Glucose 111 H (74-99) mg/dL Plasma Lactic Acid Kareem (0.7-2.0) mmol/L Calcium 12.6 H (8.4-10.2) mg/dL Magnesium 1.9 (1.6-2.3) mg/dL Total Bilirubin 0.6 (0.2-1.3) mg/dL AST 25 (17-59) U/L ALT 23 (4-49) U/L Alkaline Phosphatase 116 (38-126) U/L NT-Pro-B Natriuret Pep 1390 pg/mL Total Protein 6.6 (6.3-8.2) g/dL Albumin 3.7 (3.5-5.0) g/dL Influenza Type A (PCR) (Not Detectd) Influenza Type B (PCR) (Not Detectd) RSV (PCR) (Not Detectd) SARS-CoV-2 (PCR) (Not Detectd) 11/16/24 11/16/24 Range/Units 13:38 13:38 WBC (3.8-10.6) k/uL RBC (4.30-5.90) m/uL Hgb (13.0-17.5) gm/dL Hct (39.0-53.0) % MCV (80.0-100.0) fL MCH (25.0-35.0) pg MCHC (31.0-37.0) g/dL RDW (11.5-15.5) % Plt Count (150-450) k/uL MPV Neutrophils % % Lymphocytes % % Monocytes % % Eosinophils % % Basophils % % Neutrophils # (1.3-7.7) k/uL Lymphocytes # (1.0-4.8) k/uL Monocytes # (0-1.0) k/uL Eosinophils # (0-0.7) k/uL Basophils # (0-0.2) k/uL Hypochromasia PT (10.0-12.5) sec INR (<1.2) APTT (22.0-30.0) sec Sodium (137-145) mmol/L Potassium (3.5-5.1) mmol/L Chloride (98-107) mmol/L Carbon Dioxide (22-30) mmol/L Anion Gap mmol/L BUN (9-20) mg/dL Creatinine (0.66-1.25) mg/dL Est GFR (CKD-EPI)AfAm (>60 ml/min/1.73 sqM) Est GFR (CKD-EPI)NonAf (>60 ml/min/1.73 sqM) Glucose (74-99) mg/dL Plasma Lactic Acid Kareem 2.3 H* (0.7-2.0) mmol/L Calcium (8.4-10.2) mg/dL Magnesium (1.6-2.3) mg/dL Total Bilirubin (0.2-1.3) mg/dL AST (17-59) U/L ALT (4-49) U/L Alkaline Phosphatase (38-126) U/L NT-Pro-B Natriuret Pep pg/mL Total Protein (6.3-8.2) g/dL Albumin (3.5-5.0) g/dL Influenza Type A (PCR) Not Detected (Not Detectd) Influenza Type B (PCR) Not Detected (Not Detectd) RSV (PCR) Not Detected (Not Detectd) SARS-CoV-2 (PCR) Not Detected (Not Detectd) Critical Care Time Critical Care Time: Yes Total Critical Care Time: 35 Disposition Clinical Impression: Acute exacerbation of chronic obstructive pulmonary disease Disposition: ADMITTED IP TO THIS HOSP Condition: Stable Is patient prescribed a controlled substance at d/c from ED?: No Referrals: Hong Velez MD [Primary Care Provider] - 1-2 days Time of Disposition: 15:16
[2024-11-16] MEDS: methylPREDNISolone SOD SUCCI 125 MG/2 ML VIAL IV STA (13:41)
[2024-11-16 13:46] LABS: Basophils % (A) 0 %; Eosinophils # (A) 0.3 k/uL (0-0.7); Eosinophils % (A) 2 %; HCT 40.4 % (39.0-53.0); HGB 13.1 gm/dL (13.0-17.5); Hypochromasia Slight; Lymphocytes # (A) 0.9 k/uL (1.0-4.8); Lymphocytes % (A) 6 %; MCH 28.6 pg (25.0-35.0); MCHC 32.5 g/dL (31.0-37.0); Mean Platelet Volume 8.5; Monocytes % (A) 7 %; Neutrophils # (A) 12.6 k/uL (1.3-7.7); Neutrophils % (A) 84 %; Platelet Count 424 k/uL (150-450); RBC 4.59 m/uL (4.30-5.90)
[2024-11-16 14:03] LABS: ALT 23 U/L (4-49); AST 25 U/L (17-59); African American GFR (CKD) 78 (>60 ml/min/1.73 sqM); Albumin 3.7 g/dL (3.5-5.0); Alkaline Phosphatase 116 U/L (38-126); Anion Gap 10 mmol/L; Blood Urea Nitrogen 21 mg/dL (9-20); Calcium 12.6 mg/dL (8.4-10.2); Carbon Dioxide 30 mmol/L (22-30); Chloride 95 mmol/L (98-107); Glucose 111 mg/dL (74-99); Magnesium 1.9 mg/dL (1.6-2.3); Non-African American GFR(CKD) 67 (>60 ml/min/1.73 sqM); Potassium 4.2 mmol/L (3.5-5.1); Sodium 135 mmol/L (137-145); Total Bilirubin 0.6 mg/dL (0.2-1.3); Total Protein 6.6 g/dL (6.3-8.2)
[2024-11-16 14:08] LABS: NT-Pro-B-Type Natriuretic Pept 1390 pg/mL
[2024-11-16] MEDS: ALBUTEROL NEBULIZED 2.5 MG/3 ML INHALATION STA (14:29)
[2024-11-16] MEDS: IPRATROPIUM 0.5 MG/2.5 ML NEBU INHALATION STA (14:30)
[2024-11-16 14:31] LABS: Influenza A Not Detected (Not Detectd); Influenza B Not Detected (Not Detectd); RSV Not Detected (Not Detectd)
[2024-11-16 14:33] LABS: Partial Thromboplastin Time 21.5 sec (22.0-30.0)
--- NOTE | 2024-11-16 15:09 | XR ---
EXAMINATION TYPE: XR chest 2V DATE OF EXAM: 11/16/2024 3:04 PM COMPARISON: Chest radiographs from 11/11/2024 TECHNIQUE: XR chest 2V Frontal and lateral views of the chest. CLINICAL INDICATION:Male, 69 years old with history of difficulty breathing; FINDINGS: Lungs/Pleura: Hyperinflation with flattening of the hemidiaphragms consistent with COPD. There is no evidence of pleural effusion, focal consolidation, or pneumothorax. Chronic bibasilar interstitial p rominence. Pulmonary vascularity: Unremarkable. Heart/mediastinum: Cardiomediastinal silhouette is unremarkable. Atherosclerotic calcifications are seen in the aorta. Musculoskeletal: No acute osseous pathology. Multilevel degenerative disc disease of the thoracic spi ne. Surgical anchors within the right proximal humeral head. IMPRESSION: Chronic changes without acute pulmonary process. No significant change from prior. [facility], , 11/16/2024 3:07 PM
[2024-11-16] MEDS ORDERED: NALOXONE 0.4 MG/ML 1 ML VIAL IVP PRN (15:12)
[2024-11-16] MEDS: IPRATROPIUM-ALBUTEROL 3 ML NEB INHALATION SCH (16:13)
[2024-11-16] MEDS: SODIUM CHLORIDE 0.9% 500 ML 500 ML IV ONE (16:33)
[2024-11-16] MEDS: SODIUM CHLORIDE 0.9% 1,000 ML IV SCH (16:35)
[2024-11-16] MEDS: AZITHROMYCIN 500 MG TAB PO SCH (16:36)
[2024-11-16] MEDS ORDERED: ALBUTEROL HFA INHALER INHALATION PRN (18:24)
[2024-11-16] MEDS: methylPREDNISolone SOD SUCCI 125 MG/2 ML VIAL IV SCH (18:34)
[2024-11-16] MEDS: DILTIAZEM 125 MG in SODIUM CHLORIDE 0.9% 100 ML IV SCH (19:42)
[2024-11-16] MEDS: DILTIAZEM DRIP BOLUS FROM BAG 1 MG SOLN IV ONE (19:43)
[2024-11-16] MEDS: HEPARIN SOD,PORK IN 0.45% NACL 25,000 UNIT in 0.45% NACL 1 250ML.BAG IV SCH (19:50)
[2024-11-16] MEDS: HEPARIN SODIUM 1,000 UN/ML (10ML VL) IV ONE (19:57)
[2024-11-16] MEDS ORDERED: RIVAROXABAN 2.5 MG TABLET PO SCH (21:00)
[2024-11-16] MEDS: ATORVASTATIN 40 MG TAB PO SCH (21:51)
[2024-11-17] MEDS: HEPARIN SODIUM 1,000 UN/ML (10ML VL) IV PRN (02:11)
[2024-11-17 06:02] LABS: Glucose,Whole Blood 153 mg/dL (70-110)
[2024-11-17] MEDS: amLODIPine 10 MG TAB PO SCH (09:30)
[2024-11-17] MEDS: LOSARTAN 25 MG TAB PO SCH (09:35)
[2024-11-17] MEDS: DILTIAZEM ORAL 30 MG TAB PO SCH (09:35)
[2024-11-17] MEDS: MONTELUKAST 10 MG TAB PO SCH (09:35)
[2024-11-17] MEDS: AMMONIUM LACTATE 12% CREAM 140 GM TUBE TOPICAL SCH (09:36)
[2024-11-17] MEDS: ACETAMINOPHEN TAB 325 MG TAB PO PRN (09:49)
--- NOTE | 2024-11-17 11:36 | P.CRDCN ---
History of Present Illness History of present illness: HISTORY OF PRESENT ILLNESS: This is a 69-year-old male with a past medical history significant for metastatic non-small cell carcinoma, coronary artery disease, cardiomyopathy with recovered EF, peripheral arterial disease with previous lower extremity intervention, carotid stenosis, hypertension, hyperlipidemia, and nicotine dependence. Patient follows in the office with Dr. Rizo. We have been asked to see the patient in consultation for A-fib with RVR. Patient examined at the [facility]. Patient presented to the hospital yesterday with a chief complaint of shortness of breath. Patient denies any chest pain or pressure. He denied having a cough. EKG on admission revealed sinus tachycardia. However repeat EKG revealed A-fib/flutter with RVR. Patient was started on IV heparin and IV Cardizem. It is noted that the patient was hospitalized in September 2024. At that time the patient was noted to be in A-fib with RVR and he was started on Xarelto 20 mg daily. However according to his home medication list, he is not taking this. When patient was asked about it this morning he is unsure of his home medications. DIAGNOSTICS: - EKG reveals sinus tachycardia. Repeat EKG reveals A-fib/flutter with RVR - Chest xray chronic changes without acute pulmonary process. No significant change from prior.. - Laboratory data: WBC 15.0. Hemoglobin 13.1. Platelet count 424. Sodium 135. Potassium 4.2. BUN 21. Creatinine 1.10. proBNP 1390. - Current home cardiac medications include Xarelto 2.5 mg twice a day, amlodipine 10 mg daily, Lipitor 40 mg at night - Most recent echocardiogram obtained in September 2024 revealed ejection fraction 55 to 60% with no significant valvular abnormalities noted. - Cardiac catheterization history: July 2021 revealing minimal CAD REVIEW OF SYSTEMS: At the time of my exam: CONSTITUTIONAL: Denies fever or chills. HEENT: Denies blurred vision, vision changes, or eye pain. Denies hemoptysis CARDIOVASCULAR: Denies chest pain. Denies orthopnea. Denies PND. Denies palpitations RESPIRATORY: Reports shortness of breath. GASTROINTESTINAL: Denies abdominal pain. Denies nausea or vomiting. HEMATOLOGIC: Denies bleeding disorders. GENITOURINARY: Denies any blood in urine. SKIN: Denies pruitis. Denies rash. PHYSICAL EXAM: VITAL SIGNS: Reviewed. GENERAL: Well-developed in no acute distress. HEENT: Head is normocephalic. Pupils are equal, round. Sclerae anicteric. Mucous membranes of the mouth are moist. Neck supple. No JVD or thyromegaly LUNGS: Respirations even and unlabored. Lungs with diffuse rhonchi throughout. HEART: Regular rate and rhythm. S1 and S2 heard. Soft systolic murmur noted. ABDOMEN: Soft. Nondistended. Nontender. EXTREMITIES: Normal range of motion. No clubbing or cyanosis. Peripheral pulses intact. No lower extremity edema NEUROLOGIC: Awake and alert. Oriented x 3. ASSESSMENT: Shortness of breath Acute COPD exacerbation Status post bronchoscopy 10/25/2024 with pathology positive for metastatic non- small cell carcinoma Paroxysmal atrial fibrillation/typical atrial flutter with RVR, currently maintaining sinus mechanism Peripheral arterial disease with previous lower extremity intervention, most recently STEM SIZER of left SFA, June 2024 Known occluded external iliac History of aortic stent grafting Minimal CAD, per cath 2020 Carotid stenosis Hypertension Hyperlipidemia Nicotine dependence, patient still smoking 2 to 3 cigarettes a day PLAN: No need to repeat echocardiogram as this was performed in September 2024 Begin Xarelto 20 mg this evening. Discontinue IV heparin once Xarelto has been administered. Discontinue IV Cardizem. Discontinue amlodipine. Begin oral Cardizem 30 mg 3 times daily for optimal heart rate control Add losartan 25 mg daily for optimal blood pressure control as blood pressures are elevated in the 160s this morning Continue telemetry monitoring Continue to monitor blood pressure Further recommendations pending patient course Nurse practitioner note has been reviewed by physician. Signing provider agrees with the documented findings, assessment, and plan of care documented by [employer] OPERATOR as a scribe. Past Medical History Past Medical History: Cancer, COPD, Hyperlipidemia, Hypertension, Vascular Disorder Additional Past Medical History / Comment(s): Edema left lower leg and foot, uses oxygen PRN, poor circulation. History of Any Multi-Drug Resistant Organisms: None Reported Past Surgical History: Hernia Repair, Orthopedic Surgery Additional Past Surgical History / Comment(s): Leg stents placed, right shoulder rotator cuff repair, 07/23/20 surgery in [place] for leg blockages, "groin" hernia surgery X2, left leg arthrectomy and stent to SFA 03/18. Past Anesthesia/Blood Transfusion Reactions: No Reported Reaction Date of Last Stent Placement:: 09/16/21 Past Psychological History: No Psychological Hx Reported Smoking Status: Current every day smoker Past Alcohol Use History: None Reported Additional Past Alcohol Use History / Comment(s): Smokes 1 PPD - has been smoking for 50 years. Past Drug Use History: None Reported - Past Family History Mother Family Medical History: Cancer Father Family Medical History: Cancer Medications and Allergies Home Medications Medication Instructions Recorded Confirmed Type Albuterol Sulfate [Ventolin HFA] 2 puff INHALATION RT-Q6H PRN 08/20/20 11/16/24 History Ipratropium-Albuterol Nebulize 3 ml INHALATION RT-QID 08/20/20 11/16/24 History [Duoneb 0.5 mg-3 mg/3 ml Soln] Montelukast [Singulair] 10 mg PO DAILY 08/20/20 11/16/24 History amLODIPine [Norvasc] 10 mg PO DAILY 08/20/20 11/16/24 History HYDROcodone/APAP 10-325MG [[place] 1 tab PO Q4H PRN 09/14/21 11/16/24 History 10-325] Atorvastatin Calcium [Lipitor] 40 mg PO HS 02/28/23 11/16/24 History Rivaroxaban [Xarelto] 2.5 mg PO BID 02/28/23 11/16/24 History Ammonium Lactate Cream [Lac-Hydrin 1 applic TOPICAL DAILY 10/20/24 11/16/24 History 12% Cream] Allergies Allergy/AdvReac Type Severity Reaction Status Date / Time Tetracyclines Allergy Unknown Verified 11/16/24 14:34 Childhood Physical Exam Vitals: Vital Signs Temp Pulse Pulse Resp BP BP Pulse Ox 11/17/24 08:39 68 11/17/24 08:27 70 11/17/24 06:26 97.6 F 76 22 165/85 97 11/16/24 23:05 97.6 F 85 22 184/67 95 11/16/24 22:18 98.5 F 79 16 138/81 99 11/16/24 21:47 97 155/97 98 11/16/24 20:00 144 H 139/95 97 11/16/24 19:39 97.9 F 141 H 151/99 96 11/16/24 18:30 125 H 20 138/93 92 L 11/16/24 16:39 113 H 20 145/85 96 02/21/25 16:25 96 11/16/24 16:13 90 11/16/24 14:51 94 11/16/24 14:30 90 11/16/24 13:18 24 11/16/24 13:11 97.8 F 112 H 22 181/106 95 Intake and Output 11/16/24 11/17/24 11/17/24 22:59 06:59 14:59 Intake Total 164.076 Balance 164.076 Intake: Intake, IV Titration 164.076 Amount Diltiazem 125 mg In 109.5 Sodium Chloride 0.9% 100 ml @ 10 MG/HR 10 mls/hr IV .[id number] [facility] Rx#: [id number] Heparin Sod,Pork in 0.45% 54.576 NaCl 25,000 unit In 0.45 % NaCl 1 250ml.bag @ 12 UNITS/KG/HR 8.709 mls/hr IV .Q24H [facility] Rx#: [id number] Other: # Voids 2 Weight 72.575 kg Results 11/16/24 13:38 11/16/24 13:38 Cardiac Enzymes 11/16/24 Range/Units 13:38 AST 25 (17-59) U/L Coagulation 11/16/24 11/17/24 Range/Units 13:38 01:16 PT 11.0 (10.0-12.5) sec APTT 21.5 L 26.9 (22.0-30.0) sec CBC 11/16/24 Range/Units 13:38 WBC 15.0 H (3.8-10.6) k/uL RBC 4.59 (4.30-5.90) m/uL Hgb 13.1 (13.0-17.5) gm/dL Hct 40.4 (39.0-53.0) % Plt Count 424 (150-450) k/uL Comprehensive Metabolic Panel 11/16/24 Range/Units 13:38 Sodium 135 L (137-145) mmol/L Potassium 4.2 (3.5-5.1) mmol/L Chloride 95 L (98-107) mmol/L Carbon Dioxide 30 (22-30) mmol/L BUN 21 H (9-20) mg/dL Creatinine 1.10 (0.66-1.25) mg/dL Glucose 111 H (74-99) mg/dL Calcium 12.6 H (8.4-10.2) mg/dL AST 25 (17-59) U/L ALT 23 (4-49) U/L Alkaline Phosphatase 116 (38-126) U/L Total Protein 6.6 (6.3-8.2) g/dL Albumin 3.7 (3.5-5.0) g/dL Current Medications Generic Name Dose Route Start Last Admin Trade Name Freq PRN Reason Stop Dose Admin Acetaminophen 650 mg 11/16/24 15:12 Acetaminophen Tab 325 Mg Tab PO Q4HR PRN Mild Pain or Fever > 100.5 Hydrocodone Bitart/Acetaminophen 1 each 11/16/24 18:24 Hydrocodone/Apap 10-325mg 1 Each Tab PO Q4H PRN Pain Albuterol Sulfate 2 puff 11/16/24 18:24 Albuterol Hfa Inhaler INHALATION RT-Q6H PRN Shortness Of Breath Albuterol/Ipratropium 3 ml 11/16/24 15:12 Ipratropium-Albuterol 3 Ml Neb INHALATION RT-Q2H PRN Shortness Of Breath Or Wheezing Albuterol/Ipratropium 3 ml 11/16/24 16:00 11/17/24 08:27 Ipratropium-Albuterol 3 Ml Neb INHALATION 3 ml RT-QID LINDY Administration Amlodipine Besylate 10 mg 11/17/24 09:00 Amlodipine 10 Mg Tab PO DAILY LINDY Atorvastatin Calcium 40 mg 11/16/24 21:00 11/16/24 21:51 Atorvastatin 40 Mg Tab PO 40 mg HS LINDY Administration Azithromycin 500 mg 11/16/24 15:15 11/16/24 16:36 Azithromycin 500 Mg Tab PO 11/18/24 09:01 500 mg DAILY LINDY Administration Protocol Heparin Sodium (Porcine) 0 unit 11/16/24 19:07 11/17/24 02:11 Heparin Sodium 1,000 Un/Ml (10ml Vl) IV 3,600 unit PER PROTOCOL PRN Administration Low PTT Protocol Sodium Chloride 1,000 mls @ 75 mls/hr 11/16/24 15:15 11/17/24 07:56 Saline 0.9% IV Not Given .[id number] [facility] Diltiazem HCl 125 mg/ Sodium 125 mls @ 10 mls/hr 11/16/24 19:15 11/17/24 06:39 Chloride IV 10 mg/hr .[id number] LINDY 10 mls/hr Administration 10 MG/HR Heparin Sodium/Sodium Chloride 250 mls @ 8.709 mls/hr 11/16/24 19:15 11/17/24 02:06 25,000 unit/ Sodium Chloride IV 15 units/kg/hr .Q24H LINDY 10.886 mls/hr Titration Protocol 12 UNITS/KG/HR Lactic Acid 1 applic 11/17/24 09:00 Ammonium Lactate 12% Cream 140 Gm Tube TOPICAL DAILY [facility] Protocol Methylprednisolone Sodium Succinate 60 mg 11/16/24 18:00 11/17/24 06:22 Methylprednisolone Sod Succi 125 Mg/2 Ml Vial IV 60 mg Q6HR [facility]Y Administration Montelukast Sodium 10 mg 11/17/24 09:00 Montelukast 10 Mg Tab PO DAILY [facility] Naloxone HCl 0.2 mg 11/16/24 15:12 Naloxone 0.4 Mg/Ml 1 Ml Vial IVP Q2M PRN Opioid Reversal Intake and Output 11/16/24 11/17/24 11/17/24 22:59 06:59 14:59 Intake Total 164.076 Balance 164.076 Intake: Intake, IV Titration 164.076 Amount Diltiazem 125 mg In 109.5 Sodium Chloride 0.9% 100 ml @ 10 MG/HR 10 mls/hr IV .[id number] [facility] Rx#: [id number] Heparin Sod,Pork in 0.45% 54.576 NaCl 25,000 unit In 0.45 % NaCl 1 250ml.bag @ 12 UNITS/KG/HR 8.709 mls/hr IV .Q24H [facility] Rx#: [id number] Other: # Voids 2 Weight 72.575 kg 11/16/24 13:38 11/16/24 13:38
[2024-11-17 11:47] LABS: Glucose,Whole Blood 128 mg/dL (70-110)
--- NOTE | 2024-11-17 13:26 | P.HPIM ---
History of Present Illness H&P Date: 11/17/24 History of present illness; patient is a 69-year-old gentleman with past medical history significant for COPD, metastatic squamous cell carcinoma, peripheral artery disease within the ER because of shortness of breath patient stated that he was all right 1 week back and started having shortness of breath and cough. Cough is nonproductive, shortness of breath is present at rest as on exertion. He denies any chest pain. There is no current fever or chills. Patient was admitted to the hospital in the end of September, beginning of October at which time patient was seen by oncology, pulmonary, patient had bronchoscopy with endobronchial ultrasound and mediastinal sampling lymph node was done, biopsies showing metastatic squamous cell carcinoma. Because of this shortness of breath, patient came to the ER Initial lab work done in the ER showed WBC 15, hemoglobin 13.1, platelet count 424, sodium 139, potassium 4.2, BUN 21, creatinine 1.10, glucose 111, lactate 2.3, calcium 12.6 Influenza A not detected Influenza B not detected RSV not detected COVID-19 not detected EKG done in the ER showed heart rate of 103, no ST segment elevation or depression seen, no T-wave inversions seen. Chest x-ray done in the ERShowed chronic changes without acute pulm process Patient admitted to internal medicine service REVIEW OF SYSTEMS: CONSTITUTIONAL: No fever, no malaise, no fatigue. HEENT: No recent visual problems or hearing problems. Denied any sore throat. CARDIOVASCULAR: As mentioned above PULMONARY: As mentioned above GASTROINTESTINAL: No diarrhea, no nausea, no vomiting, no abdominal pain. NEUROLOGICAL: No headaches, no weakness, no numbness. HEMATOLOGICAL: Denies any bleeding or petechiae. GENITOURINARY: Denies any burning micturition, frequency, or urgency. MUSCULOSKELETAL/RHEUMATOLOGICAL: Denies any joint pain, swelling, or any muscle pain. ENDOCRINE: Denies any polyuria or polydipsia. The rest of the 14-point review of systems is negative. PHYSICAL EXAMINATION: GENERAL: The patient is alert and oriented x3 coarse breath sounds bilaterally chronically ill looking HEENT: Pupils are round and equally reacting to light. EOMI. No scleral icterus. No conjunctival pallor. Normocephalic, atraumatic. No pharyngeal erythema. No thyromegaly. CARDIOVASCULAR: S1 and S2 present. No murmurs, rubs, or gallops. PULMONARY: Coarse breath sounds bilaterally, no wheezing or crackles. ABDOMEN: Soft, nontender, nondistended, normoactive bowel sounds. No palpable organomegaly. MUSCULOSKELETAL: No joint swelling or deformity. EXTREMITIES: No cyanosis, clubbing, or pedal edema. NEUROLOGICAL: Gross neurological examination did not reveal any focal deficits. SKIN: No rashes. Assessment and plan Acute COPD exacerbation Lactic acidosis Hypercalcemia Paroxysmal A-fib/atrial flutter with RVR, currently in NSR Metastatic squamous cell carcinoma 3.7 cm destructive lesion high right frontal calvarium Hoarseness suspect secondary to right pharyngeal nerve involvement Chronic and ongoing tobacco dependence Peripheral vascular disease with multiple stent placements, anticoagulated with Xarelto Chronic obstructive pulmonary disease Hyperlipidemia Hypertension Monitor vital signs Monitor CBC Monitor CMP Continue telemetry monitoring Continue breathing treatments Ordered IV Solu-Medrol Ordered azithromycin Ordered oral Cardizem Resume Xarelto Consult pulmonary Consult cardiology Labs and medication were reviewed.. Continue same treatment. Continue with symptomatic treatment. Resume home medication. Monitor labs and vitals. DVT and GI prophylaxis. Further recommendations as per clinical course of the patient Dictation was produced using [employer] dictation software. please excuse any grammatical, word or spelling errors. Past Medical History Past Medical History: Cancer, COPD, Hyperlipidemia, Hypertension, Vascular Disorder Additional Past Medical History / Comment(s): Edema left lower leg and foot, uses oxygen PRN, poor circulation. History of Any Multi-Drug Resistant Organisms: None Reported Past Surgical History: Hernia Repair, Orthopedic Surgery Additional Past Surgical History / Comment(s): Leg stents placed, right shoulder rotator cuff repair, 07/23/20 surgery in [place] for leg blockages, "groin" hernia surgery X2, left leg arthrectomy and stent to SFA 03/18. Past Anesthesia/Blood Transfusion Reactions: No Reported Reaction Date of Last Stent Placement:: 09/16/21 Past Psychological History: No Psychological Hx Reported Smoking Status: Current every day smoker Past Alcohol Use History: None Reported Additional Past Alcohol Use History / Comment(s): Smokes 1 PPD - has been smoking for 50 years. Past Drug Use History: None Reported - Past Family History Mother Family Medical History: Cancer Father Family Medical History: Cancer Medications and Allergies Home Medications Medication Instructions Recorded Confirmed Type Albuterol Sulfate [Ventolin HFA] 2 puff INHALATION RT-Q6H PRN 08/20/20 11/16/24 History Ipratropium-Albuterol Nebulize 3 ml INHALATION RT-QID 08/20/20 11/16/24 History [Duoneb 0.5 mg-3 mg/3 ml Soln] Montelukast [Singulair] 10 mg PO DAILY 08/20/20 11/16/24 History amLODIPine [Norvasc] 10 mg PO DAILY 08/20/20 11/16/24 History HYDROcodone/APAP 10-325MG [[place] 1 tab PO Q4H PRN 09/14/21 11/16/24 History 10-325] Atorvastatin Calcium [Lipitor] 40 mg PO HS 02/28/23 11/16/24 History Rivaroxaban [Xarelto] 2.5 mg PO BID 02/28/23 11/16/24 History Ammonium Lactate Cream [Lac-Hydrin 1 applic TOPICAL DAILY 10/20/24 11/16/24 History 12% Cream] Allergies Allergy/AdvReac Type Severity Reaction Status Date / Time Tetracyclines Allergy Unknown Verified 11/16/24 14:34 Childhood Physical Exam Vitals: Vital Signs Temp Pulse Pulse Resp BP BP Pulse Ox 11/17/24 08:39 68 11/17/24 08:27 70 11/17/24 06:26 97.6 F 76 22 165/85 97 11/16/24 23:05 97.6 F 85 22 184/67 95 11/16/24 22:18 98.5 F 79 16 138/81 99 11/16/24 21:47 97 155/97 98 11/16/24 20:00 144 H 139/95 97 11/16/24 19:39 97.9 F 141 H 151/99 96 11/16/24 18:30 125 H 20 138/93 92 L 11/16/24 16:39 113 H 20 145/85 96 11/16/24 16:25 96 11/16/24 16:13 90 11/16/24 14:51 94 11/16/24 14:30 90 11/16/24 13:18 24 11/16/24 13:11 97.8 F 112 H 22 181/106 95 Intake and Output 11/16/24 11/17/24 11/17/24 22:59 06:59 14:59 Intake Total 164.076 197.831 Balance 164.076 197.831 Intake: Intake, IV Titration 164.076 79.831 Amount Diltiazem 125 mg In 109.5 Sodium Chloride 0.9% 100 ml @ 10 MG/HR 10 mls/hr IV .[id number] [facility] Rx#: [id number] Heparin Sod,Pork in 0.45% 54.576 79.831 NaCl 25,000 unit In 0.45 % NaCl 1 250ml.bag @ 12 UNITS/KG/HR 8.709 mls/hr IV .Q24H [facility] Rx#: [id number] Oral 118 Other: # Voids 2 Weight 72.575 kg Results CBC & Chem 7: 11/16/24 13:38 11/16/24 13:38 Labs: Abnormal Lab Results - Last 24 Hours (Table) 11/16/24 11/16/24 11/16/24 Range/Units 13:38 13:38 13:38 WBC 15.0 H (3.8-10.6) k/uL Neutrophils # 12.6 H (1.3-7.7) k/uL Lymphocytes # 0.9 L (1.0-4.8) k/uL APTT 21.5 L (22.0-30.0) sec Sodium 135 L (137-145) mmol/L Chloride 95 L (98-107) mmol/L BUN 21 H (9-20) mg/dL Glucose 111 H (74-99) mg/dL POC Glucose (mg/dL) (70-110) mg/dL Plasma Lactic Acid Kareem (0.7-2.0) mmol/L Calcium 12.6 H (8.4-10.2) mg/dL 11/16/24 11/17/24 11/17/24 Range/Units 13:38 06:01 07:53 WBC (3.8-10.6) k/uL Neutrophils # (1.3-7.7) k/uL Lymphocytes # (1.0-4.8) k/uL APTT 147.3 H* (22.0-30.0) sec Sodium (137-145) mmol/L Chloride (98-107) mmol/L BUN (9-20) mg/dL Glucose (74-99) mg/dL POC Glucose (mg/dL) 153 H (70-110) mg/dL Plasma Lactic Acid Kareem 2.3 H* (0.7-2.0) mmol/L Calcium (8.4-10.2) mg/dL Thrombosis Risk Factor Assmnt - Choose All That Apply Any of the Below Risk Factors Present?: Yes Each Factor Represents 1 point: Abnormal pulmonary function (COPD) Each Risk Factor Represents 2 Points: Age 61-74 years Thrombosis Risk Factor Assessment Total Risk Factor Score: 3 Thrombosis Risk Factor Assessment Level: Moderate Risk
--- NOTE | 2024-11-17 14:26 | P.CNPUL ---
History of Present Illness Consult date: 11/16/24 History of present illness: 69-year-old male patient, came to emergency department because of increased shortness of breath, symptoms of URI and cough. The patient is a congested cough. He was unable to bring up much sputum. No reported chest pain. No hemoptysis. No pleurisy. No swelling lower extremities. He is known to have COPD. He is a chronic smoker. He has hypertension peripheral vascular disease with previous stenting in his lower extremities maintained on long-term anticoagulation with Xarelto. He also had a noted scalp mass on previous admissions in his head and further investigation with a CT scan of the chest showed evidence of a right hilar mass encasing the pulmonary artery and extending to the mediastinum and the patient also had pathologic mediastinal lymphadenopathy and the findings were highly suspicious for malignancy. Based on that, I performed a bronchoscopy and endobronchial ultrasound and transbronchial needle aspirate of station 7 lymph node was consistent with non- small cell lung cancer features of squamous cell carcinoma. Noted the patient also had a outpatient PET/CT that was done on 10/19/2024 showing abnormal osseous lesions involving the right frontal calvarium and the left anterior C1 ring involvement in addition to abnormal thoracic lymphadenopathy and right hilar uptake. MRI of the brain showed a right frontal enhancing calvarial destructive lesions. Based on those findings, the patient was referred to medical oncology. He completed palliative radiation therapy to the calvarial lesion and NGS and PD-L1 analysis was requested in addition to circulating tumor DNA analysis for targetable mutation. To my knowledge, the patient has not started systemic treatment yet. His current labs show a white cell count of 15, hemoglobin 13.1 and a platelet count of 424. Sodium is at 135, BUN is 21 with a creatinine of 1.1. Serum bicarb is at 30, chloride 95, potassium level is at 4.2. Lactic acid level is at 2.3. The viral screen has been negative. proBNP level was 1390. His previous echocardiogram was done on 10/22/2024 indicating a preserved LV function with an ejection fraction of 55 to 60%. No significant valvular abnormalities. Review of Systems CONSTITUTIONAL: Denies any recent significant weight loss or weight gain. EYES: Denies change in vision. EARS, NOSE, MOUTH, THROAT: Positive for facial swelling and headaches, hoarseness. CARDIOVASCULAR: Denies chest pain, palpitations or syncopal episodes. RESPIRATORY: Positive for shortness of breath, cough, congestion or hemoptysis. GASTROINTESTINAL: Denies change in appetite, denies abdominal pain GENITOURINARY: Denies hematuria, denies infections. MUSKULOSKELETAL: Positive for headache, scalp pain, neck pain. INTEGUMENTARY: Denies rash, denies eczema. NEUROLOGICAL: Denies recent memory loss, no recent seizure activity. PSYCHIATRIC: Denies anxiety, denies depression. HEMATOLOGIC/LYMPHATIC: Denies anemia, denies enlarged lymph nodes. Past Medical History Past Medical History: Cancer, COPD, Hyperlipidemia, Hypertension, Vascular Disorder Additional Past Medical History / Comment(s): Edema left lower leg and foot, uses oxygen PRN, poor circulation. History of Any Multi-Drug Resistant Organisms: None Reported Past Surgical History: Hernia Repair, Orthopedic Surgery Additional Past Surgical History / Comment(s): Leg stents placed, right shoulder rotator cuff repair, 07/23/20 surgery in [place] for leg blockages, "groin" hernia surgery X2, left leg arthrectomy and stent to SFA 03/18. Past Anesthesia/Blood Transfusion Reactions: No Reported Reaction Date of Last Stent Placement:: 09/16/21 Past Psychological History: No Psychological Hx Reported Smoking Status: Current every day smoker Past Alcohol Use History: None Reported Past Drug Use History: None Reported - Past Family History Mother Family Medical History: Cancer Father Family Medical History: Cancer Medications and Allergies Home Medications Medication Instructions Recorded Confirmed Type Albuterol Sulfate [Ventolin HFA] 2 puff INHALATION RT-Q6H PRN 08/20/20 11/16/24 History Ipratropium-Albuterol Nebulize 3 ml INHALATION RT-QID 08/20/20 11/16/24 History [Duoneb 0.5 mg-3 mg/3 ml Soln] Montelukast [Singulair] 10 mg PO DAILY 08/20/20 11/16/24 History amLODIPine [Norvasc] 10 mg PO DAILY 08/20/20 11/16/24 History HYDROcodone/APAP 10-325MG [[place] 1 tab PO Q4H PRN 09/14/21 11/16/24 History 10-325] Atorvastatin Calcium [Lipitor] 40 mg PO HS 02/28/23 11/16/24 History Rivaroxaban [Xarelto] 2.5 mg PO BID 02/28/23 11/16/24 History Ammonium Lactate Cream [Lac-Hydrin 1 applic TOPICAL DAILY 10/20/24 11/16/24 History 12% Cream] Allergies Allergy/AdvReac Type Severity Reaction Status Date / Time Tetracyclines Allergy Unknown Verified 11/16/24 14:34 Childhood Physical Exam Vitals: Vital Signs Temp Pulse Resp BP Pulse Ox 11/16/24 16:39 113 H 20 145/85 96 11/16/24 16:25 96 11/16/24 16:13 90 11/16/24 14:51 94 11/16/24 14:30 90 11/16/24 13:18 24 11/16/24 13:11 97.8 F 112 H 22 181/106 95 Intake and Output 11/16/24 11/16/24 11/16/24 06:59 14:59 22:59 Other: Weight 72.575 kg GENERAL EXAM: Alert, pleasant 69-year-old male, on room air, fairly comfortable in no apparent distress. The patient is currently on room air oxygen HEAD: Palpable scalp lesion over the right anterior skull. Some facial edema over his eyes. EYES: Normal reaction of pupils, equal size. NOSE: Clear with pink turbinates. THROAT: No erythema or exudates. NECK: No palpable mass or lymphadenopathy. CHEST: No chest wall deformity. LUNGS: Equal air entry with coarse scattered rhonchi. CVS: S1 and S2 normal with no audible murmur, regular rhythm. ABDOMEN: No hepatosplenomegaly, normal bowel sounds, no guarding or rigidity. SPINE: No scoliosis or deformity SKIN: No rashes CENTRAL NERVOUS SYSTEM: No focal deficits, tone is normal in all 4 extremities. EXTREMITIES: There is no peripheral edema. No clubbing, no cyanosis. Peripheral pulses are intact. Results - Laboratory Findings CBC and BMP: 11/16/24 13:38 11/16/24 13:38 PT/INR, D-dimer PT 11.0 sec (10.0-12.5) 11/16/24 13:38 INR 1.0 (<1.2) 11/16/24 13:38 Abnormal lab findings: Abnormal Labs 11/16/24 11/16/24 11/16/24 13:38 13:38 13:38 WBC 15.0 H Neutrophils # 12.6 H Lymphocytes # 0.9 L APTT 21.5 L Sodium 135 L Chloride 95 L BUN 21 H Glucose 111 H Plasma Lactic Acid Kareem Calcium 12.6 H 11/16/24 13:38 WBC Neutrophils # Lymphocytes # APTT Sodium Chloride BUN Glucose Plasma Lactic Acid Kareem 2.3 H* Calcium Assessment and Plan Plan: Acute COPD exacerbation with secondary shortness of breath. Chest x-ray is consistent with a right hilar mass and COPD. The chest x-ray shows no airspace disease. No consolidation. The patient is currently on 2 L of oxygen by nasal cannula. Metastatic squamous cell carcinoma of the lungs. The patient had a CT scan of the brain on October 03, 2024 that revealed no acute intracranial process. There was a 3.7 cm destructive lesion high right frontal calvarium. A PET scan from October 19, 2024 revealed abnormal osseous lesions involving the high right frontal calvarium and the left anterior C1 ring. There is abnormal thoracic lymph nodes including a right hilar mass or neoplasm. Bronchoscopy endobronchi al ultrasound done on 10/25/2024 and biopsy of the subcarinal station 7 lymph node was consistent with squamous cell carcinoma, lung primary. Patient completed radiation therapy to his calvarium and systemic treatment has not been initiated yet pending circulating tumor DNA markers, PD-L1 and NGS analysis. Hoarseness suspect secondary to right pharyngeal nerve involvement Chronic and ongoing tobacco dependence Peripheral vascular disease with multiple stent placements, anticoagulated off Xarelto Chronic obstructive pulmonary disease Hyperlipidemia Hypertension Plan: Clinically stable Currently stable on 2 L of oxygen by nasal cannula Continue DuoNeb inhalations Continue IV Solu-Medrol May resume anticoagulation and the patient has been maintained on Xarelto on outpatient basis Educated regarding smoking cessation Viral screen has been negative Chest x-ray shows no acute abnormalities Will continue to follow. Will consult oncology.
--- NOTE | 2024-11-17 14:29 | P.PN ---
Subjective Progress Note Date: 11/17/24 69-year-old male patient, came to emergency department because of increased shortness of breath, symptoms of URI and cough. The patient is a congested cough. He was unable to bring up much sputum. No reported chest pain. No hemoptysis. No pleurisy. No swelling lower extremities. He is known to have COPD. He is a chronic smoker. He has hypertension peripheral vascular disease with previous stenting in his lower extremities maintained on long-term anticoagulation with Xarelto. He also had a noted scalp mass on previous admissions in his head and further investigation with a CT scan of the chest showed evidence of a right hilar mass encasing the pulmonary artery and extending to the mediastinum and the patient also had pathologic mediastinal lymphadenopathy and the findings were highly suspicious for malignancy. Based on that, I performed a bronchoscopy and endobronchial ultrasound and transbronchial needle aspirate of station 7 lymph node was consistent with non- small cell lung cancer features of squamous cell carcinoma. Noted the patient also had a outpatient PET/CT that was done on 10/19/2024 showing abnormal osseous lesions involving the right frontal calvarium and the left anterior C1 ring involvement in addition to abnormal thoracic lymphadenopathy and right hilar uptake. MRI of the brain showed a right frontal enhancing calvarial destructive lesions. Based on those findings, the patient was referred to medical oncology. He completed palliative radiation therapy to the calvarial lesion and NGS and PD-L1 analysis was requested in addition to circulating tumor DNA analysis for targetable mutation. To my knowledge, the patient has not started systemic treatment yet. His current labs show a white cell count of 15, hemoglobin 13.1 and a platelet count of 424. Sodium is at 135, BUN is 21 with a creatinine of 1.1. Serum bicarb is at 30, chloride 95, potassium level is at 4.2. Lactic acid level is at 2.3. The viral screen has been negative. proBNP level was 1390. His previous echocardiogram was done on 10/22/2024 indicating a preserved LV function with an ejection fraction of 55 to 60%. No significant valvular abnormalities. On 11/17/2024, the patient is being seen for a follow-up. The patient is feeling better and less short of breath compared to yesterday. Seems to be less bronchospastic and wheezy. He remains on oxygen at 2 L/min nasal cannula with a pulse ox of 96%. No altered mentation. No signs of any CO2 narcosis. He did encounter atrial fibrillation with rapid ventricular response. He is converted into sinus rhythm again and the patient was started on Cardizem 30 mg p.o. 3 times daily. Remains on DuoNeb updrafts. Remains on IV Solu-Medrol 60 mg every 6 hours. He is also on anticoagulation with Xarelto. No new labs are available from today. His viral 4 Plex was negative. Objective - Vital Signs Vital signs: Vital Signs Temp 97.7 F 11/17/24 11:40 Pulse 71 11/17/24 11:40 Resp 19 11/17/24 11:40 BP 153/70 11/17/24 11:40 Pulse Ox 96 11/17/24 11:40 FiO2 Intake & Output 11/16/24 11/17/24 11/17/24 18:59 06:59 18:59 Intake Total 164.076 197.831 Balance 164.076 197.831 Weight 72.575 kg 72.575 kg Intake: Intake, IV Titration 164.076 79.831 Amount Diltiazem 125 mg In 109.5 Sodium Chloride 0.9% 100 ml @ 10 MG/HR 10 mls/hr IV .[id number] LINDY Rx#: [id number] Heparin Sod,Pork in 0.45% 54.576 79.831 NaCl 25,000 unit In 0.45 % NaCl 1 250ml.bag @ 12 UNITS/KG/HR 8.709 mls/hr IV .Q24H LINDY Rx#: [id number] Oral 118 Other: # Voids 2 - Exam GENERAL EXAM: Alert, pleasant 69-year-old male, on room air, fairly comfortable in no apparent distress. The patient is currently on 2 L of oxygen by nasal cannula HEAD: Palpable scalp lesion over the right anterior skull. Some facial edema over his eyes. EYES: Normal reaction of pupils, equal size. NOSE: Clear with pink turbinates. THROAT: No erythema or exudates. NECK: No palpable mass or lymphadenopathy. CHEST: No chest wall deformity. LUNGS: Equal air entry with coarse scattered rhonchi. CVS: S1 and S2 normal with no audible murmur, regular rhythm. ABDOMEN: No hepatosplenomegaly, normal bowel sounds, no guarding or rigidity. SPINE: No scoliosis or deformity SKIN: No rashes CENTRAL NERVOUS SYSTEM: No focal deficits, tone is normal in all 4 extremities. EXTREMITIES: There is no peripheral edema. No clubbing, no cyanosis. Peripheral pulses are intact. - Labs CBC & Chem 7: 11/16/24 13:38 11/16/24 13:38 Labs: Abnormal Lab Results - Last 24 Hours (Table) 11/16/24 11/17/24 11/17/24 Range/Units 13:38 06:01 07:53 APTT 21.5 L 147.3 H* (22.0-30.0) sec POC Glucose (mg/dL) 153 H (70-110) mg/dL 11/17/24 Range/Units 11:45 APTT (22.0-30.0) sec POC Glucose (mg/dL) 128 H (70-110) mg/dL Assessment and Plan Plan: Acute COPD exacerbation with secondary shortness of breath. Chest x-ray is consistent with a right hilar mass and COPD. The chest x-ray shows no airspace disease. No consolidation. The patient is currently on 2 L of oxygen by nasal cannula. Clinically improving compared to yesterday Acute hypoxic charisma failure currently on 2 L of oxygen by nasal cannula Metastatic squamous cell carcinoma of the lungs. The patient had a CT scan of the brain on October 03, 2024 that revealed no acute intracranial process. There was a 3.7 cm destructive lesion high right frontal calvarium. A PET scan from October 19, 2024 revealed abnormal osseous lesions involving the high right frontal calvarium and the left anterior C1 ring. There is abnormal thoracic lymph nodes including a right hilar mass or neoplasm. Bronchoscopy endobronchial ultrasound done on 10/25/2024 and biopsy of the subcarinal station 7 lymph node was consistent with squamous cell carcinoma, lung primary. Patient completed radiation therapy to his calvarium and systemic treatment has not been initiated yet pending circulating tumor DNA markers, PD-L1 and NGS analysis. Paroxysmal atrial fibrillation, current rhythm is sinus and the patient is currently on Xarelto and Cardizem Hoarseness suspect secondary to right pharyngeal nerve involvement Chronic and ongoing tobacco dependence Peripheral vascular disease with multiple stent placements, anticoagulated off Xarelto Chronic obstructive pulmonary disease Hyperlipidemia Hypertension Plan: Clinically stable Currently stable on 2 L of oxygen by nasal cannula Continue DuoNeb inhalations Continue IV Solu-Medrol Continue Cardizem Continue Xarelto Educated regarding smoking cessation Viral screen has been negative Chest x-ray shows no acute abnormalities Will continue to follow. Will consult oncology. Time with Patient: Greater than 30
[2024-11-17 16:34] LABS: Glucose,Whole Blood 145 mg/dL (70-110)
[2024-11-17] MEDS: RIVAROXABAN 20 MG TAB PO SCH (17:15)
[2024-11-17] MEDS: HYDROcodone/APAP 10-325MG 1 EACH TAB PO PRN (17:21)
[2024-11-17 20:09] LABS: Glucose,Whole Blood 152 mg/dL (70-110)
[2024-11-18 05:56] LABS: Glucose,Whole Blood 142 mg/dL (70-110)
[2024-11-18] MEDS: DILTIAZEM ORAL 30 MG TAB PO STA (10:43)
[2024-11-18 12:11] LABS: Glucose,Whole Blood 189 mg/dL (70-110)
[2024-11-18] MEDS: METOPROLOL TARTRATE 25 MG TAB PO SCH (12:19)
--- NOTE | 2024-11-18 12:27 | P.PN ---
Subjective HISTORY OF PRESENT ILLNESS: This is a 69-year-old male with a past medical history significant for metastatic non-small cell carcinoma, coronary artery disease, cardiomyopathy with recovered EF, peripheral arterial disease with previous lower extremity intervention, carotid stenosis, hypertension, hyperlipidemia, and nicotine dependence. Patient follows in the office with Dr. Rizo. We have been asked to see the patient in consultation for A-fib with RVR. Patient examined at the bedside. Patient presented to the hospital yesterday with a chief complaint of shortness of breath. Patient denies any chest pain or pressure. He denied having a cough. EKG on admission revealed sinus tachycardia. However repeat EKG revealed A-fib/flutter with RVR. Patient was started on IV heparin and IV Cardizem. It is noted that the patient was hospitalized in September 2024. At that time the patient was noted to be in A-fib with RVR and he was started on Xarelto 20 mg daily. However according to his home medication list, he is not taking this. When patient was asked about it this morning he is unsure of his home medications. DIAGNOSTICS: - EKG reveals sinus tachycardia. Repeat EKG reveals A-fib/flutter with RVR - Chest xray chronic changes without acute pulmonary process. No significant change from prior.. - Laboratory data: WBC 15.0. Hemoglobin 13.1. Platelet count 424. Sodium 135. Potassium 4.2. BUN 21. Creatinine 1.10. proBNP 1390. - Current home cardiac medications include Xarelto 2.5 mg twice a day, amlodipine 10 mg daily, Lipitor 40 mg at night - Most recent echocardiogram obtained in September 2024 revealed ejection fraction 55 to 60% with no significant valvular abnormalities noted. - Cardiac catheterization history: July 2021 revealing minimal CAD 11/18/2024 Patient examined this morning at the bedside. Patient currently denies chest pain or pressure. He continues to report shortness of breath. Patient went back into atrial fibrillation with RVR. Telemetry at the time of examination reveals A-fib with heart rate around 120. PHYSICAL EXAM: VITAL SIGNS: Reviewed. GENERAL: Well-developed in no acute distress. HEENT: Head is normocephalic. Pupils are equal, round. Sclerae anicteric. Mucous membranes of the mouth are moist. Neck supple. No JVD or thyromegaly LUNGS: Respirations even and unlabored. Lungs with diffuse rhonchi and wheezing throughout. HEART: Tachycardic. Irregular rate and rhythm. S1 and S2 heard. Soft systolic murmur noted. ABDOMEN: Soft. Nondistended. Nontender. EXTREMITIES: Normal range of motion. No clubbing or cyanosis. Peripheral pulses intact. No lower extremity edema NEUROLOGIC: Awake and alert. Oriented x 3. ASSESSMENT: Shortness of breath Acute COPD exacerbation Status post bronchoscopy 10/25/2024 with pathology positive for metastatic non- small cell carcinoma Paroxysmal atrial fibrillation/typical atrial flutter with RVR Peripheral arterial disease with previous lower extremity intervention, most recently [employer] of left SFA, June 2024 Known occluded external iliac History of aortic stent grafting Minimal CAD, per cath 2020 Carotid stenosis Hypertension Hyperlipidemia Nicotine dependence, patient still smoking 2 to 3 cigarettes a day PLAN: No need to repeat echocardiogram as this was performed in September 2024 Continue anticoagulation with Xarelto Increase oral Cardizem to 60 mg 3 times daily Add metoprolol to tartrate 25 mg twice daily Continue telemetry monitoring Continue to monitor blood pressure Further recommendations pending patient course Nurse practitioner note has been reviewed by physician. Signing provider agrees with the documented findings, assessment, and plan of care documented by [employer] UP OPERATOR JIG as a scribe. Objective - Vital Signs Vital signs: Vital Signs Temp 98.2 F 11/18/24 08:10 Pulse 118 H 11/18/24 11:46 Resp 18 11/18/24 08:10 BP 116/66 11/18/24 08:10 Pulse Ox 97 11/18/24 08:10 FiO2 Intake & Output 11/17/24 11/18/24 11/18/24 18:59 06:59 18:59 Intake Total 315.831 240 Balance 315.831 240 Weight 63.1 kg Intake: Intake, IV Titration 79.831 Amount Heparin Sod,Pork in 0.45% 79.831 NaCl 25,000 unit In 0.45 % NaCl 1 250ml.bag @ 12 UNITS/KG/HR 8.709 mls/hr IV .Q24H [facility]IND[facility] Rx#: [id number] Oral 236 240 Other: # Voids 2 - Labs CBC & Chem 7: 11/16/24 13:38 11/16/24 13:38 Labs: Abnormal Lab Results - Last 24 Hours (Table) 11/17/24 11/17/24 11/18/24 Range/Units 16:32 20:08 05:54 POC Glucose (mg/dL) 145 H 152 H 142 H (70-110) mg/dL 11/18/24 Range/Units 12:09 POC Glucose (mg/dL) 189 H (70-110) mg/dL Microbiology - Last 24 Hours (Table) 11/16/24 13:38 Blood Culture - Preliminary Blood
--- NOTE | 2024-11-18 14:23 | P.PN ---
Subjective Progress Note Date: 11/18/24 69-year-old male patient, came to emergency department because of increased shortness of breath, symptoms of URI and cough. The patient is a congested cough. He was unable to bring up much sputum. No reported chest pain. No hemoptysis. No pleurisy. No swelling lower extremities. He is known to have COPD. He is a chronic smoker. He has hypertension peripheral vascular disease with previous stenting in his lower extremities maintained on long-term anticoagulation with Xarelto. He also had a noted scalp mass on previous admissions in his head and further investigation with a CT scan of the chest showed evidence of a right hilar mass encasing the pulmonary artery and extending to the mediastinum and the patient also had pathologic mediastinal lymphadenopathy and the findings were highly suspicious for malignancy. Based on that, I performed a bronchoscopy and endobronchial ultrasound and transbronchial needle aspirate of station 7 lymph node was consistent with non- small cell lung cancer features of squamous cell carcinoma. Noted the patient also had a outpatient PET/CT that was done on 10/19/2024 showing abnormal osseous lesions involving the right frontal calvarium and the left anterior C1 ring involvement in addition to abnormal thoracic lymphadenopathy and right hilar uptake. MRI of the brain showed a right frontal enhancing calvarial destructive lesions. Based on those findings, the patient was referred to medical oncology. He completed palliative radiation therapy to the calvarial lesion and NGS and PD-L1 analysis was requested in addition to circulating tumor DNA analysis for targetable mutation. To my knowledge, the patient has not started systemic treatment yet. His current labs show a white cell count of 15, hemoglobin 13.1 and a platelet count of 424. Sodium is at 135, BUN is 21 with a creatinine of 1.1. Serum bicarb is at 30, chloride 95, potassium level is at 4.2. Lactic acid level is at 2.3. The viral screen has been negative. proBNP level was 1390. His previous echocardiogram was done on 10/22/2024 indicating a preserved LV function with an ejection fraction of 55 to 60%. No significant valvular abnormalities. On 11/17/2024, the patient is being seen for a follow-up. The patient is feeling better and less short of breath compared to yesterday. Seems to be less bronchospastic and wheezy. He remains on oxygen at 2 L/min nasal cannula with a pulse ox of 96%. No altered mentation. No signs of any CO2 narcosis. He did encounter atrial fibrillation with rapid ventricular response. He is converted into sinus rhythm again and the patient was started on Cardizem 30 mg p.o. 3 times daily. Remains on DuoNeb updrafts. Remains on IV Solu-Medrol 60 mg every 6 hours. He is also on anticoagulation with Xarelto. No new labs are available from today. His viral 4 Plex was negative. On 11/21/2024, the patient is being seen for a follow-up. This patient is weak, short of breath, continues to have some cough congestion. No hemoptysis. No pleurisy. He has metastatic squamous cell carcinoma and has received radiation therapy to his bony metastases on his head. No systemic treatment yet. Remains on 2 L of oxygen by nasal cannula. Remains on bronchodilators and steroids. No new complaints otherwise for now. He is quite debilitated. Hemodynamically stable. Denies having any chest pain. He remains in atrial fibrillation. Slightly tachycardic and cardiology on the case. He is still on anticoagulation with Xarelto. He is also on Cardizem and dose has been increased up to 60 mg p.o. 3 times daily and the patient was also started on metoprolol 25 mg p.o. twice a day. He is on a telemetry monitoring. Objective - Vital Signs Vital signs: Vital Signs Temp 98.2 F 11/18/24 08:10 Pulse 78 11/18/24 08:14 Resp 18 11/18/24 08:10 BP 116/66 11/18/24 08:10 Pulse Ox 97 11/18/24 08:10 FiO2 Intake & Output 11/17/24 11/18/24 11/18/24 18:59 06:59 18:59 Intake Total 315.831 240 Balance 315.831 240 Weight 63.1 kg Intake: Intake, IV Titration 79.831 Amount Heparin Sod,Pork in 0.45% 79.831 NaCl 25,000 unit In 0.45 % NaCl 1 250ml.bag @ 12 UNITS/KG/HR 8.709 mls/hr IV .Q24H [facility] Rx#: [id number] Oral 236 240 Other: # Voids 2 - Exam GENERAL EXAM: Alert, pleasant 69-year-old male, on room air, fairly comfortable in no apparent distress. The patient is currently on 2 L of oxygen by nasal cannula HEAD: Palpable scalp lesion over the right anterior skull. Some facial edema over his eyes. EYES: Normal reaction of pupils, equal size. NOSE: Clear with pink turbinates. THROAT: No erythema or exudates. NECK: No palpable mass or lymphadenopathy. CHEST: No chest wall deformity. LUNGS: Equal air entry with coarse scattered rhonchi. CVS: S1 and S2 are irregular consistent with atrial fibrillation with no audible murmur, irregular rhythm. ABDOMEN: No hepatosplenomegaly, normal bowel sounds, no guarding or rigidity. SPINE: No scoliosis or deformity SKIN: No rashes CENTRAL NERVOUS SYSTEM: No focal deficits, tone is normal in all 4 extremities. EXTREMITIES: There is no peripheral edema. No clubbing, no cyanosis. Peripheral pulses are intact. - Labs CBC & Chem 7: 11/16/24 13:38 11/16/24 13:38 Labs: Abnormal Lab Results - Last 24 Hours (Table) 11/17/24 11/17/24 11/17/24 Range/Units 11:45 16:32 20:08 POC Glucose (mg/dL) 128 H 145 H 152 H (70-110) mg/dL 11/18/24 Range/Units 05:54 POC Glucose (mg/dL) 142 H (70-110) mg/dL Microbiology - Last 24 Hours (Table) 11/16/24 13:38 Blood Culture - Preliminary Blood Assessment and Plan Plan: Acute COPD exacerbation with secondary shortness of breath. Chest x-ray is consistent with a right hilar mass and COPD. The chest x-ray shows no airspace disease. No consolidation. The patient is currently on 2 L of oxygen by nasal cannula. Clinically improving, yet slowly Acute hypoxic respiratory failure currently on 2 L of oxygen by nasal cannula Metastatic squamous cell carcinoma of the lungs. The patient had a CT scan of the brain on October 03, 2024 that revealed no acute intracranial process. There was a 3.7 cm destructive lesion high right frontal calvarium. A PET scan from October 19, 2024 revealed abnormal osseous lesions involving the high right frontal calvarium and the left anterior C1 ring. There is abnormal thoracic lymph nodes including a right hilar mass or neoplasm. Bronchoscopy endobronchial ultrasound done on 10/25/2024 and biopsy of the subcarinal station 7 lymph node was consistent with squamous cell carcinoma, lung primary. Patient completed radiation therapy to his calvarium and systemic treatment has not been initiated yet pending circulating tumor DNA markers, PD-L1 and NGS analysis. Paroxysmal atrial fibrillation, patient is currently on a combination of metoprolol 25 mg p.o. twice daily, Cardizem 60 mg p.o. 3 times daily and anticoagulation with Xarelto. Hoarseness suspect secondary to right pharyngeal nerve involvement Chronic and ongoing tobacco dependence Peripheral vascular disease with multiple stent placements, anticoagulated off Xarelto Chronic obstructive pulmonary disease Hyperlipidemia Hypertension Plan: Clinically stable Currently stable on 2 L of oxygen by nasal cannula Continue DuoNeb inhalations Continue IV Solu-Medrol Continue Cardizem dose has been modified to 60 mg 3 times daily and the patient was started on metoprolol 25 mg p.o. twice a day Continue Xarelto Educated regarding smoking cessation Viral screen has been negative Chest x-ray shows no acute abnormalities Will continue to follow. Will consult oncology. Time with Patient: Greater than 30
--- NOTE | 2024-11-18 14:34 | P.PN ---
Subjective Progress Note Date: 11/18/24 patient is a 69-year-old gentleman with past medical history significant for COPD, metastatic squamous cell carcinoma, peripheral artery disease within the ER because of shortness of breath patient stated that he was all right 1 week back and started having shortness of breath and cough. Cough is nonproductive, shortness of breath is present at rest as on exertion. He denies any chest pain. There is no current fever or chills. Patient was admitted to the hospital in the end of September, beginning of October at which time patient was seen by oncology, pulmonary, patient had bronchoscopy with endobronchial ultrasound and mediastinal sampling lymph node was done, biopsies showing metastatic squamous cell carcinoma. Because of this shortness of breath, patient came to the ER Initial lab work done in the ER showed WBC 15, hemoglobin 13.1, platelet count 424, sodium 139, potassium 4.2, BUN 21, creatinine 1.10, glucose 111, lactate 2.3, calcium 12.6 Influenza A not detected Influenza B not detected RSV not detected COVID-19 not detected EKG done in the ER showed heart rate of 103, no ST segment elevation or depression seen, no T-wave inversions seen. Chest x-ray done in the ERShowed chronic changes without acute pulm process Patient admitted to internal medicine service 11/18. Patient seen and examined. Patient is having a lot of congestion today. Patient also very agitated and kind of restless. Denies any chest pain. Denies shortness of breath REVIEW OF SYSTEMS: CONSTITUTIONAL: No fever, no malaise,. CARDIOVASCULAR: No chest pain, no palpitations, no syncope. PULMONARY: as mentioned above GASTROINTESTINAL: No diarrhea, no nausea, no vomiting, no abdominal pain. NEUROLOGICAL: No headaches, no weakness, PHYSICAL EXAMINATION: GENERAL: The patient is alert, ill looking HEENT: Pupils are round and equally reacting to light. EOMI. No scleral icterus. No conjunctival pallor. Normocephalic, atraumatic. No pharyngeal erythema. No thyromegaly. CARDIOVASCULA coarse breath sound bilaterally, expiratory rhonchi audible bilaterally ABDOMEN: Soft, nontender, nondistended, normoactive bowel sounds. No palpable organomegaly. MUSCULOSKELETAL: No joint swelling or deformity. EXTREMITIES: No cyanosis, clubbing, or pedal edema. NEUROLOGICAL: Gross neurological examination did not reveal any focal deficits. SKIN: No rashes. Assessment and plan Acute COPD exacerbation Lactic acidosis Hypercalcemia Paroxysmal A-fib/atrial flutter with RVR, currently in NSR Metastatic squamous cell carcinoma 3.7 cm destructive lesion high right frontal calvarium Hoarseness suspect secondary to right pharyngeal nerve involvement Chronic and ongoing tobacco dependence Peripheral vascular disease with multiple stent placements, anticoagulated with Xarelto Chronic obstructive pulmonary disease Hyperlipidemia Hypertension Monitor vital signs Monitor CBC Monitor CMP Continue telemetry monitoring Aggressive bronchopulmonary hygiene Continue oxygen supplementation Dose of Cardizem increased to 60 mg 3 times daily, metoprolol added Continue Xarelto continue IV Solu-Medrol Pulmonology following Cardiology following Labs and medication were reviewed.. Continue same treatment. Continue with symptomatic treatment. Resume home medication. Monitor labs and vitals. DVT and GI prophylaxis. Further recommendations as per clinical course of the patient Dictation was produced using [employer] dictation software. please excuse any grammatical, word or spelling errors. Objective - Vital Signs Vital signs: Vital Signs Temp 98.2 F 11/18/24 12:00 Pulse 92 11/18/24 12:00 Resp 18 11/18/24 12:00 BP 143/83 11/18/24 12:00 Pulse Ox 94 L 11/18/24 12:00 FiO2 Intake & Output 11/17/24 11/18/24 11/18/24 18:59 06:59 18:59 Intake Total 315.831 240 Balance 315.831 240 Weight 63.1 kg Intake: Intake, IV Titration 79.831 Amount Heparin Sod,Pork in 0.45% 79.831 NaCl 25,000 unit In 0.45 % NaCl 1 250ml.bag @ 12 UNITS/KG/HR 8.709 mls/hr IV .Q24H [facility] Rx#: [id number] Oral 236 240 Other: # Voids 2 # Bowel Movements 0 - Labs CBC & Chem 7: 11/16/24 13:38 11/16/24 13:38 Labs: Abnormal Lab Results - Last 24 Hours (Table) 11/17/24 11/17/24 11/18/24 Range/Units 16:32 20:08 05:54 POC Glucose (mg/dL) 145 H 152 H 142 H (70-110) mg/dL 11/18/24 Range/Units 12:09 POC Glucose (mg/dL) 189 H (70-110) mg/dL Microbiology - Last 24 Hours (Table) 11/16/24 13:38 Blood Culture - Preliminary Blood
[2024-11-18] MEDS: DILTIAZEM ORAL 60 MG TAB PO SCH (15:52)
[2024-11-18] MEDS: OLANZapine ODT 5 MG TAB PO PRN (15:52)
[2024-11-18 16:59] LABS: Glucose,Whole Blood 215 mg/dL (70-110)
[2024-11-18 19:49] LABS: Glucose,Whole Blood 214 mg/dL (70-110)
[2024-11-19] MEDS: HALOPERIDOL LACTATE 5 MG/ML 1 ML VIAL IM STA (02:15)
[2024-11-19] MEDS: IPRATROPIUM-ALBUTEROL 3 ML NEB INHALATION PRN (03:02)
[2024-11-19 06:50] LABS: Glucose,Whole Blood 132 mg/dL (70-110)
--- NOTE | 2024-11-19 08:40 | P.PN ---
Subjective Progress Note Date: 11/19/24 This is a 69-year-old male who presented to the emergency department with complaints of shortness of breath and cough. Patient reports cough is nonproductive and his shortness of breath is present at rest and on exertion. Patient had a recent hospitalization and a bronchoscopy showed metastatic squamous cell carcinoma. Patient has been confused and combative to nursing staff. He currently has a sitter with him. He did receive Haldol during the night last night and is very drowsy this morning. Objective - Vital Signs Vital signs: Vital Signs Temp 97.8 F 11/19/24 03:30 Pulse 71 11/19/24 08:25 Resp 18 11/19/24 08:25 BP 141/56 11/19/24 03:30 Pulse Ox 100 11/19/24 08:25 FiO2 Intake & Output 11/18/24 11/19/24 11/19/24 18:59 06:59 18:59 Intake Total 358 Balance 358 Weight 62 kg Intake: Oral 358 Other: # Voids 3 # Bowel Movements 0 - Constitutional General appearance: Present: no acute distress - EENT Eyes: Present: PERRLA - Neck Neck: Present: normal ROM. Absent: lymphadenopathy, rigidity - Respiratory Respiratory: bilateral: diminished - Cardiovascular Heart sounds: normal: S1, S2 - Gastrointestinal General gastrointestinal: Present: soft. Absent: tenderness - Integumentary Integumentary: Present: normal, normal turgor - Musculoskeletal Musculoskeletal: Present: generalized weakness - Psychiatric Psychiatric Comment(s): drowsy - Labs CBC & Chem 7: 11/16/24 13:38 11/16/24 13:38 Labs: Abnormal Lab Results - Last 24 Hours (Table) 11/18/24 11/18/24 11/18/24 Range/Units 12:09 16:58 19:48 POC Glucose (mg/dL) 189 H 215 H 214 H (70-110) mg/dL 11/19/24 Range/Units 06:49 POC Glucose (mg/dL) 132 H (70-110) mg/dL Microbiology - Last 24 Hours (Table) 11/16/24 13:38 Blood Culture - Preliminary Blood Assessment and Plan (1) Acute exacerbation of chronic obstructive pulmonary disease Current Visit: Yes Status: Acute Priority: High Code(s): J44.1 - CHRONIC OBSTRUCTIVE PULMONARY DISEASE W (ACUTE) EXACERBATION SNOMED Code(s): 079616313 (2) Hypertension Current Visit: No Status: Acute Code(s): I10 - ESSENTIAL (PRIMARY) HYPERTENSION SNOMED Code(s): 35498869 (3) Tobacco abuse Current Visit: No Status: Acute Code(s): Z72.0 - TOBACCO USE SNOMED Cod e(s): 566300690 (4) Dyspnea Current Visit: No Status: Acute Code(s): R06.00 - DYSPNEA, UNSPECIFIED SNOMED Code(s): 897606864 (5) Metastatic squamous cell carcinoma to lung Current Visit: Yes Status: Acute Code(s): C78.00 - SECONDARY MALIGNANT NEOPLASM OF UNSPECIFIED LUNG SNOMED Code(s): 988799389366456 Plan: Check CBC and CMP in the morning. Appreciate multiple consultants. Patient seen and evaluated by nurse practitioner, physician in agreement with plan.
[2024-11-19] MEDS: LORazepam 2 MG/ML INJ IV PRN (09:30)
[2024-11-19 11:27] LABS: Glucose,Whole Blood 174 mg/dL (70-110)
--- NOTE | 2024-11-19 12:46 | P.PN ---
Subjective Progress Note Date: 11/19/24 HISTORY OF PRESENT ILLNESS: This is a 69-year-old male with a past medical history significant for meta static non-small cell carcinoma, coronary artery disease, cardiomyopathy with recovered EF, peripheral arterial disease with previous lower extremity intervention, carotid stenosis, hypertension, hyperlipidemia, and nicotine dependence. Patient follows in the office with Dr. Rizo. We have been asked to see the patient in consultation for A-fib with RVR. Patient examined at the bedside. Patient presented to the hospital yesterday with a chief complaint of shortness of breath. Patient denies any chest pain or pressure. He denied having a cough. EKG on admission revealed sinus tachycardia. However repeat EKG revealed A-fib/flutter with RVR. Patient was started on IV heparin and IV Cardizem. It is noted that the patient was hospitalized in September 2024. At that time the patient was noted to be in A-fib with RVR and he was started on Xarelto 20 mg daily. However according to his home medication list, he is not taking this. When patient was asked about it this morning he is unsure of his home medications. DIAGNOSTICS: - EKG reveals sinus tachycardia. Repeat EKG reveals A-fib/flutter with RVR - Chest xray chronic changes without acute pulmonary process. No significant change from prior.. - Laboratory data: WBC 15.0. Hemoglobin 13.1. Platelet count 424. Sodium 135. Potassium 4.2. BUN 21. Creatinine 1.10. proBNP 1390. - Current home cardiac medications include Xarelto 2.5 mg twice a day, amlodipine 10 mg daily, Lipitor 40 mg at night - Most recent echocardiogram obtained in September 2024 revealed ejection fraction 55 to 60% with no significant valvular abnormalities noted. - Cardiac catheterization history: July 2021 revealing minimal CAD 11/18/2024 Patient examined this morning at the bedside. Patient currently denies chest pain or pressure. He continues to report shortness of breath. Patient went back into atrial fibrillation with RVR. Telemetry at the time of examination reveals A-fib with heart rate around 120. 11/19 Patient seen and examined. Patient had confusion and GERALDINE HINSON was called. He received 1 dose of IM Haldol. Patient is now somnolent during examination. He has a product safety engineer at the bedside. Respiratory status appears to be stable, no respiratory distress noted. Blood pressure 141/56, heart rate 71, pulse ox 100% on 5 L nasal cannula. PHYSICAL EXAM: VITAL SIGNS: Reviewed. GENERAL: Well-developed in no acute distress. HEENT: Head is normocephalic. Pupils are equal, round. Sclerae anicteric. Mucous membranes of the mouth are moist. Neck supple. No JVD or thyromegaly LUNGS: Respirations even and unlabored. Lungs with diffuse rhonchi and wheezing throughout. HEART: Tachycardic. Irregular rate and rhythm. S1 and S2 heard. Soft systolic murmur noted. ABDOMEN: Soft. Nondistended. Nontender. EXTREMITIES: Normal range of motion. No clubbing or cyanosis. Peripheral pulses intact. No lower extremity edema NEUROLOGIC: Patient is somnolent. ASSESSMENT: Shortness of breath Acute COPD exacerbation Status post bronchoscopy 10/25/2024 with pathology positive for metastatic non- small cell carcinoma Paroxysmal atrial fibrillation/typical atrial flutter with RVR Peripheral arterial disease with previous lower extremity intervention, most recently FLEET COORDINATOR of left SFA, June 2024 Known occluded external iliac History of aortic stent grafting Minimal CAD, per cath 2020 Carotid stenosis Hypertension Hyperlipidemia Nicotine dependence, patient still smoking 2 to 3 cigarettes a day PLAN: No need to repeat echocardiogram as this was performed in September 2024 Continue anticoagulation with Xarelto Continue increased dose of oral Cardizem to 60 mg 3 times daily Continue metoprolol tartrate 25 mg twice daily Continue telemetry monitoring Continue to monitor blood pressure Further recommendations pending patient course Nurse practitioner note has been reviewed by physician. Signing provider agrees with the documented findings, assessment, and plan of care documented by CARE MANAGEMENT ASSISTANT as a scribe. Objective - Vital Signs Vital signs: Vital Signs Temp 97.8 F 11/19/24 03:30 Pulse 71 11/19/24 08:34 Resp 1 L 11/19/24 08:34 BP 141/56 11/19/24 03:30 Pulse Ox 100 11/19/24 08:25 FiO2 Intake & Output 11/18/24 11/19/24 11/19/24 18:59 06:59 18:59 Intake Total 358 Balance 358 Weight 62 kg Intake: Oral 358 Other: # Voids 3 # Bowel Movements 0 - Labs CBC & Chem 7: 11/16/24 13:38 11/16/24 13:38 Labs: Abnormal Lab Results - Last 24 Hours (Table) 11/18/24 11/18/24 11/18/24 Range/Units 12:09 16:58 19:48 POC Glucose (mg/dL) 189 H 215 H 214 H (70-110) mg/dL 11/19/24 Range/Units 06:49 POC Glucose (mg/dL) 132 H (70-110) mg/dL Microbiology - Last 24 Hours (Table) 11/16/24 13:38 Blood Culture - Preliminary Blood
[2024-11-19 15:57] LABS: Glucose,Whole Blood 128 mg/dL (70-110)
--- NOTE | 2024-11-19 17:17 | P.PN ---
Subjective Progress Note Date: 11/19/24 69-year-old male patient, came to emergency department because of increased shortness of breath, symptoms of URI and cough. The patient is a congested cough. He was unable to bring up much sputum. No reported chest pain. No hemoptysis. No pleurisy. No swelling lower extremities. He is known to have COPD. He is a chronic smoker. He has hypertension peripheral vascular disease with previous stenting in his lower extremities maintained on long-term anticoagulation with Xarelto. He also had a noted scalp mass on previous admissions in his head and further investigation with a CT scan of the chest showed evidence of a right hilar mass encasing the pulmonary artery and extending to the mediastinum and the patient also had pathologic mediastinal lymphadenopathy and the findings were highly suspicious for malignancy. Based on that, I performed a bronchoscopy and endobronchial ultrasound and transbronchial needle aspirate of station 7 lymph node was consistent with non- small cell lung cancer features of squamous cell carcinoma. Noted the patient also had a outpatient PET/CT that was done on 10/19/2024 showing abnormal osseous lesions involving the right frontal calvarium and the left anterior C1 ring involvement in addition to abnormal thoracic lymphadenopathy and right hilar uptake. MRI of the brain showed a right frontal enhancing calvarial destructive lesions. Based on those findings, the patient was referred to medical oncology. He completed palliative radiation therapy to the calvarial lesion and NGS and PD-L1 analysis was requested in addition to circulating tumor DNA analysis for targetable mutation. To my knowledge, the patient has not started systemic treatment yet. His current labs show a white cell count of 15, hemoglobin 13.1 and a platelet count of 424. Sodium is at 135, BUN is 21 with a creatinine of 1.1. Serum bicarb is at 30, chloride 95, potassium level is at 4.2. Lactic acid level is at 2.3. The viral screen has been negative. proBNP level was 1390. His previous echocardiogram was done on 10/22/2024 indicating a preserved LV function with an ejection fraction of 55 to 60%. No significant valvular abnormalities. On 11/17/2024, the patient is being seen for a follow-up. The patient is feeling better and less short of breath compared to yesterday. Seems to be less bronchospastic and wheezy. He remains on oxygen at 2 L/min nasal cannula with a pulse ox of 96%. No altered mentation. No signs of any CO2 narcosis. He did encounter atrial fibrillation with rapid ventricular response. He is converted into sinus rhythm again and the patient was started on Cardizem 30 mg p.o. 3 times daily. Remains on DuoNeb updrafts. Remains on IV Solu-Medrol 60 mg every 6 hours. He is also on anticoagulation with Xarelto. No new labs are available from today. His viral 4 Plex was negative. On 11/21/2024, the patient is being seen for a follow-up. This patient is weak, short of breath, continues to have some cough congestion. No hemoptysis. No pleurisy. He has metastatic squamous cell carcinoma and has received radiation therapy to his bony metastases on his head. No systemic treatment yet. Remains on 2 L of oxygen by nasal cannula. Remains on bronchodilators and steroids. No new complaints otherwise for now. He is quite debilitated. Hemodynamically stable. Denies having any chest pain. He remains in atrial fibrillation. Slightly tachycardic and cardiology on the case. He is still on anticoagulation with Xarelto. He is also on Cardizem and dose has been increased up to 60 mg p.o. 3 times daily and the patient was also started on metoprolol 25 mg p.o. twice a day. He is on a telemetry monitoring. The patient is seen today November 19, 2024 in follow-up on the selective care unit. He is currently resting in bed. Awake and alert in no acute distress. He is maintaining O2 saturations in the 90s on 2.5 L/min per nasal cannula. He is confused at times. He was somebody combative with staff requiring a code ponce be called on him this morning. He required Haldol and Ativan today. A sleeve setter safety stitch is at the bedside. Cultures revealed no growth. Blood glucose 128. He is continued on DuoNeb inhalations, Solu-Medrol and Singulair. Anticoagulated with Xarelto. Objective - Vital Signs Vital signs: Vital Signs Temp 97.8 F 11/19/24 03:30 Pulse 77 11/19/24 15:59 Resp 18 11/19/24 15:59 BP 149/73 11/19/24 12:00 Pulse Ox 98 11/19/24 12:29 FiO2 Intake & Output 11/18/24 11/19/24 11/19/24 18:59 06:59 18:59 Intake Total 358 180 Balance 358 180 Weight 62 kg Intake: Oral 358 180 Other: # Voids 3 # Bowel Movements 0 - Exam GENERAL EXAM: Arousable, 69-year-old male, on 2.5 L nasal cannula, comfortable in no apparent distress. HEAD: Normocephalic. EYES: Normal reaction of pupils, equal size. NOSE: Clear with pink turbinates. THROAT: No erythema or exudates. NECK: No masses, no JVD. CHEST: No chest wall deformity. LUNGS: Equal air entry with bilateral wheeze, diminished. CVS: S1 and S2 normal with no audible murmur, regular rhythm. ABDOMEN: No hepatosplenomegaly, normal bowel sounds, no guarding or rigidity. SPINE: No scoliosis or deformity SKIN: No rashes CENTRAL NERVOUS SYSTEM: No focal deficits, tone is normal in all 4 extremities. EXTREMITIES: There is no peripheral edema. No clubbing, no cyanosis. Peripheral pulses are intact. - Labs CBC & Chem 7: 11/16/24 13:38 11/16/24 13:38 Labs: Abnormal Lab Results - Last 24 Hours (Table) 11/18/24 11/19/24 11/19/24 Range/Units 19:48 06:49 11:25 POC Glucose (mg/dL) 214 H 132 H 174 H (70-110) mg/dL 11/19/24 Range/Units 15:54 POC Glucose (mg/dL) 128 H (70-110) mg/dL Microbiology - Last 24 Hours (Table) 11/16/24 13:38 Blood Culture - Preliminary Blood Assessment and Plan Assessment: Acute COPD exacerbation with secondary shortness of breath. Chest x-ray is consistent with a right hilar mass and COPD. The chest x-ray shows no airspace disease. No consolidation. The patient is currently on 2.5 L of oxygen by nasal cannula. Acute hypoxic respiratory failure currently on 2 L of oxygen by nasal cannula Metastatic squamous cell carcinoma of the lungs. The patient had a CT scan of the brain on October 03, 2024 that revealed no acute intracranial process. There was a 3.7 cm destructive lesion high right frontal calvarium. A PET scan from October 19, 2024 revealed abnormal osseous lesions involving the high right frontal calvarium and the left anterior C1 ring. There is abnormal thoracic lymph nodes including a right hilar mass or neoplasm. Bronchoscopy endobronch ial ultrasound done on 10/25/2024 and biopsy of the subcarinal station 7 lymph node was consistent with squamous cell carcinoma, lung primary. Patient completed radiation therapy to his calvarium and systemic treatment has not been initiated yet pending circulating tumor DNA markers, PD-L1 and NGS analysis. Altered mental status secondary to above Paroxysmal atrial fibrillation, patient is on metoprolol 25 mg p.o. twice daily, Cardizem 60 mg p.o. 3 times daily and anticoagulation with Xarelto. Hoarseness suspect secondary to right pharyngeal nerve involvement Chronic and ongoing tobacco dependence Peripheral vascular disease with multiple stent placements, anticoagulated off Xarelto Chronic obstructive pulmonary disease Hyperlipidemia Hypertension Plan: The patient was seen and evaluated Labs and medications reviewed Confused and combative at times Requiring Haldol and Ativan vocal performer at the bedside Currently on 2-1/2 L nasal cannula Titrate the FiO2 as tolerated Continue bronchodilators We will continue to follow I have personally seen and examined the patient, performed the documentation and the assessment and plan as written. Number of minutes spent on the visit: 10 Dictation was produced using [employer] dictation software. Please excuse any grammatical, word or spelling errors.
[2024-11-19 20:03] LABS: Glucose,Whole Blood 131 mg/dL (70-110)
[2024-11-20 06:07] LABS: Glucose,Whole Blood 120 mg/dL (70-110)
[2024-11-20 07:32] LABS: HCT 46.9 % (39.0-53.0); HGB 14.3 gm/dL (13.0-17.5); Hypochromasia Moderate; MCH 27.4 pg (25.0-35.0); MCHC 30.6 g/dL (31.0-37.0); MCV 89.6 fL (80.0-100.0); Mean Platelet Volume 8.5; Platelet Count 500 k/uL (150-450); RBC 5.23 m/uL (4.30-5.90); RDW 15.2 % (11.5-15.5)
[2024-11-20 07:43] LABS: ALT 36 U/L (4-49); AST 29 U/L (17-59); Albumin 3.5 g/dL (3.5-5.0); Alkaline Phosphatase 106 U/L (38-126); Anion Gap 4 mmol/L; Blood Urea Nitrogen 42 mg/dL (9-20); Calcium 11.8 mg/dL (8.4-10.2); Carbon Dioxide 39 mmol/L (22-30); Chloride 97 mmol/L (98-107); Glucose 121 mg/dL (74-99); Potassium 4.1 mmol/L (3.5-5.1); Sodium 140 mmol/L (137-145); Total Bilirubin 0.7 mg/dL (0.2-1.3); Total Protein 6.4 g/dL (6.3-8.2)
[2024-11-20 07:44] LABS: African American GFR (CKD) >90 (>60 ml/min/1.73 sqM); Non-African American GFR(CKD) >90 (>60 ml/min/1.73 sqM)
--- NOTE | 2024-11-20 08:49 | P.PN ---
Subjective Progress Note Date: 11/20/24 This is a 69-year-old male who presented to the emergency department with complaints of shortness of breath and cough. Patient reports cough is nonproductive and his shortness of breath is present at rest and on exertion. Patient had a recent hospitalization and a bronchoscopy showed metastatic squamous cell carcinoma. Patient has been confused and combative to nursing staff. He currently has a sitter with him. He did receive Haldol during the night last night and is very drowsy this morning. 11/20/2024 Patient seen laying in bed this morning with plant safety leader at bedside. He is more arousable this morning and able to answer yes or no questions. Patient does state that he is hungry this morning. He remains on 5 L of oxygen via nasal cannula. Objective - Vital Signs Vital signs: Vital Signs Temp 97.9 F 11/19/24 20:00 Pulse 86 11/20/24 04:00 Resp 18 11/20/24 04:00 BP 158/85 11/20/24 04:00 Pulse Ox 96 11/20/24 04:00 FiO2 Intake & Output 11/19/24 11/20/24 11/20/24 18:59 06:59 18:59 Intake Total 180 Balance 180 Weight 63 kg Intake: Oral 180 Other: # Voids 1 - Constitutional General appearance: Present: cooperative, no acute distress - EENT Eyes: Present: PERRLA - Neck Neck: Present: normal ROM. Absent: lymphadenopathy, rigidity - Respiratory Respiratory: bilateral: diminished, wheezing - Cardiovascular Heart sounds: normal: S1, S2 - Gastrointestinal General gastrointestinal: Present: soft. Absent: tenderness - Integumentary Integumentary: Present: normal, normal turgor - Musculoskeletal Musculoskeletal: Present: generalized weakness - Psychiatric Psychiatric Comment(s): Patient more arousable this morning, is alert to person - Labs CBC & Chem 7: 11/20/24 08:00 11/20/24 08:00 Labs: Abnormal Lab Results - Last 24 Hours (Table) 11/19/24 11/19/24 11/19/24 Range/Units 11:25 15:54 20:01 WBC (3.8-10.6) k/uL MCHC (31.0-37.0) g/dL Plt Count (150-450) k/uL Chloride (98-107) mmol/L Carbon Dioxide (22-30) mmol/L BUN (9-20) mg/dL Glucose (74-99) mg/dL POC Glucose (mg/dL) 174 H 128 H 131 H (70-110) mg/dL Calcium (8.4-10.2) mg/dL 11/20/24 11/20/24 11/20/24 Range/Units 06:04 08:00 08:00 WBC 24.0 H (3.8-10.6) k/uL MCHC 30.6 L (31.0-37.0) g/dL Plt Count 500 H (150-450) k/uL Chloride 97 L (98-107) mmol/L Carbon Dioxide 39 H (22-30) mmol/L BUN 42 H (9-20) mg/dL Glucose 121 H (74-99) mg/dL POC Glucose (mg/dL) 120 H (70-110) mg/dL Calcium 11.8 H (8.4-10.2) mg/dL Microbiology - Last 24 Hours (Table) 11/16/24 13:38 Blood Culture - Preliminary Blood Assessment and Plan (1) Acute exacerbation of chronic obstructive pulmonary disease Current Visit: Yes Status: Acute Priority: High Code(s): J44.1 - CHRONIC OBSTRUCTIVE PULMONARY DISEASE W (ACUTE) EXACERBATION SNOMED Code(s): 096081842 (2) Hypertension Current Visit: No Status: Acute Code(s): I10 - ESSENTIAL (PRIMARY) HYPERTENSION SNOMED Code(s): 50655035 (3) Tobacco abuse Current Visit: No Status: Acute Code(s): Z72.0 - TOBACCO USE SNOMED Code(s): 118779608 (4) Dyspnea Current Visit: No Status: Acute Code(s): R06.00 - DYSPNEA, UNSPECIFIED SNOMED Code(s): 697444161 (5) Metastatic squamous cell carcinoma to lung Current Visit: Yes Status: Acute Code(s): C78.00 - SECONDARY MALIGNANT NEOPLASM OF UNSPECIFIED LUNG SNOMED Code(s): 308972679374920 Plan: Check CBC and CMP in the morning. Appreciate multiple consultants. Patient seen and evaluated by nurse practitioner, physician in agreement with plan.
--- NOTE | 2024-11-20 09:42 | XR ---
EXAMINATION TYPE: XR chest 1V portable DATE OF EXAM: 11/20/2024 9:18 AM COMPARISON: None. CLINICAL INDICATION: Male, 69 years old with history of hypoxia, TECHNIQUE: XR chest 1V portable view(s) obtained. FINDINGS: The heart size is normal. The pulmonary vasculature is prominent. Mild platelike atelectasis at the right base. Mildly increased alveolar infiltrates at the left base may reflect some atypical pulmonary edema IMPRESSION: 1. Mild plate atelectasis right lower lobe. 2. Lingular infiltrate may be some atypical pulmonary edema. [facility], , 11/20/2024 9:40 AM
[2024-11-20 11:25] LABS: Glucose,Whole Blood 156 mg/dL (70-110)
[2024-11-20] MEDS: LOSARTAN 25 MG TAB PO STA (12:47)
[2024-11-20] MEDS: AZITHROMYCIN 500 MG in SODIUM CHLORIDE 0.9% 250 ML IVPB SCH (13:21)
--- NOTE | 2024-11-20 14:06 | P.PN ---
Subjective Progress Note Date: 11/20/24 HISTORY OF PRESENT ILLNESS: This is a 69-year-old male with a past medical history significant for meta static non-small cell carcinoma, coronary artery disease, cardiomyopathy with recovered EF, peripheral arterial disease with previous lower extremity intervention, carotid stenosis, hypertension, hyperlipidemia, and nicotine dependence. Patient follows in the office with Dr. Rizo. We have been asked to see the patient in consultation for A-fib with RVR. Patient examined at the bedside. Patient presented to the hospital yesterday with a chief complaint of shortness of breath. Patient denies any chest pain or pressure. He denied having a cough. EKG on admission revealed sinus tachycardia. However repeat EKG revealed A-fib/flutter with RVR. Patient was started on IV heparin and IV Cardizem. It is noted that the patient was hospitalized in September 2024. At that time the patient was noted to be in A-fib with RVR and he was started on Xarelto 20 mg daily. However according to his home medication list, he is not taking this. When patient was asked about it this morning he is unsure of his home medications. DIAGNOSTICS: - EKG reveals sinus tachycardia. Repeat EKG reveals A-fib/flutter with RVR - Chest xray chronic changes without acute pulmonary process. No significant change from prior.. - Laboratory data: WBC 15.0. Hemoglobin 13.1. Platelet count 424. Sodium 135. Potassium 4.2. BUN 21. Creatinine 1.10. proBNP 1390. - Current home cardiac medications include Xarelto 2.5 mg twice a day, amlodipine 10 mg daily, Lipitor 40 mg at night - Most recent echocardiogram obtained in September 2024 revealed ejection fraction 55 to 60% with no significant valvular abnormalities noted. - Cardiac catheterization history: July 2021 revealing minimal CAD 11/18/2024 Patient examined this morning at the bedside. Patient currently denies chest pain or pressure. He continues to report shortness of breath. Patient went back into atrial fibrillation with RVR. Telemetry at the time of examination reveals A-fib with heart rate around 120. 11/19 Patient seen and examined. Patient had confusion and GERALDINE HINSON was called. He received 1 dose of IM Haldol. Patient is now somnolent during examination. He has a occupational health and safety adviser at the bedside. Respiratory status appears to be stable, no respiratory distress noted. Blood pressure 141/56, heart rate 71, pulse ox 100% on 5 L nasal cannula. 11/20 Patient seen and examined. Patient continues to have confusion, received Ativan last evening. He has a occupational health and safety adviser at the bedside. Blood pressure 179/84, heart rate 91, pulse ox 90% on 6 L nasal cannula. Patient is able to answer some simple questions. Respiratory status appears to be stable. Patient's brother is at the bedside and he was asking about pathology report which he will obtain from pulmonary medicine or patient's PCP. PHYSICAL EXAM: VITAL SIGNS: Reviewed. GENERAL: Well-developed in no acute distress. HEENT: Head is normocephalic. Pupils are equal, round. Sclerae anicteric. Mucous membranes of the mouth are moist. Neck supple. No JVD or thyromegaly LUNGS: Respirations even and unlabored. Lungs with diffuse rhonchi and wheezing throughout. HEART: Tachycardic. Irregular rate and rhythm. S1 and S2 heard. Soft systolic murmur noted. ABDOMEN: Soft. Nondistended. Nontender. EXTREMITIES: Normal range of motion. No clubbing or cyanosis. Peripheral pulses intact. No lower extremity edema NEUROLOGIC: Patient is somnolent. 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 Please reconsult for any new concerns. Patient may follow-up in the office in [address] Rizo. Nurse practitioner note has been reviewed by physician. Signing provider agrees with the documented findings, assessment, and plan of care documented by CONVE[employer]OR [employer] BATTERY CHARGER as a scribe. Objective - Vital Signs Vital signs: Vital Signs Temp 97.4 F L 11/20/24 08:39 Pulse 91 11/20/24 08:39 Resp 22 11/20/24 08:39 BP 179/84 11/20/24 08:39 Pulse Ox 90 L 11/20/24 08:39 FiO2 Intake & Output 11/19/24 11/20/24 11/20/24 18:59 06:59 18:59 Intake Total 180 Output Total 400 Balance 180 -400 Weight 63 kg Intake: Oral 180 Output: Urine 400 Other: # Voids 1 - Labs CBC & Chem 7: 11/20/24 08:00 11/20/24 08:00 Labs: Abnormal Lab Results - Last 24 Hours (Table) 11/19/24 11/19/24 11/19/24 Range/Units 11:25 15:54 20:01 WBC (3.8-10.6) k/uL MCHC (31.0-37.0) g/dL Plt Count (150-450) k/uL Chloride (98-107) mmol/L Carbon Dioxide (22-30) mmol/L BUN (9-20) mg/dL Glucose (74-99) mg/dL POC Glucose (mg/dL) 174 H 128 H 131 H (70-110) mg/dL Calcium (8.4-10.2) mg/dL 11/20/24 11/20/24 11/20/24 Range/Units 06:04 08:00 08:00 WBC 24.0 H (3.8-10.6) k/uL MCHC 30.6 L (31.0-37.0) g/dL Plt Count 500 H (150-450) k/uL Chloride 97 L (98-107) mmol/L Carbon Dioxide 39 H (22-30) mmol/L BUN 42 H (9-20) mg/dL Glucose 121 H (74-99) mg/dL POC Glucose (mg/dL) 120 H (70-110) mg/dL Calcium 11.8 H (8.4-10.2) mg/dL Microbiology - Last 24 Hours (Table) 11/16/24 13:38 Blood Culture - Preliminary Blood
--- NOTE | 2024-11-20 15:18 | P.PN ---
Subjective Progress Note Date: 11/20/24 69-year-old male patient, came to emergency department because of increased shortness of breath, symptoms of URI and cough. The patient is a congested cough. He was unable to bring up much sputum. No reported chest pain. No hemoptysis. No pleurisy. No swelling lower extremities. He is known to have COPD. He is a chronic smoker. He has hypertension peripheral vascular disease with previous stenting in his lower extremities maintained on long-term anticoagulation with Xarelto. He also had a noted scalp mass on previous admissions in his head and further investigation with a CT scan of the chest showed evidence of a right hilar mass encasing the pulmonary artery and extending to the mediastinum and the patient also had pathologic mediastinal lymphadenopathy and the findings were highly suspicious for malignancy. Based on that, I performed a bronchoscopy and endobronchial ultrasound and transbronchial needle aspirate of station 7 lymph node was consistent with non- small cell lung cancer features of squamous cell carcinoma. Noted the patient also had a outpatient PET/CT that was done on 10/19/2024 showing abnormal osseous lesions involving the right frontal calvarium and the left anterior C1 ring involvement in addition to abnormal thoracic lymphadenopathy and right hilar uptake. MRI of the brain showed a right frontal enhancing calvarial destructive lesions. Based on those findings, the patient was referred to medical oncology. He completed palliative radiation therapy to the calvarial lesion and NGS and PD-L1 analysis was requested in addition to circulating tumor DNA analysis for targetable mutation. To my knowledge, the patient has not started systemic treatment yet. His current labs show a white cell count of 15, hemoglobin 13.1 and a platelet count of 424. Sodium is at 135, BUN is 21 with a creatinine of 1.1. Serum bicarb is at 30, chloride 95, potassium level is at 4.2. Lactic acid level is at 2.3. The viral screen has been negative. proBNP level was 1390. His previous echocardiogram was done on 10/22/2024 indicating a preserved LV function with an ejection fraction of 55 to 60%. No significant valvular abnormalities. On 11/17/2024, the patient is being seen for a follow-up. The patient is feeling better and less short of breath compared to yesterday. Seems to be less bronchospastic and wheezy. He remains on oxygen at 2 L/min nasal cannula with a pulse ox of 96%. No altered mentation. No signs of any CO2 narcosis. He did encounter atrial fibrillation with rapid ventricular response. He is converted into sinus rhythm again and the patient was started on Cardizem 30 mg p.o. 3 times daily. Remains on DuoNeb updrafts. Remains on IV Solu-Medrol 60 mg every 6 hours. He is also on anticoagulation with Xarelto. No new labs are available from today. His viral 4 Plex was negative. On 11/21/2024, the patient is being seen for a follow-up. This patient is weak, short of breath, continues to have some cough congestion. No hemoptysis. No pleurisy. He has metastatic squamous cell carcinoma and has received radiation therapy to his bony metastases on his head. No systemic treatment yet. Remains on 2 L of oxygen by nasal cannula. Remains on bronchodilators and steroids. No new complaints otherwise for now. He is quite debilitated. Hemodynamically stable. Denies having any chest pain. He remains in atrial fibrillation. Slightly tachycardic and cardiology on the case. He is still on anticoagulation with Xarelto. He is also on Cardizem and dose has been increased up to 60 mg p.o. 3 times daily and the patient was also started on metoprolol 25 mg p.o. twice a day. He is on a telemetry monitoring. The patient is seen today November 19, 2024 in follow-up on the selective care unit. He is currently resting in bed. Awake and alert in no acute distress. He is maintaining O2 saturations in the 90s on 2.5 L/min per nasal cannula. He is confused at times. He was somebody combative with staff requiring a code ponce be called on him this morning. He required Haldol and Ativan today. A safety technician is at the bedside. Cultures revealed no growth. Blood glucose 128. He is continued on DuoNeb inhalations, Solu-Medrol and Singulair. Anticoagulated with Xarelto. The patient is seen today November 20, 2024 in follow-up on the selective care unit. He is currently awake and alert in no acute distress. He has periods of restlessness. A safety technician is at the bedside. He is maintaining O2 satura tions up to 100% on 6 L high flow nasal cannula. He is afebrile. Hemodynamically stable. Blood culture reveals no growth. White count 24.0. Hemoglobin 14.3. Platelets 500,000. Sodium 140. Potassium 4.1. Bicarb 39. BUN 42. Creatinine 0.73. Glucose 121. He is continued on DuoNeb and elations, Solu-Medrol. Anticoagulated with Xarelto. Remains on antibiotics in the form of ceftriaxone and azithromycin. Mild platelike atelectasis of the right lower lobe. Lingular infiltrate with some atypical pulmonary edema. Objective - Vital Signs Vital signs: Vital Signs Temp 98.3 F 11/20/24 12:39 Pulse 68 11/20/24 12:39 Resp 2 L 11/20/24 14:25 BP 166/81 11/20/24 12:39 Pulse Ox 100 11/20/24 12:39 FiO2 Intake & Output 11/19/24 11/20/24 11/20/24 18:59 06:59 18:59 Intake Total 180 Output Total 400 Balance 180 -400 Weight 63 kg Intake: Oral 180 Output: Urine 400 Other: # Voids 1 - Exam GENERAL EXAM: Awake, alert, restless at times,, 69-year-old male, on 6 L nasal cannula, comfortable in no apparent distress. HEAD: Normocephalic. EYES: Normal reaction of pupils, equal size. NOSE: Clear with pink turbinates. THROAT: No erythema or exudates. NECK: No masses, no JVD. CHEST: No chest wall deformity. LUNGS: Equal air entry with bilateral wheeze, diminished. CVS: S1 and S2 normal with no audible murmur, regular rhythm. ABDOMEN: No hepatosplenomegaly, normal bowel sounds, no guarding or rigidity. SPINE: No scoliosis or deformity SKIN: No rashes CENTRAL NERVOUS SYSTEM: No focal deficits, tone is normal in all 4 extremities. EXTREMITIES: There is no peripheral edema. No clubbing, no cyanosis. Periph eral pulses are intact. - Labs CBC & Chem 7: 11/20/24 08:00 11/20/24 08:00 Labs: Abnormal Lab Results - Last 24 Hours (Table) 11/19/24 11/19/24 11/20/24 Range/Units 15:54 20:01 06:04 WBC (3.8-10.6) k/uL MCHC (31.0-37.0) g/dL Plt Count (150-450) k/uL Chloride (98-107) mmol/L Carbon Dioxide (22-30) mmol/L BUN (9-20) mg/dL Glucose (74-99) mg/dL POC Glucose (mg/dL) 128 H 131 H 120 H (70-110) mg/dL Calcium (8.4-10.2) mg/dL 11/20/24 11/20/24 11/20/24 Range/Units 08:00 08:00 11:22 WBC 24.0 H (3.8-10.6) k/uL MCHC 30.6 L (31.0-37.0) g/dL Plt Count 500 H (150-450) k/uL Chloride 97 L (98-107) mmol/L Carbon Dioxide 39 H (22-30) mmol/L BUN 42 H (9-20) mg/dL Glucose 121 H (74-99) mg/dL POC Glucose (mg/dL) 156 H (70-110) mg/dL Calcium 11.8 H (8.4-10.2) mg/dL Microbiology - Last 24 Hours (Table) 11/16/24 13:38 Blood Culture - Preliminary Blood Assessment and Plan Assessment: Acute COPD exacerbation with secondary shortness of breath. Chest x-ray is consistent with a right hilar mass and COPD. The patient is currently on 6 L of oxygen by nasal cannula. Acute hypoxic respiratory failure currently on 6 L of oxygen by nasal cannula Metastatic squamous cell carcinoma of the lungs. The patient had a CT scan of the brain on October 03, 2024 that revealed no acute intracranial process. There was a 3.7 cm destructive lesion high right frontal calvarium. A PET scan from October 19, 2024 revealed abnormal osseous lesions involving the high right frontal calvarium and the left anterior C1 ring. There is abnormal thoracic lymph nodes including a right hilar mass or neoplasm. Bronchoscopy endobr onchial ultrasound done on 10/25/2024 and biopsy of the subcarinal station 7 lymph node was consistent with squamous cell carcinoma, lung primary. Patient completed radiation therapy to his calvarium and systemic treatment has not been initiated yet pending circulating tumor DNA markers, PD-L1 and NGS analysis Altered mental status secondary to above Paroxysmal atrial fibrillation, patient is on metoprolol 25 mg p.o. twice daily, Cardizem 60 mg p.o. 3 times daily and anticoagulation with Xarelto. Hoarseness suspect secondary to right pharyngeal nerve involvement Chronic and ongoing tobacco dependence Peripheral vascular disease with multiple stent placements, anticoagulated off Xarelto Chronic obstructive pulmonary disease Hyperlipidemia Hypertension Plan: The patient was seen and evaluated Chest x-ray, labs and medications reviewed Confused at times director of placement at the bedside Currently on 6 L nasal cannula Titrate the FiO2 as tolerated Continue bronchodilators, decrease steroids Anticoagulated with Xarelto Antibiotics added per medicine We will continue to follow I have personally seen and examined the patient, performed the documentation and the assessment and plan as written. Number of minutes spent on the visit: 10 Dictation was produced using [employer] dictation software. Please excuse any grammatical, word or spelling errors.
[2024-11-20 16:20] LABS: Glucose,Whole Blood 150 mg/dL (70-110)
[2024-11-20 19:54] LABS: Glucose,Whole Blood 146 mg/dL (70-110)
[2024-11-20] MEDS ORDERED: DEXTROSE 50% SYRINGE 50 ML IVP PRN ×2 (20:49)
[2024-11-20] MEDS ORDERED: INSULIN LISPRO (HumaLOG) 100 UNIT/ML 10 mL VL SQ SCH (21:00)
[2024-11-20] MEDS: DILTIAZEM 125 MG in SODIUM CHLORIDE 0.9% 100 ML IV SCH (22:07)
[2024-11-21 06:15] LABS: Glucose,Whole Blood 158 mg/dL (70-110)
[2024-11-21 07:55] LABS: HCT 46.2 % (39.0-53.0); Hypochromasia Moderate; MCH 27.2 pg (25.0-35.0); MCHC 30.4 g/dL (31.0-37.0); MCV 89.3 fL (80.0-100.0); Mean Platelet Volume 8.9; Platelet Count 462 k/uL (150-450); RBC 5.17 m/uL (4.30-5.90); RDW 15.3 % (11.5-15.5); WBC 22.5 k/uL (3.8-10.6)
[2024-11-21 08:10] LABS: ALT 52 U/L (4-49); African American GFR (CKD) >90 (>60 ml/min/1.73 sqM); Albumin 3.3 g/dL (3.5-5.0); Anion Gap 5 mmol/L; Blood Urea Nitrogen 56 mg/dL (9-20); Calcium 11.8 mg/dL (8.4-10.2); Carbon Dioxide 40 mmol/L (22-30); Chloride 99 mmol/L (98-107); Glucose 167 mg/dL (74-99); Non-African American GFR(CKD) >90 (>60 ml/min/1.73 sqM); Sodium 144 mmol/L (137-145); Total Bilirubin 0.9 mg/dL (0.2-1.3); Total Protein 6.1 g/dL (6.3-8.2)
[2024-11-21] MEDS: LOSARTAN 50 MG TAB PO SCH (08:21)
[2024-11-21 08:26] LABS: AST 30 U/L (17-59); Alkaline Phosphatase 102 U/L (38-126); Potassium 4.5 mmol/L (3.5-5.1)
--- NOTE | 2024-11-21 10:33 | P.PN ---
Subjective Progress Note Date: 11/21/24 Principal diagnosis: Here for metastatic lung cancer and element of COPD exacerbation. Still having anxiety and was given ativan and is sedated. (Not answering questions) Objective - Vital Signs Vital signs: Vital Signs Temp 97.7 F 11/21/24 08:00 Pulse 71 11/21/24 08:00 Resp 18 11/21/24 08:00 BP 138/83 11/21/24 08:00 Pulse Ox 94 L 11/21/24 08:00 FiO2 Intake & Output 11/20/24 11/21/24 11/21/24 18:59 06:59 18:59 Intake Total 10 Output Total 400 Balance -400 10 Weight 59.5 kg Intake: IV 10 Invasive Line 3 10 Output: Urine 400 Other: Voiding Method External Catheter # Voids 2 1 # Bowel Movements 1 - Constitutional General appearance: Present: thin - Respiratory Respiratory: bilateral: diminished - Cardiovascular Rhythm: regular Heart sounds: normal: S1, S2 Abnormal Heart Sounds: Absent: S3 Gallop - Integumentary Integumentary: Absent: cellulitis - Labs CBC & Chem 7: 11/21/24 07:41 11/21/24 07:41 Labs: Abnormal Lab Results - Last 24 Hours (Table) 11/20/24 11/20/24 11/20/24 Range/Units 11:22 16:18 19:50 WBC (3.8-10.6) k/uL MCHC (31.0-37.0) g/dL Plt Count (150-450) k/uL Carbon Dioxide (22-30) mmol/L BUN (9-20) mg/dL Glucose (74-99) mg/dL POC Glucose (mg/dL) 156 H 150 H 146 H (70-110) mg/dL Calcium (8.4-10.2) mg/dL ALT (4-49) U/L Total Protein (6.3-8.2) g/dL Albumin (3.5-5.0) g/dL 11/21/24 11/21/24 11/21/24 Range/Units 06:13 07:41 07:41 WBC 22.5 H (3.8-10.6) k/uL MCHC 30.4 L (31.0-37.0) g/dL Plt Count 462 H (150-450) k/uL Carbon Dioxide 40 H (22-30) mmol/L BUN 56 H (9-20) mg/dL Glucose 167 H (74-99) mg/dL POC Glucose (mg/dL) 158 H (70-110) mg/dL Calcium 11.8 H (8.4-10.2) mg/dL ALT 52 H (4-49) U/L Total Protein 6.1 L (6.3-8.2) g/dL Albumin 3.3 L (3.5-5.0) g/dL Assessment and Plan (1) Acute exacerbation of chronic obstructive pulmonary disease Current Visit: Yes Status: Acute Priority: High Code(s): J44.1 - CHRONIC OBSTRUCTIVE PULMONARY DISEASE W (ACUTE) EXACERBATION SNOMED Code(s): 963698880 (2) Metastatic squamous cell carcinoma to lung Current Visit: Yes Status: Acute Code(s): C78.00 - SECONDARY MALIGNANT NEOPLASM OF UNSPECIFIED LUNG SNOMED Code(s): 800533098072148 (3) Lung mass Current Visit: No Status: Acute Priority: High Code(s): R91.8 - OTHER NONSPECIFIC ABNORMAL FINDING OF LUNG FIELD SNOMED Code(s): 037498619 Plan: Hold off on Ativan/sedating drugs. prognosis is becoming worse. Check CBC CMP in the AM Appreciate consultants input. Time with Patient: Greater than 30
[2024-11-21 11:43] LABS: Glucose,Whole Blood 140 mg/dL (70-110)
--- NOTE | 2024-11-21 14:50 | P.PN ---
Subjective Progress Note Date: 11/21/24 HISTORY OF PRESENT ILLNESS: This is a 69-year-old male with a past medical history significant for meta static non-small cell carcinoma, coronary artery disease, cardiomyopathy with recovered EF, peripheral arterial disease with previous lower extremity intervention, carotid stenosis, hypertension, hyperlipidemia, and nicotine dependence. Patient follows in the office with Dr. Rizo. We have been asked to see the patient in consultation for A-fib with RVR. Patient examined at the bedside. Patient presented to the hospital yesterday with a chief complaint of shortness of breath. Patient denies any chest pain or pressure. He denied having a cough. EKG on admission revealed sinus tachycardia. However repeat EKG revealed A-fib/flutter with RVR. Patient was started on IV heparin and IV Cardizem. It is noted that the patient was hospitalized in September 2024. At that time the patient was noted to be in A-fib with RVR and he was started on Xarelto 20 mg daily. However according to his home medication list, he is not taking this. When patient was asked about it this morning he is unsure of his home medications. DIAGNOSTICS: - EKG reveals sinus tachycardia. Repeat EKG reveals A-fib/flutter with RVR - Chest xray chronic changes without acute pulmonary process. No significant change from prior.. - Laboratory data: WBC 15.0. Hemoglobin 13.1. Platelet count 424. Sodium 135. Potassium 4.2. BUN 21. Creatinine 1.10. proBNP 1390. - Current home cardiac medications include Xarelto 2.5 mg twice a day, amlodipine 10 mg daily, Lipitor 40 mg at night - Most recent echocardiogram obtained in September 2024 revealed ejection fraction 55 to 60% with no significant valvular abnormalities noted. - Cardiac catheterization history: July 2021 revealing minimal CAD 11/18/2024 Patient examined this morning at the bedside. Patient currently denies chest pain or pressure. He continues to report shortness of breath. Patient went back into atrial fibrillation with RVR. Telemetry at the time of examination reveals A-fib with heart rate around 120. 11/19 Patient seen and examined. Patient had confusion and GERALDINE HINSON was called. He received 1 dose of IM Haldol. Patient is now somnolent during examination. He has a safety inspector at the bedside. Respiratory status appears to be stable, no respiratory distress noted. Blood pressure 141/56, heart rate 71, pulse ox 100% on 5 L nasal cannula. 11/20 Patient seen and examined. Patient continues to have confusion, received Ativan last evening. He has a safety inspector at the bedside. Blood pressure 179/84, heart rate 91, pulse ox 90% on 6 L nasal cannula. Patient is able to answer some simple questions. Respiratory status appears to be stable. Patient's brother is at the bedside and he was asking about pathology report which he will obtain from pulmonary medicine or patient's PCP. 11/21 Patient is seen and examined. Patient is unable to take his oral medications and has sitter at the bedside. Patient is also sedated from Ativan. He remains confused. Blood pressure 138/83, heart rate 116, pulse ox 95% on 5 L nasal cannula. Prognosis is poor and family is looking at comfort care. PHYSICAL EXAM: VITAL SIGNS: Reviewed. GENERAL: Well-developed in no acute distress. HEENT: Head is normocephalic. Pupils are equal, round. Sclerae anicteric. Mucous membranes of the mouth are moist. Neck supple. No JVD or thyromegaly LUNGS: Respirations even and unlabored. Lungs with diffuse rhonchi and wheezing throughout. HEART: Tachycardic. Irregular rate and rhythm. S1 and S2 heard. Soft systolic murmur noted. ABDOMEN: Soft. Nondistended. Nontender. EXTREMITIES: Normal range of motion. No clubbing or cyanosis. Peripheral pulses intact. No lower extremity edema NEUROLOGIC: Patient is somnolent. ASSESSMENT: Shortness of breath Acute COPD exacerbation Status post bronchoscopy 10/25/2024 with pathology positive for metastatic non- small cell carcinoma Paroxysmal atrial fibrillation/typical atrial flutter with RVR Peripheral arterial disease with previous lower extremity intervention, most recently [employer] of left SFA, June 2024 Known occluded external iliac History of aortic stent grafting Minimal CAD, per cath 2020 Carotid stenosis Hypertension Hyperlipidemia Nicotine dependence, patient still smoking 2 to 3 cigarettes a day PLAN: No need to repeat echocardiogram as this was performed in September 2024 Continue anticoagulation with Xarelto and metoprolol--patient is unable to take oral medications Continue Cardizem drip No further cardiac workup at this time Nurse practitioner note has been reviewed by physician. Signing provider agrees with the documented findings, assessment, and plan of care documented by DIRECTOR DATA MANAGEMENT as a scribe. Objective - Vital Signs Vital signs: Vital Signs Temp 97.9 F 11/21/24 12:00 Pulse 116 H 11/21/24 12:00 Resp 18 11/21/24 12:00 BP 141/71 11/21/24 12:00 Pulse Ox 95 11/21/24 12:00 FiO2 Intake & Output 11/20/24 11/21/24 11/21/24 18:59 06:59 18:59 Intake Total 10 70.417 Output Total 400 Balance -400 10 70.417 Weight 59.5 kg Intake: IV 10 Invasive Line 3 10 Intake, IV Titration 70.417 Amount Diltiazem 125 mg In 70.417 Sodium Chloride 0.9% 100 ml @ 5 MG/HR 5 mls/hr IV .Q24H [facility] Rx#:[id number] Output: Urine 400 Other: Voiding Method External Catheter # Voids 2 1 # Bowel Movements 1 - Labs CBC & Chem 7: 11/21/24 07:41 11/21/24 07:41 Labs: Abnormal Lab Results - Last 24 Hours (Table) 11/20/24 11/20/24 11/21/24 Range/Units 16:18 19:50 06:13 WBC (3.8-10.6) k/uL MCHC (31.0-37.0) g/dL Plt Count (150-450) k/uL Carbon Dioxide (22-30) mmol/L BUN (9-20) mg/dL Glucose (74-99) mg/dL POC Glucose (mg/dL) 150 H 146 H 158 H (70-110) mg/dL Calcium (8.4-10.2) mg/dL ALT (4-49) U/L Total Protein (6.3-8.2) g/dL Albumin (3.5-5.0) g/dL 11/21/24 11/21/24 11/21/24 Range/Units 07:41 07:41 11:42 WBC 22.5 H (3.8-10.6) k/uL MCHC 30.4 L (31.0-37.0) g/dL Plt Count 462 H (150-450) k/uL Carbon Dioxide 40 H (22-30) mmol/L BUN 56 H (9-20) mg/dL Glucose 167 H (74-99) mg/dL POC Glucose (mg/dL) 140 H (70-110) mg/dL Calcium 11.8 H (8.4-10.2) mg/dL ALT 52 H (4-49) U/L Total Protein 6.1 L (6.3-8.2) g/dL Albumin 3.3 L (3.5-5.0) g/dL
--- NOTE | 2024-11-21 15:50 | P.PN ---
Subjective Progress Note Date: 11/21/24 69-year-old male patient, came to emergency department because of increased shortness of breath, symptoms of URI and cough. The patient is a congested cough. He was unable to bring up much sputum. No reported chest pain. No hemoptysis. No pleurisy. No swelling lower extremities. He is known to have COPD. He is a chronic smoker. He has hypertension peripheral vascular disease with previous stenting in his lower extremities maintained on long-term anticoagulation with Xarelto. He also had a noted scalp mass on previous admissions in his head and further investigation with a CT scan of the chest showed evidence of a right hilar mass encasing the pulmonary artery and extending to the mediastinum and the patient also had pathologic mediastinal lymphadenopathy and the findings were highly suspicious for malignancy. Based on that, I performed a bronchoscopy and endobronchial ultrasound and transbronchial needle aspirate of station 7 lymph node was consistent with non- small cell lung cancer features of squamous cell carcinoma. Noted the patient also had a outpatient PET/CT that was done on 10/19/2024 showing abnormal osseous lesions involving the right frontal calvarium and the left anterior C1 ring involvement in addition to abnormal thoracic lymphadenopathy and right hilar uptake. MRI of the brain showed a right frontal enhancing calvarial destructive lesions. Based on those findings, the patient was referred to medical oncology. He completed palliative radiation therapy to the calvarial lesion and NGS and PD-L1 analysis was requested in addition to circulating tumor DNA analysis for targetable mutation. To my knowledge, the patient has not started systemic treatment yet. His current labs show a white cell count of 15, hemoglobin 13.1 and a platelet count of 424. Sodium is at 135, BUN is 21 with a creatinine of 1.1. Serum bicarb is at 30, chloride 95, potassium level is at 4.2. Lactic acid level is at 2.3. The viral screen has been negative. proBNP level was 1390. His previous echocardiogram was done on 10/22/2024 indicating a preserved LV function with an ejection fraction of 55 to 60%. No significant valvular abnormalities. On 11/17/2024, the patient is being seen for a follow-up. The patient is feeling better and less short of breath compared to yesterday. Seems to be less bronchospastic and wheezy. He remains on oxygen at 2 L/min nasal cannula with a pulse ox of 96%. No altered mentation. No signs of any CO2 narcosis. He did encounter atrial fibrillation with rapid ventricular response. He is converted into sinus rhythm again and the patient was started on Cardizem 30 mg p.o. 3 times daily. Remains on DuoNeb updrafts. Remains on IV Solu-Medrol 60 mg every 6 hours. He is also on anticoagulation with Xarelto. No new labs are available from today. His viral 4 Plex was negative. On 11/21/2024, the patient is being seen for a follow-up. This patient is weak, short of breath, continues to have some cough congestion. No hemoptysis. No pleurisy. He has metastatic squamous cell carcinoma and has received radiation therapy to his bony metastases on his head. No systemic treatment yet. Remains on 2 L of oxygen by nasal cannula. Remains on bronchodilators and steroids. No new complaints otherwise for now. He is quite debilitated. Hemodynamically stable. Denies having any chest pain. He remains in atrial fibrillation. Slightly tachycardic and cardiology on the case. He is still on anticoagulation with Xarelto. He is also on Cardizem and dose has been increased up to 60 mg p.o. 3 times daily and the patient was also started on metoprolol 25 mg p.o. twice a day. He is on a telemetry monitoring. The patient is seen today November 19, 2024 in follow-up on the selective care unit. He is currently resting in bed. Awake and alert in no acute distress. He is maintaining O2 saturations in the 90s on 2.5 L/min per nasal cannula. He is confused at times. He was somebody combative with staff requiring a code ponce be called on him this morning. He required Haldol and Ativan today. A water safety teacher is at the bedside. Cultures revealed no growth. Blood glucose 128. He is continued on DuoNeb inhalations, Solu-Medrol and Singulair. Anticoagulated with Xarelto. The patient is seen today November 20, 2024 in follow-up on the selective care unit. He is currently awake and alert in no acute distress. He has periods of restlessness. A water safety teacher is at the bedside. He is maintaining O2 satura tions up to 100% on 6 L high flow nasal cannula. He is afebrile. Hemodynamically stable. Blood culture reveals no growth. White count 24.0. Hemoglobin 14.3. Platelets 500,000. Sodium 140. Potassium 4.1. Bicarb 39. BUN 42. Creatinine 0.73. Glucose 121. He is continued on DuoNeb and elations, Solu-Medrol. Anticoagulated with Xarelto. Remains on antibiotics in the form of ceftriaxone and azithromycin. Mild platelike atelectasis of the right lower lobe. Lingular infiltrate with some atypical pulmonary edema. The patient is seen today November 21, 2024 in follow-up on the selective care unit. He is currently resting in bed. He required Ativan 1 mg prior to our evaluation and he was quite sedated. He is maintaining O2 saturations in the mid 90s on 5 L/min per nasal cannula. He is afebrile. Hemodynamically stable. Patient did have an episode of atrial fibrillation with rapid ventricular response and is initiated on a heparin drip. He is anticoagulated with Xarelto. He remains on ceftriaxone and azithromycin. Continued on bronchodilators and Solu-Medrol. Objective - Vital Signs Vital signs: Vital Signs Temp 97.9 F 11/21/24 12:00 Pulse 116 H 11/21/24 14:00 Resp 18 11/21/24 12:00 BP 141/71 11/21/24 12:00 Pulse Ox 95 11/21/24 12:00 FiO2 Intake & Output 11/20/24 11/21/24 11/21/24 18:59 06:59 18:59 Intake Total 10 70.417 Output Total 400 Balance -400 10 70.417 Weight 59.5 kg Intake: IV 10 Invasive Line 3 10 Intake, IV Titration 70.417 Amount Diltiazem 125 mg In 70.417 Sodium Chloride 0.9% 100 ml @ 5 MG/HR 5 mls/hr IV .Q24H [facility] Rx#:[id number] Output: Urine 400 Other: Voiding Method External Catheter # Voids 2 1 # Bowel Movements 1 - Exam GENERAL EXAM: Currently sedated, cachectic, 69-year-old male, on 5 L nasal cannula, in no apparent distress. HEAD: Normocephalic. EYES: Normal reaction of pupils, equal size. NOSE: Clear with pink turbinates. THROAT: No erythema or exudates. NECK: No masses, no JVD. CHEST: No chest wall deformity. LUNGS: Equal air entry with bilateral wheeze, diminished. CVS: S1 and S2 normal with no audible murmur, irregular rhythm. ABDOMEN: No hepatosplenomegaly, normal bowel sounds, no guarding or rigidity. SPINE: No scoliosis or deformity SKIN: No rashes CENTRAL NERVOUS SYSTEM: No focal deficits, tone is normal in all 4 extremities. EXTREMITIES: There is no peripheral edema. No clubbing, no cyanosis. Peripheral pulses are intact. - Labs CBC & Chem 7: 11/21/24 07:41 11/21/24 07:41 Labs: Abnormal Lab Results - Last 24 Hours (Table) 11/20/24 11/20/24 11/21/24 Range/Units 16:18 19:50 06:13 WBC (3.8-10.6) k/uL MCHC (31.0-37.0) g/dL Plt Count (150-450) k/uL Carbon Dioxide (22-30) mmol/L BUN (9-20) mg/dL Glucose (74-99) mg/dL POC Glucose (mg/dL) 150 H 146 H 158 H (70-110) mg/dL Calcium (8.4-10.2) mg/dL ALT (4-49) U/L Total Protein (6.3-8.2) g/dL Albumin (3.5-5.0) g/dL 11/21/24 11/21/24 11/21/24 Range/Units 07:41 07:41 11:42 WBC 22.5 H (3.8-10.6) k/uL MCHC 30.4 L (31.0-37.0) g/dL Plt Count 462 H (150-450) k/uL Carbon Dioxide 40 H (22-30) mmol/L BUN 56 H (9-20) mg/dL Glucose 167 H (74-99) mg/dL POC Glucose (mg/dL) 140 H (70-110) mg/dL Calcium 11.8 H (8.4-10.2) mg/dL ALT 52 H (4-49) U/L Total Protein 6.1 L (6.3-8.2) g/dL Albumin 3.3 L (3.5-5.0) g/dL Assessment and Plan Assessment: Acute hypoxemic respiratory failure secondary to an acute COPD exacerbation with secondary shortness of breath. Chest x-ray is consistent with a right hilar mass and COPD. The patient is currently on 5 L of oxygen by nasal cannula. Metastatic squamous cell carcinoma of the lungs. The patient had a CT scan of the brain on October 03, 2024 that revealed no acute intracranial process. There was a 3.7 cm destructive lesion high right frontal calvarium. A PET scan from October 19, 2024 revealed abnormal osseous lesions involving the high right frontal calvarium and the left anterior C1 ring. There is abnormal thoracic lymph nodes including a right hilar mass or neoplasm. Bronchoscopy endobronchial ultrasound done on 10/25/2024 and biopsy of the subcarinal station 7 lymph node was consistent with squamous cell carcinoma, lung primary. Patient completed radiation therapy to his calvarium and systemic treatment has not been initiated yet pending circulating tumor DNA markers, PD-L1 and NGS analysis Altered mental status with agitation and restlessness secondary to above Atrial fibrillation with rapid ventricular response, now on a Cardizem drip at 5 mg/h, anticoagulation with Xarelto. Hoarseness suspect secondary to right pharyngeal nerve involvement Chronic and ongoing tobacco dependence Peripheral vascular disease with multiple stent placements, anticoagulated off Xarelto Chronic obstructive pulmonary disease Hyperlipidemia Hypertension Poor overall functional performance based on the above-mentioned multiple comorbidities Plan: The patient was seen and evaluated Labs and medications reviewed Confused at times Received Ativan this morning Currently on 5 L nasal cannula Titrate the FiO2 as tolerated Developed A-fib RVR, on a Cardizem drip Anticoagulated with Xarelto Overall prognosis is quite poor May need to be considered for hospice I have personally seen and examined the patient, performed the documentation and the assessment and plan as written. Number of minutes spent on the visit: 10 Dictation was produced using [employer] dictation software. Please excuse any grammatical, word or spelling errors.
[2024-11-21 17:03] LABS: Glucose,Whole Blood 158 mg/dL (70-110)
[2024-11-21] MEDS: FUROSEMIDE 10 MG/ML 2 ML VIAL IV STA (18:39)
--- NOTE | 2024-11-21 19:50 | XR ---
EXAMINATION TYPE: XR chest 1V portable DATE OF EXAM: 11/21/2024 CLINICAL HISTORY: Difficulty breathing progress study. TECHNIQUE: Single AP portable upright view of the chest is obtained. COMPARISON: Chest x-ray from one day earlier FINDINGS: Surgical changes right humeral head are redemonstrated. Cardiac silhouette size is stable and upper limits of normal with mild thoracic aorta. Some increased opacities bilateral lower lung gr eater than right remains present. Left basilar opacity has reticulonodular appearance similar to prio r. IMPRESSION: Persistent left greater than right bilateral lower lung acute infiltrates and/or edema. C onsider atypical infection. No significant change from one day earlier. [facility], , 11/21/2024 7:48 PM
[2024-11-21 20:14] LABS: Glucose,Whole Blood 167 mg/dL (70-110)
[2024-11-21] MEDS: methylPREDNISolone SOD SUCCI 40 MG/ML 1 ML VIAL IV SCH (21:52)
[2024-11-22 06:44] LABS: Glucose,Whole Blood 155 mg/dL (70-110)
[2024-11-22 07:49] LABS: HCT 45.7 % (39.0-53.0); HGB 14.3 gm/dL (13.0-17.5); Hypochromasia Slight; MCH 27.7 pg (25.0-35.0); MCHC 31.3 g/dL (31.0-37.0); MCV 88.3 fL (80.0-100.0); Mean Platelet Volume 9.3; Platelet Count 450 k/uL (150-450); RBC 5.18 m/uL (4.30-5.90); RDW 15.3 % (11.5-15.5); WBC 30.4 k/uL (3.8-10.6)
[2024-11-22 08:02] LABS: ALT 47 U/L (4-49); AST 25 U/L (17-59); African American GFR (CKD) >90 (>60 ml/min/1.73 sqM); Albumin 3.4 g/dL (3.5-5.0); Alkaline Phosphatase 109 U/L (38-126); Anion Gap 4 mmol/L; Blood Urea Nitrogen 67 mg/dL (9-20); Calcium 12.5 mg/dL (8.4-10.2); Carbon Dioxide 40 mmol/L (22-30); Chloride 105 mmol/L (98-107); Glucose 156 mg/dL (74-99); Non-African American GFR(CKD) 85 (>60 ml/min/1.73 sqM); Potassium 3.5 mmol/L (3.5-5.1); Sodium 149 mmol/L (137-145); Total Bilirubin 0.7 mg/dL (0.2-1.3); Total Protein 6.1 g/dL (6.3-8.2)
--- NOTE | 2024-11-22 08:39 | P.PN ---
Subjective Progress Note Date: 11/22/24 This is a 69-year-old male who presented to the emergency department with complaints of shortness of breath and cough. Patient reports cough is nonproductive and his shortness of breath is present at rest and on exertion. Patient had a recent hospitalization and a bronchoscopy showed metastatic squamous cell carcinoma. Patient has been confused and combative to nursing staff. He currently has a sitter with him. He did receive Haldol during the night last night and is very drowsy this morning. 11/20/2024 Patient seen laying in bed this morning with sleeve setter safety stitch at bedside. He is more arousable this morning and able to answer yes or no questions. Patient does state that he is hungry this morning. He remains on 5 L of oxygen via nasal cannula. 11/22/2024 Patient seen laying in bed this morning with sleeve setter safety stitch present at bedside. Patient continues to be very drowsy and unarousable. He is now on 6 L of oxygen via nasal cannula. Objective - Vital Signs Vital signs: Vital Signs Temp 97.3 F L 11/22/24 04:00 Pulse 80 11/22/24 04:00 Resp 22 11/22/24 04:00 BP 143/87 11/22/24 04:00 Pulse Ox 95 11/22/24 04:00 FiO2 Intake & Output 11/21/24 11/22/24 11/22/24 18:59 06:59 18:59 Intake Total 104.334 59 Balance 104.334 59 Weight 57 kg Intake: Intake, IV Titration 104.334 59 Amount Diltiazem 125 mg In 104.334 59 Sodium Chloride 0.9% 100 ml @ 5 MG/HR 5 mls/hr IV .Q24H [facility] Rx#:[id number] Other: Voiding Method Diaper # Voids 1 # Bowel Movements 1 - Constitutional General appearance: Present: no acute distress - EENT Eyes: Present: PERRLA - Neck Neck: Present: normal ROM. Absent: lymphadenopathy, rigidity - Respiratory Respiratory: bilateral: diminished - Cardiovascular Heart sounds: normal: S1, S2 - Gastrointestinal General gastrointestinal: Present: soft - Integumentary Integumentary: Present: normal, normal turgor - Psychiatric Psychiatric Comment(s): drowsy, occasionally will open eyes - Labs CBC & Chem 7: 11/22/24 07:25 11/22/24 07:25 Labs: Abnormal Lab Results - Last 24 Hours (Table) 11/21/24 11/21/24 11/21/24 Range/Units 11:42 17:02 20:13 WBC (3.8-10.6) k/uL Sodium (137-145) mmol/L Carbon Dioxide (22-30) mmol/L BUN (9-20) mg/dL Glucose (74-99) mg/dL POC Glucose (mg/dL) 140 H 158 H 167 H (70-110) mg/dL Calcium (8.4-10.2) mg/dL Total Protein (6.3-8.2) g/dL Albumin (3.5-5.0) g/dL 11/22/24 11/22/24 11/22/24 Range/Units 06:42 07:25 07:25 WBC 30.4 H (3.8-10.6) k/uL Sodium 149 H (137-145) mmol/L Carbon Dioxide 40 H (22-30) mmol/L BUN 67 H (9-20) mg/dL Glucose 156 H (74-99) mg/dL POC Glucose (mg/dL) 155 H (70-110) mg/dL Calcium 12.5 H (8.4-10.2) mg/dL Total Protein 6.1 L (6.3-8.2) g/dL Albumin 3.4 L (3.5-5.0) g/dL Microbiology - Last 24 Hours (Table) 11/16/24 13:38 Blood Culture - Final Blood Assessment and Plan (1) Acute exacerbation of chronic obstructive pulmonary disease Current Visit: Yes Status: Acute Priority: High Code(s): J44.1 - CHRONIC OBSTRUCTIVE PULMONARY DISEASE W (ACUTE) EXACERBATION SNOMED Code(s): 283018370 (2) Hypertension Current Visit: No Status: Acute Code(s): I10 - ESSENTIAL (PRIMARY) HYPERTENSION SNOMED Code(s): 22613667 (3) Tobacco abuse Current Visit: No Status: Acute Code(s): Z72.0 - TOBACCO USE SNOMED Code(s): 103700526 (4) Dyspnea Current Visit: No Status: Acute Code(s): R06.00 - DYSPNEA, UNSPECIFIED SNOMED Code(s): 277865287 (5) Metastatic squamous cell carcinoma to lung Current Visit: Yes Status: Acute Code(s): C78.00 - SECONDARY MALIGNANT NEOPLASM OF UNSPECIFIED LUNG SNOMED Code(s): 408440780572246 Plan: Check CBC and CMP in the morning. Dr. Velez has spoken with patient's family regarding poor prognosis, family will be meeting and talking about patient plan. Patient seen and evaluated by nurse practitioner, physician in agreement with plan.
--- NOTE | 2024-11-22 11:12 | XR ---
EXAMINATION TYPE: XR chest 1V portable DATE OF EXAM: 11/22/2024 10:55 AM COMPARISON: 11/21/2024 CLINICAL INDICATION: Male, 69 years old with history of SOB/ decreased 02, TECHNIQUE: XR chest 1V portable view(s) obtained. FINDINGS: The heart size is normal. The pulmonary vasculature is normal. There may be some mild atelectasis at the right base. IMPRESSION: 1. Mild right basilar subsegmental atelectasis [facility], , 11/22/2024 11:10 AM
[2024-11-22 11:38] LABS: Glucose,Whole Blood 137 mg/dL (70-110)
[2024-11-22] MEDS ORDERED: HYDROmorphone 1 MG/ML 1 ML SYRINGE IVP PRN (12:10)
[2024-11-22] MEDS: SCOPOLAMINE 1 MG/72 HR PATCH TRANSDERM SCH (12:49)
[2024-11-22 13:07] VITALS: BP 132/75
[2024-11-22] MEDS: MORPHINE SULFATE 100 MG in SODIUM CHLORIDE 0.9% 90 ML IV SCH (13:25)
[2024-11-22 13:59] VITALS: BMI 18.5
--- NOTE | 2024-11-22 14:48 | P.PN ---
Subjective Progress Note Date: 11/22/24 69-year-old male patient, came to emergency department because of increased shortness of breath, symptoms of URI and cough. The patient is a congested cough. He was unable to bring up much sputum. No reported chest pain. No hemoptysis. No pleurisy. No swelling lower extremities. He is known to have COPD. He is a chronic smoker. He has hypertension peripheral vascular disease with previous stenting in his lower extremities maintained on long-term anticoagulation with Xarelto. He also had a noted scalp mass on previous admissions in his head and further investigation with a CT scan of the chest showed evidence of a right hilar mass encasing the pulmonary artery and extending to the mediastinum and the patient also had pathologic mediastinal lymphadenopathy and the findings were highly suspicious for malignancy. Based on that, I performed a bronchoscopy and endobronchial ultrasound and transbronchial needle aspirate of station 7 lymph node was consistent with non- small cell lung cancer features of squamous cell carcinoma. Noted the patient also had a outpatient PET/CT that was done on 10/19/2024 showing abnormal osseous lesions involving the right frontal calvarium and the left anterior C1 ring involvement in addition to abnormal thoracic lymphadenopathy and right hilar uptake. MRI of the brain showed a right frontal enhancing calvarial destructive lesions. Based on those findings, the patient was referred to medical oncology. He completed palliative radiation therapy to the calvarial lesion and NGS and PD-L1 analysis was requested in addition to circulating tumor DNA analysis for targetable mutation. To my knowledge, the patient has not started systemic treatment yet. His current labs show a white cell count of 15, hemoglobin 13.1 and a platelet count of 424. Sodium is at 135, BUN is 21 with a creatinine of 1.1. Serum bicarb is at 30, chloride 95, potassium level is at 4.2. Lactic acid level is at 2.3. The viral screen has been negative. proBNP level was 1390. His previous echocardiogram was done on 10/22/2024 indicating a preserved LV function with an ejection fraction of 55 to 60%. No significant valvular abnormalities. On 11/17/2024, the patient is being seen for a follow-up. The patient is feeling better and less short of breath compared to yesterday. Seems to be less bronchospastic and wheezy. He remains on oxygen at 2 L/min nasal cannula with a pulse ox of 96%. No altered mentation. No signs of any CO2 narcosis. He did encounter atrial fibrillation with rapid ventricular response. He is converted into sinus rhythm again and the patient was started on Cardizem 30 mg p.o. 3 times daily. Remains on DuoNeb updrafts. Remains on IV Solu-Medrol 60 mg every 6 hours. He is also on anticoagulation with Xarelto. No new labs are available from today. His viral 4 Plex was negative. On 11/21/2024, the patient is being seen for a follow-up. This patient is weak, short of breath, continues to have some cough congestion. No hemoptysis. No pleurisy. He has metastatic squamous cell carcinoma and has received radiation therapy to his bony metastases on his head. No systemic treatment yet. Remains on 2 L of oxygen by nasal cannula. Remains on bronchodilators and steroids. No new complaints otherwise for now. He is quite debilitated. Hemodynamically stable. Denies having any chest pain. He remains in atrial fibrillation. Slightly tachycardic and cardiology on the case. He is still on anticoagulation with Xarelto. He is also on Cardizem and dose has been increased up to 60 mg p.o. 3 times daily and the patient was also started on metoprolol 25 mg p.o. twice a day. He is on a telemetry monitoring. The patient is seen today November 19, 2024 in follow-up on the selective care unit. He is currently resting in bed. Awake and alert in no acute distress. He is maintaining O2 saturations in the 90s on 2.5 L/min per nasal cannula. He is confused at times. He was somebody combative with staff requiring a code ponce be called on him this morning. He required Haldol and Ativan today. A patient safety sitter is at the bedside. Cultures revealed no growth. Blood glucose 128. He is continued on DuoNeb inhalations, Solu-Medrol and Singulair. Anticoagulated with Xarelto. The patient is seen today November 20, 2024 in follow-up on the selective care unit. He is currently awake and alert in no acute distress. He has periods of restlessness. A patient safety sitter is at the bedside. He is maintaining O2 satura tions up to 100% on 6 L high flow nasal cannula. He is afebrile. Hemodynamically stable. Blood culture reveals no growth. White count 24.0. Hemoglobin 14.3. Platelets 500,000. Sodium 140. Potassium 4.1. Bicarb 39. BUN 42. Creatinine 0.73. Glucose 121. He is continued on DuoNeb and elations, Solu-Medrol. Anticoagulated with Xarelto. Remains on antibiotics in the form of ceftriaxone and azithromycin. Mild platelike atelectasis of the right lower lobe. Lingular infiltrate with some atypical pulmonary edema. The patient is seen today November 21, 2024 in follow-up on the selective care unit. He is currently resting in bed. He required Ativan 1 mg prior to our evaluation and he was quite sedated. He is maintaining O2 saturations in the mid 90s on 5 L/min per nasal cannula. He is afebrile. Hemodynamically stable. Patient did have an episode of atrial fibrillation with rapid ventricular response and is initiated on a heparin drip. He is anticoagulated with Xarelto. He remains on ceftriaxone and azithromycin. Continued on bronchodilators and Solu-Medrol. The patient is seen today November 22, 2024 in follow-up on the selective care unit. He has continued to require more oxygen to maintain O2 saturations in the 90s. He is currently on 15 L high flow nasal cannula plus a nonrebreather mask. His family is at the bedside. They did make him a DO NOT RESUSCITATE CODE STATUS. Considering hospice. White count 30.4. Hemoglobin 14.3. Platelets 450. Sodium 149. Potassium 3.5. Bicarb 40. BUN 67. Creatinine 0.91. Glucose 156. Continued on DuoNeb and elations, ceftriaxone and azithromycin, Solu-Medrol and Singulair. Anticoagulated with Xarelto. Objective - Vital Signs Vital signs: Vital Signs Temp 97.4 F L 11/22/24 08:36 Pulse 73 11/22/24 12:48 Resp 18 11/22/24 12:48 BP 132/75 11/22/24 12:48 Pulse Ox 95 11/22/24 12:48 FiO2 Intake & Output 11/21/24 11/22/24 11/22/24 18:59 06:59 18:59 Intake Total 104.334 59 135 Balance 104.334 59 135 Weight 57 kg 57 kg Intake: IV 10 Invasive Line 4 10 Intake, IV Titration 104.334 59 125 Amount Diltiazem 125 mg In 104.334 59 125 Sodium Chloride 0.9% 100 ml @ 5 MG/HR 5 mls/hr IV .Q24H [facility] Rx#:[id number] Other: Voiding Method Diaper Diaper # Voids 1 0 # Bowel Movements 1 0 - Exam GENERAL EXAM: Obtunded, cachectic, 69-year-old male, on 15 L high flow nasal cannula plus a nonrebreather mask. EYES: Normal reaction of pupils, equal size. NOSE: Clear with pink turbinates. THROAT: No erythema or exudates. NECK: No masses, no JVD. CHEST: No chest wall deformity. LUNGS: Equal air entry with bilateral wheeze, diminished. CVS: S1 and S2 normal with no audible murmur, irregular rhythm. ABDOMEN: No hepatosplenomegaly, normal bowel sounds, no guarding or rigidity. SPINE: No scoliosis or deformity SKIN: No rashes CENTRAL NERVOUS SYSTEM: No focal deficits, tone is normal in all 4 extremities. EXTREMITIES: There is no peripheral edema. No clubbing, no cyanosis. Peripheral pulses are intact. - Labs CBC & Chem 7: 11/22/24 07:25 11/22/24 07:25 Labs: Abnormal Lab Results - Last 24 Hours (Table) 11/21/24 11/21/24 11/22/24 Range/Units 17:02 20:13 06:42 WBC (3.8-10.6) k/uL Sodium (137-145) mmol/L Carbon Dioxide (22-30) mmol/L BUN (9-20) mg/dL Glucose (74-99) mg/dL POC Glucose (mg/dL) 158 H 167 H 155 H (70-110) mg/dL Calcium (8.4-10.2) mg/dL Total Protein (6.3-8.2) g/dL Albumin (3.5-5.0) g/dL 11/22/24 11/22/24 11/22/24 Range/Units 07:25 07:25 11:36 WBC 30.4 H (3.8-10.6) k/uL Sodium 149 H (137-145) mmol/L Carbon Dioxide 40 H (22-30) mmol/L BUN 67 H (9-20) mg/dL Glucose 156 H (74-99) mg/dL POC Glucose (mg/dL) 137 H (70-110) mg/dL Calcium 12.5 H (8.4-10.2) mg/dL Total Protein 6.1 L (6.3-8.2) g/dL Albumin 3.4 L (3.5-5.0) g/dL Microbiology - Last 24 Hours (Table) 11/16/24 13:38 Blood Culture - Final Blood Assessment and Plan Assessment: Acute hypoxemic respiratory failure secondary to an acute COPD exacerbation with secondary shortness of breath. Chest x-ray is consistent with a right hilar mass and COPD. The patient is currently on 15 L of high flow oxygen plus a nonrebreather mask. Metastatic squamous cell carcinoma of the lungs. The patient had a CT scan of the brain on October 03, 2024 that revealed no acute intracranial process. There was a 3.7 cm destructive lesion high right frontal calvarium. A PET scan from October 19, 2024 revealed abnormal osseous lesions involving the high right frontal calvarium and the left anterior C1 ring. There is abnormal thoracic lymph nodes including a right hilar mass or neoplasm. Bronchoscopy endobronchial ultrasound done on 10/25/2024 and biopsy of the subcarinal station 7 lymph node was consistent with squamous cell carcinoma, lung primary. Patient completed radiation therapy to his calvarium and systemic treatment has not been initiated yet pending circulating tumor DNA markers, PD-L1 and NGS analysis Altered mental status with agitation and restlessness secondary to above, suspect terminal restlessness Atrial fibrillation with rapid ventricular response, now on a Cardizem drip at 5 mg/h, anticoagulation with Xarelto. Hoarseness suspect secondary to right pharyngeal nerve involvement Chronic and ongoing tobacco dependence Peripheral vascular disease with multiple stent placements, anticoagulated off Xarelto Chronic obstructive pulmonary disease Hyperlipidemia Hypertension Poor overall functional performance based on the above-mentioned multiple comorbidities Plan: The patient was seen and evaluated Labs and medications reviewed The patient has deteriorated overnight Requiring 15 L high flow nasal cannula plus a nonrebreather mask Family is at the bedside and made him a DNR CODE STATUS They are considering hospice/comfort care I have personally seen and examined the patient, performed the documentation and the assessment and plan as written. Number of minutes spent on the visit: 10 Dictation was produced using [employer] dictation software. Please excuse any grammatical, word or spelling errors.
[2024-11-22] MEDS: LORazepam 2 MG/ML INJ IV PRN (14:56)
--- NOTE | 2024-11-23 08:43 | P.PN ---
Subjective Principal diagnosis: Here for metastatic lung cancer and element of COPD exacerbation. he has now been placed on comfort care with the approval of his family. (Not answering questions) on comfort care. Objective - Vital Signs Vital signs: Vital Signs Temp 98.3 F 11/23/24 08:16 Pulse 114 H 11/23/24 08:16 Resp 6 L 11/23/24 08:16 BP 132/75 11/22/24 12:48 Pulse Ox 95 11/22/24 12:48 FiO2 Intake & Output 11/22/24 11/23/24 11/23/24 18:59 06:59 18:59 Intake Total 163.000 68.333 91.4 Output Total 60 Balance 163.000 68.333 31.4 Weight 57 kg 50 kg Intake: IV 20 Invasive Line 4 20 Intake, IV Titration 143.000 68.333 91.4 Amount Diltiazem 125 mg In 125 Sodium Chloride 0.9% 100 ml @ 5 MG/HR 5 mls/hr IV .Q24H [facility] Rx#:[id number] Morphine Sulfate 100 mg 18.000 68.333 91.4 In Sodium Chloride 0.9% 90 ml @ 1 mls/hr IV .Q24H [facility] Rx#:[id number] Output: Urine 60 Uretheral (Albarran) 60 Other: Voiding Method Indwelling Catheter # Voids 0 # Bowel Movements 0 - Labs CBC & Chem 7: 11/22/24 07:25 11/22/24 07:25 Labs: Abnormal Lab Results - Last 24 Hours (Table) 11/22/24 Range/Units 11:36 POC Glucose (mg/dL) 137 H (70-110) mg/dL Assessment and Plan (1) Acute exacerbation of chronic obstructive pulmonary disease Current Visit: Yes Status: Acute Priority: High Code(s): J44.1 - CHRONIC OBSTRUCTIVE PULMONARY DISEASE W (ACUTE) EXACERBATION SNOMED Code(s): 016674240 (2) Metastatic squamous cell carcinoma to lung Current Visit: Yes Status: Acute Code(s): C78.00 - SECONDARY MALIGNANT NEOPLASM OF UNSPECIFIED LUNG SNOMED Code(s): 384586244714960 (3) Lung mass Current Visit: No Status: Acute Priority: High Code(s): R91.8 - OTHER NONSPECIFIC ABNORMAL FINDING OF LUNG FIELD SNOMED Code(s): 921099659 Plan: comfort care with poor prognosis. The patient is stabilizing as expected. Prognosis is poor.
[2024-11-24 12:09] VITALS: TEMP 102.3
--- NOTE | 2024-11-24 14:05 | P.PN ---
Subjective Progress Note Date: 11/24/24 69-year-old male patient, came to emergency department because of increased shortness of breath, symptoms of URI and cough. The patient is a congested cough. He was unable to bring up much sputum. No reported chest pain. No hemoptysis. No pleurisy. No swelling lower extremities. He is known to have COPD. He is a chronic smoker. He has hypertension peripheral vascular disease with previous stenting in his lower extremities maintained on long-term anticoagulation with Xarelto. He also had a noted scalp mass on previous admissions in his head and further investigation with a CT scan of the chest showed evidence of a right hilar mass encasing the pulmonary artery and extending to the mediastinum and the patient also had pathologic mediastinal lymphadenopathy and the findings were highly suspicious for malignancy. Based on that, I performed a bronchoscopy and endobronchial ultrasound and transbronchial needle aspirate of station 7 lymph node was consistent with non- small cell lung cancer features of squamous cell carcinoma. Noted the patient also had a outpatient PET/CT that was done on 10/19/2024 showing abnormal osseous lesions involving the right frontal calvarium and the left anterior C1 ring involvement in addition to abnormal thoracic lymphadenopathy and right hilar uptake. MRI of the brain showed a right frontal enhancing calvarial destructive lesions. Based on those findings, the patient was referred to medical oncology. He completed palliative radiation therapy to the calvarial lesion and NGS and PD-L1 analysis was requested in addition to circulating tumor DNA analysis for targetable mutation. To my knowledge, the patient has not started systemic treatment yet. --Family has made patient DNR and is currently Comfort care Objective - Vital Signs Vital signs: Vital Signs Temp 99.4 F 11/24/24 07:50 Pulse 86 11/24/24 07:50 Resp 13 11/24/24 07:50 BP 132/75 11/22/24 12:48 Pulse Ox 95 11/22/24 12:48 FiO2 Intake & Output 11/23/24 11/24/24 11/24/24 18:59 06:59 18:59 Intake Total 237.566 177.00 21.75 Output Total 60 Balance 177.566 177.00 21.75 Intake: Intake, IV Titration 237.566 177.00 21.75 Amount Morphine Sulfate 100 mg 237.566 177.00 21.75 In Sodium Chloride 0.9% 90 ml @ 1 mls/hr IV .Q24H [facility] Rx#:[id number] Oral 0 Output: Urine 60 Uretheral (Albarran) 60 - Exam EYES: Normal reaction of pupils, equal size. NOSE: Clear with pink turbinates. THROAT: No erythema or exudates. NECK: No masses, no JVD. CHEST: No chest wall deformity. LUNGS: Equal air entry with bilateral wheeze, diminished. CVS: S1 and S2 normal with no audible murmur, irregular rhythm. ABDOMEN: No hepatosplenomegaly, normal bowel sounds, no guarding or rigidity. SPINE: No scoliosis or deformity SKIN: No rashes CENTRAL NERVOUS SYSTEM: No focal deficits, tone is normal in all 4 extremities. EXTREMITIES: There is no peripheral edema. No clubbing, no cyanosis. Perip heral pulses are intact. - Labs CBC & Chem 7: 11/22/24 07:25 11/22/24 07:25 Assessment and Plan Assessment: --Acute hypoxemic respiratory failure secondary to an acute COPD exacerbation with secondary shortness of breath. Chest x-ray is consistent with a right hilar mass and COPD. The patient is currently on 15 L of high flow oxygen plus a nonrebreather mask. --Metastatic squamous cell carcinoma of the lungs. The patient had a CT scan of the brain on October 03, 2024 that revealed no acute intracranial process. There was a 3.7 cm destructive lesion high right frontal calvarium. A PET scan from October 19, 2024 revealed abnormal osseous lesions involving the high right frontal calvarium and the left anterior C1 ring. There is abnormal thoracic lymph nodes including a right hilar mass or neoplasm. Bronchoscopy endobronchial ultrasound done on 10/25/2024 and biopsy of the subcarinal station 7 lymph node was consistent with squamous cell carcinoma, lung primary. Patient completed radiation therapy to his calvarium and systemic treatment has not been initiated yet pending circulating tumor DNA markers, PD-L1 and NGS analysis --Altered mental status with agitation and restlessness secondary to above, suspect terminal restlessness --Atrial fibrillation with rapid ventricular response, now on a Cardizem drip at 5 mg/h, anticoagulation with Xarelto. --Peripheral vascular disease with multiple stent placements, anticoagulated off Xarelto --Chronic obstructive pulmonary disease --Hyperlipidemia --Hypertension Poor overall functional performance based on the above-mentioned multiple jersey rbidities -Patient is currently DNR and comfort care
[2024-11-24 14:36] VITALS: PULSE 0; RESP 0
== END 2024-11-24 17:29 | disposition expired | DRG 190 ==
LOC: EC 13:10 → 4SSUR 15:13 → OBSVTOIN 15:13 → 4SSUR 16:41 → 3SCARD 21:09
PROVIDERS: ADMIT Family Medicine; ATTEND Family Medicine
DX: J44.1 Chronic obstructive pulmonary disease with (acute) exacerbation (principal); J96.01 Acute respiratory failure with hypoxia; C79.51 Secondary malignant neoplasm of bone; E87.20 Acidosis, unspecified; C77.1 Secondary and unspecified malignant neoplasm of intrathoracic lymph nodes; I48.3 Typical atrial flutter; Z51.5 Encounter for palliative care; Z66 Do not resuscitate; C34.01 Malignant neoplasm of right main bronchus; I10 Essential (primary) hypertension; I73.9 Peripheral vascular disease, unspecified; I65.29 Occlusion and stenosis of unspecified carotid artery; I42.9 Cardiomyopathy, unspecified; I48.0 Paroxysmal atrial fibrillation; I25.10 Atherosclerotic heart disease of native coronary artery without angina pectoris; R45.1 Restlessness and agitation; E83.52 Hypercalcemia; E78.5 Hyperlipidemia, unspecified; F17.210 Nicotine dependence, cigarettes, uncomplicated; F41.9 Anxiety disorder, unspecified; R49.0 Dysphonia; Z79.51 Long term (current) use of inhaled steroids; Z79.01 Long term (current) use of anticoagulants; Z79.899 Other long term (current) drug therapy; Z11.52 Encounter for screening for COVID-19; Z95.820 Peripheral vascular angioplasty status with implants and grafts; Z92.3 Personal history of irradiation
CPT/HCPCS: 36415; 71045; 71046; 80053; 83605; 83735; 83880; 85025; 85027; 85610; 85730; 87040; 87636; 93005; 94640; 94760; 96361; 96365; 96366; 96368; 96375; 96376; 99291